=== PATIENT | female | born 1970 | race Caucasian/White ===

== ENCOUNTER 2017-05-29 20:36 | Emergency (ER) | payer MEDICARE, MEDICAID ==
[2017-05-29] MEDS ORDERED: NS 0.9% 1000 ML* 1,000 ML IV ONE ×2 (22:31→23:34)
[2017-05-29] MEDS ORDERED: LORazepam INJ* 2 MG/ML 1 ML VIAL ONE (22:47)
[2017-05-29] MEDS ORDERED: LORazepam INJ* 2 MG/ML 1 ML VIAL IV PUSH ONE (22:47)
[2017-05-29] MEDS ORDERED: levETIRAcetam IV* 1,000 MG in NS 0.9% 100 ML* 100 ML IVPB SCH (23:00)
[2017-05-29 23:16] LABS: Hematocrit 40 % (35-47); Hemoglobin 12.8 g/dl (12.0-16.0); Mean Corpuscular HGB Conc 32 g/dl (31-36); Mean Corpuscular Hemoglobin 27 pg (27-31); Mean Corpuscular Volume 82 fL (80-97); Mean Platelet Volume 9 um3 (7.4-10.4); Red Blood Count 4.83 10^6/ul (4.0-5.4); Red Cell Distribution Width 16 % (10.5-15); White Blood Count 16.2 10^3/ul (3.5-10.8)
[2017-05-29 23:31] LABS: Albumin 3.8 g/dL (3.2-5.2); BUN/Creatinine Ratio 30.2 (8-20); Calcium 9.1 mg/dL (8.6-10.3); EGFR African American 71.2 (>60); EGFR Non-African American 55.3 (>60); Globulin 3.2 g/dL (2-4); Magnesium 2.3 mg/dL (1.9-2.7); Potassium 3.8 mmol/L (3.5-5.0); Total Bilirubin 0.2 mg/dL (0.2-1.0)
[2017-05-29] MEDS ORDERED: Albuterol/Ipratropium NEB.SOL* Albuterol 2.5 MG/Ipratropium 0.5 MG 3 ML INH ONE (23:46)
[2017-05-30 01:50] LABS: Urine Bacteria 1+ (Absent); Urine Bilirubin Negative (Negative); Urine Glucose Negative (Negative); Urine Nitrite Positive (Negative)
[2017-05-30] MEDS ORDERED: Levofloxacin 500 MG IVPREMIX(* 500 MG/100 ML BAG IVPB ONE (02:06)
--- NOTE | 2017-05-30 06:44 | ED ---
Bhavik Manzanares Thomas, scribed for Trini Robbins MD on 05/29/17 at 2345 . Neurological HPI - HPI Summary HPI Summary: The pt is a 46 y/o F presenting to the ED per rug shampooer c/o seizure at 19:30 today. The seizure lasted 6 minutes. The patient was shaking her tongue and she had change of color in her skin. The patient had a seizure in the waiting room and one in the room in the ED. At baseline, she does not walk or talk. She does eat. She does have a history of seizures with her last seizure in 1982. - History of Current Complaint Chief Complaint: EDSeizure Stated Complaint: SEIZURE Time Seen by Provider: 05/29/17 22:34 Hx Obtained From: Family/Rib Chopper Hx From Patient Unobtainable Due To: Other - mental status Onset/Duration: Started hours ago, Still Present Onset Severity: Moderate Current Severity: Moderate Neurological Deficit Location: Facial, RUE, LUE Pain Intensity: 0 Pain Scale Used: 0-10 Numeric Number of Episodes: 3 Syncope Context: Witnessed Frequency: Episodes x___ - 3 Aggravating: Nothing Alleviating: Other - Spontaneous - Allergy/Home Medications Allergies/Adverse Reactions: Allergies Allergy/AdvReac Type Severity Reaction Status Date / Time Adhesive Tape Allergy Rash Verified 05/29/17 20:57 Bee Pollen Allergy Rash Verified 05/29/17 20:57 PMH/Surg Hx/FS Hx/Imm Hx Previously Healthy: No Endocrine/Hematology History: Reports: Hx Thyroid Disease - hypothyroidism, Hx Anemia GI History: Reports: Hx Gastroesophageal Reflux Disease Musculoskeletal History: Reports: Hx Osteoporosis, Other Musculoskeletal History - hip dysplasia Neurological History: Reports: Hx Seizures, 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, Cerebral Palsy (Athetoid type) Psychiatric History: Reports: Other Psychiatric Issues/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 - Surgical History Surgery Procedure, Year, and Place: Left hip adductor surgery, Ocasio brent placement Infectious Disease History: No Infectious Disease History: Denies: Traveled Outside the [place] in Last 30 Days - Family History Known Family History: Negative: Respiratory Disease - Social History Lives: Senior Care Alcohol Use: None Substance Use Type: Reports: None Review of Systems Positive: Other - Shaking tongue Neurological: Other - Seizure All Other Systems Reviewed And Are Negative: Yes Physical Exam - Summary Physical Exam Summary: VITAL SIGNS: Reviewed. GENERAL: Patient is a well-developed and nourished female who is lying comfortable in the stretcher. Patient is not in any acute respiratory distress. She has profound mental retardation. During the examination, she began to have jerking and movement of her upper extremities and face. HEAD AND FACE: No signs of trauma. No ecchymosis, hematomas or skull depressions. No sinus tenderness. EYES: PERRLA, EOMI x 2, No injected conjunctiva, no nystagmus. EARS: Hearing grossly intact. Ear canals and tympanic membranes are within normal limits. MOUTH: Oropharynx within normal limits. NECK: Supple, trachea is midline, no adenopathy, no JVD, no carotid bruit, no c- spine tenderness, neck with full ROM. CHEST: Symmetric, no tenderness at palpation LUNGS: Clear to auscultation bilaterally. No wheezing or crackles. CVS: Regular rate and rhythm, S1 and S2 present, no murmurs or gallops appreciated. ABDOMEN: Soft, non-tender. Distended. No rebound no guarding, and no masses palpated. Bowel sounds are normal. EXTREMITIES: Her lower extremities are very atrophied. NEURO: She has profound mental retardation. During the examination, she began to have jerking and movement of her upper extremities and face. SKIN: Dry and warm Triage Information Reviewed: Yes Vital Signs On Initial Exam: Initial Vitals Temp Pulse Resp BP Pulse Ox 98.9 F 120 16 112/66 97 05/29/17 20:45 05/29/17 20:45 05/29/17 20:45 05/29/17 20:45 05/29/17 20:45 Vital Signs Reviewed: Yes Diagnostics - Vital Signs Vital Signs Temp Pulse Resp BP Pulse Ox 05/29/17 22:56 20 05/29/17 22:15 98.0 F 108 16 113/78 92 05/29/17 20:45 98.9 F 120 16 112/66 97 - Laboratory Lab Results: Lab Results 05/29/17 Range/Units 22:55 WBC 16.2 H (3.5-10.8) 10^3/ul RBC 4.83 (4.0-5.4) 10^6/ul Hgb 12.8 (12.0-16.0) g/dl Hct 40 (35-47) % MCV 82 (80-97) fL MCH 27 (27-31) pg MCHC 32 (31-36) g/dl RDW 16 H (10.5-15) % Plt Count 293 (150-450) 10^3/ul MPV 9 (7.4-10.4) um3 Neut % (Auto) 82.6 (38-83) % Lymph % (Auto) 10.7 L (25-47) % [place] % (Auto) 6.1 (1-9) % Eos % (Auto) 0.3 (0-6) % Baso % (Auto) 0.3 (0-2) % Absolute Neuts (auto) 13.4 H (1.5-7.7) 10^3/ul Absolute Lymphs (auto) 1.7 (1.0-4.8) 10^3/ul Absolute Monos (auto) 1.0 H (0-0.8) 10^3/ul Absolute Eos (auto) 0.1 (0-0.6) 10^3/ul Absolute Basos (auto) 0 (0-0.2) 10^3/ul Absolute Nucleated RBC 0.01 10^3/ul Nucleated RBC % 0 Result Diagrams: 05/29/17 22:55 05/29/17 22:55 Lab Statement: Any lab studies that have been ordered have been reviewed, and results considered in the medical decision making process. - Radiology CXR Xray Interpretation: No Acute Changes - No acute process, pending official report. Radiology Interpretation Completed By: ED Physician - CT CT Head CT Interpretation: No Acute Changes - 1. 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 These findings appear developmental/congenital. 2. No definitive evidence of acute intracranical hemorrhage, intracranial mass effect, or depressed calvarial fracture is appreciated. Pending official report. Dr. Robbins reviewed this report. CT Interpretation Completed By: ED Physician - EKG 00:32 Cardiac Rate: Tachycardia EKG Rhythm: Sinus Tachycardia - 104 BPM EKG Interpretation: Nml axis. Nml intervals. No ischemic changes. Course/Dx - Course Assessment/Plan: The patient will be discharged home. She has been instructed to follow up with her neurologist as soon as possible and her primary care physician in three days. I prescribed her Keppra. - Diagnoses Provider Diagnoses: Seizure disorder Discharge - Discharge Plan Condition: Stable Disposition: HOME Prescriptions: Levetiracetam [Keppra 500] 500 mg PO BID #60 tab Levetiracetam [Keppra 500] 500 mg PO BID #2 tab Levetiracetam [Keppra 500] 500 mg PO BID #2 tab Levetiracetam [Keppra 500] 500 mg PO BID #60 tab Patient Education Materials: Recurrent Seizures in Adults (ED) Referrals: Elli Gomez NP [Primary Care Provider] - 3 Days Additional Instructions: Follow up with your neurologist as soon as possible. Follow up with your primary care physician in 3-5 days. Take Keppra as prescribed. Return to the emergency department if any new or worsening symptoms occur. The documentation as recorded by the Bhavik dixon Thomas accurately reflects the service I personally performed and the decisions made by Rosendo mathews Abdul, MD.
[2017-05-30] MEDS ORDERED: levETIRAcetam TAB* 500 MG ONE ×2 (06:58→06:59)
[2017-05-30] MEDS ORDERED: levETIRAcetam TAB* 500 MG PO ONE (07:02)
[2017-05-30 07:11] VITALS: BP 96/68
--- NOTE | 2017-05-30 08:34 | RAD ---
Indication: Seizure. Comparison: No relevant prior exams available on the [facility] PACS for comparison. Technique: Noncontrast CT vertex of skull through foramen magnum. 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 Suggestion of decreased gyration at the frontal lobes. Negative for ventriculomegaly. Negative for sulcal effacement. Patent basal cisterns. Negative for holland matter white matter obscuration, intra or extra-axial hemorrhage, or mass effect. Mild symmetric prominence of the frontal subarachnoid spaces. Unremarkable orbital contents. No calvarial or skull base fracture or focal lesion evident. Asymmetric calvarium with flattening along the RIGHT parieto-occipital aspect. Negative for scalp hematoma. IMPRESSION: 1. No acute intracranial abnormality. 2. Agenesis of the corpus callosum. Suggestion of decreased gyration at the frontal lobes.
[2017-05-30] MEDS ORDERED: levETIRAcetam TAB* 500 MG PO SCH (09:00)
--- NOTE | 2017-05-30 09:09 | RAD ---
Indication: Seizure. Profound MR. Cerebral palsy. Comparison: February 04, 2013 Technique: Upright AP 2238 hours Report: Suboptimal inspiration with mild elevation of the RIGHT hemidiaphragm. Associated crowding of the pulmonary markings and mild subsegmental atelectasis at the mid to lower RIGHT lung zone. Grossly clear pleural spaces. Negative for pneumothorax. The heart, pulmonary vasculature, and mediastinal contours are unremarkable. Spinal fixation rods. No fracture visualized. IMPRESSION: Subsegmental atelectasis. No compelling evidence for aspiration pneumonia or other acute intrathoracic process.
== END 2017-05-30 07:11 | disposition home or self-care (01) ==
LOC: ED 20:36
DX: R56.9 Unspecified convulsions (principal)
CPT/HCPCS: 36415; 70450; 71010; 80053; 81003; 81015; 82550; 83605; 83735; 85025; 85610; 85730; 87077; 87086; 87186; 93005; 94640; 96361; 96374; 99284; A9270-GY; J1956; J2060

== ENCOUNTER 2017-06-02 09:08 | Observation (INO) | payer MEDICARE, MEDICAID ==
[2017-06-02] MEDS ORDERED: NS 0.9% 1000 ML* 2,000 ML IV ONE (09:39)
[2017-06-02] MEDS ORDERED: cefTRIAXone(*) 1 GM in NS 0.9% 50 ML* 50 ML IVPB ONE (09:42)
[2017-06-02] MEDS ORDERED: cefTRIAXone(*) 1 GM ADVAN/BAG ONE (10:06)
[2017-06-02 10:20] LABS: Hematocrit 42 % (35-47); Hemoglobin 13.6 g/dl (12.0-16.0); Mean Corpuscular HGB Conc 32 g/dl (31-36); Mean Corpuscular Hemoglobin 26 pg (27-31); Mean Corpuscular Volume 82 fL (80-97); Mean Platelet Volume 9 um3 (7.4-10.4); Red Blood Count 5.15 10^6/ul (4.0-5.4); Red Cell Distribution Width 16 % (10.5-15); White Blood Count 10.1 10^3/ul (3.5-10.8)
[2017-06-02 10:28] LABS: Urine Bacteria 1+ (Absent); Urine Bilirubin Negative (Negative); Urine Glucose Negative (Negative); Urine Nitrite Negative (Negative)
--- NOTE | 2017-06-02 10:31 | RAD ---
Indication: Confusion, altered mental status. Single frontal view of the chest performed at 1007 hours was reviewed. Comparison is made with previous exam dated May 29, 2017. No mediastinal shift is noted. Heart is of normal size and configuration. Lung zendejas appear clear. IMPRESSION: NO ACTIVE CARDIOPULMONARY DISEASE IS NOTED.
[2017-06-02 10:35] LABS: ALT 22 U/L (7-52); AST 19 U/L (13-39); Albumin 3.7 g/dL (3.2-5.2); Alkaline Phosphatase 95 U/L (34-104); Ammonia 43 mol/L (16-53); Anion Gap 5 mmol/L (2-11); BUN/Creatinine Ratio 21.7 (8-20); Blood Urea Nitrogen 20 mg/dL (6-24); CO2 Carbon Dioxide 31 mmol/L (22-32); Calcium 9.9 mg/dL (8.6-10.3); Chloride 106 mmol/L (101-111); Creatine Kinase 102 U/L (10-223); EGFR African American 83.8 (>60); EGFR Non-African American 65.2 (>60); Globulin 3.4 g/dL (2-4); Glucose 96 mg/dL (70-100); Lipase 53 U/L (11.0-82.0); Magnesium 2.1 mg/dL (1.9-2.7); Potassium 4.2 mmol/L (3.5-5.0); Sodium 142 mmol/L (133-145); Total Protein 7.1 g/dL (6.4-8.9)
[2017-06-02 10:37] LABS: Troponin I 0.01 ng/mL (<0.04)
[2017-06-02 10:40] LABS: B Type Natriuretic Peptide 52 pg/mL
[2017-06-02 10:41] LABS: Acetaminophen < 15 mcg/mL; Alcohol < 10 mg/dL (<10); Salicylate < 2.50 mg/dL (<30)
--- NOTE | 2017-06-02 10:46 | RAD ---
INDICATION: Altered mental status in 46-year-old mentally handicapped patient. COMPARISON: CT brain May 29, 2017 TECHNIQUE: Noncontrast axial source images were acquired from the skull base to the vertex. Images were repeated due to motion artifact but there is significant motion. FINDINGS: This is a nondiagnostic examination due to motion artifact. The scan will have to be repeated if clinically necessary. IMPRESSION: Nondiagnostic examination.
[2017-06-02 10:56] LABS: TSH (Thyroid Stimulating Horm) 6.64 mcIU/mL (0.34-5.60)
--- NOTE | 2017-06-02 12:47 | ED ---
Progress - Progress Note Progress Note: Pt's urine cx reveals >100,000 e. coli. She was seen and dx'd w/ seizure. Keppra rx'd - no anbx per chart. Spoke w/ pt's father (listed as person to notify as primary number leads to automated message w/o option to leave message) . Father, Karlos, reports pt is in ED today and no anbx was sent to pharmacy on 03/2017. Pt is currently being seen by Dr. Rodas who has reviewed these results and administered ceftriaxone to the pt. She is being admitted to hospital service. Course/Dx - Diagnoses Provider Diagnoses: UTI (urinary tract infection)
--- NOTE | 2017-06-02 13:07 | ED ---
Ely Manzanares Edward, scribed for Joseph Rodas MD on 06/02/17 at 0931 . Altered Mental Status - HPI Summary HPI Summary: 46 y/o female BIBA c/o AMS for the past several days. Pt was seen in the ED several days ago s/p seizure, dx UTI but the pt has not started her abx. Today the pt was not responsive. Denies fever. Pt has had difficulty eating and taking medications. Pt usually uses a wheelchair to get around. LEVEL 5 CAVEAT DUE TO AMS - History Of Current Complaint Chief Complaint: EDAltMentalStatus Stated Complaint: AMS Hx Obtained From: Family/Battery Repairer Timing: Constant Character: Responsiveness - Unresponsiveness Aggravating Factor(s): Nothing Alleviating Factor(s): Nothing - Allergies/Home Medications Allergies/Adverse Reactions: Allergies Allergy/AdvReac Type Severity Reaction Status Date / Time Adhesive Tape Allergy Rash Verified 06/02/17 09:24 Bee Pollen Allergy Rash Verified 06/02/17 09:24 Home Medications: Home Medications Acetaminophen SUPP* [Tylenol Supp*] 650 mg MT Q6H PRN 06/02/17 [History Confirmed 06/02/17] Acetaminophen TAB* [Tylenol TAB*] 650 mg PO Q4H PRN 06/02/17 [History Confirmed 06/02/17] Alum & Mag Hydrox-Simethicone [Antacid M 200-200-20 mg/5Ml] 30 ml PO Q4H PRN [History Confirmed 06/02/17] Bacitracin OINTMENT* 1 applic TOPICAL TID PRN 06/02/17 [History Confirmed ] Calcium Citrate-Vitamin D [Calcium Citrate + D3 Max 315-250 mg-Unit] 2 tab PO BID 06/02/17 [History Confirmed 06/02/17] Cetirizine* [ZyrTEC 10 MG TAB*] 10 mg PO DAILY 06/02/17 [History Confirmed 06/02] Chlorhexidine MOUTHWASH 0.12%* [Peridex Mouth Wash 0.12%*] 5 ml SWISH SPIT BID 06/02/17 [History Confirmed 06/02/17] Cholecalciferol TAB* [Vitamin D TAB*] 800 unit PO DAILY 06/02/17 [History Confirmed 06/02/17] Diazepam TAB(*) [Valium TAB(*)] 10 mg PO ONCE PRN 06/02/17 [History Confirmed ] Glycerin ADULT SUPP* 1 supp MT .[id number] PRN 06/02/17 [History Confirmed 06/02] GuaiFENesin DM sugar free* [Robitussin DM sugar free*] 5 ml PO TID PRN 06/02/17 [History Confirmed 06/02/17] Lactase Enzyme (NF) [Lactase Enzyme] 3,000 unit PO QID 06/02/17 [History Confirmed 06/02/17] Levothyroxine TAB* [Synthroid TAB*] 150 mcg PO DAILY 06/02/17 [History Confirmed 06/02/17] Nystatin CREAM* [Nystatin Cream*] 1 applic TOPICAL BID PRN 06/02/17 [History Confirmed 06/02/17] Omeprazole CAP* [Prilosec CAP* 20 MG] 20 mg PO DAILY 06/02/17 [History Confirmed 06/02/17] Polyethylene Glycol 3350* [Miralax*] 17 gm PO BID 06/02/17 [History Confirmed ] Pseudoephedrine TAB* [Sudafed TAB*] 30 mg PO BID PRN 06/02/17 [History Confirmed 06/02/17] Saline NASAL SPRAY 0.65%* [Sodium Chloride 0.65% Nasal [place]*] 1 spray BOTH NARES Q4H PRN 06/02/17 [History Confirmed 06/02/17] Simethicone TAB* [Mylicon TAB*] 160 mg PO ACHS PRN MDD 8 tabs 06/02/17 [History Confirmed 06/02/17] Sodium Phosphate ADULT ENEMA* [Fleet Enema*] 1 enema MT .[id number] PRN [History Confirmed 06/02/17] Triazolam TAB* [Halcion TAB*] 0.25 mg PO ONCE 06/02/17 [History Confirmed ] Zinc Oxide 16% PASTE* [Gabe's Butt paste] 1 applic TOPICAL TID PRN [History Confirmed 06/02/17] diPHENhydraMINE PO* [Benadryl PO 25 MG TAB*] 25 mg PO Q6H PRN 06/02/17 [History Confirmed 06/02/17] PMH/Surg Hx/FS Hx/Imm Hx Previously Healthy: No Endocrine/Hematology History: Reports: Hx Thyroid Disease - hypothyroidism, Hx Anemia GI History: Reports: Hx Gastroesophageal Reflux Disease Musculoskeletal History: Reports: Hx Osteoporosis, Other Musculoskeletal History - hip dysplasia Neurological History: Reports: Hx Seizures, 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, Cerebral Palsy (Athetoid type) Psychiatric History: Reports: Other Psychiatric Issues/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 - Surgical History Surgery Procedure, Year, and Place: Left hip adductor surgery, Ocasio brent placement Infectious Disease History: No Infectious Disease History: Denies: Traveled Outside the [place] in Last 30 Days - Family History Known Family History: Negative: Respiratory Disease - Social History Alcohol Use: None Substance Use Type: Reports: None Smoking Status (MU): Never Smoked Tobacco Review of Systems - ROS Summary Review of Systems Summary: LEVEL 5 CAVEAT DUE TO AMS Neurological: Other - AMS All Other Systems Reviewed And Are Negative: No Physical Exam - Summary Physical Exam Summary: LEVEL 5 CAVEAT DUE TO AMS Triage Information Reviewed: Yes Vital Signs On Initial Exam: Initial Vitals Temp Pulse Resp BP Pulse Ox 98.4 F 101 18 104/69 96 06/02/17 09:18 06/02/17 09:18 06/02/17 09:18 06/02/17 09:18 06/02/17 09:18 Vital Signs Reviewed: Yes Appearance: Positive: Well-Appearing, No Pain Distress Skin: Positive: Warm, Skin Color Reflects Adequate Perfusion, Dry Head/Face: Positive: Normal Head/Face Inspection Eyes: Positive: EOMI, JEANNA ENT: Positive: Normal ENT inspection Dental: Positive: Other - Oral mucosa dry Neck: Positive: Supple, Nontender Respiratory/Lung Sounds: Positive: Clear to Auscultation, Breath Sounds Present Cardiovascular: Positive: Tachycardia Abdomen Description: Positive: Nontender, Soft Bowel Sounds: Positive: Present Musculoskeletal: Positive: Normal, Strength/ROM Intact Neurological: Positive: Sensory/Motor Intact, Alert, Oriented to Person Place, Time, Other - Arouses to voice. Moving all extremities. Psychiatric: Positive: Affect/Mood Appropriate - [place] Coma Scale Best Eye Response: 3 - To Speech Best Motor Response: 5 - Purposeful Movement Best Verbal Response: 1 - None - Pt baseline is nonverbal Coma Scale Total: 10 Diagnostics - Vital Signs Vital Signs Temp Pulse Resp BP Pulse Ox 06/02/17 09:24 97 94 06/02/17 09:18 98.4 F 101 18 104/69 96 - Laboratory Lab Results: Lab Results 06/02/17 06/02/17 06/02/17 Range/Units 10:00 10:00 10:00 WBC 10.1 (3.5-10.8) 10^3/ul RBC 5.15 (4.0-5.4) 10^6/ul Hgb 13.6 (12.0-16.0) g/dl Hct 42 (35-47) % MCV 82 (80-97) fL MCH 26 L (27-31) pg MCHC 32 (31-36) g/dl RDW 16 H (10.5-15) % Plt Count 288 (150-450) 10^3/ul MPV 9 (7.4-10.4) um3 Neut % (Auto) 57.4 (38-83) % Lymph % (Auto) 30.0 (25-47) % [place] % (Auto) 9.2 H (1-9) % Eos % (Auto) 3.0 (0-6) % Baso % (Auto) 0.4 (0-2) % Absolute Neuts (auto) 5.8 (1.5-7.7) 10^3/ul Absolute Lymphs (auto) 3.0 (1.0-4.8) 10^3/ul Absolute Monos (auto) 0.9 H (0-0.8) 10^3/ul Absolute Eos (auto) 0.3 (0-0.6) 10^3/ul Absolute Basos (auto) 0 (0-0.2) 10^3/ul Absolute Nucleated RBC 0 10^3/ul Nucleated RBC % 0 INR (Anticoag Therapy) (0.77-1.02) APTT (26.0-36.3) seconds Sodium 142 (133-145) mmol/L Potassium 4.2 (3.5-5.0) mmol/L Chloride 106 (101-111) mmol/L Carbon Dioxide 31 (22-32) mmol/L Anion Gap 5 (2-11) mmol/L BUN 20 (6-24) mg/dL Creatinine 0.92 (0.51-0.95) mg/dL Est GFR ( Amer) 83.8 (>60) Est GFR (Non-Af Amer) 65.2 (>60) BUN/Creatinine Ratio 21.7 H (8-20) Glucose 96 (70-100) mg/dL Lactic Acid (0.5-2.0) mmol/L Calcium 9.9 (8.6-10.3) mg/dL Magnesium 2.1 (1.9-2.7) mg/dL Total Bilirubin 0.30 (0.2-1.0) mg/dL AST 19 (13-39) U/L ALT 22 (7-52) U/L Alkaline Phosphatase 95 (34-104) U/L Ammonia 43 (16-53) mol/L Total Creatine Kinase 102 (10-223) U/L CK-MB (CK-2) 1.5 (0.6-6.3) ng/mL Troponin I 0.01 (<0.04) ng/mL C-Reactive Protein 3.90 (< 5.00) mg/L B-Natriuretic Peptide 52 ( - 100) pg/mL Total Protein 7.1 (6.4-8.9) g/dL Albumin 3.7 (3.2-5.2) g/dL Globulin 3.4 (2-4) g/dL Albumin/Globulin Ratio 1.1 (1-3) Lipase 53 (11.0-82.0) U/L TSH 6.64 H (0.34-5.60) mcIU/mL Urine Color Urine Appearance Urine pH (5-9) Ur Specific [place] (1.010-1.030) Urine Protein (Negative) Urine Ketones (Negative) Urine Blood (Negative) Urine Nitrate (Negative) Urine Bilirubin (Negative) Urine Urobilinogen (Negative) Ur Leukocyte Esterase (Negative) Urine WBC (Auto) (Absent) Urine RBC (Auto) (Absent) Urine Bacteria (Absent) Urine Glucose (Negative) Salicylates < 2.50 (<30) mg/dL Acetaminophen < 15 mcg/mL Serum Alcohol < 10 (<10) mg/dL 06/02/17 06/02/17 06/02/17 Range/Units 10:00 10:00 10:00 WBC (3.5-10.8) 10^3/ul RBC (4.0-5.4) 10^6/ul Hgb (12.0-16.0) g/dl Hct (35-47) % MCV (80-97) fL MCH (27-31) pg MCHC (31-36) g/dl RDW (10.5-15) % Plt Count (150-450) 10^3/ul MPV (7.4-10.4) um3 Neut % (Auto) (38-83) % Lymph % (Auto) (25-47) % [place] % (Auto) (1-9) % Eos % (Auto) (0-6) % Baso % (Auto) (0-2) % Absolute Neuts (auto) (1.5-7.7) 10^3/ul Absolute Lymphs (auto) (1.0-4.8) 10^3/ul Absolute Monos (auto) (0-0.8) 10^3/ul Absolute Eos (auto) (0-0.6) 10^3/ul Absolute Basos (auto) (0-0.2) 10^3/ul Absolute Nucleated RBC 10^3/ul Nucleated RBC % INR (Anticoag Therapy) 0.98 (0.77-1.02) APTT 31.7 (26.0-36.3) seconds Sodium (133-145) mmol/L Potassium (3.5-5.0) mmol/L Chloride (101-111) mmol/L Carbon Dioxide (22-32) mmol/L Anion Gap (2-11) mmol/L BUN (6-24) mg/dL Creatinine (0.51-0.95) mg/dL Est GFR ( Amer) (>60) Est GFR (Non-Af Amer) (>60) BUN/Creatinine Ratio (8-20) Glucose (70-100) mg/dL Lactic Acid 1.4 (0.5-2.0) mmol/L Calcium (8.6-10.3) mg/dL Magnesium (1.9-2.7) mg/dL Total Bilirubin (0.2-1.0) mg/dL AST (13-39) U/L ALT (7-52) U/L Alkaline Phosphatase (34-104) U/L Ammonia (16-53) mol/L Total Creatine Kinase (10-223) U/L CK-MB (CK-2) (0.6-6.3) ng/mL Troponin I (<0.04) ng/mL C-Reactive Protein (< 5.00) mg/L B-Natriuretic Peptide ( - 100) pg/mL Total Protein (6.4-8.9) g/dL Albumin (3.2-5.2) g/dL Globulin (2-4) g/dL Albumin/Globulin Ratio (1-3) Lipase (11.0-82.0) U/L TSH (0.34-5.60) mcIU/mL Urine Color Yellow Urine Appearance Cloudy Urine pH 7.0 (5-9) Ur Specific [place] 1.013 (1.010-1.030) Urine Protein Negative (Negative) Urine Ketones Negative (Negative) Urine Blood 2+ H (Negative) Urine Nitrate Negative (Negative) Urine Bilirubin Negative (Negative) Urine Urobilinogen Negative (Negative) Ur Leukocyte Esterase 3+ H (Negative) Urine WBC (Auto) 3+(>20/hpf) H (Absent) Urine RBC (Auto) 3+(>10/hpf) H (Absent) Urine Bacteria 1+ H (Absent) Urine Glucose Negative (Negative) Salicylates (<30) mg/dL Acetaminophen mcg/mL Serum Alcohol (<10) mg/dL Result Diagrams: 06/02/17 10:00 06/02/17 10:00 Lab Statement: Any lab studies that have been ordered have been reviewed, and results considered in the medical decision making process. - Radiology CXR Xray Interpretation: No Acute Changes - NO ACTIVE CARDIOPULMONARY DISEASE IS NOTED. Radiology Interpretation Completed By: Radiologist - ED PHYSICIAN REVIEWS AND AGREES - CT BRAIN CT CT Interpretation: No Acute Changes - Nondiagnostic examination. CT Interpretation Completed By: Radiologist - ED PHYSICIAN REVIEWS AND AGREES - EKG 1 EKG Interpretation: 10:08 - SR @ [address] No ectopy. Re-Evaluation - Re-Evaluation 1 Re-Evaluation Time: 11:30 Change: Improved - Slightly more alert Comment: Reassess pt, discuss test results Altered Mental Statu Course/Dx - Course Course Of Treatment: ADMIT HOSPITALIST. CRITICAL CARE TIME LESS THAN 30 MINUTES - Diagnoses Discharge Diagnoses: UTI (urinary tract infection), Altered mental state, Seizure - Provider Notifications Discussed Care Of Patient With: Clifford Moore Time Discussed With Above Provider: 11:50 Instructed by Provider To: Admit As Inpatient Discharge - Discharge Plan Condition: Stable Disposition: ADMITTED TO [facility] Referrals: Elli Gomez, [place] ATTENDANT [Primary Care Provider] - The documentation as recorded by the Ely dixon Edward accurately reflects the service I personally performed and the decisions made by me, Joseph Rodas MD.
[2017-06-02] MEDS ORDERED: diPHENhydraMINE PO* 25 MG PO PRN (13:35)
[2017-06-02] MEDS ORDERED: Al Hydrox/Mg Hydrox/Simet LIQ* 30 ML UDC PO PRN (13:35)
[2017-06-02] MEDS ORDERED: Saline NASAL SPRAY 0.65%* BTL BOTH NARES PRN (13:35)
[2017-06-02] MEDS ORDERED: Acetaminophen TAB* 325 MG PO PRN (13:35)
[2017-06-02] MEDS ORDERED: Diazepam TAB(*) 5 MG PO PRN (13:35)
--- NOTE | 2017-06-02 13:48 | ADMNOTE ---
Subjective Date of Service: 06/02/17 Interval History: ADMISSION HISTORY AND PHYSICAL EXAM: Allergies Allergy/AdvReac Type Severity Reaction Status Date / Time Adhesive Tape Allergy Rash Verified 06/02/17 09:24 Bee Pollen Allergy Rash Verified 06/02/17 09:24 Current Medications Home Medications Medication Instructions Recorded Confirmed Type Acetaminophen SUPP* [Tylenol Supp*] 650 mg ME Q6H PRN 06/02/17 06/02/17 History Acetaminophen TAB* [Tylenol TAB*] 650 mg PO Q4H PRN 06/02/17 06/02/17 History Alum & Mag Hydrox-Simethicone 30 ml PO Q4H PRN 06/02/17 06/02/17 History [Antacid M 200-200-20 mg/5Ml] Bacitracin OINTMENT* 1 applic TOPICAL TID PRN 06/02/17 06/02/17 History Calcium Citrate-Vitamin D [Calcium 2 tab PO BID 06/02/17 06/02/17 History Citrate + D3 Max 315-250 mg-Unit] Cetirizine* [ZyrTEC 10 MG TAB*] 10 mg PO DAILY 06/02/17 06/02/17 History Chlorhexidine MOUTHWASH 0.12%* 5 ml SWISH SPIT BID 06/02/17 06/02/17 History [Peridex Mouth Wash 0.12%*] Cholecalciferol TAB* [Vitamin D 800 unit PO DAILY 06/02/17 06/02/17 History TAB*] Diazepam TAB(*) [Valium TAB(*)] 10 mg PO ONCE PRN 06/02/17 06/02/17 History Glycerin ADULT SUPP* 1 supp ME .[id number] PRN 06/02/17 06/02/17 History GuaiFENesin DM sugar free* 5 ml PO TID PRN 06/02/17 06/02/17 History [Robitussin DM sugar free*] Lactase Enzyme (NF) [Lactase 3,000 unit PO QID 06/02/17 06/02/17 History Enzyme] Levothyroxine TAB* [Synthroid TAB*] 150 mcg PO DAILY 06/02/17 06/02/17 History Nystatin CREAM* [Nystatin Cream*] 1 applic TOPICAL BID PRN 06/02/17 06/02/17 History Omeprazole CAP* [Prilosec CAP* 20 20 mg PO DAILY 06/02/17 06/02/17 History MG] Polyethylene Glycol 3350* 17 gm PO BID 06/02/17 06/02/17 History [Miralax*] Pseudoephedrine TAB* [Sudafed TAB*] 30 mg PO BID PRN 06/02/17 06/02/17 History Saline NASAL SPRAY 0.65%* [Sodium 1 spray BOTH NARES Q4H PRN 06/02/17 06/02/17 History Chloride 0.65% Nasal [place]*] Simethicone TAB* [Mylicon TAB*] 160 mg PO ACHS PRN MDD 8 tabs 06/02/17 06/02/17 History Sodium Phosphate ADULT ENEMA* 1 enema ME .[id number] PRN 06/02/17 06/02/17 History [Fleet Enema*] Triazolam TAB* [Halcion TAB*] 0.25 mg PO ONCE 06/02/17 06/02/17 History Zinc Oxide 16% PASTE* 1 applic TOPICAL TID PRN 06/02/17 06/02/17 History [Gabe's Butt paste] diPHENhydraMINE PO* [Benadryl PO 25 mg PO Q6H PRN 06/02/17 06/02/17 History 25 MG TAB*] HPI: The patient was seen in the ED 05/29/17 for a seizure and started on levetiracetam 500 mg bid. She took it through last night. This AM she was not acting her usual self, kept her eyes closed and refused food or medications. She is non-verbal. Family History: Findings - unknown. Social History: Findings - Resident of [facility]. No alcohol or tobacco use. SDM is her mother. Past Medical History: Findings - Seizure also in 1982. Occ UTI's. Review of Systems - Review of Systems General Comments: Pt non-verbal. Two aides present and gave ROS as best they knew. Constitutional Symptoms: Negative: Weight Gain, Weight Loss, Weakness, Fatigue, Fever, Night Sweats, Unexplained Falls, Other Dermatology: Positive: Normal HEENT: Positive: Normal Eyes: Positive: Normal Thyroid: Positive: Primary Hypothyroidism Pulmonary: Positive: Normal Cardiology: Positive: Normal Gastroenterology: Positive: Normal Genital - Urinary: Positive: Normal Musculoskeletal: Negative: Joint Pain, Joint Stiffness, Arthritis, Osteoporosis, Low Back Pain , Sciatica, Joint Deformities, Kyphoscoliosis, Other Endocrinology: Positive: Thyroid Problems Hematologic/Lymphatic: Negative: Anemia, Easy Brusing, Hx Leukemia, Hx Lymphoma, Use of Anticoagulant, Use of Antiplatelet Drugs, Other Neurology: Positive: Hx of Seizures, Other - MR Psychiatry: Positive: Normal Allergic/Immunologic: Positive: Hx Seasonal Objective Active Medications: Acetaminophen (Tylenol Tab*) 650 mg PO Q4H PRN PRN Reason: FEVER/PAIN Al Hydrox/Mg Hydrox/Simethicone (Maalox Plus*) 30 ml PO Q4H PRN PRN Reason: INDIGESTION Cefuroxime Axetil () 500 mg PO BID GRETA Chlorhexidine Gluconate (Peridex Mouth Wash 0.12%*) 5 ml SWISH SPIT BID GRETA Cholecalciferol (Vitamin D Tab*) 800 unit PO DAILY GRETA Diazepam (Valium Tab(*)) 10 mg PO ONCE PRN PRN Reason: PER PROTOCOL Diphenhydramine HCl (Benadryl Po*) 25 mg PO Q6H PRN PRN Reason: ITCHING Levetiracetam (Keppra Tab*) 250 mg PO BID GRETA Levothyroxine Sodium (Synthroid Tab*) 150 mcg PO DAILY GRETA Omeprazole (Prilosec Cap*) 20 mg PO DAILY GRETA Polyethylene Glycol/Electrolytes (Miralax*) 17 gm PO BID GRETA Sodium Chloride (Sodium Chloride 0.65% Nasal [place]*) 1 spray BOTH NARES Q4H PRN PRN Reason: CONGESTION Vital Signs - 8 hr 06/02/17 06/02/17 06/02/17 12:04 12:30 13:00 Pulse Rate 114 99 105 Respiratory Rate Blood Pressure 138/92 145/124 (mmHg) O2 Sat by Pulse 97 95 94 Oximetry 06/02/17 13:01 Pulse Rate 106 Respiratory 18 Rate Blood Pressure 138/92 (mmHg) O2 Sat by Pulse 95 Oximetry Oxygen Devices in Use Now: None Appearance: Alert, supine on ED stretcher. Eyes open, frequent mouth and tongue movements. Looks comfortable. Eyes: No Scleral Icterus Neck: NL Appearance and Movements; NL JVP, No Thyroid Enlargement, Masses Respiratory: Symmetrical Chest Expansion and Respiratory Effort, Clear to Auscultation, Clear to Percussion Cardiovascular: NL Sounds; No Murmurs; No JVD, RRR, No Edema, - Abdominal: NL Sounds; No Tenderness; No Distention, No Hepatosplenomegaly, - Extremities: No Edema, No Clubbing, Cyanosis, - Skin: No Rash or Ulcers, No Nodules or Sclerosis, - Neurological: NL Sensation, - - Eyes open, frequent mouth and tongue movements. No signs of verbal comprehension. No tremor. Result Diagrams: 06/02/17 10:00 06/02/17 10:00 Additional Lab and Data: Lab Results 06/02/17 06/02/17 06/02/17 Range/Units 10:00 10:00 10:00 WBC 10.1 (3.5-10.8) 10^3/ul RBC 5.15 (4.0-5.4) 10^6/ul Hgb 13.6 (12.0-16.0) g/dl Hct 42 (35-47) % MCV 82 (80-97) fL MCH 26 L (27-31) pg MCHC 32 (31-36) g/dl RDW 16 H (10.5-15) % Plt Count 288 (150-450) 10^3/ul MPV 9 (7.4-10.4) um3 Neut % (Auto) 57.4 (38-83) % Lymph % (Auto) 30.0 (25-47) % Republic % (Auto) 9.2 H (1-9) % Eos % (Auto) 3.0 (0-6) % Baso % (Auto) 0.4 (0-2) % Absolute Neuts (auto) 5.8 (1.5-7.7) 10^3/ul Absolute Lymphs (auto) 3.0 (1.0-4.8) 10^3/ul Absolute Monos (auto) 0.9 H (0-0.8) 10^3/ul Absolute Eos (auto) 0.3 (0-0.6) 10^3/ul Absolute Basos (auto) 0 (0-0.2) 10^3/ul Absolute Nucleated RBC 0 10^3/ul Nucleated RBC % 0 INR (Anticoag Therapy) (0.77-1.02) APTT (26.0-36.3) seconds Sodium 142 (133-145) mmol/L Potassium 4.2 (3.5-5.0) mmol/L Chloride 106 (101-111) mmol/L Carbon Dioxide 31 (22-32) mmol/L Anion Gap 5 (2-11) mmol/L BUN 20 (6-24) mg/dL Creatinine 0.92 (0.51-0.95) mg/dL Est GFR ( Amer) 83.8 (>60) Est GFR (Non-Af Amer) 65.2 (>60) BUN/Creatinine Ratio 21.7 H (8-20) Glucose 96 (70-100) mg/dL Lactic Acid (0.5-2.0) mmol/L Calcium 9.9 (8.6-10.3) mg/dL Magnesium 2.1 (1.9-2.7) mg/dL Total Bilirubin 0.30 (0.2-1.0) mg/dL AST 19 (13-39) U/L ALT 22 (7-52) U/L Alkaline Phosphatase 95 (34-104) U/L Ammonia 43 (16-53) mol/L Total Creatine Kinase 102 (10-223) U/L CK-MB (CK-2) 1.5 (0.6-6.3) ng/mL Troponin I 0.01 (<0.04) ng/mL C-Reactive Protein 3.90 (< 5.00) mg/L B-Natriuretic Peptide 52 ( - 100) pg/mL Total Protein 7.1 (6.4-8.9) g/dL Albumin 3.7 (3.2-5.2) g/dL Globulin 3.4 (2-4) g/dL Albumin/Globulin Ratio 1.1 (1-3) Lipase 53 (11.0-82.0) U/L TSH 6.64 H (0.34-5.60) mcIU/mL Urine Color Urine Appearance Urine pH (5-9) Ur Specific [place] (1.010-1.030) Urine Protein (Negative) Urine Ketones (Negative) Urine Blood (Negative) Urine Nitrate (Negative) Urine Bilirubin (Negative) Urine Urobilinogen (Negative) Ur Leukocyte Esterase (Negative) Urine WBC (Auto) (Absent) Urine RBC (Auto) (Absent) Urine Bacteria (Absent) Urine Glucose (Negative) Salicylates < 2.50 (<30) mg/dL Acetaminophen < 15 mcg/mL Serum Alcohol < 10 (<10) mg/dL 06/02/17 06/02/17 06/02/17 Range/Units 10:00 10:00 10:00 WBC (3.5-10.8) 10^3/ul RBC (4.0-5.4) 10^6/ul Hgb (12.0-16.0) g/dl Hct (35-47) % MCV (80-97) fL MCH (27-31) pg MCHC (31-36) g/dl RDW (10.5-15) % Plt Count (150-450) 10^3/ul MPV (7.4-10.4) um3 Neut % (Auto) (38-83) % Lymph % (Auto) (25-47) % Republic % (Auto) (1-9) % Eos % (Auto) (0-6) % Baso % (Auto) (0-2) % Absolute Neuts (auto) (1.5-7.7) 10^3/ul Absolute Lymphs (auto) (1.0-4.8) 10^3/ul Absolute Monos (auto) (0-0.8) 10^3/ul Absolute Eos (auto) (0-0.6) 10^3/ul Absolute Basos (auto) (0-0.2) 10^3/ul Absolute Nucleated RBC 10^3/ul Nucleated RBC % INR (Anticoag Therapy) 0.98 (0.77-1.02) APTT 31.7 (26.0-36.3) seconds Sodium (133-145) mmol/L Potassium (3.5-5.0) mmol/L Chloride (101-111) mmol/L Carbon Dioxide (22-32) mmol/L Anion Gap (2-11) mmol/L BUN (6-24) mg/dL Creatinine (0.51-0.95) mg/dL Est GFR ( Amer) (>60) Est GFR (Non-Af Amer) (>60) BUN/Creatinine Ratio (8-20) Glucose (70-100) mg/dL Lactic Acid 1.4 (0.5-2.0) mmol/L Calcium (8.6-10.3) mg/dL Magnesium (1.9-2.7) mg/dL Total Bilirubin (0.2-1.0) mg/dL AST (13-39) U/L ALT (7-52) U/L Alkaline Phosphatase (34-104) U/L Ammonia (16-53) mol/L Total Creatine Kinase (10-223) U/L CK-MB (CK-2) (0.6-6.3) ng/mL Troponin I (<0.04) ng/mL C-Reactive Protein (< 5.00) mg/L B-Natriuretic Peptide ( - 100) pg/mL Total Protein (6.4-8.9) g/dL Albumin (3.2-5.2) g/dL Globulin (2-4) g/dL Albumin/Globulin Ratio (1-3) Lipase (11.0-82.0) U/L TSH (0.34-5.60) mcIU/mL Urine Color Yellow Urine Appearance Cloudy Urine pH 7.0 (5-9) Ur Specific [place] 1.013 (1.010-1.030) Urine Protein Negative (Negative) Urine Ketones Negative (Negative) Urine Blood 2+ H (Negative) Urine Nitrate Negative (Negative) Urine Bilirubin Negative (Negative) Urine Urobilinogen Negative (Negative) Ur Leukocyte Esterase 3+ H (Negative) Urine WBC (Auto) 3+(>20/hpf) H (Absent) Urine RBC (Auto) 3+(>10/hpf) H (Absent) Urine Bacteria 1+ H (Absent) Urine Glucose Negative (Negative) Salicylates (<30) mg/dL Acetaminophen mcg/mL Serum Alcohol (<10) mg/dL Microbiology and Other Data: Microbiology 06/02/17 12:10 Nasal Screen MRSA (PCR)([facility]) - Final Nasal Mrsa Negative Assess/Plan/Problems-Billing Assessment: - Patient Problems (1) Altered mental state Current Visit: Yes Status: Acute Code(s): R41.82 - ALTERED MENTAL STATUS, UNSPECIFIED SNOMED Code(s): 251133593 Comment: Two aides say she is now at her baseline. ? due to UTI and/or drug effect. Both possible causes to be addressed. (2) Seizure Current Visit: Yes Status: Acute Code(s): R56.9 - UNSPECIFIED CONVULSIONS SNOMED Code(s): 22189313 Comment: Reduce levetiracetam to 250 mg bid. (3) UTI (urinary tract infection) Current Visit: Yes Status: Acute Comment: She received 1 dose ceftri 1 gm in ED, start cefuroxime 500 mg bid AM 12. (4) Mental retardation Current Visit: Yes Status: Acute Code(s): F79 - UNSPECIFIED INTELLECTUAL DISABILITIES SNOMED Code(s): 81652172 Comment: Profound.
[2017-06-02] MEDS ORDERED: levETIRAcetam TAB* 500 MG PO SCH (14:00)
[2017-06-02] MEDS ORDERED: Levothyroxine INJ* 100 MCG/5 ML VIAL IV ONE (15:00)
[2017-06-02] MEDS ORDERED: Levothyroxine TAB* 150 MCG TAB PO SCH (15:00)
[2017-06-02] MEDS: Omeprazole CAP* 20 MG PO SCH (15:30)
[2017-06-02] MEDS: D5W 1/2 NS KCl 20 Meq 1000 ML* 1,000 ML IV SCH (19:29)
[2017-06-02] MEDS ORDERED: levETIRAcetam 500 MG IVPREMIX* 500 MG/100 ML BAG IV SCH (21:00)
[2017-06-02] MEDS: Chlorhexidine MOUTHWASH 0.12%* 15 ML UDC SWISH SPIT SCH (21:20)
[2017-06-02] MEDS: Polyethylene Glycol 3350* 17 GM PACKET PO SCH ×2 (21:21→23:16)
[2017-06-03] MEDS ORDERED: Levothyroxine INJ* 100 MCG/5 ML VIAL IV SCH (06:00)
[2017-06-03] MEDS ORDERED: cefTRIAXone(*) 1 GM in D5W 50 ML BAG* 50 ML IVPB SCH (09:00)
[2017-06-03] MEDS ORDERED: Cholecalciferol TAB* 400 UNIT PO SCH (09:00)
[2017-06-03] MEDS ORDERED: ceFUROXime TAB(*) 250 MG PO SCH (09:00)
[2017-06-03] MEDS: D5W 1/2 NS KCl 20 Meq 1000 ML* 1,000 ML IV SCH (09:40)
[2017-06-03] MEDS: Omeprazole CAP* 20 MG PO SCH (09:43)
[2017-06-03] MEDS: Chlorhexidine MOUTHWASH 0.12%* 15 ML UDC SWISH SPIT SCH (09:43)
[2017-06-03] MEDS: Polyethylene Glycol 3350* 17 GM PACKET PO SCH (09:44)
--- NOTE | 2017-06-03 10:30 | EEG ---
ELECTROENCEPHALOGRAPHY: DATE OF STUDY: 06/02/17 LOCATION: The patient is in the ER at the time of the recording. ORDERING PHYSICIAN: Dr. Moore. HISTORY: This is a 46-year-old woman who comes in from the [facility] with altered mental status. She reportedly had a seizure on Wednesday and has been lethargic and unresponsive since the seizure which occurred on 05/30/17. She has not had a seizure in about 30 years. EEG is requested to evaluate for epileptiform abnormalities. MEDICATIONS: Unknown. DESCRIPTION OF PROCEDURE: At the beginning of the recording, the background lacked the organization expected of the typical waking and sleep backgrounds. There were no evident anterior to posterior voltage nor frequency gradients and no clear posterior dominant rhythm. There was an evident interhemispheric asymmetry, which persisted throughout the study. Over the left, hemisphere, activity was low voltage and relatively indistinct. In contrast, the right hemisphere contained a greater degree of moderate voltage slowing, which was in the range of 2 to 6 Hz. As the recording progressed and the patient relaxed, intermittently over the left hemisphere, there was some evidence anterior to posterior voltage and frequency gradients which emerged. There was a slow posterior rhythm observed of approximately 5 Hz. During this time, there was a greater degree of slowing present over the right hemisphere, which was particularly evident in the right temporal region, where prominent delta range frequencies were noted. There were no epileptiform discharges noted. IMPRESSION: This is an abnormal waking and drowsy EEG. There is an interhemispheric asymmetry with a relatively indistinct background activity over the left hemisphere while the right hemisphere is characterized by a greater degree of slowing. There is generally a lack of the typical expected organization, but intermittently over the left hemisphere, there is a posterior rhythm of approximately 5 Hz which emerges. These findings are suggestive of a moderate, nonspecific, diffuse encephalopathy, which affects the right hemisphere and in particular the right temporal regions to a greater degree. There are no epileptiform abnormalities noted within this study. [id number]/[facility] #: [id number] [facility]AMPUSMigel
[2017-06-03 13:23] VITALS: BP 151/89
--- NOTE | 2017-06-03 23:10 | DS ---
CC: Elli Gomez NP * DISCHARGE SUMMARY: DATE OF ADMISSION: DATE OF DISCHARGE: 06/03/17 HOSPITAL COURSE: This 46-year-old woman presented for altered mental status. She had been seen in the emergency room, I believe, 05/29/17, after having a seizure with a history of last seizure being 1982. She was started on levetiracetam 500 mg b.i.d. A urine culture was sent, the report came back 04/06, it was positive for E. coli; however, due to some error it was not followed up and she was not treated for this. The E. coli was sensitive to ceftriaxone. The patient was treated here with intravenous fluids, ceftriaxone. I was concerned that possibly the levetiracetam had made her more altered as a side effect. The dose was currently halved to 500 mg once a day intravenously. It will be 250 mg b.i.d. as an outpatient. She will take 3 more days of cefuroxime 500 mg b.i.d. in liquid form. The levetiracetam was also ordered in liquid form. DISCHARGE DIAGNOSES: 1. Altered mental status, resolved. 2. History of seizures. 3. Urinary tract infection. 4. Profound mental retardation. DISCHARGE MEDICATIONS: 1. Levetiracetam liquid 250 mg b.i.d. 2. Cefuroxime suspension 500 mg b.i.d. for 3 days. 3. Zinc oxide 16% topical t.i.d. p.r.n. 4. Glycerin adult suppository rectally every 3 days p.r.n. 5. Sodium phosphate enema every 4 days p.r.n. 6. Nystatin cream b.i.d. p.r.n. 7. Diazepam 10 mg p.o. p.r.n. 8. Bacitracin ointment t.i.d. p.r.n. 9. Diphenhydramine 25 mg every 6 hours p.r.n. 10. Guaifenesin DM sugar free 5 mL t.i.d. p.r.n. 11. Antacid M 200-200-20, 30 mL every 4 hours p.r.n. 12. Simethicone 160 mg a.c. and h.s. p.r.n. 13. Pseudoephedrine 30 mg b.i.d. p.r.n. 14. Triazolam 0.25 mg daily. 15. Acetaminophen suppository 650 mg every 6 hours p.r.n. 16. Saline nasal spray 1 spray both nares every 4 hours p.r.n. 17. Omeprazole 20 mg daily. 18. Acetaminophen 650 mg every 4 hours p.r.n. 19. Lactase 3000 units four times a day. 20. Calcium with vitamin D 2 tabs b.i.d. 21. Chlorhexidine mouthwash 5 mL swish and spit b.i.d. 22. Polyethylene glycol 17 g b.i.d. 23. Cholecalciferol 800 units daily. 24. Levothyroxine 150 mcg daily. 25. Cetirizine 10 mg daily. [id number]/[facility] #: [id number] MTDD
== END 2017-06-03 14:40 | disposition home or self-care (01) ==
LOC: ED 09:08 → MEDTELE 12:01
PROVIDERS: ADMIT Internal Medicine; ATTEND Internal Medicine
DX: R41.82 Altered mental status, unspecified (principal); Z86.69 Personal history of other diseases of the nervous system and sense organs; N39.0 Urinary tract infection, site not specified; G93.40 Encephalopathy, unspecified; F73 Profound intellectual disabilities; Z79.899 Other long term (current) drug therapy; E03.9 Hypothyroidism, unspecified; D64.9 Anemia, unspecified; K21.9 Gastro-esophageal reflux disease without esophagitis; R56.9 Unspecified convulsions
CPT/HCPCS: 36415; 70450; 71010; 80053; 80177; 80320; 80329; 81003; 81015; 82140; 82550; 82553; 83605; 83690; 83735; 83880; 84443; 84484; 85025; 85610; 85730; 86140; 87040; 87077; 87086; 87186; 87641; 93005; 95819; 96374; 96375; 99284; A9270-GY; G0378; G0480; G8996-GN-CL; G8997-GN-CL; G8998-GN-CL; J0696

== ENCOUNTER 2018-08-24 22:12 | Emergency (ER) | payer MEDICARE, MEDICAID ==
[2018-08-24] MEDS ORDERED: Acetaminophen SUPP* 650 MG SUPP PR ONE (23:07)
[2018-08-24] MEDS ORDERED: NS 0.9% 1000 ML** 2,000 ML IV ONE (23:07)
[2018-08-24] MEDS ORDERED: Piperacillin/Tazobac ADVAN(*) 3.375 GM in NS 0.9% 100 ML* 100 ML IVPB ONE (23:12)
--- NOTE | 2018-08-24 23:14 | ED ---
GI/ HPI - HPI Summary HPI Summary: This patient is a 47 year old F brought in by ambulance to [facility] accompanied by her friend with a chief complaint of abdominal pain distension since this evening. Symptoms aggravated by nothing. Symptoms alleviated by nothing. Per patients home nurse, the patient has been lethargic and developed a fever since this morning. She was swabbed for the flu at her [place] [facility] [place] and her nurse reports that it was negative. The patients friend denies that the patient has had any emesis. Per the patients nurse, her last bowel movement was at 00:00 last night. Patient has hx of lactose intolerane and cerebral palsy. The patient resides at a [place] facility and is nonverbal and unable to ambulate at her usual baseline. - History of Current Complaint Chief Complaint: EDGeneral Time Seen by Provider: 08/24/18 22:32 Stated Complaint: ABD PROBLEMS PER EMS Hx Obtained From: Family/Oral And Maxillofacial Pathologist Onset/Duration: Started Hours Ago, Atraumatic, Still Present Timing: Constant Severity: Mild Current Severity: None Pain Intensity: 0 Location of Pain: Diffuse Associated Signs and Symptoms: Positive: Fever, Abdominal Pain, Other: - abd distension, lethargy. Negative: Vomiting Aggravating Factor(s): Nothing Alleviating Factor(s): Nothing - Additional Pertinent History Primary Care Physician: [id number] - Allergy/Home Medications Allergies/Adverse Reactions: Allergies Allergy/AdvReac Type Severity Reaction Status Date / Time Adhesive Tape Allergy Rash Verified 06/02/17 09:24 MS Bee Pollen [Bee Pollen] Allergy Rash Verified 06/02/17 09:24 PMH/Surg Hx/FS Hx/Imm Hx Endocrine/Hematology History: Reports: Hx Thyroid Disease, Hx Anemia GI History: Reports: Hx Gastroesophageal Reflux Disease Musculoskeletal History: Reports: Other Musculoskeletal History - hip dysplasia Denies: Hx Arthritis, Hx Osteoporosis Sensory History: Denies: Hx Contacts or Glasses, Hx Hearing Aid Opthamlomology History: Denies: Hx Contacts or Glasses Neurological History: Reports: Hx Seizures, 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, Cerebral Palsy (Athetoid type) Psychiatric History: Reports: Other Psychiatric Issues/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 - Surgical History Surgery Procedure, Year, and Place: Left hip adductor surgery, Ocasio brent placement Infectious Disease History: Unable to Obtain/Confirm Infectious Disease History: Denies: Traveled Outside the [place] in Last 30 Days - Family History Known Family History: Negative: Respiratory Disease - Social History Lives: [facility] Alcohol Use: None Substance Use Type: Reports: None Smoking Status (MU): Never Smoked Tobacco Review of Systems Positive: Fever, Other - lethargy Negative: Epistaxis Negative: Cough Positive: Abdominal Pain, Other - abd distension. Negative: Vomiting Negative: Rash All Other Systems Reviewed And Are Negative: Yes Physical Exam - Summary Physical Exam Summary: VITAL SIGNS: Reviewed. GENERAL: Patient is a FEMALE who is lying comfortable in the stretcher. Weight is small for her age. Patient is not in any acute respiratory distress. HEAD AND FACE: No signs of trauma. No ecchymosis, hematomas or skull depressions. No sinus tenderness. EYES: PERRLA, EOMI x 2, No injected conjunctiva, no nystagmus. EARS: Hearing grossly intact. Ear canals and tympanic membranes are within normal limits. MOUTH: Oropharynx within normal limits. NECK: Supple, trachea is midline, no adenopathy, no JVD, no carotid bruit, no c- spine tenderness, neck with full ROM. CHEST: Symmetric, no tenderness at palpation LUNGS: Clear to auscultation bilaterally. No wheezing or crackles. CVS: Regular rhythm, Tachycardia, S1 and S2 present, no murmurs or gallops appreciated. ABDOMEN: Soft, non-tender. No signs of distention. No rebound no guarding, and no masses palpated. Bowel sounds are hypoactive. EXTREMITIES: FROM in all major joints, no edema, no cyanosis or clubbing. NEURO: Alert and oriented x 3. No acute neurological deficits. Patient is nonverbal. SKIN: Dry and warm Triage Information Reviewed: Yes Vital Signs On Initial Exam: Initial Vitals Temp Pulse Resp BP Pulse Ox 99.2 F 128 18 103/71 96 08/24/18 22:16 08/24/18 22:16 08/24/18 22:16 08/24/18 22:16 08/24/18 22:16 Vital Signs Reviewed: Yes Diagnostics - Vital Signs Vital Signs Temp Pulse Resp BP Pulse Ox 08/24/18 22:27 118 103/71 74 08/24/18 22:25 139 94 08/24/18 22:16 99.2 F 128 18 103/71 96 - Laboratory Result Diagrams: 08/24/18 23:47 08/24/18 23:47 Lab Statement: Any lab studies that have been ordered have been reviewed, and results considered in the medical decision making process. - Radiology CXR Radiology Interpretation Completed By: ED Physician - Dr. Robbins, pending official report Summary of Radiographic Findings: Impression: no acute process - CT CT Abd/Pelvis CT Interpretation Completed By: Radiologist Summary of CT Findings: IMPRESSION: 1. Large bilateral renal stones. Moderate left hydronephrosis with a 16 x 12 mm. stone appearing lodged in the UPJ. No distal ureteral stone. There are moderate. infiltrative changes in the left perirenal fat and secondary infection is not. excluded. 2. Large amount of stool throughout the colon and rectum without small bowel. obstruction. 3. Possible wall thickening of the lower rectum and lower pelvic structures. with some soft tissue fullness seen at the perineum. This may be inflammation. or congestion. Difficult to exclude mass here currently. This may simply be. summation of normal structures and/or some degree of prolapse. 4. Limited retroperitoneal lymphadenopathy on the left possibly reactive but. nonspecific. 5. Tiny stones or debris layer dependently in the urinary bladder. 6. No other acute disease seen. Dr. Robbins has reviewed this report. GIGU Course/Dx - Course Course Of Treatment: This patient is a 47 year old F with hx lactose intolerance and cerebral palsy brought in by ambulance to [facility] with a chief complaint of abdominal pain distension since this evening. Per patients home nurse, the patient has been lethargic and developed a fever since this morning. The patient resides at a [place] and is nonverbal and unable to ambulate at her usual baseline. Bloodwork and UA obtained. CT Abd/Pelvis reveals, per radiologist, 1. Large bilateral renal stones. Moderate left hydronephrosis with a 16 x 12 mm stone appearing lodged in the UPJ. No distal ureteral stone. There are moderate infiltrative changes in the left perirenal fat and secondary infection is not excluded. 2. Large amount of stool throughout the colon and rectum without small bowel obstruction. 3. Possible wall thickening of the lower rectum and lower pelvic structures with some soft tissue fullness seen at the perineum. This may be inflammation or congestion. Difficult to exclude mass here currently. This may simply be summation of normal structures and/or some degree of prolapse. 4. Limited retroperitoneal lymphadenopathy on the left possibly reactive but nonspecific. 5. Tiny stones or debris layer dependently in the urinary bladder. 6. No other acute disease seen. ED physician has reviewed this radiology report. CXR reveals, per ED physician, no acute process. Bloodwork and UA obtained. In the ED course the patient was given IV fluids, Contrast, Tylenol, Vancomycin, and Zosyn. At 01:57, immediately after receiving the CT Abd/Pelvis report, discussed patient care with Dr. Grover, urologist, and he agreed to look at the CT Abd/Pelvis and he would call back. Discussed care with Dr. Grover again at 02:17 and he said the stone is too big and a nephrostomy tube needs to be placed, which we do not have at [facility]. Discussed patient care at 02:[address] Calzada, ED physician at [facility], and he agreed to make some phone calls and see where the patient can go. Discussed patient care at 03:[address] Ruiz, ICU physician at [facility], who accepted the patient to [facility] pending bed availability. At 03:20, the Transfer center called and said [facility] would not have a bed for at least 2 hours. Discussed patient care with Dr. Grover at 03:29 and he recommended admission through [facility]. Discussed patient care at 03:[address] Crews, ED physician at [facility], who accepted the patient to the [facility] ED. 120 minutes of critical care time. Dx left pyelonephritis, left ureteral stone, and urosepsis. Patient will be transferred via ALS transport to the [facility] ED. The patient is agreeable with this plan. - Diagnoses Provider Diagnoses: Pyelonephritis, Ureteral stone - Physician Notifications Discussed Care Of Patient With: Bear Grover Time Discussed With Above Provider: 01:57 Instructed by Provider To: Other - Discussed patient care with Dr. Grover, urologist, immediately after receiving CT results at 01:57. Dr. Grover agreed to review the CT. Discussed care with Dr. Grover again at 02:17 and he said the stone is too big and a nephrostomy tube needs to be placed, which we do not have at [facility]. Discussed patient care at 02:[address] Calzada, ED physician at [facility], and he agreed to make some phone calls and see where the patient can go. Discussed patient care at 03:[address] Ruiz, ICU physician at [facility], who accepted the patient to [facility] ICU pending bed availability. At 03:20, the Transfer center called and said [facility] would not have a bed for at least 2 hours. Discussed patient care with Dr. Grover at 03:29 and he recommended admission through [facility]. Discussed patient care at 03:[address] Crews, ED physician at [facility], who accepted the patient to the [facility] ED. - Critical Care Time Critical Care Time: 75-104 min - 120 min Discharge - Sign-Out/Discharge Documenting (check all that apply): Patient Departure - transfer to [facility] ED Patient Received Moderate/Deep Sedation with Procedure: No - Discharge Plan Condition: Stable Disposition: TRANS HIGHER LVL OF CARE FAC Referrals: Elli Gomez, CONFIDENTIAL INVESTIGATOR [Primary Care Provider] - - Billing Disposition and Condition Condition: STABLE Disposition: Trans Higher Lvl of Care Fac - Attestation Statements Document Initiated by Pascualibe: Yes Documenting Scribe: Marie Mathews Provider For Whom Pascualibe is Documenting (Include Credential): Trini Robbins MD Scribe Attestation: Marie Manzanares scribed for Trini Robbins MD on 08/25/18 at 0408. Scribe Documentation Reviewed: Yes Provider Attestation: The documentation as recorded by the Marie dixon accurately reflects the service I personally performed and the decisions made by Rhoda mathews MD Status of Scribe Document: Viewed
[2018-08-24 23:57] LABS: Hematocrit 38 % (35-47); Hemoglobin 12.1 g/dl (12.0-16.0); Mean Corpuscular HGB Conc 32 g/dl (31-36); Mean Corpuscular Hemoglobin 25 pg (27-31); Mean Corpuscular Volume 78 fL (80-97); Mean Platelet Volume 8.4 fL (7.4-10.4); Platelet Count 327 10^3/ul (150-450); Red Blood Count 4.86 10^6/ul (4.00-5.40); Red Cell Distribution Width 18 % (10.5-15); White Blood Count 21.1 10^3/ul (3.5-10.8)
[2018-08-25 00:07] LABS: Urine Appearance Cloudy; Urine Bacteria 2+ (Absent); Urine Bilirubin Negative (Negative); Urine Blood 3+ (Negative); Urine Color Amber; Urine Glucose Negative (Negative); Urine Ketones Trace (Negative); Urine Nitrite Negative (Negative); Urine Protein 2+(100 mg/dL) (Negative); Urine Red Blood Cell 3+(>10/hpf) (Absent); Urine Specific Gravity 1.025 (1.010-1.030); Urine Squamous Epithelial Cell Present (Absent); Urine Transitional Epithelial Present (Absent); Urine Urobilinogen Negative (Negative); Urine White Blood Cell 3+(>20/hpf) (Absent)
[2018-08-25 00:15] LABS: Albumin 3.6 g/dL (3.2-5.2); Albumin/Globulin Ratio 1.1 (1-3); BUN/Creatinine Ratio 19.7 (8-20); C Reactive Protein 216.13 mg/L (<8.01); Calcium 9.4 mg/dL (8.6-10.3); EGFR African American 56.7 (>60); EGFR Non-African American 46.8 (>60); Globulin 3.4 g/dL (2-4); Potassium 3.8 mmol/L (3.5-5.0); Total Bilirubin 0.4 mg/dL (0.2-1.0)
[2018-08-25] MEDS ORDERED: Iodixanol* (CONTRAST) 320 MG/ML 100 ML SDV IV ONE (00:20)
[2018-08-25 00:30] LABS: Activated Partial Thrombo Time 31.7 seconds (26.0-36.3); INR 1.2 (0.77-1.02)
[2018-08-25 00:46] LABS: ABS Basophils 0.1 10^3/ul (0-0.2); ABS Eosinophils 0 10^3/ul (0-0.6); ABS Lymphocytes 1.2 10^3/ul (1.0-4.8); ABS Monocytes 1.8 10^3/ul (0-0.8); ABS Nucleated RBC 0 10^3/ul; Eosinophil % 0 %; Lymphocyte % 5.8 %; Nucleated Red Blood Cells % 0
[2018-08-25] MEDS ORDERED: Vancomycin(*) 1,000 MG in NS 0.9% 250 ML* 250 ML IVPB ONE (01:54)
[2018-08-25] MEDS ORDERED: NS 0.9% 1000 ML** 1,000 ML IV ONE (02:04)
[2018-08-25] MEDS ORDERED: NS 0.9% 1000 ML** 1,000 ML IV SCH (03:15)
[2018-08-25] MEDS ORDERED: Ketorolac INJ* 30 MG/ML 1 ML VIAL ONE (04:43)
[2018-08-25] MEDS ORDERED: Ketorolac INJ* 30 MG/ML 1 ML VIAL IV PUSH ONE (04:54)
--- NOTE | 2018-08-25 05:28 | ED ---
Progress - Progress Note Progress Note: Patient became hypotensive so a central line was placed. CXR was ordered to confirm central line placement. CXR Interpreted by ED physician (Dr. Robbins) pending official report. Impression: triple lumen catheter in place, no pneumothorax, tip in the right atrium. Course/Dx - Course Course Of Treatment: [facility] ambulance came to milk pickup driver the patient to transfer to [place] but patient became hypotensive. A right internal jugular central line was placed. CXR, per ED physician, reveals triple lumen catheter in place, no pneumothorax, and tip in the right atrium. When the ambulance was called back to milk pickup driver the patient, the transfer center said it is too late in the shift for [facility] to transport the patient before the shift ends. Per the transfer center, the earliest the next [facility] shift can arrive at [facility] is 07:40 and the earliest a [facility] could arrive is 08:00. The transfer center was called to see if the weather allows for the patient to be flown out to [place] but all companies are currently unable to fly. Patient will be transferred via [facility] transport to the [place] ED following EMS shift change. The patient is agreeable with this plan. - Diagnoses Provider Diagnoses: Pyelonephritis, Ureteral stone - Provider Notifications Time Discussed With Above Provider: 01:57 Instructed by Provider To: Other - Discussed patient care with Dr. Grover, urologist, immediately after receiving CT results at 01:57. Dr. Grover agreed to review the CT. Discussed care with Dr. Grover again at 02:17 and he said the stone is too big and a nephrostomy tube needs to be placed, which we do not have at [facility]. Discussed patient care at 02:[address] Calzada, ED physician at [facility], and he agreed to make some phone calls and see where the patient can go. Discussed patient care at 03:[address] Ruiz, ICU physician at [facility], who accepted the patient to [facility] ICU pending bed availability. At 03:20, the Transfer center called and said [facility] would not have a bed for at least 2 hours. Discussed patient care with Dr. Grover at 03:29 and he recommended admission through [facility]. Discussed patient care at 03:[address] Crews, ED physician at [facility], who accepted the patient to the [facility] ED. - Critical Care Time Critical Care Time: 75-104 min - 120 min Discharge - Sign-Out/Discharge Documenting (check all that apply): Patient Departure - transfer to [facility] - Discharge Plan Condition: Stable Disposition: TRANS HIGHER LVL OF CARE FAC Referrals: Elli Gomez, TOP LIFT COMPRESSOR [Primary Care Provider] - - Attestation Statements Document Initiated by Scribe: Yes Documenting Scribe: Marie Mathews Provider For Whom Scribe is Documenting (Include Credential): Trini Robbins MD Scribe Attestation: Marie Manzanares, scribed for Trini Robbins MD on 08/25/18 at 0557. Status of Scribe Document: Ready Procedures - Central Line Right Jugular Central Line Lumen: triple Central Line Procedure: betadine prep, sterile drapes applied, sterile dressing applied Central Line Position: internal jugular (R) Anesthesia: local - lidocaine Complications: none Central Line Post Position: sutured
[2018-08-25] MEDS: Norepinephrine 16MCG/ML IVPRE* 4,000 MCG/250 ML BAG IV SCH ×5 (05:51→07:50)
--- NOTE | 2018-08-25 07:52 | ED ---
Progress - Progress Note Progress Note: Pt is a 47 y/o F signed out from Dr. Robbins on 08/25/18 at 0700 pending transfer to [facility] for nephrostomy tube placement and further evaluation and treatment of sepsis in the setting of large renal calculus and hydronephrosis, above the scope of care for [facility], per Dr. Grover, urology. Other facilities were contacted, see notes, but were unable to place nephrostomy tubes. Pt was hypotensive at approx 5am today, and central line was placed by Dr. Robbins, and Levophed drip initiated. Vital signs upon entering room are 108bpm, 101/74 BP on Levophed 7.5mcgs/min, and her O2 sat is 92%. She had her fist unclenched and when she unclenched it her O2 sats went up to 99%. She is accompanied by a staff member, Marilee, who notes pt had a smile this morning. The pt is from the [facility], [facility], MR. [id number]: Pt's father Tristen Cesar called at [phone] and notified that pt was transferred to [facility] for nephrostomy tube placement, sepsis. Understands. He will contact [facility]. Re-Evaluation - Re-Evaluation 1st eval Re-Evaluation Time: 07:17 Change: Unchanged Comment: Vital signs on entering room are 108bpm, 101/74 BP, and her O2 sat is 92%. She had her fist unclenched and when she unclenched it her O2 sats went up to 99%. Second Eval Re-Evaluation Time: 07:45 Change: Unchanged Comment: EMS is here to transfer the patient to [facility]. She is on levophed 5mcg/min and BP is stable in 100-110 systolic. Before leaving the facility levophed decreased to 2.5mcg/min with BP's remaining 100-110 systolic. Course/Dx - Course Course Of Treatment: The pt is a signout from Dr. Robbins 0700, 08/25/18, pending transfer to [facility]. She is a resident of [facility], and she is accompanied by a staff member, Marilee. Vital signs on entering room are 108bpm , 101/74 BP on Levophed drip, and her O2 sat is 92%. As of 744, the pt is being transferred to [facility] via EMS and is on Levophed drip 5mcg/min with BP' s 100-110 systolic, which was decreased to 2.5mcgs/min without decrease in BP. Pt is stable for transport. Pt is on her 4th liter of IV fluids, has a patterson in place with some urine output, is responsive, smiles. - Diagnoses Provider Diagnoses: Pyelonephritis, Ureteral stone, Mental retardation, Sepsis, Hypotension - Provider Notifications Reason For Transfer: Specialty or service not available at [facility]. - Critical Care Time Critical Care Time: 75-104 min - 120 min Discharge - Sign-Out/Discharge Documenting (check all that apply): Patient Departure, Receiving Sign-Out Receiving patient FROM: Trini Robbins - 08/25/18, 07 - Discharge Plan Condition: Stable Disposition: TRANS HIGHER LVL OF CARE FAC Referrals: Elli Gomez, CLOUD SOLUTIONS ARCHITECT [Primary Care Provider] - - Billing Disposition and Condition Condition: STABLE Disposition: Trans Higher Lvl of Care Fac - Attestation Statements Document Initiated by Scribe: Yes Documenting Scribe: Antonella Brothers Provider For Whom Tommie is Documenting (Include Credential): Dr. Renata Velasquez MD. Scribe Attestation: Antonella Manzanares scribed for Dr. Renata Velasquez MD. on 08/26/18 at 0020. Scribe Documentation Reviewed: Yes Provider Attestation: The documentation as recorded by the Antonella dixon accurately reflects the service I personally performed and the decisions made by , Dr. Renata Velasquez MD. Status of Scribe Document: Viewed
[2018-08-25 08:07] VITALS: BP 113/82
--- NOTE | 2018-08-25 16:03 | PN ---
Progress Note - Progress Note Date of Service: 08/24/18 Note: Reading of poss PNA called in to me This was not on original document/note or read This information was faxed to Sarthak monson by Trevor elizabeth
--- NOTE | 2018-08-26 02:12 | PN ---
Progress Note - Progress Note Date of Service: 08/26/18 Note: lab called at 2:11 with positive blood culture results for gram neg bacilli. results faxed to iona by
== END 2018-08-25 08:00 | disposition short-term general hospital (02) ==
LOC: ED 22:12
DX: N12 Tubulo-interstitial nephritis, not specified as acute or chronic (principal); N20.1 Calculus of ureter; F78 Other intellectual disabilities; A41.9 Sepsis, unspecified organism; I95.9 Hypotension, unspecified; Z43.6 Encounter for attention to other artificial openings of urinary tract; R50.9 Fever, unspecified; K21.9 Gastro-esophageal reflux disease without esophagitis
CPT/HCPCS: 36415; 36569; 71045; 74177; 80053; 81003; 81015; 83605; 84484; 85025; 85610; 85730; 86140; 87040; 87076; 87086; 87185; 87205; 96361; 96365; 96375; 99285; A9270-GY; J1885; J2543; J3370; Q9967

== ENCOUNTER 2018-10-06 08:55 | Emergency (ER) | payer MEDICARE, MEDICAID ==
--- OUTSIDE RECORDS SUMMARY | 2018-10-06 09:13 | XMS REPORT | Continuity of Care Document ---
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 Active Onset: 12/09/2010 Congenital quadriplegia Oumou Gama M.D. Active Onset: 08/26/2015 Cerebral palsy ALISHA Real Active Family History Description No Information Available Social History Type Date Description Comments Sex Unknown Lives With Lives at adult residential home, requires total care. Diet Diet pureed foods with honey thick liquids ETOH Use Denies alcohol use Tobacco Use Start: Unknown Patient has never smoked Recreational Drug Use Denies Drug Use Allergies, Adverse Reactions, Alerts Date Description Reaction Status Severity Comments 09/21/2007 Adhesives Active 04/16/2014 Bee Sting Active Medications Medication Date Status Form Strength Qnty SIG Indications Ordering Provider Peg 3350 09/05 Active Powder 1020u Take 1 Shawnti R. nits Capful Storm, (17G) By REDRYING MACHINE OPERATOR-C Mouth 2 Times A Day Mix With 8Oz Of Fluid 17GM=20cc (Constipat ion) Ibuprofen 08/24 Active Tablets 600mg 30tab 1 tab by Abel s mouth Nicho, three MD times a day as needed for fevers Levothyroxine 07/05 Active Tablets 150mcg 30tab Take One Rey Sodium s Tablet By Fabiana, Mouth M.D. Every Day (Hypothyro idism) Chlorhexidine 06/15 Active Solution 0.12% 473un Rinse Oumou Gluconate its W/5cc By P. Ble, Mouth 2 M.D. Times A Day After Brushing (Am & Evening ) Antibacter ial May Use Toothette (Prophy) Calcium Cit+D 04/12 Active 60uni Take One Oumou 315/250 ts Tablet By P. Blegen, Mouth 2 M.D. Times A Day (May Crush) For ( Osteopenia ) Wheelchair 02/25 Active physical Shawnti R. assessment Storm, and REDRYING MACHINE OPERATOR-C management clinic to be assessed for a new wheel chair Discontinue 12/28 Active risk of Shawnti R. Routine Pallet Repairer /2018 routine Storm, Exams shredded filler machine wrapper layer exams REDRYING MACHINE OPERATOR-C for this patient is greater than benefit of performing shredded filler machine wrapper layer exams Proctozone-HC 08/05 Active Cream 2.5% 30uni apply to Shawnti R. ts hemorrhoid Storm, s 4 times REDRYING MACHINE OPERATOR-C daily as needed Swim Order 07/15 Active order to Shawnti R. swim with brianna Gomez/ REDRYING MACHINE OPERATOR-C ddso as per ipop at various locations with floation device and 1 on 1 supervisio cheyenne Matos 06/24 Active Solution 100mg/ml 2.5 GK=475 Oumou /2017 MG PO bid P. Blegen, For M.D. Seizures Wheelchair 06/10 Active Repair Abel Repair tilt laurence Torre MD pads for footbox, tongue clamps for back of wc, and required labor Cefpodoxime 06/01 Active Tablets 100mg 14tab 1 by mouth Oumou Proxetil s twice a P. Blegen, day x 7 M.D. days for uti Fluconazole 05/27 Active Tablets 150mg 2tabs 1 tablet B37.3 by mouth Nel, now, may HYDRAULIC DREDGE OPERATOR repeat in 1 week if needed Transderm-Scop 05/27 Active Patches 72HR 1mg/3Days 12uni Apply One Shawnti R. (1.5 MG) ts Patch Jason, Behind The REDRYING MACHINE OPERATOR-C Ear, Change Every 72 Hours Zyrtec Allergy 01/14 Active Tablets 10mg 90tab 1 by mouth Shawnti R. /2016 s daily for Storm, allergies. REDRYING MACHINE OPERATOR-C ...replace s claritin Nystatin 07/20 Active Cream [id number] 15uni Apply To B37.3 Shawnti R. t/GM ts Labia 2 Storm, Times A REDRYING MACHINE OPERATOR-C Day Then as Needed (Redness) Tylenol 07/19 Active 480un Take 20 ML Shawnti R. 160MG/5ML its (cc) By Storm, Mouth REDRYING MACHINE OPERATOR-C Every 4 Hours as Needed For Fever >101 Or Pain (1 Bottle For Program) Tylenol 325MG 07/19 Active 180un Take 2 Shawnti R. its Tablets By Storm, Mouth 4 REDRYING MACHINE OPERATOR-C Times Daily as Needed Pain/Fever (40 Cells Day Program) May Crush And Give In Applesauce Miralax 07/04 Active Powder 527GM 1054u Take 1 Shawnti R. nits Capful Storm, (17G) By REDRYING MACHINE OPERATOR-C Mouth 2 Times A Day Mix With 8Oz Of Fluid 17GM=20cc Constipati on Halcion 04/16 Active Tablets 0.25mg 4tabs 1 by mouth Shawnti R. 30 minutes Jason, prior to REDRYING MACHINE OPERATOR-C dental visit Simply Thick 01/31 Active 180un Use as Shawnti R. Food Thickener its Directed Jason, For REDRYING MACHINE OPERATOR-C Appropriat e Consistenc y Peridex 0.12% 11/03 Active 473un Rinse Oumou Oral Rinse its W/5cc By PBabita Ble, Mouth 2 M.D. Times A Day After Brushing (Am & Evening ) Antibacter ial May Use Toothette (Prophy) Maalox Regular 05/26 Active Suspension 200-200-2 355ml 30ml po Q4 Shawnti R. 0mg/5ML hr prn Storm, stomach REDRYING MACHINE OPERATOR-C upset Gas-X 80MG CHW 05/26 Active 180un Chew 2 Shawnti R. 36 its Tablets Storm, Before REDRYING MACHINE OPERATOR-C Meals With Gas Producing Foods Or For Suspectedg as Overnight MDD=8 Depo-Provera 05/25 Active Suspension 150mg/ml 1unit Inject Shawnti R. s Intramuscu Storm, larly REDRYING MACHINE OPERATOR-C Every 3 Months (Hormone Therapy) Vitamin D3 05/11 Active Tablets 400Unit 60tab Take 2 s Tablets By Messi Gama, Mouth M.D. Every Day as Directed (October Crush) For Osteoporos is Discontinue 04/07 Active Shawnti R. Storm, Audiology Exams REDRYING MACHINE OPERATOR-C Thick-It 02/17 Active Powder 284un use in Corine its liquids as Aaron, needed REDRYING MACHINE OPERATOR-C Hydrocortisone 02/14 Active Cream 1% 20gm apply to 691.8 Shawnti R. the left Storm, ear tid as REDRYING MACHINE OPERATOR-C needed for rash/itcin g Tussin DM 01/16 Active Syrup 100-10mg/ 8oz 1 tsp po 466.0 Shawnti R. 5ML tid prn Storm, cough REDRYING MACHINE OPERATOR-C Lactase Enzyme 10/03 Active Tablets 3000Unit 120ta Crush One bs Tablet Jett. Blegen, Take By M.D. Mouth Four Times A Day (Lactose) (20 Cells Day Card) Glycerin 09/12 Active Suppository 2.1gm 50uni Insert 1 (Adult) ts Into P. Blegen, Rectum M.D. Every 3 Days (6PM) as Needed If No Bowel Movement Simplythick 08/22 Active Gel 180un use as Shawnti R. its directed Storm, for REDRYING MACHINE OPERATOR-C correct consistenc y Omeprazole 02/[address] 20mg 30cap Take One R11.10 s Capsule By Messi Gama, Mouth M.D. Every Day, Ok To Open Capsules & Sprinkle On Applesauce Or Similar DO Not Crush Or Chew (GERD) Triazolam 11/21 Active Tablets 0.25mg 2tabs one by Elli Pop /2007 mouth 1 Storm, hour prior REDRYING MACHINE OPERATOR-C to dental appointmen t/ procedure Depends 10/23 Active 2Box depends 691.0 Elli Pop /2007 brand Jason, small REDRYING MACHINE OPERATOR-C brief, change several times daily when soiled Valium 10/21 Active Tablets 5mg 12tab 2 by mouth Elli Pop /2006 s as needed Storm, 1 hour REDRYING MACHINE OPERATOR-C before procedures as directed Lac-Dose Da 02/24 Active 100un 1 cap Corine /2004 its prior to johnathan Kimbrough M.D. products tid prn Ipratropium 11/18 Hx Solution 0.03% 30uni 3 sprays Corine ts into mouth Aaron, - three REDRYING MACHINE OPERATOR-C 01/14 times daily with meals. Wheelchair Eval 09/07 Hx Right and Elli Pop And Repair left aJson, - castjames REDRYING MACHINE OPERATOR-C 05/06 Le Release Right & Left Wheel Locks Collar Clamp For Head Rest 16" Tires With Wheel Chair 08/04 Hx Elli R. /2016, - REDRYING MACHINE OPERATOR-C 05/06 Fluconazole 07/20 Hx Tablets 150mg 2tabs 1 tablet B37.3 by mouth Aaron, - now, october REDRYING MACHINE OPERATOR-C 05/06 repeat in 1 week if needed Wheelchair Tray 08/25 Hx discontinu G80.9 Elli Pop /2015 e full Storm, - time use, REDRYING MACHINE OPERATOR-C 05/06 use at staff discretion Soft/Padded 08/25 Hx use to G80.9 Elli Pop Butterfly Strap /2015 keep Storm, - suly REDRYING MACHINE OPERATOR-C 05/06 from falling out of her chair Wheelchair 06/18 Hx Rudywnti RBabita Repair Storm, - REDRYING MACHINE OPERATOR-C 05/06 Claritin 06/18 Hx Tablets 10mg 30tab 1 by mouth Elli Pop /2014 s every day Storm, - REDRYING MACHINE OPERATOR-C 01/14 Synthroid 06/17 Hx Tablets 150mcg 30tab Take One s Tablet By Fabiana, - Mouth M.D. 07/05 Every (Hypothyro idism) Order Changes 05/09 Hx 1. d/c Shawnti R. /2014 nectar Jason, - thick REDRYING MACHINE OPERATOR-C 05/06 fluids 2. All fluids should be made to honey thick consistenc y Order Change 05/09 Hx 3. D/c Shawnti R. order to Jason, - only have REDRYING MACHINE OPERATOR-C 05/06 lactaid or soy milk 4. receive a lactaid pill 4x/day for possible lactose intoleranc e Permethrin 04/26 Hx Cream 5% 1unit apply to Abel s affected [place], - area once MD 05/06 for scabies Levothyroxine 04/25 Hx Tablets 137mcg 1tabs discontinu Shawnti R. Sodium e Jsaon, - levothyrox REDRYING MACHINE OPERATOR-C 05/05 ine 137mcg Levothyroxine 04/22 Hx Tablets 150mcg 90tab take one Shawnti R. Sodium s tablet by Jason, - mouth REDRYING MACHINE OPERATOR-C 06/17 every for thyroid replacemen t Synthroid 03/15 Hx Tablets 137mcg 90tab 1 by mouth Shawnti R. /2014 s daily for Jason, - hypothyroi REDRYING MACHINE OPERATOR-C 04/22 Synthroid 01/28 Hx 30uni Take One Shawnti R. 125mcg /2014 ts Tablet By Jason, (0.125MG) - Mouth REDRYING MACHINE OPERATOR-C 03/15 Every (Hypothyro idism) Miralax 12/13 Hx Packet 3350NF QS 1 packet Shawnti R. by mouth Jason, - twice REDRYING MACHINE OPERATOR-C 07/04 daily, with 8 ounces of fluid Wheel Chair 08/23 Hx clamp/sock Shawnti R. Parts et for Jason, Repairs - headrest REDRYING MACHINE OPERATOR-C 05/06, labor to install on [employer] 3g Tilt in Space Wheelchair .Dx 343.9, 343.2 Acetaminophen 08/15 Hx Tablets 325mg 60tab 2 by mouth Shawnti R. /2014 s four times Storm, - daily if REDRYING MACHINE OPERATOR-C 08/15 needed for pain or fever, may crush and give in applesauce Acetaminophen 08/15 Hx Suppository 650mg 60uni 1 per wnti R. ts rectum Jason, - q6hr as REDRYING MACHINE OPERATOR-C 05/06 needed pain or fever if not taking oral medication s Wheelchair 08/13 Hx make Shawnti R. Repair needed Jason, - repairs to REDRYING MACHINE OPERATOR-C 08/14 wheelchair Q-Pap 07/02 Hx Liquid 160mg/5ML 480un Take 20 ML wnti R. its (cc) By Jason, - Mouth REDRYING MACHINE OPERATOR-C 05/06 Every Hours as Needed For Fever >101 Or Pain Synthroid 05/24 Hx Tablets 125mcg 30tab take one Shawnti R. s tablet by Jason, - mouth REDRYING MACHINE OPERATOR-C 01/28 every (hypothyro idism) Fleet Enema 05/20 Hx Enema 7-19 133un Insert 1 Oumou 8ML its Into P. Blegen, - Rectum M.D. 05/06 Every Days as Needed For Constipati on If No Bowel Movement See 04/18 Hx 650mg 24uni insert 1 wnti R. Acetaminophen ts into [facility], - rectum REDRYING MACHINE OPERATOR-C 05/06 every hours as needed for pain Saline Mist 03/20 Hx Solution 0.65% 45uni use to J06.9 Shawnti R. [place] ts irrigate Jason, - nostrils REDRYING MACHINE OPERATOR-C 05/06 as needed for nasal mucus Benadryl 25MG 03/08 Hx 25uni Take One Oumou Cap 48Ea ts Capsule By P. Ble, - Mouth M.D. 05/06 Every Hours as Needed For Itching/Sw elling From Insect Bite Sudogest 03/08 Hx Tablets 30mg 30tab Take One Shawnti R. s Tablet By Jason, - Mouth 2 REDRYING MACHINE OPERATOR-C 05/06 Times Day as Needed Nasal Congestion Polymyxin B 02/28 Hx Solution 51567-8.1 10ml 1gtt in Corine Sulfate/ Unit/ML-% left eye Aaron, oprim Sulfate - every 4 REDRYING MACHINE OPERATOR-C while awake no more than 6 doses/day Miralax 02/15 Hx Powder 527GM 527un 17GM By Elli R. its Mouth , - Every Day REDRYING MACHINE OPERATOR-C 12/13 In 8 Ounces Of Water (Constipat ion) Desitin 10/23 Hx Ointment QS use as Gavii R. directed Jason, - for rash REDRYING MACHINE OPERATOR-C 05/06 Calcitrate 08/28 Hx Tablets 315-250mg 60tab Take one -Unit s Tablets By Messi Gama, - Mouth 2 M.D. 04/12 Times Day (October Crush) For Osteopenia (Pack Singles) Thick It 06/19 Hx 284Gram 284un Use as its Directed Aaron, - For Proper REDRYING MACHINE OPERATOR-C 10/04 Consistenc y Claritin 10MG 05/22 Hx 30uni take one Elli R. Tab ts tablet by Jason, - mouth REDRYING MACHINE OPERATOR-C 06/18 every for allergies Fluconazole 02/14 Hx Tablets 200mg 2tabs 1 po now, 616.10 Rudywnti R. /2012 repeat in [facility], - one week REDRYING MACHINE OPERATOR-C 02/28 Permethrin 01/04 Hx Cream 5% 60gm apply to 133.0 skin from Aaron, - neck to REDRYING MACHINE OPERATOR-C 03/29 soles of feet, wash after 8-14 hours, may repeat in 14 days Saline Mist 12/15 Hx Solution 0.65% 1bott use to 465.9 Rudywebonyi R. le irrigate , - nostrils REDRYING MACHINE OPERATOR-C 03/20 as needed for nasal mucus Vitamin D-3 11/07 Hx Tablets 400Unit 60tab 2 po qd as Rudywnti R. s directed Jason, - for REDRYING MACHINE OPERATOR-C 05/11 osteoporos is- October Crush Transderm-Scop 10/19 Hx Patches 72HR 1mg/3Days discontinu Shawnti R. (1.5 MG) /2012 e , - REDRYING MACHINE OPERATOR-C 05/06 Enema 03/19 Hx Enema 7-19GM/11 1Mont Enema Oumou Zojmk-Xz-Qfx 8ML h Disposable P. Blegen, - 19G-7G/118 M.D. 05/20 Enema Insert 1 Rectally Q 4 Days prn Constipati on. Calcium 08/24 Hx Tablets 630mg Oumou Citrate+D P. Blegen, - M.D. 08/24 Calcium 08/24 Hx Tablets 315-250mg 120ta 2 po bid Oumou Citrate+D -Unit bs P. Blegen, - M.D. 08/28 Claritin 08/23 Hx Tablets 10mg 30tab 1 po qd Oumou s P. Blegen, - M.D. 05/22 Calcium 08/23 Hx Tablets 250-200mg 60tab 1 po bid Oumou Citrate+ D -Unit s P. Blegen, - M.D. 08/24 Levsin 08/16 Hx Tablets 0.125mg 60tab 0.125 mg Shawnti R. s po bid for Storm, - salivation REDRYING MACHINE OPERATOR-C 10/19 Physical 05/17 Hx To be Oumou Assessment And /2011 assessed Messi Gama, Management - for a new M.D. Clinic 07/19 wheelchair Physical 05/17 Hx dx- Oumou Therapy cerebral PBabita Gama, Evaluation - palsy, M.D. 07/19 spasticity Wheelchair 04/05 Hx need to Oumou Repair /2011 reposition Messi Gama, - foot rests M.D. 07/19 dx- cerebral palsy, spasticity Lactase Enzyme 03/02 Hx Tablets 3000Unit 90tab crush one Oumou Chew Tabs /2011 s tab and PBabita Blegen, - take po M.D. 10/03 before dairy/ milk products up to tid prn Wheelchair 12/14 Hx Broken Vanesa Repair /2011 Suzy Lomas, - Chair M.D. 07/19 Won't Tilt Bath Sling For 12/10 Hx 1unit Use as Vanesa Emely Lift /2011 s directed Vargas Lomas, - Dx: Severe M.D. 05/06 mental retardatio n, 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 Wheelchair 12/01 Hx Misc for broken 343.9 Oumou Messi khalil, - chair will M.D. 12/14 recline. 343.2 Simply Thick 10/25/2011 - Hx 3Bottles use as Shawnti R. 08/22/2012 directed for Storm, appropriate REDRYING MACHINE OPERATOR-C thickness of liquids Swallow 08/19/2011 - Hx evaluate 5 Oumou Evaluation- 09/11/2011 dysphagia/ 3 Messi Gama, Video/ Table Side swallow 0 M.D. function and . appropriate 1 food/ liquid 1 consistency Fluconazole 06/25/2011 - Hx Tablets 150mg 2tabs one tablet po 6 Vanesa 02/14/2013 times one. 1 Vargas Lomas, may repeat 6 M.D. times one in . 5 days if 1 symptoms are 0 not gone Clotrimazole 05/11/2011 - Hx Cream 1% 30gm use bid to Shawnti R. 05/06/2017 right ear Storm, rash x 2-4 REDRYING MACHINE OPERATOR-C weeks Triamcinolone 04/23/2011 - Hx Cream 0.1% 80gms Apply to 6 Vanesa Acetonide 05/11/2011 affected area 9 Vargas Lomas, bid 1 M.D. . 8 Levothyroxine 04/17/2011 - Hx Tablets 125mcg 30tabs Take One Shawnti R. Sodium 05/24/2014 Tablet By Jason, Mouth Every REDRYING MACHINE OPERATOR-C Day (Hypothyroidi sm) Synthroid 04/14/2011 - Hx Tablets 25mcg 90tabs 1 po qd- do Shawnti R. 04/17/2011 not take with Storm, vitamins REDRYING MACHINE OPERATOR-C Benadryl 04/14/2011 - Hx Capsules 25mg 25caps 1 po Q6hr prn Oumou 03/08/2014 itching/swell Messi Gama, ing from M.D. insect bite Nystatin/Triamcin 03/20/2011 - Hx Ointment [id number] 1tube apply to 3 Corine ellison 05/11/2011 0.1Unit right ear bid 8 Aaron, /GM-% 0 REDRYING MACHINE OPERATOR-C . 4 Resume Previous 11/27/2010 - Hx may resume Oumou Medications 01/26/2011 previous P. Blegen, medications, M.D. including prn meds Diflucan 11/22/2010 - Hx Tablets 150mg 1tabs 1 tablet once Ioana 01/26/2011 prn Singh Byrne M.D. Ciprofloxacin HCL 11/18/2010 - Hx Tablets 500mg 10tabs 1 bid x 5 5 11/28/2010 days 9 Fabiana 9 M.D. . 0 Wheelchair 11/10/2010 - Hx Misc repair/ Oumou Repairs 09/11/2011 replace foot P. Blegen, rests on M.D. wheelchair, current foot rests are broken Acetaminophen 11/10/2010 - Hx Suppository 650mg 0units Insert 1 Into Oumou 07/02/2014 Rectum Every P. Blegen, 4 Hours as M.D. Needed For Pain Metronidazole 09/24/2010 - Hx Tablets 500mg 14tabs one po bid x Oumou 05/06/2017 7 days- do P. Blegen, not drink M.D. alcohol while on this medication Upper Extremity 09/11/2010 - Hx needs Oumou Positioning 01/16/2011 replacement P. Blegen, Device device. dx- M.D. cerebral palsy Levothyroxine 06/22/2010 - Hx Tablets 100mcg 90tabs one po qd on Oumou Sodium 04/17/2011 empty stomach P. Blegen, M.D. May Return To 05/28/2010 - Hx 1 Cara Work And Normal 07/14/2010 3 [place], Activities 3 HYDRAULIC DREDGE OPERATOR . 0 Permethrin 05/13/2010 - Hx Lotion 1% 1bottle apply to all 1 Cara 05/20/2010 ears of the 3 [place] Leon, body from the 3 HYDRAULIC DREDGE OPERATOR neck down, . was off 0 thoroughly after 8 hours Ciprofloxacin HCL 05/13/2010 - Hx Tablets 250mg 14tabs one tab bid 5 11/18/2010 for 7days 9 Fabiana 9 M.D. . 0 Please Dispense 2 05/13/2010 - Hx 5 Cara 16French Wolf 11/28/2010 9 Moises Catheter Kits 9 HYDRAULIC DREDGE OPERATOR . 0 Permethrin Cream 05/13/2010 - Hx 5% 1units Apply to Cara Rinse 05/06/2017 body, leave Moises on 8 hours HYDRAULIC DREDGE OPERATOR then may rinse Metrogel-Vaginal 04/01/2010 - Hx Gel 0.75% 1week insert one 6 Shawnti R. 04/11/2010 applicator 1 Storm, full into 6 REDRYING MACHINE OPERATOR-C vagina before . bed for one 1 week. 0 Levothyroxine 04/01/2010 - Hx Tablets 112mcg 30tabs 1 po qd Shawnti R. Sodium 06/22/2010 Storm, REDRYING MACHINE OPERATOR-C Wheelchair,Repair 03/11/2010 - Hx wheelchair Oumou 07/14/2010 assessment PBabita Gama, and repair M.D. including labor, bilateral breaks, right front fork, and chest harness [employer] 03/05/2010 - Hx 1Month qid as Oumou Ibrahim Protein 05/06/2017 directed Messi Gama, Supplement instead of M.D. Ensure Wheelchair 09/11/2009 - Hx Tilt cables r Oumou Hardware Needed 07/14/2010 and l, r and Messi Gama, For [employer] david schneider M.D. Solara housing, screwhex slot washer, screwhex slot, seat belt, replace arm pads, labor Amoxicillin 07/02/2009 - Hx Tablets 500mg 14tabs one tablet 4 Ioana 07/09/2009 two times a 6 K.W. day for 7 6 Chavez, adams . MBabitaD. 0 Desitin Creamy 02/22/2009 - Hx Ointment 10% 1Month apply Shawnti R. 10/23/2013 liberally to Storm, diaper area REDRYING MACHINE OPERATOR-C as needed for diaper rash Zithromax 02/15/2009 - Hx Suspension 200mg/5 38ml 12.5ml(500mg) 4 Shawnti R. 02/25/2009 Rec ML po today then 6 Storm, 6.25ml(250mg) 5 REDRYING MACHINE OPERATOR-C po daily for . 4 days 9 Saline Nasal 02/15/2009 - Hx 1bottle use to 4 Shawnti R. [place] 12/15/2012 irrigate 6 Storm, nostrils as 5 REDRYING MACHINE OPERATOR-C needed for . nasal mucus 9 Pseudoephedrine 02/15/2009 - Hx Tablets 60mg 24tabs 1 po q6hr prn 4 Shawnti R. HCL 02/25/2009 congestion, 6 Storm, runny nose, 5 REDRYING MACHINE OPERATOR-C sinus and ear . pressure 9 Enema Disposable 02/15/2009 - Hx Enema 1Month Enema Oumou 09/06/2012 Disposable Messi Gama 19G-7G/118 M.DBabita Enema Insert 1 Rectally Q 4 Days prn Constipation. Wheelchair Repair 01/22/2009 - Hx QS l & r front Oumou 11/04/2009 rigging Messi Gama, support tubes M.DBabita and l & r sector block with hardware Ensure With Fiber 12/10/2008 - Hx Oumou 03/05/2010 Messi Gama M.D. Levothyroxine 10/06/2008 - Hx Tablets 100mcg 30tabs 1 po qd Oumou Sodium 04/01/2010 Messi Gama M.D. Levothyroxine 08/15/2008 - Hx Tablets 88mcg 30tabs 1 po qd- DO Oumou Sodium 10/06/2008 Not Messi Gama, Administer AT M.D. Same Time as Vitamins Levothyroxine 07/03/2008 - Hx Tablets 75mcg 30tabs 1 po qd Oumou Sodium 08/15/2008 Messi Gama M.D. Levothyroxine 03/07/2008 - Hx Tablets 50mcg 30tabs 1 PO qd- DO Oumou Sodium 07/03/2008 Not Take With Messi Gama Vitamins Or Josie Supplements Car Style 02/22/2008 - Hx use as Oumou Wheelchair 11/04/2009 Zahira Miranda M.D./C Prilosec 02/15/2008 - Hx change to Oumou 11/04/2009 omeprazole Messi Gama M.D. D/C Propantheline 02/15/2008 - Hx Try Levsin Oumou (Pro-Banthine) 11/04/2009 (Hyoscyamine) Messi Gama, Instead as Josie Directed Levsin 02/15/2008 - Hx Solution 0.125mg 60cc one ml=0.125 Shawnti Kiesha 08/16/2012 /ml mg po bid for Storm, salivation REDRYING MACHINE OPERATOR-C Calcium Citrate 11/23/2007 - Hx Tablets 60tabs one po bid Oumou 630 MG + D 08/24/2012 Messi Gama M.D. Lotrisone 10/24/2007 - Hx Cream Cream 1Tube apply to 6 Shawnti R. 05/06/2017 affected area 9 Storm, bid until 1 REDRYING MACHINE OPERATOR-C resolved . 0 Levaquin 09/21/2007 - Hx Tablets 500mg 10tabs One qd X 10 Rey 12/20/2007 Days Josie Jung Zithromax 08/26/2007 - Hx Suspension 200mg/5 QS 2.5 tsp on 4 Monique A. 09/30/2007 Rec ML day one and 6 Blas, 1.25 tsp on 6 [facility] day 2-5 . 0 Robitussin DM 08/26/2007 - Hx Syrup 8Oz 1 tsp po tid 4 wnti R. 01/16/2013 prn cough 6 Storm, 6 REDRYING MACHINE OPERATOR-C . 0 Tylenol Childrens 08/26/2007 - Hx Suspension 160mg/5 1Bottle 4 tsp [facility]2017 ML hours prn Storm, fever REDRYING MACHINE OPERATOR-C Wheelchair 08/16/2007 - Hx Oumou Assessment And 11/04/2009 Narda Ya M.D. Audiology 07/20/2007 - Hx as needed Oumou Evaluation 11/04/2009 Messi Gama M.D. Evaluate 11/11/2006 - Hx assess and Oumou Wheelchair Brakes 12/30/2006 repair brakes Messi Gama, if needed MBabitaDBabita Thickened 11/11/2006 - Hx as directed Oumou Arias- [place] 11/04/2009 Dipak Ya M.D. Claritin OTC 11/11/2006 - Hx Tablets 10mg 30tabs 1 po qd Oumou 08/23/2012 Messi Gama M.D. Vitamin D 10/21/2006 - Hx Capsules 400Iu 60caps 2 po qd as Rudywcaleb RBabita 11/07/2012 directed for Storm, osteoporosis- REDRYING MACHINE OPERATOR-C May Crush Swallowing 10/21/2006 - Hx evaluate Oumou Evaluation 12/30/2006 swallowing- Messi Gama, coughing/ M.D. increased secretions after swallowing Thickened 10/21/2006 - Hx as directed Oumou Liquids- Honey 11/11/2006 Dipak Ya M.D. Sudafed 10/21/2006 - Hx Tablets 30mg 30tabs 1 PO bid prn Elli Pop 05/06/2017 Nasal Storm, Congestion REDRYING MACHINE OPERATOR-C Ativan 10/21/2006 - Hx Tablets 0.5mg D/c ativan Oumou 04/19/2014 Messi Gama M.D. Attends 09/18/2006 - Hx Large 192units wear every Oumou 05/06/2017 day for Messi Gama urinary Josie incontinence Hydra Aid(May Use 07/07/2006 - Hx Pack(S) 3Months use as Shawnti R. Thick If This 10/25/2011 directed for Storm, Unavail) nectar REDRYING MACHINE OPERATOR-C consistency Nizoral Cream 03/26/2006 - Hx Cream 2% 30gm apply to Rey 06/24/2006 affected area Jungal M.D. Wheelchair 12/02/2005 - Hx 1units assess and Tristen Sanches Assessment 12/30/2006 repair Josie Dennison headset. Ativan 10/16/2005 - Hx Tablets 0.5mg 10tabs two tabs po 1 Oumou 07/14/2010 hr before norma Ya M.D. procedure, may repeat x 1 tab after 45 min Calcium Citrate 08/24/2005 - Hx 600mg 60units 1 po bid Oumou With Vitamin D 11/23/2007 Messi Gama M.D. Simethicone 06/03/2005 - Hx 80mg 180units two tabs Shawnti R. Chewtabs 06/01/2013 before meals Storm, with REDRYING MACHINE OPERATOR-C gas-producing foods or or suspected gas overnight Cerumenex 06/03/2005 - Hx Solution 10% 60cc fill ear Tristen Sanches 05/06/2017 canals prn Josie Dennison cerumen impaction and flush Prilosec OTC 05/28/2005 - Hx Capsules 20mg 30caps 1 po qday 5 Tristen Sanches 02/15/2008 3 Josie Dennison 6 . 2 Hospital Bed 05/28/2005 - Hx to replace 3 Tristen Sanches 12/30/2006 existing bed. 4 Josie Dennison with bedrails 3 and . adjustable 2 head elevation. Ensure With Fiber 04/21/2005 - Hx One Can 4Cases one can po Oumou 12/10/2008 qid Messi Gama M.D. Amoxil 11/04/2004 - Hx Tablets 875mg 20tabs one po bid 4 Monique A. 05/28/2005 for 10 days 6 Blas, 5 [facility] . 9 Pro-Banthine 04/07/2004 - Hx 15mg 12units use 1 tab 1/2 Corine 04/07/2004 hour prior to Sobty[facility], dental appt. MApolinar Pro-Banthine 04/07/2004 - Hx 15mg 30units use 1 tab at [facility] 02/16/2008 hs Messi Gama M.D. Suction Machine 04/07/2004 - Hx portable Corine 12/30/2006 suction Kaylan, machine Josie use once/night or prn coughing dx-excessive salivation Wheelchair 10/24/2003 - Hx 0units wheelchair Tristen Sanches Assessment 12/30/2006 assessment Josie Dennison and repair Simethecone 09/17/2003 - Hx Injection 8oz use as Corine Liquid 06/03/2005 directed for vivian Kimbrough M.D. Pro-Banthine 08/06/2003 - Hx 15mg 12units use 1 tab 1/2 Oumou 02/16/2008 hour prior to norma Ya appt- MApolinar uses 1 tab by mouth at bedtime. Attends 01/22/2003 - Hx Medium 192units wear at ALL [facility] 09/18/2006 times- large Messi Gama M.D. Triazolam 07/04/2002 - Hx .25mg 4units use 2 tabs 1 Corine 10/16/2005 hr prior to appt. Josie Kimbrough Ensure 04/14/2002 - Hx 5Cases one can qid Corine 12/30/2006 Josie Kimbrough Hyoscyamine SL 04/06/2002 - Hx O.375 60units 1 po hs Corine 05/28/2005 Josie Kimbrough Thick It 03/21/2002 - Hx Can 850gm use as Corine 07/07/2006 directed prn Josie Kimbrough Underpads [id number] 03/10/2002 - Hx 150units use as Corine 05/06/2017 directed Josie Kimbrough Gloves,Disp. 03/03/2002 - Hx 1Box Medium Use as Corine Non-Powder 05/06/2017 Directed Josie Kimbrough Chlorhexidine 02/12/2002 - Hx 473units rinse teeth Oumou Kincaid Mouth Wash 05/06/2017 w/5cc after P. 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 Keppra - Hx Tablets 500mg Twice a day Unknown 06/24/2017 Immunizations CPT Code Status Date Vaccine Lot # [id number] Given 03/23/2018 Influenza Virus Vaccine, Quadrivalent, 3 Yr > Quad, Preserv Free 60558 Given 05/06/2017 Tdap (Adacel) [id number] 48513 Given 03/24/2017 Influenza Virus Vaccine, Quadrivalent, 3 Yr > Quad, Preserv Free 71940 Given 04/26/2015 Influenza Virus Vaccine, Quadrivalent, 3 Yr > Quad, Preserv Free 71376 Given 03/12/2014 Influenza Virus Vaccine, Quadrivalent, 3 Yr > Quad, Preserv Free 13446 Given 04/05/2013 Influenza Vaccine-Preservative Free 3 Yrs And Above 08111 Given 05/02/2012 Influenza Vaccine-Preservative Free 3 Yrs And Above 46805 Given 04/07/2011 Influenza Vaccine-Preservative Free 3 Yrs And Above 24697 Given 04/01/2010 Influenza Vaccine-Preservative Free 3 Yrs And [id number] Above 59504 Given 10/21/2006 Tdap (Adacel) [id number] 97957 Given 04/28/2006 Influenza Virus Vaccine, 3 Yrs And Above 64686 Given 05/28/2005 Pneumovax 23 (PPSV23) 65+ years or high risk 2 to [id number] 64 year old 74535 Given Unknown Influenza Virus Vaccine, Quadrivalent, 3 Yr > Quad, Preserv Free Vital Signs Date Vital Result Comment 09/08/2018 4:24pm BP Systolic 100 mmHg BP Diastolic 60 mmHg Heart Rate 84 /min Body Temperature 98.1 F Respiratory Rate 16 /min 08/24/2018 12:32pm BP Systolic 100 mmHg BP Diastolic 60 mmHg Heart Rate 130 /min Body Temperature 99.9 F Respiratory Rate 24 /min O2 % BldC Oximetry 96 % 05/03/2018 1:37pm Weight 112.00 lb Weight 50.803 kg Heart Rate 74 /min Body Temperature 97.8 F Respiratory Rate 17 /min O2 % BldC Oximetry 97 % 06/07/2017 11:04am BP Systolic 100 mmHg BP Diastolic 68 mmHg Heart Rate 60 /min Body Temperature 97.2 F Respiratory Rate 14 /min 05/31/2017 11:31am Weight 110.25 lb Weight 50.009 kg BP Systolic 100 mmHg BP Diastolic 80 mmHg Heart Rate 80 /min Body Temperature 98.6 F O2 % BldC Oximetry 90 % 05/27/2017 10:41am Weight 110.00 lb last wt 110lb Weight 49.896 kg BP Systolic 120 mmHg BP Diastolic 70 mmHg Heart Rate 88 /min Body Temperature 97.2 F Respiratory Rate 22 /min O2 % BldC Oximetry 97 % 05/06/2017 1:32pm Weight 113.00 lb Weight 51.257 kg BP Systolic 100 mmHg BP Diastolic 82 mmHg Heart Rate 72 /min Body Temperature 95.9 F Respiratory Rate 18 /min 01/14/2017 4:06pm BP Systolic 100 mmHg BP Diastolic 60 mmHg Heart Rate 88 /min Body Temperature 98.2 F Respiratory Rate 24 /min 12/10/2016 2:41pm BP Systolic 94 mmHg BP Diastolic 62 mmHg Heart Rate 60 /min Body Temperature 97.9 F Respiratory Rate 20 /min O2 % BldC Oximetry 96 % 07/20/2016 3:18pm BP Systolic 90 mmHg BP Diastolic 50 mmHg Heart Rate 80 /min Body Temperature 97.7 F 05/05/2016 2:09pm Body Temperature 98.8 F Respiratory Rate 16 /min 03/24/2016 4:12pm BP Systolic 98 mmHg BP Diastolic 62 mmHg Heart Rate 143 /min Body Temperature 97.9 F Respiratory Rate 24 /min O2 % BldC Oximetry 96 % 08/26/2015 10:17am Heart Rate 68 /min Body Temperature 99.2 F O2 % BldC Oximetry 87 % 04/15/2015 1:48pm Weight 88.00 lb Weight 39.917 kg Body Temperature 98.7 F 03/08/2015 4:31pm BP Systolic 90 mmHg BP Diastolic 60 mmHg Heart Rate 84 /min 05/10/2014 10:56am BP Systolic 100 mmHg BP Diastolic 70 mmHg Heart Rate 79 /min 04/16/2014 1:42pm Heart Rate 98 /min Last Menstrual Period [id number] 04/07/2013 1:37pm Weight 92.00 lb per care provider Weight 41.731 kg BP Systolic 92 mmHg BP Diastolic 62 mmHg Heart Rate 68 /min Height 63 inches 5'3" per care provider BMI (Body Mass Index) 16.3 kg/m2 03/15/2013 10:53am Heart Rate 84 /min Body Temperature 97.8 F 02/14/2013 3:31pm BP Systolic 118 mmHg BP Diastolic 70 mmHg Heart Rate 100 /min Body Temperature 97.9 F 01/04/2013 12:12pm BP Systolic 100 mmHg BP Diastolic 60 mmHg Heart Rate 76 /min Body Temperature 97.2 F 10/19/2012 2:10pm BP Systolic 110 mmHg BP Diastolic 80 mmHg Heart Rate 108 /min Body Temperature 97.8 F 04/08/2012 1:50pm BP Systolic 100 mmHg BP Diastolic 62 mmHg Heart Rate 66 /min 06/25/2011 3:52pm BP Systolic 100 mmHg BP Diastolic 80 mmHg Heart Rate 100 /min Body Temperature 96.5 F 05/11/2011 11:47am Weight 52.618 kg BP Systolic 116 mmHg BP Diastolic 60 mmHg Heart Rate 64 /min Body Temperature 98.2 F 04/23/2011 11:10am BP Systolic 118 mmHg BP Diastolic 60 mmHg Heart Rate 66 /min Body Temperature 97.5 F 04/14/2011 4:13pm BP Systolic 116 mmHg BP Diastolic 64 mmHg Heart Rate 64 /min Body Temperature 97.7 F 04/07/2011 1:44pm BP Systolic 118 mmHg BP Diastolic 68 mmHg Heart Rate 68 /min Body Temperature 98.1 F 03/20/2011 10:38am BP Systolic 120 mmHg BP Diastolic 70 mmHg Heart Rate 65 /min Body Temperature 97.7 F 12/26/2010 5:00pm BP Systolic 100 mmHg BP Diastolic 70 mmHg Heart Rate 112 /min Body Temperature 97.4 F 11/10/2010 1:42pm BP Systolic 78 mmHg BP Diastolic 60 mmHg Heart Rate 60 /min Body Temperature 97.9 F 11/08/2010 10:55am BP Systolic 70 mmHg BP Diastolic 60 mmHg Heart Rate 60 /min Body Temperature 100.2 F 09/24/2010 10:19am Heart Rate 88 /min Body Temperature 97.0 F 05/28/2010 11:35am BP Systolic 104 mmHg BP Diastolic 68 mmHg Heart Rate 78 /min 05/20/2010 11:41am BP Systolic 80 mmHg BP Diastolic 60 mmHg Heart Rate 76 /min Body Temperature 97.0 F 05/13/2010 10:42am Heart Rate 76 /min Body Temperature 98.6 F 04/01/2010 11:23am Heart Rate 100 /min 10/16/2009 4:51pm Heart Rate 80 /min 07/02/2009 11:38am BP Systolic 98 mmHg BP Diastolic 52 mmHg Body Temperature 98.1 F 02/15/2009 1:41pm BP Systolic 118 mmHg BP Diastolic 70 mmHg Heart Rate 76 /min Body Temperature 96.2 F 01/24/2009 10:57am Weight 54.432 kg BP Systolic 120 mmHg BP Diastolic 72 mmHg Heart Rate 70 /min Body Temperature 97.9 F O2 % BldC Oximetry 95 % 96% 02/15/2008 9:44am BP Systolic 100 mmHg BP Diastolic 70 mmHg Heart Rate 90 /min Height 64 inches 5'4" 10/24/2007 4:13pm BP Systolic 100 mmHg BP Diastolic 80 mmHg Heart Rate 90 /min Height 64 inches 5'4" 09/21/2007 11:42am BP Systolic 102 mmHg BP Diastolic 58 mmHg Heart Rate 68 /min Body Temperature 98.0 F Axillary Height 64 inches 5'4" 08/26/2007 3:58pm BP Systolic 100 mmHg BP Diastolic 60 mmHg Heart Rate 76 /min Body Temperature 98.2 F Height 64 inches 5'4" 03/10/2007 11:33am Weight 103.75 lb Weight 47.061 kg Height 64 inches 5'4" BMI (Body Mass Index) 17.8 kg/m2 10/21/2006 10:06am BP Systolic 118 mmHg BP Diastolic 70 mmHg Heart Rate 72 /min Height 64 inches 5'4" 10/16/2005 1:26pm Weight 106.00 lb Weight 48.082 kg BP Systolic 100 mmHg BP Diastolic 60 mmHg Heart Rate 80 /min Respiratory Rate 18 /min Height 64 inches 5'4" BMI (Body Mass Index) 18.2 kg/m2 05/28/2005 3:01pm BP Systolic 98 mmHg BP Diastolic 62 mmHg Body Temperature 98.0 F 01/28/2005 1:22pm Heart Rate 84 /min Body Temperature 97.6 F Respiratory Rate 20 /min 11/04/2004 11:45am BP Systolic 100 mmHg BP Diastolic 60 mmHg Body Temperature 97.1 F Respiratory Rate 22 /min 10/16/2004 8:22am Weight 103.00 lb Weight 46.721 kg BP Systolic 120 mmHg BP Diastolic 60 mmHg Heart Rate 80 /min 04/07/2004 10:26am Weight 105.00 lb Weight 47.628 kg BP Systolic 90 mmHg BP Diastolic 60 mmHg 02/05/2004 4:22pm BP Systolic 126 mmHg BP Diastolic 80 mmHg Heart Rate 98.8 /min 09/17/2003 8:45am Weight 103.00 lb Weight 46.721 kg BP Systolic 100 mmHg BP Diastolic 60 mmHg Heart Rate 80 /min Respiratory Rate 18 /min 09/06/2002 8:15am Weight 104.00 lb Weight 47.174 kg BP Systolic 110 mmHg BP Diastolic 60 mmHg Heart Rate 80 /min Results Test Date Facility Test Result H/L Range Note Laboratory test [facility] Lactic Acid 0.7 mmol/L N 0.5-2.0 1 finding [phone] Laboratory test In House Lab Flu PCR NEG finding 9 [phone] Laboratory test [facility] Pediatric SEE RESULT 2 finding [phone] Blood Culture BELOW Urine Culture And [facility] Urine Culture SEE RESULT 3 Sensitivities [phone] BELOW Laboratory test [facility] Lactic Acid 1.3 mmol/L N 0.5-2.0 4 finding [phone] Comp Metabolic [facility] Sodium 141 mmol/ L N 135-145 Panel [phone] Potassium 3.8 mmol/L N 3.5-5.0 Chloride 107 mmol/L N 101-111 Co2 Carbon Dioxide 27 mmol/L N 22-32 Anion Gap 7 mmol/L N 2-11 Glucose 137 mg/dL High 70-100 Blood Urea Nitrogen 24 mg/dL N 6-24 Creatinine 1.22 mg/dL High 0.51-0.95 BUN/Creatinine Ratio 19.7 N 8-20 Calcium 9.4 mg/dL N 8.6-10.3 Total Protein 7.0 g/dL N 6.4-8.9 Albumin 3.6 g/dL N 3.2-5.2 Globulin 3.4 g/dL N 2-4 Albumin/Globulin Ratio 1.1 N 1-3 Total Bilirubin 0.40 mg/dL N 0.2-1.0 Alkaline Phosphatase 111 U/L High 34-104 Alt 16 U/L N 7-52 Ast 12 U/L Low 13-39 Egfr Non- 46.8 >60 Egfr 56.7 >60 5 Laboratory test 08/24/2018 [facility] C Reactive 216.13 mg/L High <8.01 finding [phone] Protein Troponin-I (TnI) 0.00 ng/mL <0.04 6 Laboratory test 08/24/2018 [facility] Partial 31.7 seconds N 26.0-36.3 finding [phone] Thrombo Time PTT Blood Culture SEE RESULT BELOW 7 Inr/Protime 08/24/2018 [facility] Inr 1.20 High 0.77-1.02 [phone] CBC Auto Diff 08/24/2018 [facility] White Blood 21.1 High 3.5-10.8 [phone] Count 10^3/uL Red Blood Count 4.86 10^6/uL N 4.00-5.40 Hemoglobin 12.1 g/dL N 12.0-16.0 Hematocrit 38 % N 35-47 Mean Corpuscular Volume 78 fL Low 80-97 Mean Corpuscular Hemoglobin 25 pg Low 27-31 Mean Corpuscular HGB Conc 32 g/dL N 31-36 Red Cell Distribution Width 18 % High 10.5-15 Platelet Count 327 10^3/uL N 150-450 Mean Platelet Volume 8.4 fL N 7.4-10.4 Abs Neutrophils 18.0 10^3/uL High 1.5-7.7 Abs Lymphocytes 1.2 10^3/uL N 1.0-4.8 Abs Monocytes 1.8 10^3/uL High 0-0.8 Abs Eosinophils 0 10^3/uL N 0-0.6 Abs Basophils 0.1 10^3/uL N 0-0.2 Abs Nucleated RBC 0 10^3/uL Granulocyte % 85.2 % Lymphocyte % 5.8 % Monocyte % 8.7 % Eosinophil % 0 % Basophil % 0.3 % Nucleated Red Blood Cells % 0 Urinalysis Profile 08/24/2018 [facility] Urine Color Jayla [phone] Urine Appearance Cloudy Urine Specific [place] 1.025 N 1.010-1.030 Urine pH 6.0 N 5-9 Urine Urobilinogen Negative Negative Urine Ketones Trace Abnormal Negative Urine Protein 2+(100 mg/dL) Abnormal Negative Urine Leukocytes 1+ Abnormal Negative Urine Blood 3+ Abnormal Negative Urine Nitrite Negative Negative Urine Bilirubin Negative Negative Urine Glucose Negative Negative Urine White Blood Cell 3+(>20/hpf) Abnormal Absent Urine Red Blood Cell 3+(>10/hpf) Abnormal Absent Urine Bacteria 2+ Abnormal Absent Urine Squamous Epithelial Cell Present Abnormal Absent Urine Transitional Epithelial Present Abnormal Absent Urine Hyaline Casts Present Abnormal Absent Urine Amorphous Crystals Present Abnormal Absent Laboratory test 09/24/2017 [facility] TSH (Thyroid 0.67 N 0.34-5.60 finding [phone] Stimulating mcIU/mL Horm) Magnesium 2.4 mg/dL N 1.9-2.7 Laboratory test 06/07/2017 [facility] TSH (Thyroid 4.02 mcIU/mL N 0.34-5.60 8 finding [phone] Stim Horm) CBC Auto Diff 06/07/2017 [facility] White Blood 7.8 10^3/uL N 3.5-10.8 [phone] Count Red Blood Count 4.73 10^6/uL N 4.0-5.4 Hemoglobin 12.4 g/dL N 12.0-16.0 Hematocrit 39 % N 35-47 Mean Corpuscular Volume 82 fL N 80-97 Mean Corpuscular Hemoglobin 26 pg Low 27-31 Mean Corpuscular HGB Conc 32 g/dL N 31-36 Red Cell Distribution Width 16 % High 10.5-15 Platelet Count 346 10^3/uL N 150-450 Mean Platelet Volume 9 um3 N 7.4-10.4 Abs Neutrophils 4.3 10^3/uL N 1.5-7.7 Abs Lymphocytes 2.3 10^3/uL N 1.0-4.8 Abs Monocytes 0.9 10^3/uL High 0-0.8 Abs Eosinophils 0.2 10^3/uL N 0-0.6 Abs Basophils 0.1 10^3/uL N 0-0.2 Abs Nucleated RBC 0.01 10^3/uL Granulocyte % 54.5 % N 38-83 Lymphocyte % 30.0 % N 25-47 Monocyte % 11.6 % High 1-9 Eosinophil % 3.2 % N 0-6 Basophil % 0.7 % N 0-2 Nucleated Red Blood Cells % 0.1 Comp Metabolic Panel 06/07/2017 [facility] Sodium 141 mmol/L N 133-145 [phone] Potassium 4.5 mmol/L N 3.5-5.0 Chloride 104 mmol/L N 101-111 Co2 Carbon Dioxide 33 mmol/L High 22-32 Anion Gap 4 mmol/L N 2-11 Glucose 95 mg/dL N 70-100 Blood Urea Nitrogen 20 mg/dL N 6-24 Creatinine 0.82 mg/dL N 0.51-0.95 BUN/Creatinine Ratio 24.4 High 8-20 Calcium 9.5 mg/dL N 8.6-10.3 Total Protein 6.5 g/dL N 6.4-8.9 Albumin 3.7 g/dL N 3.2-5.2 Globulin 2.8 g/dL N 2-4 Albumin/Globulin Ratio 1.3 N 1-3 Total Bilirubin 0.20 mg/dL N 0.2-1.0 Alkaline Phosphatase 79 U/L N 34-104 Alt 21 U/L N 7-52 Ast 21 U/L N 13-39 Egfr Non- 74.4 >60 Egfr 95.7 >60 9 Laboratory test 06/02/2017 [facility] Lactic Acid 1.4 mmol/L N 0.5-2.0 10 finding [phone] Ammonia 43 ?mol/L N 16-53 B-Type Natriuretic Peptide BNP 52 pg/mL 11 Urinalysis Profile 06/02/2017 [facility] Urine Color Yellow [phone] Urine Appearance Cloudy Urine Specific [place] 1.013 N 1.010-1.030 Urine pH 7.0 N 5-9 Urine Urobilinogen Negative Negative Urine Ketones Negative Negative Urine Protein Negative Negative Urine Leukocytes 3+ Abnormal Negative Urine Blood 2+ Abnormal Negative Urine Nitrite Negative Negative Urine Bilirubin Negative Negative Urine Glucose Negative Negative Urine White Blood Cell 3+(>20/hpf) Abnormal Absent Urine Red Blood Cell 3+(>10/hpf) Abnormal Absent Urine Bacteria 1+ Abnormal Absent Inr/Protime 06/02/2017 [facility] Inr 0.98 N 0.77- 1.02 12 [phone] Laboratory test 06/02/2017 [facility] Partial 31.7 seconds N 26.0-36.3 finding [phone] Thrombo Time PTT CBC Auto Diff 06/02/2017 [facility] White Blood 10.1 10^3/uL N 3.5-10.8 [phone] Count Red Blood Count 5.15 10^6/uL N 4.0-5.4 Hemoglobin 13.6 g/dL N 12.0-16.0 Hematocrit 42 % N 35-47 Mean Corpuscular Volume 82 fL N 80-97 Mean Corpuscular Hemoglobin 26 pg Low 27-31 Mean Corpuscular HGB Conc 32 g/dL N 31-36 Red Cell Distribution Width 16 % High 10.5-15 Platelet Count 288 10^3/uL N 150-450 Mean Platelet Volume 9 um3 N 7.4-10.4 Abs Neutrophils 5.8 10^3/uL N 1.5-7.7 Abs Lymphocytes 3.0 10^3/uL N 1.0-4.8 Abs Monocytes 0.9 10^3/uL High 0-0.8 Abs Eosinophils 0.3 10^3/uL N 0-0.6 Abs Basophils 0 10^3/uL N 0-0.2 Abs Nucleated RBC 0 10^3/uL Granulocyte % 57.4 % N 38-83 Lymphocyte % 30.0 % N 25-47 Monocyte % 9.2 % High 1-9 Eosinophil % 3.0 % N 0-6 Basophil % 0.4 % N 0-2 Nucleated Red Blood Cells % 0 Comp Metabolic Panel 06/02/2017 [facility] Sodium 142 mmol/L N 133-145 [phone] Potassium 4.2 mmol/L N 3.5-5.0 Chloride 106 mmol/L N 101-111 Co2 Carbon Dioxide 31 mmol/L N 22-32 Anion Gap 5 mmol/L N 2-11 Glucose 96 mg/dL N 70-100 Blood Urea Nitrogen 20 mg/dL N 6-24 Creatinine 0.92 mg/dL N 0.51-0.95 BUN/Creatinine Ratio 21.7 High 8-20 Calcium 9.9 mg/dL N 8.6-10.3 Total Protein 7.1 g/dL N 6.4-8.9 Albumin 3.7 g/dL N 3.2-5.2 Globulin 3.4 g/dL N 2-4 Albumin/Globulin Ratio 1.1 N 1-3 Total Bilirubin 0.30 mg/dL N 0.2-1.0 Alkaline Phosphatase 95 U/L N 34-104 Alt 22 U/L N 7-52 Ast 19 U/L N 13-39 Egfr Non- 65.2 >60 Egfr 83.8 >60 13 Laboratory test 06/02/2017 [facility] Magnesium 2.1 mg/dL N 1.9-2.7 finding [phone] Lipase 53 U/L N 11.0-82.0 Creatine Kinase 102 U/L N 10-223 C Reactive Protein 3.90 mg/L N < 5.00 14 Troponin-I (TnI) 0.01 ng/mL <0.04 CKMB 06/02/2017 [facility] CKMB ng/mL 1.5 ng/mL N 0.6-6.3 [phone] Laboratory test 06/02/2017 [facility] Acetaminophen < 15 g/mL 15 finding [phone] Alcohol < 10 mg/dL N <10 Salicylate < 2.50 mg/dL <30 TSH (Thyroid Stimulating Horm) 6.64 mcIU/mL High 0.34-5.60 Blood Culture SEE RESULT BELOW 16 Levetiracetam (Keppra) 15.6 g/mL 17 Urine Culture SEE RESULT BELOW 18 Laboratory test 05/30/2017 [facility] Lactic Acid 1.4 mmol/L N 0.5-2.0 19 finding [phone] Urinalysis 05/30/2017 [facility] Urine Color Yellow Profile [phone] Urine Appearance Cloudy Urine Specific [place] 1.021 N 1.010-1.030 Urine pH 5.0 N 5-9 Urine Urobilinogen Negative Negative Urine Ketones Negative Negative Urine Protein Negative Negative Urine Leukocytes 3+ Abnormal Negative Urine Blood 3+ Abnormal Negative * * Abnormal Negative 20 Urine Nitrite Positive Abnormal Negative Urine Bilirubin Negative Negative Urine Glucose Negative Negative Urine White Blood Cell 3+(>20/hpf) Abnormal Absent Urine Red Blood Cell 3+(>10/hpf) Abnormal Absent Urine Bacteria 1+ Abnormal Absent Urine Squamous Epithelial Cell Present Abnormal Absent Laboratory test 05/30/2017 [facility] Urine Culture SEE RESULT 21 finding [phone] BELOW Laboratory test 05/29/2017 [facility] Inr 0.93 N 0.77-1 22 finding [phone] Partial Thrombo Time PTT 29.6 seconds N 26.0-36.3 Laboratory test 05/27/2017 [facility] Genital SEE RESULT 23 finding [phone] Culture BELOW CBC Auto Diff 05/06/2017 [facility] White Blood 7.8 10^3/uL N 3.5-10 [phone] Count .8 Red Blood Count 5.09 10^6/uL N 4.0-5.4 Hemoglobin 13.4 g/dL N 12.0-16.0 Hematocrit 42 % N 35-47 Mean Corpuscular Volume 83 fL N 80-97 Mean Corpuscular Hemoglobin 26 pg Low 27-31 Mean Corpuscular HGB Conc 32 g/dL N 31-36 Red Cell Distribution Width 16 % High 10.5-15 Platelet Count 398 10^3/uL N 150-450 Mean Platelet Volume 9 um3 N 7.4-10.4 Abs Neutrophils 4.4 10^3/uL N 1.5-7.7 Abs Lymphocytes 2.3 10^3/uL N 1.0-4.8 Abs Monocytes 0.7 10^3/uL N 0-0.8 Abs Eosinophils 0.2 10^3/uL N 0-0.6 Abs Basophils 0.1 10^3/uL N 0-0.2 Abs Nucleated RBC 0.01 10^3/uL Granulocyte % 57.1 % N 38-83 Lymphocyte % 30.0 % N 25-47 Monocyte % 9.2 % High 1-9 Eosinophil % 2.9 % N 0-6 Basophil % 0.8 % N 0-2 Nucleated Red Blood Cells % 0.1 Comp Metabolic Panel 05/06/2017 [facility] Sodium 142 mmol/L N 133-145 [phone] Potassium 4.8 mmol/L N 3.5-5.0 Chloride 107 mmol/L N 101-111 Co2 Carbon Dioxide 30 mmol/L N 22-32 Anion Gap 5 mmol/L N 2-11 Glucose 89 mg/dL N 70-100 Blood Urea Nitrogen 26 mg/dL High 6-24 Creatinine 0.93 mg/dL N 0.51-0.95 BUN/Creatinine Ratio 28.0 High 8-20 Calcium 9.7 mg/dL N 8.6-10.3 Total Protein 6.9 g/dL N 6.4-8.9 Albumin 3.8 g/dL N 3.2-5.2 Globulin 3.1 g/dL N 2-4 Albumin/Globulin Ratio 1.2 N 1-3 Total Bilirubin 0.30 mg/dL N 0.2-1.0 Alkaline Phosphatase 84 U/L N 34-104 Alt 14 U/L N 7-52 Ast 13 U/L N 13-39 Egfr Non- 64.3 >60 Egfr 82.8 >60 24 Lipid Profile 05/06/2017 [facility] Triglycerides 192 mg/dL 25 (Trig/Chol/HDL) [phone] Cholesterol 160 mg/dL 26 HDL Cholesterol 27.0 mg/dL 27 LDL Cholesterol 95 mg/dL 28 Laboratory test 05/06/2017 [facility] TSH (Thyroid 0.89 mcIU/mL N 0.34-5.60 29 finding [phone] Stim Horm) Vitamin D Total 25(Oh) 50.7 ng/mL High 20-50 30 Laboratory test 07/20/2016 [facility] Culture Genital SEE RESULT 31 finding [phone] & Sensitivity BELOW Laboratory test 05/26/2016 [facility] TSH (Thyroid 2.86 N 0.34- finding [phone] Stimulating mcIU/mL 5.60 Horm) Laboratory test 04/15/2015 [facility] TSH (Thyroid 9.98 ?IU/mL High 0.34- finding [phone] Stim Horm) 5.60 Laboratory test 03/08/2015 [facility] TSH (Thyroid 6.11 ?IU/mL High 0.34- finding [phone] Stim Horm) 5.60 Vitamin B12 1135 pg/mL High 180-914 32 Vitamin D Total 25(Oh) 47.1 ng/mL N 30-50 Comp Metabolic Panel 03/08/2015 [facility] Sodium 140 mmol/L N 133-145 [phone] Potassium 4.2 mmol/L N 3.5-5.0 Chloride 105 mmol/L N 101-111 Co2 Carbon Dioxide 30 mmol/L N 22-32 Anion Gap 5 mmol/L N 2-11 Glucose 101 mg/dL High 70-100 Blood Urea Nitrogen 21 mg/dL N 6-24 Creatinine 0.91 mg/dL N 0.51-0.95 BUN/Creatinine Ratio 23.1 High 8-20 Calcium 9.7 mg/dL N 8.6-10.3 Total Protein 6.5 g/dL N 6.4-8.9 Albumin 3.9 g/dL N 3.2-5.2 Globulin 2.6 g/dL N 2-4 Albumin/Globulin Ratio 1.5 N 1-3 Total Bilirubin 0.30 mg/dL N 0.2-1.0 Alkaline Phosphatase 76 U/L N 34-104 Alt 12 U/L N 7-52 Ast 13 U/L N 13-39 Egfr Non- 66.6 N >60 Egfr 85.6 N >60 33 CBC Auto Diff 03/08/2015 [facility] White Blood 7.5 10^3/uL N 4.8-10.8 [phone] Count Red Blood Count 4.72 10^6/uL N 4.0-5.4 Hemoglobin 14.1 g/dL N 12.0-16.0 Hematocrit 43 % N 35-47 Mean Corpuscular Volume 91 fL N 80-97 Mean Corpuscular Hemoglobin 30 pg N 27-31 Mean Corpuscular HGB Conc 33 g/dL N 31-36 Red Cell Distribution Width 14 % N 10.5-15 Platelet Count 205 10^3/uL N 150-450 Mean Platelet Volume 9 um3 N 7.4-10.4 Abs Neutrophils 4.8 10^3/uL N 1.5-7.7 Abs Lymphocytes 1.8 10^3/uL N 1.0-4.8 Abs Monocytes 0.6 10^3/uL N 0-0.8 Abs Eosinophils 0.2 10^3/uL N 0-0.6 Abs Basophils 0 10^3/uL N 0-0.2 Abs Nucleated RBC 0 10^3/uL N Granulocyte % 63.8 % N 38-83 Lymphocyte % 24.7 % Low 25-47 Monocyte % 8.5 % N 1-9 Eosinophil % 2.6 % N 0-6 Basophil % 0.4 % N 0-2 Nucleated Red Blood Cells % 0 N CBC No Diff 04/16/2014 [facility] White Blood 7.8 10^ 3/uL N 4.8-10.8 [phone] Count Red Blood Count 4.96 10^6/uL N 4.0-5.4 Hemoglobin 13.9 g/dL N 12.0-16.0 Hematocrit 43 % N 35-47 Mean Corpuscular Volume 86 fL N 80-97 Mean Corpuscular Hemoglobin 28 pg N 27-31 Mean Corpuscular HGB Conc 33 g/dL N 31-36 Red Cell Distribution Width 16 % High 10.5-15 Platelet Count 247 10^3/uL N 150-450 Mean Platelet Volume 10 um3 N 7.4-10.4 Comp Metabolic 04/16/2014 [facility] Sodium 146 mmol/ L High 133-145 Panel [phone] Potassium 5.3 mmol/L N 3.7-5.6 Chloride 114 mmol/L High 101-111 Co2 Carbon Dioxide 27 mmol/L N 22-32 Anion Gap 5 mmol/L N 2-11 Glucose 106 mg/dL High 70-100 Blood Urea Nitrogen 27 mg/dL High 6-24 Creatinine 1.06 mg/dL High 0.51-0.95 BUN/Creatinine Ratio 25.5 High 8-20 Calcium 9.8 mg/dL N 8.6-10.3 Total Protein 6.9 g/dL N 6.4-8.9 Albumin 3.9 g/dL N 3.2-5.2 Globulin 3.0 g/dL N 2-4 Albumin/Globulin Ratio 1.3 N 1-3 Total Bilirubin 0.30 mg/dL N 0.2-1.0 Alkaline Phosphatase 84 U/L N 34-104 Alt 13 U/L N 7-52 Ast 13 U/L N 13-39 Egfr Non- 56.1 N >60 Egfr 72.1 N >60 34 Lipid Profile 04/16/2014 [facility] Triglycerides 214 mg/dL N 35 (Trig/Chol/HDL) [phone] Cholesterol 155 mg/dL N 36 HDL Cholesterol 29.3 mg/dL N 37 LDL Cholesterol 83 mg/dL N 38 Laboratory 04/16/2014 [facility] TSH (Thyroid 4.61 IU /mL N 0.34-5.60 test finding [phone] Stimulating Horm) Laboratory 08/10/2013 [facility] TSH (Thyroid 4.11 IU /mL 0.34-5.60 test finding [phone] Stimulating Horm) Human 04/10/2013 [facility] Human See 39 Papilloma [phone] Papillomavirus Comment Source Human Papillomavirus High Risk Negative Negative 40 Laboratory test 04/07/2013 [facility] Cytology RUN DATE: 41 finding [phone] 04/10/ <SEE NOTE> Urinalysis 03/15/2013 [facility] Urine Color Yellow [phone] Urine Appearance Cloudy Urine Specific [place] 1.010 1.010-1.030 Urine Esterase 3+ Abnormal Negative Urine Nitrate Negative Negative Urine Urobilinogen Negative E.U./dL Negative Urine Protein Negative mg/dL Negative Urine pH 8.0 5-9 Urine Blood Trace Abnormal Negative Urine Ketones 1+ mg/dL Abnormal Negative Urine Bilirubin Negative Negative Urine Glucose Negative mg/dL Negative Urine Microscopic 03/15/2013 [facility] Urine WBC 3+ (>30 None Seen [phone] /hpf) Urine RBC None Seen None Seen Urine Epithelial Cells 2+ Squamous /hpf None Seen Bacteria Urine 1+ None Seen Urine Culture And 03/15/2013 [facility] Urine Culture (SEE NOTE) 42 Sensitivities [phone] Stool For Blood 02/09/2013 [facility] Stool Occult ( SEE NOTE) 43 [phone] Blood CBC Auto Diff 02/09/2013 [facility] White Blood 9.1 10^3/uL 4.8-10 [phone] Count .8 Red Blood Count 4.69 10^6/uL 4.0-5.4 Hemoglobin 14.2 g/dL 12.0-16.0 Hematocrit 43 % 35-47 Mean Corpuscular Volume 91 fL 80-97 Mean Corpuscular Hemoglobin 30 pg 27-31 Mean Corpuscular HGB Conc 33 g/dL 31-36 Red Cell Distribution Width 14 % 10.5-15 Platelet Count 255 10^3/uL 150-450 Mean Platelet Volume 10 um3 7.4-10.4 Abs Neutrophils 6.1 10^3/uL 1.5-7.7 Abs Lymphocytes 1.9 10^3/uL 1.0-4.8 Abs Monocytes 0.8 10^3/uL 0-0.8 Abs Eosinophils 0.2 10^3/uL 0-0.6 Abs Basophils 0 10^3/uL 0-0.2 Abs Nucleated RBC 0.01 10^3/uL Granulocyte % 67.5 % 38-83 Lymphocyte % 21.0 % Low 25-47 Monocyte % 9.0 % 1-9 Eosinophil % 2.0 % 0-6 Basophil % 0.5 % 0-2 Nucleated Red Blood Cells % 0.1 Inr/Protime 02/09/2013 [facility] Inr 0.92 0.87- 0.97 [phone] Laboratory test 02/09/2013 [facility] Activated 28.9 22.18-37.18 finding [phone] Partial seconds Thrombo Time Comp Metabolic 02/09/2013 [facility] Sodium 142 mmol/ L 133-145 Panel [phone] Potassium 4.2 mmol/L 3.5-5.0 Chloride 104 mmol/L 101-111 Co2 Carbon Dioxide 32.0 mmol/L 22-32 Anion Gap 6.0 mmol/L 2-11 Glucose 91 mg/dL 70-100 Blood Urea Nitrogen 12 mg/dL 6-24 Creatinine 0.90 mg/dL 0.50-1.40 BUN/Creatinine Ratio 13.3 8-20 Calcium 9.9 mg/dL 8.1-9.9 Total Protein 6.7 g/dL 6.2-8.1 Albumin 3.6 g/dL 3.6-5.4 Globulin 3.1 g/dL 2-4 Albumin/Globulin Ratio 1.2 1-3 Total Bilirubin 0.6 mg/dL 0.4-1.5 Alkaline Phosphatase 69 U/L 30-110 Alt 14 U/L 14-54 Ast 18 U/L 12-42 Egfr Non- 68.0 >60 Egfr 87.5 >60 44 Laboratory test 02/09/2013 [facility] Amylase 78 U/L 20-120 finding [phone] Lipase 45 U/L 22-51 C Reactive Protein < 0.5 mg/dL Less than 0.5 Urinalysis 02/04/2013 [facility] Urine Color Yellow [phone] Urine Appearance Clear Urine Specific [place] 1.009 Low 1.010-1.030 Urine Esterase 3+ Abnormal Negative Urine Nitrate Negative Negative Urine Urobilinogen Negative E.U./dL Negative Urine Protein Negative mg/dL Negative Urine pH 7.5 5-9 Urine Blood 1+ Abnormal Negative Urine Ketones 1+ mg/dL Abnormal Negative Urine Bilirubin Negative Negative Urine Glucose Negative mg/dL Negative Urine Microscopic 02/04/2013 [facility] Urine WBC 3+ (>30 None Seen [phone] /hpf) Urine RBC 1+ (<3 /hpf) None Seen Urine Mucus Present /lpf Absent Bacteria Urine 3+ None Seen CBC Auto Diff 02/04/2013 [facility] White Blood 9.5 10^3/uL 4.8-10.8 [phone] Count Red Blood Count 4.73 10^6/uL 4.0-5.4 Hemoglobin 14.5 g/dL 12.0-16.0 Hematocrit 44 % 35-47 Mean Corpuscular Volume 92 fL 80-97 Mean Corpuscular Hemoglobin 31 pg 27-31 Mean Corpuscular HGB Conc 33 g/dL 31-36 Red Cell Distribution Width 14 % 10.5-15 Platelet Count 252 10^3/uL 150-450 Mean Platelet Volume 9 um3 7.4-10.4 Abs Neutrophils 6.3 10^3/uL 1.5-7.7 Abs Lymphocytes 2.2 10^3/uL 1.0-4.8 Abs Monocytes 0.8 10^3/uL 0-0.8 Abs Eosinophils 0.1 10^3/uL 0-0.6 Abs Basophils 0 10^3/uL 0-0.2 Abs Nucleated RBC 0.01 10^3/uL Granulocyte % 66.8 % 38-83 Lymphocyte % 23.2 % Low 25-47 Monocyte % 8.7 % 1-9 Eosinophil % 1.0 % 0-6 Basophil % 0.3 % 0-2 Nucleated Red Blood Cells % 0.1 Comp Metabolic Panel 02/04/2013 [facility] Sodium 140 mmol/L 133-145 [phone] Potassium 4.2 mmol/L 3.5-5.0 Chloride 104 mmol/L 101-111 Co2 Carbon Dioxide 31.0 mmol/L 22-32 Anion Gap 5.0 mmol/L 2-11 Glucose 93 mg/dL 70-100 Blood Urea Nitrogen 16 mg/dL 6-24 Creatinine 0.90 mg/dL 0.50-1.40 BUN/Creatinine Ratio 17.8 8-20 Calcium 9.9 mg/dL 8.1-9.9 Total Protein 7.5 g/dL 6.2-8.1 Albumin 4.1 g/dL 3.6-5.4 Globulin 3.4 g/dL 2-4 Albumin/Globulin Ratio 1.2 1-3 Total Bilirubin 0.7 mg/dL 0.4-1.5 Alkaline Phosphatase 83 U/L 30-110 Alt 14 U/L 14-54 Ast 16 U/L 12-42 Egfr Non- 68.0 >60 Egfr 87.5 >60 45 Laboratory 02/04/2013 [facility] Troponin I 0.01 ng/ mL 0-0.06 46 test finding [phone] Laboratory 04/08/2012 [facility] TSH (Thyroid 4.11 MIU/ML 0.34-5.60 test finding [phone] Stimulating Horm) Vaginitis Dna 06/25/2011 [facility] Screen NEGATIVE Probe Screen [phone] Trichomonas Vaginalis Dna Screen Gardnerella Vaginalis Dna NEGATIVE Screen Ken[place] Species Dna NEGATIVE Vaginal Culture 06/25/2011 [facility] Vaginal Culture Normal vaginal 47 [phone] <SEE NOTE> .Gram Stain Additional RARE [facility] [place] <SEE NOTE> 48 Thyroid 06/08/2011 [facility] Thyroglobulin AB <20 IU /mL <116 49 Autoantibodies [phone] Screen Thyroperoxidase Antibody 225.8 IU/mL High Less Than 9.0 Laboratory test 06/08/2011 [facility] TSH 1.48 MIU/ ML 0.34-5.60 finding [phone] T3 Total 1.13 NG/ML 0.5-1.7 Thyroxine Free 1.10 ng/dL 0.61-1.24 Comp Metabolic Panel 04/10/2011 [facility] Sodium 142 mmol/L 135-145 [phone] Potassium 4.5 mmol/L 3.5-5.0 Chloride 106 mmol/L 101-111 Co2 (Carbon Dioxide) 31.0 mmol/L 22-32 Anion Gap 5.0 mmol/L 2-11 50 Glucose 96 mg/dL 70-100 BUN 13 mg/dL 6-24 Creatinine 0.6 mg/dL 0.50-1.40 One Over Creatinine 1.66 BUN/Creatinine Ratio 21.7 High 8-20 Calcium 9.6 mg/dL 8.1-9.9 Total Protein 6.8 GM/DL 6.2-8.1 Albumin 3.7 GM/DL 3.6-5.4 Globulin 3.1 GM/DL 2-4 Albumin/Globulin Ratio 1.2 1-3 Bilirubin Total 0.4 mg/dL 0.4-1.5 51 Alkaline Phosphatase 84 U/L 30-110 Alt (SGPT) 22 U/L 14-54 Ast (Sgot) 21 U/L 12-42 eGFR Non- 109.6 > 60 eGFR 141.0 > 60 52 CBC Auto Diff 04/10/2011 [facility] White Blood 7.6 CUMM 4.8-10.8 [phone] Count Red Cell Count 4.45 CUMM 4.2-5.4 Hemoglobin 14.4 g/dL 12.0-16.0 Hematocrit 42 % 35-47 Mean Corpuscular Volume 94 um3 79-97 Mean Corpuscular Hemoglob 32 pg High 27-31 Mean Corpuscular HGB Cone 34 g/dL 32-36 Redcell Distribution WDTH 12 % 10.5-15 Platelet Count 273 CUMM 150-450 Mean Platelet Volume 8.7 um3 7.4-10.4 53 Manual Differential 04/10/2011 [facility] Polysegmented 60 % 38-83 [phone] Neutrophil Lymphocyte 28 % 25-47 Monocyte 8 % 0-13 Basophil 2 % 0-2 Atypical Lymph 2 % 0-6 Absolute Neutrophil Count 4.5 RBC Morphology NORMAL Laboratory test 04/10/2011 [facility] Magnesium 2.4 mg/dL 1.7-2.6 finding [phone] Comp Metabolic 04/07/2011 [facility] Sodium 139 mmol/ L 135-145 Panel [phone] Potassium 4.6 mmol/L 3.5-5.0 Chloride 108 mmol/L 101-111 Co2 (Carbon Dioxide) 24.0 mmol/L 22-32 Anion Gap 7.0 mmol/L 2-11 54 Glucose 92 mg/dL 70-100 BUN 18 mg/dL 6-24 Creatinine 0.6 mg/dL 0.50-1.40 One Over Creatinine 1.66 BUN/Creatinine Ratio 30.0 High 8-20 Calcium 9.2 mg/dL 8.1-9.9 Total Protein 6.5 GM/DL 6.2-8.1 Albumin 3.8 GM/DL 3.6-5.4 Globulin 2.7 GM/DL 2-4 Albumin/Globulin Ratio 1.4 1-3 Bilirubin Total 0.4 mg/dL 0.4-1.5 55 Alkaline Phosphatase 90 U/L 30-110 Alt (SGPT) 19 U/L 14-54 Ast (Sgot) 22 U/L 12-42 eGFR Non- 109.6 > 60 eGFR 141.0 > 60 56 Laboratory 04/07/2011 [facility] TSH 8.70 High 0.34 -5.60 test finding [phone] MIU/ML Urine Culture 11/16/2010 [facility] Urine Culture NG 57, Sensitivi [phone] Sensitivi 58 CBC No Diff 11/16/2010 [facility] White Blood 9.0 CUMM 4.8-10.8 [phone] Count Red Cell Count 4.42 CUMM 4.2-5.4 Hemoglobin 13.9 g/dL 12.0-16.0 Hematocrit 42 % 35-47 Mean Corpuscular Volume 94 um3 79-97 Mean Corpuscular Hemoglob 32 pg High 27-31 Mean Corpuscular HGB Cone 33 g/dL 32-36 Redcell Distribution WDTH 13 % 10.5-15 Platelet Count 429 CUMM 150-450 Mean Platelet Volume 8.5 um3 7.4-10.4 Basic Metabolic 11/16/2010 [facility] Sodium 142 mmol /L 135-145 Panel [phone] Potassium 3.6 mmol/L 3.5-5.0 Chloride 102 mmol/L 101-111 Co2 (Carbon Dioxide) 34.0 mmol/L High 22-32 Anion Gap 6.0 mmol/L 2-11 59 Glucose 95 mg/dL 70-100 BUN 9 mg/dL 6-24 Creatinine 0.60 mg/dL 0.50-1.40 One Over Creatinine 1.60 BUN/Creatinine Ratio 15.0 8-20 Calcium 10.0 mg/dL High 8.1-9.9 eGFR Non- 109.6 > 60 eGFR 141.0 > 60 60 Urinalysis 11/16/2010 [facility] Ua Color YELLOW Yellow W/Microscopic [phone] Appearance-Urine CLEAR Clear Specific [place]-Ur 1.010 1.010-1.030 Esterase-Urine TRACE Abnormal Negative Nitrite NEGATIVE Negative Wkbyhhorkjkw-Kb-HJU NEGATIVE Negative Protein-Urine NEGATIVE Negative PH-Urine 7.0 5-9 Blood-Urine 1+ Abnormal Negative Ketones-Urine NEGATIVE Negative Bilirubin-Ur NEGATIVE Negative Glucose-Urine NEGATIVE Negative WBC-Urine 2-4 0-5 RBC-Urine 3-6 0-2 Epith Cells-Ur FEW None Amorphous Sed-U 2+ None Laboratory test 11/10/2010 In House Lab Strep Screen NEG Neg finding [phone] Laboratory test 11/10/2010 [facility] Throat Culture NF 61 finding [phone] Full Urine Culture & 11/08/2010 [facility] Urine Culture KLEBSIELLA 62 Sensitivi [phone] Sensitivi PNEUM <SEE NOTE> Urinalysis 11/08/2010 [facility] Ua Color JAYLA Yellow W/Microscopic [phone] Appearance-Urine CLOUDY Clear Specific [place]-Ur 1.025 1.010-1.030 Esterase-Urine 2+ Abnormal Negative Nitrite POSITIVE Abnormal Negative Xebzzeuwtnxl-Sl-HTV NEGATIVE Negative Protein-Urine 1+ Abnormal Negative PH-Urine 5.5 5-9 Blood-Urine 3+ Abnormal Negative Ketones-Urine 1+ Abnormal Negative Bilirubin-Ur NEGATIVE Negative Glucose-Urine NEGATIVE Negative WBC-Urine TNTC Abnormal 0-5 RBC-Urine 5-10 Abnormal 0-2 Mucus Urine MODERATE None Epith Cells-Ur RARE None Bacteria-Urine 4+ None Amorphous Sed-U TRACE None Sensitivities For Urine 11/08/2010 [facility] Ampicillin 16 R Culture [phone] Amikacin <=2 S Ciprofloxacin <=0.25 S Ceftriaxone <=1 S Cefazolin <=4 S Nitrofurantoin 128 R Gentamicin <=1 S Imipenem <=1 S Levofloxacin <=0.12 S Trimeth-Sulfa <=20 S Ceftazidime <=1 S Tigecycline 1 S Piperacillin/Tazobactam <=4 S Vaginitis Dna 09/24/2010 [facility] [employer] Screen Trichomonas NEGATIVE Probe Screen [phone] Vaginalis Dna Screen Gardnerella Vaginalis Dna NEGATIVE Screen [place] Species Dna NEGATIVE Laboratory test 07/30/2010 [facility] TSH 2.60 MIU/ ML 0.34-5.60 63 finding [phone] CBC With 05/19/2010 [facility] White Blood 6.8 CUMM 4.8-10.8 Electronic Diff [phone] Count Red Cell Count 4.58 CUMM 4.2-5.4 Hemoglobin 14.6 g/dL 12.0-16.0 Hematocrit 43 % 35-47 Mean Corpuscular Volume 94 um3 79-97 Mean Corpuscular Hemoglob 32 pg High 27-31 Mean Corpuscular HGB Cone 34 g/dL 32-36 Redcell Distribution WDTH 13 % 10.5-15 Platelet Count 262 CUMM 150-450 Mean Platelet Volume 8.6 um3 7.4-10.4 Gran % 55.1 % 38-83 Lymph % 33.6 % 25-47 Mononuclear % 8.3 % 1-9 Eosinophil % 2.6 % 0-6 Basophil % 0.4 % 0-2 Abs Lymphs 2.3 1.0-4.8 Abs Mononuclear 0.6 0-0.8 Absolute Neutrophil Count 3.8 1.5-7.7 Abs Eosinophils 0.2 0-0.6 Abs Basophils 0 0-0.2 Laboratory test 05/19/2010 [facility] TSH 0.23 Low 0.34-5.60 finding [phone] MIU/ML Sensitivities For 05/16/2010 [facility] Ampicillin 8 S Urine Culture [phone] Amikacin <=2 S Ciprofloxacin <=0.25 S Ceftriaxone <=1 S Cefazolin <=4 S Nitrofurantoin <=16 S Gentamicin <=1 S Imipenem <=1 S Levofloxacin <=0.12 S Trimeth-Sulfa <=20 S Ceftazidime <=1 S Tigecycline <=0.5 S Piperacillin/Tazobactam KB 30 S Urinalysis 05/16/2010 [facility] Ua Color YELLOW Yellow W/Microscopic [phone] Appearance-Urine CLEAR Clear Specific [place]-Ur 1.026 1.010-1.030 Esterase-Urine 2+ Abnormal Negative Nitrite POSITIVE Abnormal Negative Ufreairukyah-Hv-XGM NEGATIVE Negative Protein-Urine NEGATIVE Negative PH-Urine 5.5 5-9 Blood-Urine TRACE Abnormal Negative Ketones-Urine NEGATIVE Negative Bilirubin-Ur NEGATIVE Negative Glucose-Urine NEGATIVE Negative WBC-Urine 15-20 Abnormal 0-5 RBC-Urine 0-2 0-2 Epith Cells-Ur MODERATE None Bacteria-Urine 4+ None Urine Culture & 05/16/2010 [facility] Urine Culture ESCHERICHIA COLI 64 Sensitivi [phone] Sensitivi Hemoccult 04/18/2010 In House Lab Stool-Occult neg Neg ([phone] - Blood #1 Stool-Occult Blood #2 neg Neg Stool-Occult Blood #3 only did 2 Neg Laboratory 04/01/2010 [facility] Cytology ----- 65 test finding [phone] <SEE NOTE> Laboratory 03/19/2010 [facility] TSH 4.51 MIU/ML 0.34-5.60 test finding [phone] Laboratory 02/07/2010 [facility] Stool For POSITIVE Abnormal Negative test finding [phone] Blood CBC With 02/07/2010 [facility] White 7.8 CUMM 4.8- 10.8 Electronic [phone] Blood Diff Count Red Cell Count 4.84 CUMM 4.2-5.4 Hemoglobin 15.7 g/dL 12.0-16.0 Hematocrit 46 % 35-47 Mean Corpuscular Volume 94 um3 79-97 Mean Corpuscular Hemoglob 32 pg High 27-31 Mean Corpuscular HGB Cone 35 g/dL 32-36 Redcell Distribution WDTH 13 % 10.5-15 Platelet Count 268 CUMM 150-450 Mean Platelet Volume 8.2 um3 7.4-10.4 Gran % 60.7 % 38-83 Lymph % 29.2 % 25-47 Mononuclear % 8.8 % 1-9 Eosinophil % 1.1 % 0-6 Basophil % 0.2 % 0-2 Abs Lymphs 2.3 1.0-4.8 Abs Mononuclear 0.7 0-0.8 Absolute Neutrophil Count 4.7 1.5-7.7 Abs Eosinophils 0.1 0-0.6 Abs Basophils 0 0-0.2 Comp Metabolic Panel 02/07/2010 [facility] Sodium 144 mmol/L 135-145 [phone] Potassium 4.4 mmol/L 3.5-5.0 Chloride 108 mmol/L 101-111 Co2 (Carbon Dioxide) 30.0 mmol/L 22-32 Anion Gap 6.0 mmol/L 2-11 66 Glucose 97 mg/dL 70-100 67 BUN 16 mg/dL 6-24 Creatinine 0.80 mg/dL 0.50-1.40 One Over Creatinine 1.20 BUN/Creatinine Ratio 20.0 8-20 Calcium 10.0 mg/dL High 8.1-9.9 68 Total Protein 7.0 GM/DL 6.2-8.1 Albumin 3.9 GM/DL 3.6-5.4 Globulin 3.1 GM/DL 2-4 Albumin/Globulin Ratio 1.3 1-3 Bilirubin Total 0.6 mg/dL 0.4-1.5 69 Alkaline Phosphatase 86 U/L 30-110 Alt (SGPT) 18 U/L 14-54 Ast (Sgot) 16 U/L 12-42 eGFR Non- 84.0 > 60 eGFR 101.7 > 60 70 PT W/Inr 02/07/2010 [facility] Inr 1.11 High 0.97- 1.03 71 [phone] Protime 13.1 SEC High 11.5-12.2 72 Laboratory test 02/07/2010 [facility] PTT (Aptt) 32.9 25.15-38.53 73 finding [phone] Lipid Profile 02/07/2010 [facility] Triglyceride 93 mg/dL 40-200 (Trig/Chol/HDL) [phone] Cholesterol 134 mg/dL Less Than 200 74 High Density Lipoprotein 25 mg/dL Low 40-60 75 Cholesterol/HDL Ratio 5.36 AVERAGE High 1-4.44 Low Density Lipoprotein 90 mg/dL Less Than 100 76 Laboratory test 02/07/2010 [facility] TSH 5.81 High 0.34-5.60 finding [phone] MIU/ML Laboratory test 03/01/2009 [facility] TSH 5.33 0.34-5.60 finding [phone] MIU/ML Laboratory test 01/24/2009 In House Lab Oximetry - 85% finding ([phone])- - Single Study CBC With 01/18/2009 [facility] White Blood 9.1 CUMM 4.8-10.8 Electronic Diff [phone] Count Stat Red Cell Count 4.74 CUMM 4.2-5.4 Hemoglobin 15.3 g/dL 12.0-16.0 Hematocrit 45 % 35-47 Mean Corpuscular Volume 94 um3 79-97 Mean Corpuscular Hemoglob 32 pg High 27-31 Mean Corpuscular HGB Cone 35 g/dL 32-36 Redcell Distribution WDTH 12 % 10.5-15 Platelet Count 246 CUMM 150-450 Mean Platelet Volume 9.1 um3 7.4-10.4 Gran % 70.2 % 38-83 Lymph % 19.9 % Low 25-47 Mononuclear % 8.6 % 1-9 Eosinophil % 1.0 % 0-6 Basophil % 0.3 % 0-2 Abs Lymphs 1.8 1.0-4.8 Abs Mononuclear 0.8 0-0.8 Absolute Neutrophil Count 6.4 1.5-7.7 Abs Eosinophils 0.1 0-0.6 Abs Basophils 0 0-0.2 77 CMP Stat 01/18/2009 [facility] Sodium 134 mmol/L Low 135-145 [phone] Potassium 4.3 mmol/L 3.5-5.0 Chloride 99 mmol/L Low 101-111 Co2 (Carbon Dioxide) 30.0 mmol/L 22-32 Anion Gap 5.0 mmol/L 2-11 78 Glucose 102 mg/dL High 70-100 79 BUN 11 mg/dL 6-24 Creatinine 0.70 mg/dL 0.50-1.40 One Over Creatinine 1.40 BUN/Creatinine Ratio 15.7 8-20 Calcium 9.3 mg/dL 8.1-9.9 80 Total Protein 6.9 GM/DL 6.2-8.1 Albumin 3.6 GM/DL 3.6-5.4 Globulin 3.3 GM/DL 2-4 Albumin/Globulin Ratio 1.1 1-3 Bilirubin Total 0.5 mg/dL 0.4-1.5 81 Alkaline Phosphatase 87 U/L 30-110 Alt (SGPT) 18 U/L 14-54 Ast (Sgot) 18 U/L 12-42 eGFR Non- 98.5 > 60 eGFR 119.2 > 60 82 Laboratory test 11/08/2008 [facility] TSH 0.87 MIU/ ML 0.34-5.60 finding [phone] Laboratory test 09/14/2008 [facility] TSH 5.02 MIU/ ML 0.34-5.60 finding [phone] Free T4 NOT DONE BY LAB Laboratory test 08/14/2008 [facility] TSH 6.68 MIU/ ML High 0.34-5.60 finding [phone] Comp Metabolic 07/03/2008 [facility] Sodium 141 mmol/ L 135-145 Panel [phone] Potassium 4.6 mmol/L 3.5-5.0 Chloride 106 mmol/L 101-111 Co2 (Carbon Dioxide) 30.0 mmol/L 22-32 Anion Gap 5.0 mmol/L 2-11 83 Glucose 80 mg/dL 70-100 84 BUN 12 mg/dL 6-24 Creatinine 0.60 mg/dL 0.50-1.40 One Over Creatinine 1.60 BUN/Creatinine Ratio 20.0 8-20 Calcium 9.5 mg/dL 8.1-9.9 85 Total Protein 6.0 GM/DL Low 6.2-8.1 Albumin 3.5 GM/DL Low 3.6-5.4 Globulin 2.5 GM/DL 2-4 Albumin/Globulin Ratio 1.4 1-3 Bilirubin Total 0.5 mg/dL 0.4-1.5 Alkaline Phosphatase 84 U/L 30-110 Alt (SGPT) 18 U/L 14-54 Ast (Sgot) 18 U/L 12-42 Liver Function 07/03/2008 [facility] Bilirubin Direct 0.1 mg/dL 0.1-0.5 Panel [phone] Indirect Bilirubin 0.4 mg/dL 0.1-0.75 Laboratory test 07/03/2008 [facility] TSH 8.19 MIU/ ML High 0.34-5.60 finding [phone] CBC With Manual 07/03/2008 [facility] White 7.3 CUMM 4.8-10.8 Diff [phone] Blood Count Red Cell Count 4.33 CUMM 4.2-5.4 Hemoglobin 13.9 g/dL 12.0-16.0 Hematocrit 40 % 35-47 Mean Corpuscular Volume 92 um3 79-97 Mean Corpuscular Hemoglob 32 pg High 27-31 Mean Corpuscular HGB Cone 35 g/dL 32-36 Redcell Distribution WDTH 12 % 10.5-15 Platelet Count 227 CUMM 150-450 Mean Platelet Volume 9.3 um3 7.4-10.4 Polysegmented Neutrophil 63 % 38-83 Band Neutrophil 1 % 0-8 Lymphocyte 22 % Low 25-47 Monocyte 6 % 0-13 Eosenophil 3 % 0-6 Atypical Lymph 5 % 0-6 Absolute Neutrophil Count 4.6 Anisocytosis SLIGHT Comp Metabolic Panel 02/15/2008 [facility] Sodium 138 mmol/L 135-145 [phone] Potassium 4.6 mmol/L 3.5-5.0 Chloride 106 mmol/L 101-111 Co2 (Carbon Dioxide) 29.0 mmol/L 22-32 Anion Gap 8.0 mmol/L 2-11 86 Glucose 69 mg/dL Low 70-100 87 BUN 15 mg/dL 6-24 Creatinine 0.8 mg/dL 0.5-1.4 One Over Creatinine 1.25 BUN/Creatinine Ratio 18.8 8-20 Calcium 9.3 mg/dL 8.1-9.9 88 Total Protein 6.7 GM/DL 6.2-8.1 Albumin 3.3 GM/DL Low 3.6-5.4 Globulin 3.4 GM/DL 2-4 Albumin/Globulin Ratio 1.0 1-3 Bilirubin Total 0.5 mg/dL 0.4-1.5 Alkaline Phosphatase 95 U/L 30-110 Alt (SGPT) 25 U/L 14-54 Ast (Sgot) 19 U/L 12-42 Laboratory test 02/15/2008 [facility] TSH 10.29 High 0.34-5.60 finding [phone] MIU/ML Vitamin D.25 02/15/2008 [facility] 25-Hydroxy <4.0 ng /mL () Hydroxy [phone] Vitamin D2 25-Hydroxy Vitamin D3 38 ng/mL () 25-Hydroxy Vitamin D Total 38 ng/mL () 89 CBC With Manual 02/15/2008 [facility] White Blood 8.9 CUMM 4.8-10.8 Diff [phone] Count Red Cell Count 4.35 CUMM 4.2-5.4 Hemoglobin 13.9 g/dL 12.0-16.0 Hematocrit 40 % 35-47 Mean Corpuscular Volume 93 um3 79-97 Mean Corpuscular Hemoglob 32 pg High 27-31 Mean Corpuscular HGB Cone 34 g/dL 32-36 Redcell Distribution WDTH 13 % 10.5-15 Platelet Count 333 CUMM 150-450 Mean Platelet Volume 9.0 um3 7.4-10.4 Polysegmented Neutrophil 64 % 38-83 Band Neutrophil 8 % 0-8 Lymphocyte 22 % 5-47 Monocyte 4 % 0-13 Eosenophil 2 % 0-6 Absolute Neutrophil Count 6.4 RBC Morphology NORMAL Laboratory test 02/15/2008 [facility] Thyroglobulin AB <1.8 IU/mL <4.0 90 finding [phone] Screen Thyroperoxidase AB 806.3 IU/mL Abnormal <9.0 91 Laboratory test 03/10/2007 [facility] Cytology ------ 92 finding [phone] <SEE NOTE> Comp Metabolic 10/28/2005 [facility] One Over 1.42 Panel [phone] Creatinine Anion Gap 7.0 mmol/L 2-11 93 Albumin/Globulin Ratio 1.4 1-3 Albumin 3.6 GM/DL 3.6-5.4 Alkaline Phosphatase 78 U/L 30-110 Alt (SGPT) 16 U/L 14-54 Ast (Sgot) 15 U/L 12-42 BUN 13 mg/dL 6-24 Calcium 9.3 mg/dL 8.7-10.2 Chloride 104 mmol/L 101-111 Co2 (Carbon Dioxide) 29.0 mmol/L 22-32 Globulin 2.5 GM/DL 2-4 Glucose 91 mg/dL 70-105 Potassium 4.0 mmol/L 3.5-5.0 Sodium 140 mmol/L 135-145 Bilirubin Total 0.4 mg/dL 0.4-1.5 Total Protein 6.1 GM/DL Low 6.2-8.1 BUN/Creatinine Ratio 18.6 8-20 Creatinine 0.7 mg/dL 0.5-1.4 Laboratory test 10/28/2005 [facility] Hepatitis B NEGATIVE Negative finding [phone] Surface Ag 1 KYS Severe Sepsis and Septic Shock Management Bundle Measure requires all lactic acids initially measuring >2.0 mmol/L be repeated. 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 END OF REPORT DEPARTMENT OF PATHOLOGY, [address] [place] [address] Tyson Hoover M.D. 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 Suggest resubmission. * ML - Main Lab . END OF REPORT DEPARTMENT OF PATHOLOGY, [address] [place] [address] Tyson Hoover M.D. Director [facility] # [id number] [facility] Severe Sepsis and Septic Shock Management Bundle Measure requires all lactic acids initially measuring >2.0 mmol/L be repeated. 5 Because ethnic data is not always readily available, this report includes an eGFR for both -Americans and non- Americans. The National Kidney Disease Education Program (NKDEP) does not endorse the use of the MDRD equation for patients that are not between the ages of 18 and 70, are , have extremes of body size, muscle mass, or nutritional status, or are non- or non-. According to the National Kidney Foundation, irrespective of diagnosis, the stage of the disease is based on the level of kidney function: Stage Description GFR(mL/min/1.73 m(2)) 1 Kidney damage with normal or decreased GFR 90 2 Kidney damage with mild decrease in GFR 60-89 3 Moderate decrease in GFR 30-59 4 Severe decrease in GFR 15-29 5 Kidney failure <15 (or dialysis) 6 Troponin-I testing on Plasma Separator Tubes (PST) has a known false positive rate of 0.20-0.40%. All positive troponins reflex immediate secondary confirmatory testing. 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 Results read back accurately. Verbal ID to CHRISTIE Winkler/[facility] by [id number] at 1011 on 08/27/18. Results read back accurately. Procedure Result Reported Site Aerobic Culture Bottle Final 08/29/18- 0746 ML No Growth Day 5 Anaerobic Culture Bottle Final 08/27/18- 1008 ML Anaerobic Btl Gram Stain Gram Negative Bacilli Organism 1 BACTEROIDES FRAGILIS Beta Lactamase Positive Anaerobic sensitivities are not routinely performed. Positive isolates will be saved for one week. Please call the Microbiology Laboratory if susceptibility testing is needed. * ML - Main Lab . END OF REPORT DEPARTMENT OF PATHOLOGY, [address] [place] [address] Tyson Hoover M.D. Director [facility] # [id number] Because ethnic data is not always readily available, this report includes an eGFR for both -Americans and non- Americans. The National Kidney Disease Education Program (NKDEP) does not endorse the use of the MDRD equation for patients that are not between the ages of 18 and 70, are , have extremes of body size, muscle mass, or nutritional status, or are non- or non-. According to the National Kidney Foundation, irrespective of diagnosis, the stage of the disease is based on the level of kidney function: Stage Description GFR(mL/min/1.73 m(2)) 1 Kidney damage with normal or decreased GFR 90 2 Kidney damage with mild decrease in GFR 60-89 3 Moderate decrease in GFR 30-59 4 Severe decrease in GFR 15-29 5 Kidney failure <15 (or dialysis) 10 [facility] Severe Sepsis and Septic Shock Management Bundle Measure requires all lactic acids initially measuring >2.0 mmol/L be repeated. 11 >100 to <200 pg/mL: likely compensated congestive heart failure (CHF) 200 to 400 pg/mL: likely moderate CHF >400 pg/mL: likely moderate to severe CHF 12 Please note the change in INR reference range effective 17. 13 Because ethnic data is not always readily available, this report includes an eGFR for both -Americans and non- Americans. The National Kidney Disease Education Program (NKDEP) does not endorse the use of the MDRD equation for patients that are not between the ages of 18 and 70, are , have extremes of body size, muscle mass, or nutritional status, or are non- or non-. According to the National Kidney Foundation, irrespective of diagnosis, the stage of the disease is based on the level of kidney function: Stage Description GFR(mL/min/1.73 m(2)) 1 Kidney damage with normal or decreased GFR 90 2 Kidney damage with mild decrease in GFR 60-89 3 Moderate decrease in GFR 30-59 4 Severe decrease in GFR 15-29 5 Kidney failure <15 (or dialysis) 14 Acute inflammation: >10.00 15 Therapeutic concentration: <50 ug/mL Toxic concentration: >120 ug/mL 16 SEE RESULT BELOW Name: SULY CESAR : [address]: Clifford Moore MD Acct: [id number] Unit: [id number] AGE: 46 Location: [place] [address] Re06/02/17 SEX: F Status: ADM Denzel SPEC: [id number] BRAYDEN: 06/02/17-[address]: Joseph Rodas MD REQ: [id number] RECD: 06/02/17-1010 STATUS: RES OTHR 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 NO Procedure Result Reported Site Aerobic Culture Bottle Preliminary 06/03/17- 1014 ML No Growth Day 1 Anaerobic Culture Bottle Preliminary 06/03/17- 1010 ML No Growth Day 1 * ML - MAIN LAB ([facility]) . END OF REPORT * ML=Testing performed at Main Lab DEPARTMENT OF PATHOLOGY, [address] [place] [address] Tyson Hoover M.D. Director [facility] # [id number] REFERENCE VALUE 12.0 - 46.0 ADDITIONAL INFORMATION This test was developed and its performance characteristics determined by [facility] in a manner consistent with CLIA requirements. This test has not been cleared or approved by the U.S. Food and Drug Administration. Test Performed by: [facility] [address] [facility], [place] [address] 18 SEE RESULT BELOW Name: SULY CESAR : [address]: Clifford Moore MD Acct: [id number] Unit: [id number] AGE: 46 Location: [place] [address] Re06/02/17 Dis: 06/03/17 SEX: F Status: DIS Denzel SPEC: [id number] BRAYDEN: 06/02/17-[address] [facility] [address]: Joseph Rodas MD REQ: [id number] RECD: 06/02/17-0 STATUS: JB JOSHI DR: Elli Gomez NP _ SOURCE: URINE SPDESC: ORDERED: Urine Culture Procedure Result Reported Site Urine Culture Final 06/04/17- 0819 ML Organism 1 ESCHERICHIA COLI Taylors Count >100,000 (Many) CFU/ML 1. ESCHERICHIA COLI M.I.C. RX --------- ------ Ampicillin <=2 S Cefazolin <=4 S Cefepime <=1 S Ceftriaxone <=1 S Ciprofloxacin >=4 R Gentamicin >=16 R Levofloxacin >=8 R Meropenem <=0.25 S Nitrofurantoin <=16 S Tetracycline <=1 S Pipercillin/Tazobactam <=4 S Trimethoprim/Sulfamethoxazole >=320 R Amoxicillin/Clavulanic Acid <=2 S Aztreonam <=1 S Contact the Microbiology Department for any additional antibiotic reporting. * ML - MAIN LAB ([facility]) . END OF REPORT * ML=Testing performed at Main Lab DEPARTMENT OF PATHOLOGY, [address] [place] [address] Tyson Hoover M.D. Director [facility] # [id number] 19 [facility] Severe Sepsis and Septic Shock Management Bundle Measure requires all lactic acids initially measuring >2.0 mmol/L be repeated. 20 *Ascorbic acid is present which may interfere with detection of blood. 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 ESCHERICHIA COLI M.I.C. RX --------- ------ Ampicillin <=2 S Cefazolin <=4 S Cefepime <=1 S Ceftriaxone <=1 S Ciprofloxacin >=4 R Gentamicin >=16 R Levofloxacin >=8 R Meropenem <=0.25 S Nitrofurantoin <=16 S Tetracycline <=1 S Pipercillin/Tazobactam <=4 S Trimethoprim/Sulfamethoxazole >=320 R Amoxicillin/Clavulanic Acid <=2 S Aztreonam <=1 S Contact the Microbiology Department for any additional antibiotic reporting. * ML - MAIN LAB ([facility]) . END OF REPORT * ML=Testing performed at Main Lab DEPARTMENT OF PATHOLOGY, [address] [place] [address] Tyson Hoover M.D. Director [facility] # [id number] 22 Please note the change in INR reference range effective 17. 23 SEE RESULT BELOW Name: SULY CESAR : [address]: Traci Neumann NP Acct: [id number] Unit: [id number] AGE: 46 Location: [facility] Re05/27/17 SEX: F Status: REG REF SPEC: [id number] BRAYDEN: 05/27/17-[address]: Traci Neumann NP REQ: [id number] RECD: 05/27/17 STATUS: COMP _ SOURCE: VAGINAL SPDESC: ORDERED: Genital Culture Procedure Result Reported Site Genital Culture Final 05/29/17- 1225 ML Organism 1 NORMAL TY Quantity 3+ Mixed gram negative organisms with normal ty; possible contamination. Routine genital cultures do not include selective agar for Neisseria gonorrhoeae. Molecular testing offers better test sensitivity and therefore is the preferred test methodology for identifying this organism. * ML - MAIN LAB ([facility]) . END OF REPORT * ML=Testing performed at Main Lab DEPARTMENT OF PATHOLOGY, [address] [place] [address] Tyson Hoover M.D. Director [facility] # [id number] 24 Because ethnic data is not always readily available, this report includes an eGFR for both -Americans and non- Americans. The National Kidney Disease Education Program (NKDEP) does not endorse the use of the MDRD equation for patients that are not between the ages of 18 and 70, are , have extremes of body size, muscle mass, or nutritional status, or are non- or non-. According to the National Kidney Foundation, irrespective of diagnosis, the stage of the disease is based on the level of kidney function: Stage Description GFR(mL/min/1.73 m(2)) 1 Kidney damage with normal or decreased GFR 90 2 Kidney damage with mild decrease in GFR 60-89 3 Moderate decrease in GFR 30-59 4 Severe decrease in GFR 15-29 5 Kidney failure <15 (or dialysis) 25 Desirable: <150 Borderline High: 150-199 High: 200-499 Very High: >500 26 Desirable: <200 Borderline High: 200-239 High: >239 27 Low: <40 Desirable: 40-60 High: >60 28 Desirable: <100 Near Optimal: 100-129 Borderline High: 130-159 High: 160-189 Very High: >189 29 [id number] 31 SEE RESULT BELOW Name: SULY CESAR : [address]: Corine Willett NP Acct: [id number] Unit: [id number] AGE: 45 Location: [facility] Re07/20/16 SEX: F Status: REG REF SPEC: [id number] BRAYDEN: 07/20/[address]: Corine Willett NP REQ: [id number] RECD: 07/20/16 STATUS: COMP _ SOURCE: VAGINAL SPDESC: ORDERED: Genital Culture COMMENTS: [id number] Procedure Result Reported Site Genital Culture Final 07/22/16- 1008 ML Organism 1 NORMAL TY Quantity 3+ Routine genital cultures do not include selective agar for Neisseria gonorrhoeae. Molecular testing offers better test sensitivity and therefore is the preferred test methodology for identifying this organism. * ML - MAIN LAB ([facility]) . END OF REPORT * ML=Testing performed at Main Lab DEPARTMENT OF PATHOLOGY, [address] [place] [address] Tyson Hoover M.D. Director [facility] # [id number] 32 Normal Range 180 to 914 Indeterminate Range 145 to 180 Deficient Range <145 33 Because ethnic data is not always readily available, this report includes an eGFR for both -Americans and non- Americans. The National Kidney Disease Education Program (NKDEP) does not endorse the use of the MDRD equation for patients that are not between the ages of 18 and 70, are , have extremes of body size, muscle mass, or nutritional status, or are non- or non-. According to the National Kidney Foundation, irrespective of diagnosis, the stage of the disease is based on the level of kidney function: Stage Description GFR(mL/min/1.73 m(2)) 1 Kidney damage with normal or decreased GFR 90 2 Kidney damage with mild decrease in GFR 60-89 3 Moderate decrease in GFR 30-59 4 Severe decrease in GFR 15-29 5 Kidney failure <15 (or dialysis) 34 Because ethnic data is not always readily available, this report includes an eGFR for both -Americans and non- Americans. The National Kidney Disease Education Program (NKDEP) does not endorse the use of the MDRD equation for patients that are not between the ages of 18 and 70, are , have extremes of body size, muscle mass, or nutritional status, or are non- or non-. According to the National Kidney Foundation, irrespective of diagnosis, the stage of the disease is based on the level of kidney function: Stage Description GFR(mL/min/1.73 m(2)) 1 Kidney damage with normal or decreased GFR 90 2 Kidney damage with mild decrease in GFR 60-89 3 Moderate decrease in GFR 30-59 4 Severe decrease in GFR 15-29 5 Kidney failure <15 (or dialysis) 35 Desirable <150 Borderline high 150-199 High 200-499 Very High >500 36 Desirable <200 Borderline high 200-239 High >239 37 Low <40 Desirable: 40-60 High: >60 38 Desirable <100 Near Optimal 100-129 Borderline high 130-159 High 160-189 Very High >189 39 RESULT: Ectocervical/Endocervical 40 For types 16, 18, 31, 33, 35, 39, 45, 51, 52, 56, 58, 59 and 68. Test Performed by: [facility] - [address] [address] Graffiti Cleaner: Amrit Eng III, M.D. 41 RUN DATE: 04/10/13 [facility] LAB LIVE PAGE 1 RUN TIME: [address] [place] [address] Specimen Inquiry Name: SULY CESAR : [address]: Elli Gomez NP Acct: [id number] Unit: [id number] AGE: 42 Location: [facility] Re04/07/13 SEX: F Status: REG REF SPEC: [id number] BRAYDEN: 04/07/138689 [facility] DR: Elli Gomez NP REQ: [id number] RECD: 04/07/132083 STATUS: SOUT _ ORDERED: IMAGE ANALYSIS, HPV/Thin Prep FINAL DIAGNOSIS Negative for Intraepithelial lesion or Malignancy COMMENTS: Specimen sent to [facility] in [place], [place] on 04/10/13 by TEDDY at 1231. Results will be reported separately. A. Ectocervical/Endocervical Specimen Adequacy: Satisfactory of evaluation Transformation zone component identified Patient Information: HPV: High risk HPV DNA testing regardless of pap results. Actual Specimen Date: 04/07/13 Other Pertinent History: No History Given Signed (signature on file) Philipp DARVIN Simms (ASCP) 04/10 1242 This Pap test was evaluated with the assistance of the [employer] Imaging System. Due to cytologic findings at the expressive art therapist microscope, comprehensive manual rescreening by a Recycle Driver may be required. The Pap Smear is a screening test designed to aid in the detection of premalignant and malignant conditions of the uterine cervix. It is not a diagnostic procedure and should not be used as the sole means of detecting cervical cancer. Both false- positive and false- negative reports do occur. Depending on your risk status, a Pap smear shoudl be obtained and evaluated every 1-3 years. END OF REPORT * ML=Testing performed at Main Lab DEPARTMENT OF PATHOLOGY, [facility] [place], [place] [address] Tyson Hoover M.D. Director [facility] Permit #[id number] RUN DATE: 03/20/13 [facility] LAB LIVE PAGE 1 RUN TIME: 0842 [facility] [email or web address] [place], [place] [address] Specimen Inquiry Name: SULY CESAR : [address]: Selvin Cunningham DO Acct: [id number] Unit: [id number] AGE: 42 Location: ED Re03/15/13 SEX: F Status: DEP ER SPEC: [id number] BRAYDEN: 03/15/13-[address]: Alex Lam MD REQ: [id number] RECD: 03/15/13-160 STATUS: JB JOSHI DR: [facility] Oumou Gama MD _ SOURCE: URINE SPDESC: ORDERED: Urine Culture Procedure Result Verified Site Urine Culture Final 03/20/13- 0842 ML Organism 1 ESCHERICHIA COLI Taylors Count >100,000 (Many) CFU/ML 1. ESCHERICHIA COLI M.I.C. RX --------- ------ Ampicillin <=2 S Cefazolin <=4 S Cefepime <=1 S Ceftriaxone <=1 S Ciprofloxacin >=4 R Gentamicin >=16 R Imipenem <=0.25 S Levofloxacin >=8 R Meropenem <=0.25 S Nitrofurantoin <=16 S Tetracycline <=1 S Pipercillin/Tazobactam <=4 S Trimethoprim/Sulfamethoxazole >=320 R Amoxicillin/Clavulanic Acid <=2 S Aztreonam <=1 S Contact the Microbiology Department for any additional antibiotic reporting. END OF REPORT * ML=Testing performed at Main Lab DEPARTMENT OF PATHOLOGY, [facility] [address] [place], [place] [address] Tyson Hoover M.D. Director [facility] Permit #[id number] 43 RUN DATE: 02/09/13 [facility] LAB LIVE PAGE 1 RUN TIME: 1611 [facility] [email or web address] [place], [place] [address] Specimen Inquiry Name: CESARSULY : [address]: Joseph Rodas MD Acct: [id number] Unit: [id number] AGE: 42 Location: ED Re02/09/13 SEX: F Status: REG ER SPEC: [id number] BRAYDEN: 02/09/[address] [facility] [address]: Joseph Rodas MD REQ: [id number] RECD: 02/09/13 STATUS: JB JOSHI DR: Oumou Gama MD _ SOURCE: STOOL SPDESC: ORDERED: Hemoccult Procedure Result Verified Site Stool Specimen Description Final 02/09/13- 1610 ML Test not performed Stool Occult Blood Final 02/09/13- 1610 ML Stool Occult Blood Negative END OF REPORT * ML=Testing performed at Main Lab DEPARTMENT OF PATHOLOGY, [address] [place] [address] Tyson Hoover M.D. Director [facility] Permit #[id number] 44 Because ethnic data is not always readily available, this report includes an eGFR for both -Americans and non- Americans. The National Kidney Disease Education Program (NKDEP) does not endorse the use of the MDRD equation for patients that are not between the ages of 18 and 70, are , have extremes of body size, muscle mass, or nutritional status, or are non- or non-. According to the National Kidney Foundation, irrespective of diagnosis, the stage of the disease is based on the level of kidney function: Stage Description GFR(mL/min/1.73 m(2)) 1 Kidney damage with normal or decreased GFR 90 2 Kidney damage with mild decrease in GFR 60-89 3 Moderate decrease in GFR 30-59 4 Severe decrease in GFR 15-29 5 Kidney failure <15 (or dialysis) 45 Because ethnic data is not always readily available, this report includes an eGFR for both -Americans and non- Americans. The National Kidney Disease Education Program (NKDEP) does not endorse the use of the MDRD equation for patients that are not between the ages of 18 and 70, are , have extremes of body size, muscle mass, or nutritional status, or are non- or non-. According to the National Kidney Foundation, irrespective of diagnosis, the stage of the disease is based on the level of kidney function: Stage Description GFR(mL/min/1.73 m(2)) 1 Kidney damage with normal or decreased GFR 90 2 Kidney damage with mild decrease in GFR 60-89 3 Moderate decrease in GFR 30-59 4 Severe decrease in GFR 15-29 5 Kidney failure <15 (or dialysis) 46 Reference Range and Interpretation: TnI (ng/mL) Interpretation Less Than 0.06 ng/mL Not supportive of diagnosis of [place] 0.06 - 0.50 ng/mL Indeterminate: suggest serial studies if clinically indicated. Greater than 0.5 ng/mL Consistent with diagnosis of IN 47 Normal vaginal ty. 48 RARE FUNGAL ELEMENTS MANY WBC, FEW 49 If thyroglobulin antibody measurement is performed to assess the reliability of the thyroglobulin assay for thyroid cancer patient follow-up, a thyroglobulin antibody result=/>22 IU/mL may result in falsely decreased thyroglobulin values. The thyroglobulin antibody testing method is an electrochemiluminescence assay manufactured by [employer] and performed on the Modular or Urvashi system. Values obtained from different assay methods or kits may be different and cannot be used interchangeably. Test Performed by: [facility] Med and Pathology [address] [place] [address] Graffiti Cleaner: Amrit Eng III, M.D. 50 Anion gap measurement may be of limited value in the presence of any alkalosis, especially in a combined acid base disorder. . 51 A metabolite of Naproxen, O-desmethylnaproxen, has been shown to interfere with the [place] method for measuring total bilirubin. Samples from patients who have taken Naproxen have shown spurious elevation in total bilirubin levels. 52 Because ethnic data is not always readily available, this report includes an eGFR for both -Americans and non- Americans. The National Kidney Disease Education Program (NKDEP) does not endorse the use of the MDRD equation for patients that are not between the ages of 18 and 70, are , have extremes of body size, muscle mass, or nutritional status, or are non- or non-. According to the National Kidney Foundation, irrespective of diagnosis, the stage of the disease is based on the level of kidney function: Stage Description GFR(mL/min/1.73 m(2)) 1 Kidney damage with normal or decreased GFR 90 2 Kidney damage with mild decrease in GFR 60-89 3 Moderate decrease in GFR 30-59 4 Severe decrease in GFR 15-29 5 Kidney failure <15 (or dialysis) 53 Imm. NE 1 54 Anion gap measurement may be of limited value in the presence of any alkalosis, especially in a combined acid base disorder. . 55 A metabolite of Naproxen, O-desmethylnaproxen, has been shown to interfere with the [place] method for measuring total bilirubin. Samples from patients who have taken Naproxen have shown spurious elevation in total bilirubin levels. 56 Because ethnic data is not always readily available, this report includes an eGFR for both -Americans and non- Americans. The National Kidney Disease Education Program (NKDEP) does not endorse the use of the MDRD equation for patients that are not between the ages of 18 and 70, are , have extremes of body size, muscle mass, or nutritional status, or are non- or non-. According to the National Kidney Foundation, irrespective of diagnosis, the stage of the disease is based on the level of kidney function: Stage Description GFR(mL/min/1.73 m(2)) 1 Kidney damage with normal or decreased GFR 90 2 Kidney damage with mild decrease in GFR 60-89 3 Moderate decrease in GFR 30-59 4 Severe decrease in GFR 15-29 5 Kidney failure <15 (or dialysis) 57 SPECIMEN DESCRIPTION: URINE, CLEAN CATCH 58 FINAL: NO GROWTH DAY 2 (<1,000 CFU/mL) 59 Anion gap measurement may be of limited value in the presence of any alkalosis, especially in a combined acid base disorder. . 60 Because ethnic data is not always readily available, this report includes an eGFR for both -Americans and non- Americans. The National Kidney Disease Education Program (NKDEP) does not endorse the use of the MDRD equation for patients that are not between the ages of 18 and 70, are , have extremes of body size, muscle mass, or nutritional status, or are non- or non-. According to the National Kidney Foundation, irrespective of diagnosis, the stage of the disease is based on the level of kidney function: Stage Description GFR(mL/min/1.73 m(2)) 1 Kidney damage with normal or decreased GFR 90 2 Kidney damage with mild decrease in GFR 60-89 3 Moderate decrease in GFR 30-59 4 Severe decrease in GFR 15-29 5 Kidney failure <15 (or dialysis) 61 NORMAL THROAT TY 62 KLEBSIELLA PNEUMONIAE >100^>100,000 ORGANISMS/ML (MANY)^CCU [address] [place] [address] 64 100^75-100,000 ORGANISMS/ML (MANY)^CCU 65 ---- RUN DATE: 04/02/10 [facility] NMI LIVE PAGE 1 RUN TIME: 1503 Specimen Inquiry RUN USER: INTERFACE -- Name: SULY CESAR Status: REG REF Re04/01/10 Age/Sex: 39/F Unit#: [id number] Location: [facility]. : [birth year] -- Specimen: [id number] SOUT Spec Date: 04/01/[address]: Elli castro NP Spec Type: CYTOLOGY Received: 04/02/10-0842 Copies to: SOURCE ECTOCERVICAL/ENDOCERVICAL Thin Prep with Reflex HPV Test PATIENT INFORMATION ACTUAL COLLECTION DATE: 04/01/10 PATIENT HISTORY: No history given. ADEQUACY OF SPECIMEN Satisfactory for evaluation * Transformation zone component identified * Predominance of red blood cells * See note. DIAGNOSIS NEGATIVE FOR INTRAEPITHELIAL LESION OR MALIGNANCY * NOTE Vial reprocessed due to excess blood and scant cellularity on first slide. Reprocessing successful. This Pap test was evaluated with the assistance of the ThinPrep Pap Test Imaging System. The Pap Smear is a screening test designed to aid in the detection of premalign ant and malignant conditions of the uterine cervix. It is not a diagnostic procedure a nd should not be used as the sole means of detecting cervical cancer. Both false- positiv e and false-negative reports do occur. Depending on your risk status, a Pap smear holli uld be obtained and evaluated every one to three years. Final Interpretation electronically signed by: Migel DURANT(ASC) 04/02/10 150 2 -- DEPARTMENT OF PATHOLOGY, [address] [place] [address] [facility] Permit #[id number] Tyson Hoover M.D. Director Nancy Cruz M.D. Duct Cleaner Dir keyon -- 66 Anion gap measurement may be of limited value in the presence of any alkalosis, especially in a combined acid base disorder. . 67 Note change in reference range as of 02/09/08. The change was based on recommendations from the [place] [employer]. 68 Please note change in reference range effective 07 . 69 A metabolite of Naproxen, O-desmethylnaproxen, has been shown to interfere with the [place] method for measuring total bilirubin. Samples from patients who have taken Naproxen have shown spurious elevation in total bilirubin levels. 70 Because ethnic data is not always readily available, this report includes an eGFR for both -Americans and non- Americans. The National Kidney Disease Education Program (NKDEP) does not endorse the use of the MDRD equation for patients that are not between the ages of 18 and 70, are , have extremes of body size, muscle mass, or nutritional status, or are non- or non-. According to the National Kidney Foundation, irrespective of diagnosis, the stage of the disease is based on the level of kidney function: Stage Description GFR(mL/min/1.73 m(2)) 1 Kidney damage with normal or decreased GFR 90 2 Kidney damage with mild decrease in GFR 60-89 3 Moderate decrease in GFR 30-59 4 Severe decrease in GFR 15-29 5 Kidney failure <15 (or dialysis) 71 Recommended INR for Patients on Oral Anticoagulants Prophylaxis 2.0 - 3.0 Treatment of thrombosis 2.0 - 3.0 Prevention of embolism 2.0 - 3.0 Prevention of embolism from prosthetic heart valves 2.5 - 3.5 72 DIAGNOSIS,TREATMENT,AND THERAPY MUST BE BASED ON THE INR VALUE ALONE. 73 PLEASE NOTE NEW REFERENCE RANGE EFFECTIVE 09. 74 CHOLESTEROL INTERPRETATION: Desirable: Less than 200 MG/DL Borderline-High Risk: 200-239 MG/DL High-Risk: 240 MG/DL and over 75 HDL INTERPRETATION: Undesirable: High Risk: Less than 40 MG/DL Desirable: Low Risk: Greater than 60 MG/DL 76 LDL INTERPRETATION: Low Risk Optimal Level: LDL Less than 100 MG/DL Near or Above Optimal: LDL 100-129 MG/DL Borderline High Risk: LDL 130-159 MG/DL High Risk: LDL 160-189 MG/DL Very High Risk: LDL Greater than 189 MG/DL 77 Lymphopenia % 78 Anion gap measurement may be of limited value in the presence of any alkalosis, especially in a combined acid base disorder. . 79 Note change in reference range as of 02/09/08. The change was based on recommendations from the [place] [employer]. 80 Please note change in reference range effective 07 . 81 A metabolite of Naproxen, O-desmethylnaproxen, has been shown to interfere with the [place] method for measuring total bilirubin. Samples from patients who have taken Naproxen have shown spurious elevation in total bilirubin levels. 82 Because ethnic data is not always readily available, this report includes an eGFR for both -Americans and non- Americans. The National Kidney Disease Education Program (NKDEP) does not endorse the use of the MDRD equation for patients that are not between the ages of 18 and 70, are , have extremes of body size, muscle mass, or nutritional status, or are non- or non-. According to the National Kidney Foundation, irrespective of diagnosis, the stage of the disease is based on the level of kidney function: Stage Description GFR(mL/min/1.73 m(2)) 1 Kidney damage with normal or decreased GFR 90 2 Kidney damage with mild decrease in GFR 60-89 3 Moderate decrease in GFR 30-59 4 Severe decrease in GFR 15-29 5 Kidney failure <15 (or dialysis) 83 Anion gap measurement may be of limited value in the presence of any alkalosis, especially in a combined acid base disorder. . 84 Note change in reference range as of 02/09/08. The change was based on recommendations from the [place] [employer]. 85 Please note change in reference range effective 07 . 86 Anion gap measurement may be of limited value in the presence of any alkalosis, especially in a combined acid base disorder. . 87 Note change in reference range as of 02/09/08. The change was based on recommendations from the [place] [employer]. 88 Please note change in reference range effective 07 . 89 -- REFERENCE VALUE -- 25-HYDROXY D TOTAL (D2+D3) Optimum levels in the normal population are 25-80 Test Performed by: [facility] Pathology [address] [place] [address] Graffiti Cleaner: Amrit Eng III, M.D. 90 Test Performed by: [facility] [address] [place] [address] Graffiti Cleaner: Amrit Eng III, M.D. 91 Test Performed by: [facility] Path[facility] [address] [place] [address] Graffiti Cleaner: Amrit Egn III, M.D. 92 ---- RUN DATE: 03/15/07 [facility] NMI LIVE PAGE 1 RUN TIME: 827 Specimen Inquiry RUN USER: INTERFACE [id number] SULY CESAR 36/F <REG REF 03/10> ([id number]) Oumou Patricio MD -- Specimen: [id number] SOUT Spec Date: 03/10/[address]: Oumou shin MD Spec Type: CYTOLOGY Received: 03/11/07-0845 Copies to: SOURCE ECTOCERVICAL/ENDOCERVICAL Thin Prep with Reflex HPV Test PATIENT INFORMATION ACTUAL COLLECTION DATE: 03/10/07 LAST MENSTRUAL PERIOD: 02/21/07 ADEQUACY OF SPECIMEN Satisfactory for evaluation * Transformation zone component identified * DIAGNOSIS NEGATIVE FOR INTRAEPITHELIAL LESION OR MALIGNANCY * This Pap test was evaluated with the assistance of the ThinPrep Pap Test Imaging System. The Pap Smear is a screening test designed to aid in the detection of premalign ant and malignant conditions of the uterine cervix. It is not a diagnostic procedure a nd should not be used as the sole means of detecting cervical cancer. Both false- positive and false-negative reports do occur. Depending on your risk status, a Pap smear holli uld be obtained and evaluated every one to three years. Initial evaluation performed by Jarod SIMMS(ASCP) 03/14/07 Final Interpretation electronically signed by: Jarod SIMMS(ASCP) 03/15/07 0828 -- -- DEPARTMENT OF PATHOLOGY, [address] [place] [address] [facility] Permit #[id number] Tyson Hoover M.D. Director of Laboratories Joseph Shrestha II, M.D . Pathologist -- 93 Anion gap measurement may be of limited value in the presence of any alkalosis, especially in a combined acid base disorder. . Procedures Date Code Description Status 03/20/2011 63221 Removal-Impacted Cerumen Completed 01/24/2009 46643 Oximetry - Single Study Completed Encounters Type Date Location Provider Dx Diagnosis Office Visit 05/03/2018 Main Office Elli Gomez, Z00.00 Encntr for general 1:30p REDRYING MACHINE OPERATOR-C adult medical exam w/o abnormal findings Office Visit 06/07/2017 Main Office Traci Neumann, N39.0 Urinary tract 11:00a HYDRAULIC DREDGE OPERATOR infection, site not specified E03.9 Hypothyroidism, unspecified G40.89 Other seizures Office Visit 05/31/2017 11:15a Main Office Elli Pop G40.89 Other seizures Storm, REDRYING MACHINE OPERATOR-C Office Visit 05/27/2017 10:30a Main Office Traci B37.3 Candidiasis of [place], HYDRAULIC DREDGE OPERATOR vulva and vagina Office Visit 05/06/2017 1:30p Main Office Shawnti R. Z00.00 Encntr for general Storm, REDRYING MACHINE OPERATOR-C adult medical exam w/o abnormal findings N64.59 Other signs and symptoms in breast E03.9 Hypothyroidism, unspecified Z23 Encounter for immunization Office Visit 01/14/2017 4:00p Main Office Rudywcaleb Pop G80.9 Cerebral palsy , Storm, REDRYING MACHINE OPERATOR-C unspecified J30.9 Allergic rhinitis, unspecified Office Visit 12/10/2016 2:30p Main Office Abel Torre, N92.6 Irregular MD menstruation, unspecified Office Visit 07/20/2016 2:45p Main Office Corine Willett B37.3 Candidiasis of REDRYING MACHINE OPERATOR-C vulva and vagina Office Visit 05/05/2016 2:15p Main Office Elli Gomez, Z00.00 Encntr for general REDRYING MACHINE OPERATOR-C adult medical exam w/o abnormal findings Z12.31 Encntr screen mammogram for malignant neoplasm of breast Office Visit 03/24/2016 4:00p Main Office Logan Block H10.9 Unspecified III, REDRYING MACHINE OPERATOR-C conjunctivitis Office Visit 12/19/2015 11:30a Main Office Abel H61.21 Impacted Nicho lee MD right ear Office Visit 08/26/2015 10:15a Main Office Rudywntjuan luis Pop G80.9 Cerebral palsy , Storm, REDRYING MACHINE OPERATOR-C unspecified Office Visit 04/15/2015 1:30p Main Office Shawnti R. Z00.00 Encntr for general Storm, REDRYING MACHINE OPERATOR-C adult medical exam w/o abnormal findings N64.59 Other signs and symptoms in breast E03.9 Hypothyroidism, unspecified Office Visit 03/08/2015 4:45p Main Office Rudywcaleb Gomez, R53.83 Other fatigue REDRYING MACHINE OPERATOR-C E03.9 Hypothyroidism, unspecified Office Visit 12/13/2014 11:15a Main Office Elli Gomez, 789.09 Pain Abdominal REDRYING MACHINE OPERATOR-C Other Spec Site Office Visit 05/10/2014 10:45a Main Office Elli Gomez, 705.1 Prickly Heat REDRYING MACHINE OPERATOR-C 244.9 Hypothyroidism Other Unspec Office Visit 04/16/2014 1:30p Main Office Elli Pop V70.0 Examination General Storm, REDRYING MACHINE OPERATOR-C Medical Routine AT Health Care Facility V72.62 Laboratory Exam Ordered as Part Of Routine General Med Exam 244.9 Hypothyroidism Other Unspec Office Visit 04/07/2013 1:30p Main Office Elli Pop V70.0 Examination General Storm, REDRYING MACHINE OPERATOR-C Medical Routine AT Health Care Facility V76.2 Screening Malignant Neoplasm Cervix Office Visit 03/15/2013 10:30a Main Office Maria Elena Avalos, 789.9 Abdomen & Pelvis M.D., R.D. Symptoms Other Office Visit 02/14/2013 3:30p Main Office Elli Pop 616.10 Vaginitis & Storm, REDRYING MACHINE OPERATOR-C Vulvovaginitis Unspec 691.8 Dermatitis Atopic & Related Conditions Other Office Visit 01/04/2013 11:30a Main Office Corine Willett, 133.0 Scabies REDRYING MACHINE OPERATOR-C Office Visit 10/19/2012 2:15p Main Office Oumou Swenson 792.4 Saliva Ilana Gama M.D. Office Visit 04/08/2012 1:30p Main Office Elli Gomez, V70.0 Examination General REDRYING MACHINE OPERATOR-C Medical Routine AT Health Care Facility 244.9 Hypothyroidism Other Unspec Office Visit 03/19/2012 9:30a Main Office Vanesa Oden1.0 Diaper Or Napkin Rash Josie Lomas Office Visit 06/25/2011 3:30p Main Office Vanesa Dickinson6.10 Vaginitis & Josie Lomas Vulvovaginitis Unspec Office Visit 05/11/2011 11:30a Main Office Oumou Swenson 110.5 Dermatophytosis Body Josie Gama Office Visit 04/23/2011 10:30a Main Office Vanesa Kaye 691.8 Dermatitis Atopic & Josie Lomas Related Conditions Other Office Visit 04/14/2011 4:15p Main Office Elli Ppo 728.85 Spasm Muscle Storm, REDRYING MACHINE OPERATOR-C Office Visit 04/07/2011 1:30p Main Office Elli Pop V70.0 Examination General Storm, REDRYING MACHINE OPERATOR-C Medical Routine AT Health Care Facility 244.8 Hypothyroidism Other Spec Office Visit 12/26/2010 4:45p Main Office Elli Gomez, 611.9 Breast Disorders REDRYING MACHINE OPERATOR-C Unspec Office Visit 11/10/2010 1:30p Main Office Oumou Swenson 599.0 UTI Urinary Tract Blegen, M.D. Infection Site Not Spec 462 Pharyngitis Acute Office Visit 11/08/2010 10:45a Main Office Rey Jung, 599.0 UTI Urinary Tract M.D. Infection Site Not Spec Office Visit 09/24/2010 10:15a Main Office Oumou Swenson 616.10 Vaginitis & Blegen MBabitaD. Vulvovaginitis Unspec Office Visit 05/28/2010 11:30a Main Office Cara De Leon, 133.0 Scabies HYDRAULIC DREDGE OPERATOR Office Visit 05/20/2010 11:30a Main Office Cara De Leon 133.0 Scabies HYDRAULIC DREDGE OPERATOR Office Visit 05/13/2010 10:30a Main Office Cara De Leon, 133.0 Scabies HYDRAULIC DREDGE OPERATOR 599.0 UTI Urinary Tract Infection Site Not Spec Office Visit 04/01/2010 11:00a Main Office Elli Pop V70.0 Examination General Storm, REDRYING MACHINE OPERATOR-C Medical Routine AT Health Care Facility 244.8 Hypothyroidism Other Spec V04.81 Need For Prophylactic Vaccination & Inoculation/Influenza 616.10 Vaginitis & Vulvovaginitis Unspec Office Visit 10/16/2009 4:30p Main Office Jory Pulido, 380.4 Impacted Cerumen PA-C Office Visit 07/02/2009 11:30a Main Office Ioana Winters 465.9 URI Saima Byrne M.D. Respiratory Infections Acute Unspec Sites 466.0 Bronchitis Acute Office Visit 02/15/2009 1:30p Main Office Elli Pop 465.9 URI Upper Storm, REDRYING MACHINE OPERATOR-C Respiratory Infections Acute Unspec Sites V70.0 Examination General Medical Routine AT Health Care Facility Office Visit 01/24/2009 10:45a Main Office Oumou Gama, 486 Pneumonia Organism M.D. Unspec 787.20 Dysphagia, Unspecified Office Visit 02/15/2008 9:45a Main Office Oumou Swenson V70.0 Examination General Josie Gama Medical Routine AT [facility] Care Facility 530.11 Esophagitis Reflux 343.9 Infantile Cerebral Palsy Unspec 343.2 Quadriplegic Office Visit 10/24/2007 2:45p Main Office Elli Pop 691.0 Diaper Or Napkin Storm, REDRYING MACHINE OPERATOR-C Rash Office Visit 09/21/2007 11:45a Main Office Rey Jung M.D. 466.0 Bronchitis Acute Office Visit 08/26/2007 3:45p Main Office Monique Jha 465.9 URI Upper Blas, Respiratory [facility] Infections Acute Unspec Sites 466.0 Bronchitis Acute 780.6 Fever Office Visit 03/10/2007 11:00a Main Office Oumou Swenson V72.31 Routine Pallet Repairer Josie Gama Examination Office Visit 10/21/2006 9:45a Main Office Oumou Swenson V70.0 Examination General Josie Gama Medical Routine AT [facility] Care Facility 530.11 Esophagitis Reflux 343.9 Infantile Cerebral Palsy Unspec 343.2 Quadriplegic V06.8 Combination Diseases Other Vaccination & Inoculation Office Visit 10/16/2005 1:15p Main Office Tristen Dennison V70.0 Examination General Cathi.DBabita Medical Routine AT [facility] Care Facility 530.11 Esophagitis Reflux 343.9 Infantile Cerebral Palsy Unspec Office Visit 05/28/2005 2:45p Main Office Tristen Dennison 465.9 URI Upper M.DBabita Respiratory Infections Acute Unspec Sites 536.2 Vomiting Persistent 343.2 Quadriplegic V03.82 Streptococcus Pneumoniae Vaccination Spec Other Office Visit 01/28/2005 1:15p Main Office Oumou Swenson 729.5 Pain In Limb Josie Gama Office Visit 11/04/2004 11:30a Main Office Monique Jha 465.9 URI Upper Blas, F[facility]P.C[facility] Respiratory Infections Acute Unspec Sites Office Visit 10/15/2004 8:00a Main Office Corine Kimbrough, 343.9 Infantile Cerebral M.D. Palsy Unspec 343.2 Quadriplegic 536.2 Vomiting Persistent Office Visit 04/07/2004 10:15a Main Office Corine Soboroff, 527.7 Salivary Gland M.D. Secretion Disturbance Office Visit 02/05/2004 4:15p Main Office Corine Kimbrough, 611.71 Mastodynia M.D. Office Visit 09/17/2003 8:45a Main Office Corine Kimbrough, 343.9 Infantile Cerebral M.D. Palsy Unspec V72.3 Examination Gynecological 527.7 Salivary Gland Secretion Disturbance Office Visit 09/06/2002 8:00a Main Office Corine Kimbrough, 343.9 Infantile Cerebral M.D. Palsy Unspec 781.0 Abnormal Involuntary Movements Plan of Treatment Future Appointment(s):11/01/2018 2:15 pm - ALISHA Real at Main Office
--- NOTE | 2018-10-06 09:15 | ED ---
Altered Mental Status - HPI Summary HPI Summary: A 47 y/o female brought in by [facility] ambulance presents to [facility] with a chief complaint of not acting like herself last night. Per household chores, the patient was staring off and acting similarly to when she had a left nephrostomy placed in August 2018. The patient has been smiling and passing gas this morning. The patient is nonverbal but is reportedly now acting more like herself. She has a Hx of kidney stones. - History Of Current Complaint Chief Complaint: EDAltMentalStatus Stated Complaint: GENERAL ILLNESS PER EMS Time Seen by Provider: 10/06/18 09:00 Hx Obtained From: Family/Gasateria Attendant, EMS Onset/Duration: Resolved, Gradually Timing: Intermittent, Lasting Hours - last night Severity Initially: Mild Severity Currently: None Character: Responsiveness - "not acting like herself" Aggravating Factor(s): Nothing Alleviating Factor(s): Nothing Associated Signs And Symptoms: Negative: Fever Related History: Other: - acting similarly to when she had left nephrostomy placed - Allergies/Home Medications Allergies/Adverse Reactions: Allergies Allergy/AdvReac Type Severity Reaction Status Date / Time Adhesive Tape Allergy Rash Verified 06/02/17 09:24 bee pollen Allergy Rash Verified 08/25/18 05:34 Home Medications: Home Medications Ibuprofen TAB* [Motrin TAB* 600 MG] 600 mg PO Q8H PRN 10/06/18 [History Confirmed 10/06/18] PMH/Surg Hx/FS Hx/Imm Hx Endocrine/Hematology History: Reports: Hx Thyroid Disease, Hx Anemia Denies: Hx Diabetes Cardiovascular History: Denies: Hx Hypertension GI History: Reports: Hx Gastroesophageal Reflux Disease History: Denies: Hx Renal Disease Musculoskeletal History: Reports: Other Musculoskeletal History - hip dysplasia Denies: Hx Arthritis, Hx Osteoporosis Sensory History: Denies: Hx Contacts or Glasses, Hx Hearing Aid Opthamlomology History: Denies: Hx Contacts or Glasses Neurological History: Reports: Hx Seizures, 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, Cerebral Palsy (Athetoid type) Psychiatric History: Reports: Other Psychiatric Issues/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 - Surgical History Surgery Procedure, Year, and Place: Left hip adductor surgery, Ocasio brent placement Infectious Disease History: No Infectious Disease History: Denies: Traveled Outside the [place] in Last 30 Days - Family History Known Family History: Negative: Respiratory Disease - Social History Alcohol Use: None Substance Use Type: Reports: None Smoking Status (MU): Never Smoked Tobacco Review of Systems Negative: Fever Positive: Other - positive: able to pass gas. Neurological: Other - positive: patient "not acting like herself" All Other Systems Reviewed And Are Negative: Yes Physical Exam - Summary Physical Exam Summary: Appearance: The patient is well-nourished in no acute distress and in no acute pain. Skin: The skin is warm and dry and skin color reflects adequate perfusion. HEENT: The head is normocephalic and atraumatic. The pupils are equal and reactive. The conjunctivae are clear and without drainage. Nares are patent and without drainage. Mouth reveals moist mucous membranes and the throat is without erythema and exudate. The external ears are intact. The ear canals are patent and without drainage. The tympanic membranes are intact. Neck: The neck is supple with full range of motion and non-tender. There are no carotid bruits. There is no neck vein distension. Respiratory: Chest is non-tender. Lungs are clear to auscultation and breath sounds are symmetrical and equal. Cardiovascular: Heart is regular rate and rhythm. There is no murmur or rub auscultated. There is no peripheral edema and pulses are symmetrical and equal. Abdomen: The abdomen is soft and non-tender. There are normal bowel sounds heard in all four quadrants and there is no organomegaly palpated. Musculoskeletal: There is no back tenderness noted. Extremities are non-tender with full range of motion. There is good capillary refill. There is no peripheral edema or calf tenderness elicited. Neurological: Patient is alert and oriented to person, place and time. The patient has symmetrical motor strength in all four extremities. Cranial nerves are grossly intact. Deep tendon reflexes are symmetrical and equal in all four extremities. Psychiatric: The patient has an appropriate affect and does not exhibit any anxiety or depression. Triage Information Reviewed: Yes Vital Signs On Initial Exam: Initial Vitals Temp Pulse Resp BP Pulse Ox 98.0 F 120 18 147/112 95 10/06/18 08:57 10/06/18 08:57 10/06/18 08:57 10/06/18 08:57 10/06/18 08:57 Vital Signs Reviewed: Yes Diagnostics - Vital Signs Vital Signs Temp Pulse Resp BP Pulse Ox 10/06/18 09:03 124 18 96 10/06/18 09:02 127 19 147/112 95 10/06/18 08:57 98.0 F 120 18 147/112 95 - Laboratory Result Diagrams: 10/06/18 11:48 10/06/18 11:48 Lab Statement: Any lab studies that have been ordered have been reviewed, and results considered in the medical decision making process. - Ultrasound No standard instances Ultrasound Interpretation Completed By: Radiologist Summary of Ultrasound Findings: Renal ultrasound impression: LEFT NEPHROLITHIASIS WITH MILD HYDRONEPHROSIS. ED physician has reviewed this imaging report. Re-Evaluation - Re-Evaluation First Eval Re-Evaluation Time: 12:14 Change: Improved Comment: Discussed results and plan for DC. Altered Mental Statu Course/Dx - Course Course Of Treatment: Ms. Cesar was noted to be "not acting quite right" last night by the staff. She was acting in the same manner a few weeks ago and ended up getting a left nephrostomy tube. She seems to be acting fine to staff this morning but she was sent over with a concern that her nephrostomy tube is obstructed. She was nontoxic in appearance with stable vitals. Her nephrostomy tube bag did have urine in it and that tube appeared to be functioning. A UA showed signs of infection. An ultrasound of her left kidney showed the nephrostomy tube in place and very very slight hydronephrosis according to my conversation with Dr. Rhodes. I spoke with Dr. Melton who felt that she could be treated for pyelonephritis as the nephrostomy tube seems to be working. - Diagnoses Provider Diagnoses: Pyelonephritis - Provider Notifications Discussed Care Of Patient With: Ricardo Melton Time Discussed With Above Provider: 11:32 Instructed by Provider To: Other - recommended speaking with Dr. Rhodes. Discharge - Sign-Out/Discharge Documenting (check all that apply): Patient Departure - DC Patient Received Moderate/Deep Sedation with Procedure: No - Discharge Plan Condition: Stable Disposition: HOME Prescriptions: Ciprofloxacin TAB* [Cipro Tab*] 500 mg PO BID #20 tab Referrals: Igor Harrington [Primary Care Provider] - (2-3 days) Additional Instructions: Return to the ED if you experience any new or worsening symptoms. - Billing Disposition and Condition Condition: STABLE Disposition: Home - Attestation Statements Document Initiated by Scribe: Yes Documenting Scribe: Praneeth Smallwood Provider For Whom Scribe is Documenting (Include Credential): Wagner Clement MD Scribe Attestation: I, Praneeth Smallwood, scribed for Wagner Clement MD on 10/06/18 at 1556. Scribe Documentation Reviewed: Yes Provider Attestation: The documentation as recorded by the Praneeth dixon accurately reflects the service I personally performed and the decisions made by me, Wagner Clement MD Status of Scribe Document: Viewed
[2018-10-06 10:28] LABS: Urine Appearance Turbid; Urine Bacteria Absent (Absent); Urine Bilirubin Negative (Negative); Urine Blood 2+ (Negative); Urine Color Yellow; Urine Glucose Negative (Negative); Urine Ketones Negative (Negative); Urine Nitrite Negative (Negative); Urine Protein 2+(100 mg/dL) (Negative); Urine Red Blood Cell 3+(>10/hpf) (Absent); Urine Specific Gravity 1.011 (1.010-1.030); Urine Urobilinogen Negative (Negative); Urine White Blood Cell 3+(>20/hpf) (Absent)
[2018-10-06 12:09] LABS: ABS Basophils 0.1 10^3/ul (0-0.2); ABS Eosinophils 0.2 10^3/ul (0-0.6); ABS Lymphocytes 2.1 10^3/ul (1.0-4.8); ABS Neutrophils 7.3 10^3/ul (1.5-7.7); ABS Nucleated RBC 0 10^3/ul; Eosinophil % 2.3 %; Hematocrit 36 % (33-41); Hemoglobin 11.5 g/dL (12.0-16.0); Lymphocyte % 19.4 %; Mean Corpuscular HGB Conc 32 g/dL (31-36); Mean Corpuscular Hemoglobin 26 pg (27-31); Mean Corpuscular Volume 80 fL (80-97); Mean Platelet Volume 8.8 fL (7.4-10.4); Nucleated Red Blood Cells % 0; Platelet Count 349 10^3/uL (150-450); Red Blood Count 4.42 10^6 /uL (3.70-4.87); Red Cell Distribution Width 19 % (10.5-15); White Blood Count 10.8 10^3/uL (3.5-10.8)
[2018-10-06 12:26] LABS: Albumin 3.6 g/dL (3.2-5.2); Albumin/Globulin Ratio 1.1 (1-3); BUN/Creatinine Ratio 25.3 (8-20); C Reactive Protein 11.22 mg/L (<8.01); Calcium 9.3 mg/dL (8.6-10.3); EGFR African American 75.7 (>60); EGFR Non-African American 62.5 (>60); Globulin 3.4 g/dL (2-4); Potassium 4.2 mmol/L (3.5-5.0); Total Bilirubin 0.2 mg/dL (0.2-1.0)
[2018-10-06 12:53] VITALS: BP 127/95
--- NOTE | 2018-10-08 06:46 | PN ---
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
--- NOTE | 2018-10-09 06:28 | PN ---
Progress Note - Progress Note Date of Service: 10/06/18 Note: Urine culture final grew stenotrophomas maltophilia Patient was placed on ciprofloxacin prior to discharge While sensitivity was not performed, levofloxacin is sensitive to organism This likely will cover Nothing further is required at this time
== END 2018-10-06 12:53 | disposition home or self-care (01) ==
LOC: ED 08:55
DX: N12 Tubulo-interstitial nephritis, not specified as acute or chronic (principal); E07.9 Disorder of thyroid, unspecified; D64.9 Anemia, unspecified; K21.9 Gastro-esophageal reflux disease without esophagitis; M81.0 Age-related osteoporosis without current pathological fracture; N13.30 Unspecified hydronephrosis; N20.0 Calculus of kidney
CPT/HCPCS: 36415; 76775; 80053; 81003; 81015; 85025; 86140; 87040; 87077; 87086; 87186; 99283

== ENCOUNTER 2018-12-31 06:33 | Inpatient (IN) | payer MEDICARE, MEDICAID ==
--- OUTSIDE RECORDS SUMMARY | 2018-12-31 07:15 | XMS REPORT | Continuity of Care Document ---
:1970 External Reference #:[id number] Author Name ALISHA Real Address [address] [place] [address] Care Team Providers Name Role Phone ALISHA Real Care Team Information Senior Court Office Assistant Unavailable Payers Date Identification Numbers Payment Provider Subscriber Policy Number: [id number] [facility] PayID: [id number] [address] [place] [address] Policy Number: [id number] Medicaid/Computer Science Suly Cesar Group Name: 2 1 [address] PayID: [id number] [place] [address] Problems Active Problems Provider Date Hypothyroidism ALISHA Real Onset: 12/09/2010 Infantile cerebral palsy Oumou Gama M.D. Onset: 12/09/2010 Congenital quadriplegia Oumou Gama M.D. Onset: 12/09/2010 Cerebral palsy ALISHA Real Onset: 08/26/2015 Social History Type Date Description Comments Sex Unknown Lives With Lives at adult residential home, requires total care. Diet Diet pureed foods with honey thick liquids ETOH Use Denies alcohol use Tobacco Use Start: Unknown Patient has never smoked Recreational Drug Use Denies Drug Use Allergies, Adverse Reactions, Alerts Active Allergies Reaction Severity Comments Date Adhesives 09/21/2007 Bee Sting 04/16/2014 Medications Active Medications SIG Qnty Indications Ordering Date Provider Nystatin apply to groin 60gm B37.3 Elli Pop 11/11/2018 three times daily Storm, [employer]C 165712Huzt/GM Powder until resolved, replaces ketoconazole [employer] Food Use as Directed For 165un Elli R. 11/01/2018 Thickener Appropriate GONZALEZ GomezP-C Consistency Cetirizine HCL Take 1 Tablet By 30tabs Elli RBabita 09/27/2018 10mg Mouth Every Day Storm [employer] Tablets -Replaces Claritin (Allergies) Diazepam Take 2 Tablet By 12tabs Elli R. 09/26/2018 5mg Tablets Mouth as Needed 1 GONZALEZ GomezP-C Hour Prior To Medical Procedures as Directed MDD 2 Ibuprofen 1 tab by mouth 30tabs Abel 08/24/2018 600mg three times a day MD Nicho Tablets as needed for fevers Levothyroxine Sodium Take One Tablet By 30tabs Rey Jung, 07/05/2018 Mouth Every Day M.D. 150mcg Tablets (Hypothyroidism) Chlorhexidine Rinse W/5cc By 473units Oumou Swenson 06/15/2018 Gluconate Mouth 2 Times A Day Vargas GamaD. 0.12% After Brushing (Am Solution & Evening ) Antibacterial May Use Toothette (Prophy) Calcium Cit+D Take One Tablet By 60units Oumou Swenson 04/12/2018 315/250 Mouth 2 Times A Day Josie Gama (May Crush) For ( Osteopenia) Wheelchair physical assessment Rudycaleb R. 02/25/2018 and management Jason [employer] clinic to be assessed for a new wheel chair Discontinue Routine risk of routine circulation librarian Rudycaleb R. 12/28/2017 Seismic Prospecting Supervisor Exams exams for this Storm, [employer] patient is greater than benefit of performing circulation librarian exams Proctozone-HC apply to 30units Elli R. 08/05/2017 2.5% hemorrhoids 4 times GONZALEZ GomezP-C Cream daily as needed Swim Order order to swim with Elli R. 07/15/2017 brianna/ ddso as per Jason [employer] ipop at various locations with floation device and 1 on 1 supervision Keppra 2.5 XW=934 MG PO Oumou Swenson 06/24/2017 100mg/ml bid For Seizures Josie Gama Solution Wheelchair Repair Repair tilt cablesAbel 06/10/2017 pads for footbox, MD Nicho tongue clamps for back of wc, and required labor Tylenol 325MG Tab Take 2 Tablets By 180units Elli R. 07/19/2015 Mouth 4 Times Daily TYSON Gomez-C as Needed Pain/Fever (40 Cells Day Program) May Crush And Give In Applesauce Miralax Take 1 Capful (17G) 1054units Elli R. 07/04/2015 Powder 527GM By Mouth 2 Times A GONZALEZ GomezP-C Day Mix With 8Oz Of Fluid 17GM=20cc Constipation Simply Thick Food Use as Directed For 180units Elli R. 01/31/2014 Thickener Appropriate TYSON Gomez-Callie Consistency Maalox Regular 30ml po Q4 hr prn 355ml Elli R. 05/26/2013 Strength stomach upset TYSON Gomez-C [phone]/5ML Suspension Gas-X 80MG CHW 36Ea Chew 2 Tablets 180units Elli R. 05/26/2013 Before Meals With TYSON Gomez-Callie Gas Producing Foods Or For Suspectedgas Overnight MDD=8 Vitamin D3 Take 2 Tablets By 60tabs Oumou PBabita 05/11/2013 400Unit Mouth Every Day as Josie Gama Tablets Directed (October Crush) For Osteoporosis Discontinue Routine Elli R. 04/07/2013 Audiology Exams TYSON Gomez-Callie Tussin DM 1 tsp po tid prn 8oz 466.0 Elli R. 01/16/2013 cough TYSON Gomez-C 100-10mg/5ML Syrup Lactase Enzyme Crush One Tablet 120tabs Oumou P. 10/03/2012 Take By Mouth Four Blegen M.D. 3000Unit Tablets Times A Day (Lactose Intolerance)(20 Cells Day Card) Glycerin (Adult) Insert 1 Into 50units Oumou PBabita 09/12/2012 Rectum Every 3 Days Shmuel Gama. 2.1gm Suppository (6PM) as Needed If No Bowel Movement Omeprazole Take One Capsule By 30caps R11.10 Oumou P. 02/15/2008 20mg Mouth Every Day, Ok Vargas GamaD. Capsules DR To Open Capsules & Sprinkle On Applesauce Or Similar DO Not Crush Or Chew (GERD) Triazolam one by mouth 1 hour 2tabs Elli Pop 11/22/2007 0.25mg prior to dental Jason [employer] Tablets appointment/ procedure Depends depends brand small 2Box 691.0 Elli Pop 10/24/2007 brief, change Jason [employer] several times daily when soiled Bacitracin Zinc Apply to small Unknown cuts, wounds as 500Unit/GM Ointment needed (antibacterial) Benadryl Allergy Take one capsule by Unknown 25mg mouth every 6 hours Capsules as needed for itching/swelling from insect bite Saline Nasal Trona Use to irrigate Unknown nostrils as needed 0.65% Solution for nasal mucus Acetaminophen 650MG Insert 1 Unknown Supp suppository rectally every 6 hours as needed for pain/fever, if not taking orally Sudogest Take one tablet by Unknown 30mg Tablets mouth 2 times a day as needed for nasal congestion Desitin Zinc Oxide Apply liberally to Unknown Paste diaper areas as needed for rash Fleet Enema Insert 1 into Unknown rectum every 4 days 7-19GM/118ML Enema as needed for constipation if no bowel movement--may use house stock Ciprofloxacin HCL Wagner Clement L. 500mg Tablets Nutritional Shake Unknown High Protein Liquid History Medications Discontinue B37.2 Elli Pop 11/11/2018 - Ketoconazole ALISHA Gomez 11/12/2018 Sulfamethoxazole/Tri 1 by mouth twice a 20tabs L66.2 Elli RBabita 2018 - methoprim DS day for infection ALISHA Gomez 12/11/2018 800-160mg Tablets Ketoconazole B37.2 Elli RBabita 11/01/2018 - TYSON Gomez-C 11/11/2018 Ciprofloxacin HCL 1 tab by mouth twice 4tabs Abel 10/10/2018 - a day at the end of MD Nicho 12/15/2018 500mg Tablets current script, to make 12 days total of treatment. Peg 3350 Take 1 Capful (17G) 1020unit Elli RBabita 09/05/2018 - Powder By Mouth 2 Times A s ALISHA Gomez 09/19/2018 Day Mix With 8Oz Of Fluid 17GM=20cc (Constipation) Cefpodoxime Proxetil 1 by mouth twice a 14tabs Oumou Swenson 06/01/2017 - day x 7 days for uti Josie Gama 09/19/2018 100mg Tablets Fluconazole 1 tablet by mouth 2tabs B37.3 Traci 05/27/2017 - 150mg now, may repeat in 1 CHANDLER Neumann 09/19/2018 Tablets week if needed Transderm-Scop (1.5 Apply One Patch 12units Elli RBabita 05/27/2017 - MG) Behind The Ear, ALISHA Gomez 09/19/2018 1mg/3Days Patches Change Every 72 Hours 72HR Zyrtec Allergy 1 by mouth daily for 90tabs Elli Pop 01/14/2017 - 10mg allergies....replaces ALISHA Gomez 09/27/2018 Tablets claritin Ipratropium [place] 3 sprays into mouth 30units Corine 11/18/2016 - three times daily Aaron 01/14/2017 0.03% Solution with meals. TYSON-Callie Wheelchair Eval And Right and left Elli RBabita 09/07/2016 - Repair casters, Le Release ALISHA Gomez 05/06/2017 Right & Left Wheel Locks Collar Clamp For Head Rest 16" Tires With Wheel Chair Elli Pop 08/04/2016 - ALISHA Gomez 05/06/2017 Nystatin apply to labia 2 15units B37.3 Elli RBabita 07/20/2016 - times a day then as ALISHA Gomez 11/11/2018 [id number]/GM Cream needed (redness) Fluconazole 1 tablet by mouth 2tabs B37.3 Corine 07/20/2016 - 150mg now, may repeat in 1 Aaron 05/06/2017 Tablets week if needed TYSON-Callie Wheelchair Tray discontinue flight crew time clerk G80.9 Elli Pop 08/26/2015 - use, may use at staff Jason [facility] 05/06/2017 discretion Soft/Padded use to keep suly G80.9 Elli Pop 08/26/2015 - Butterfly Strap from falling out of [facility] 05/06/2017 her chair Tylenol 160MG/5ML Take 20 ML (cc) By 480units Elli Pop 07/19/2015 - Susp Mouth Every 4 Hours [facility] 12/15/2018 as Needed For Fever >101 Or Pain (1 Bottle For Program) Wheelchair Repair Elli Pop 06/18/2015 - [facility] 05/06/2017 Claritin 1 by mouth every day 30tabs Elli Pop 06/18/2015 - 10mg Tablets [facility] 01/14/2017 Synthroid Take One Tablet By 30tabs Rey Jung 06/17/2015 - 150mcg Mouth Every Day M.D. 07/05/2018 Tablets (Hypothyroidism) Order Changes 1. d/c nectar thick Elli Pop 05/09/2015 - fluids 2. All fluids [facility] 05/06/2017 should be made to honey thick consistency Order Change 3. D/c order to only Elli Pop 05/09/2015 - have lactaid or soy [facility] 05/06/2017 milk 4. receive a lactaid pill 4x/day for possible lactose intolerance Perm[facility] Abel 04/26/2015 - 5% Cream area once for scabies MD Nicho 05/06/2017 Levothyroxine Sodium discontinue 1tabs Elli Pop 04/25/2015 - levothyroxine 137mcg [facility] 05/05/2015 137mcg Tablets Levothyroxine Sodium take one tablet by 90tabs Elli Pop 04/22/2015 - mouth every day for [facility] 06/17/2015 150mcg Tablets thyroid replacement Halcion 1 by mouth 30 minutes 4tabs Elli Pop 04/16/2015 - 0.25mg prior to dental visit [facility] 09/19/2018 Tablets Synthroid 1 by mouth daily for 90tabs Elli Pop 03/15/2015 - 137mcg [facility] 04[facility] Tablets Synthroid 125mcg Take One Tablet By 30units Elli R. 01/28/2015 - (0.125MG) Mouth Every Day [facility] 03/15/2015 (Hypothyroidism) Miralax 1 packet by mouth QS [facility]. 12/13/2014 - 3350NF Packet twice daily, mix with [facility] 07/04/2015 8 ounces of fluid Wheel Chair Parts clamp/socket [facility] R. 08/23/2014 - And Repairs headrest mount, labor [facility] 05/06/2017 to install on [employer] 3g Tilt in Space Wheelchair.Dx 343.9, 343.2 Acetaminophen 2 by mouth four times 60tabs Gavi R. 08/15/2014 - 325mg daily if needed for [facility] 08/15/2014 Tablets pain or fever, may crush and give in applesauce Acetaminophen 1 per rectum q6hr as 60units Gavi R. 08/15/2014 - 650mg needed pain or fever [facility] 05/06/2017 Suppository if not taking oral medications Wheelchair Repair make needed [facility] 08/13/2014 - to wheelchair [facility] 08/14/2014 Q-Pap Take 20 ML (cc) By 480units Elli R. 07/02/2014 - 160mg/5ML Mouth Every 4 Hours [facility] 05/06/2017 Liquid as Needed For Fever >101 Or Pain Synthroid take one tablet by 30tabs Rudyjerrijuan luis R. 05/24/2014 - 125mcg mouth every day [facility] 01/28/2015 Tablets (hypothyroidism) Fleet Enema Insert 1 Into Rectum 133units Oumou Swenson 05/20/2014 - Every 4 Days as Josie Gama 05/06/2017 7-19GM/118ML Enema Needed For Constipation If No Bowel Movement See Acetaminophen insert 1 into rectum 24units Elli R. 04/18/2014 - every 4 hours as [facility] 05/06/2017 650mg needed for pain Saline Mist Trona use to irrigate 45units J06.9 Elli Pop 03/20/2014 - nostrils as needed ALISHA Gomez 05/06/2017 0.65% Solution for nasal mucus Benadryl 25MG Cap Take One Capsule By 25units Oumou Swenson 03/08/2014 - 48Ea Mouth Every 6 Hours Blegen, M.D. 05/06/2017 as Needed For Itching/Swelling From Insect Bite Sudogest Take One Tablet By 30tabs Elli Pop 03/08/2014 - 30mg Tablets Mouth 2 Times A Day ALISHA Gomez 05/06/2017 as Needed Nasal Congestion Polymyxin B 1gtt in left eye 10ml Corine 02/28/2014 - Sulfate/Trimethoprim every 4 hours while Aaron 05/06/2017 Sulfate awake no more than 6 [employer] doses/day 07215-7.1Unit/ML-% Solution Miralax 17GM By Mouth Every 527units Elli Pop 02/15/2014 - Powder 527GM Day Dissolve In 8 [facility] [employer] 12/13/2014 Ounces Of Water (Constipation) Peridex 0.12% Oral Rinse W/5cc By Mouth 473units Oumou Swenson 11/03/2013 - Rinse So 2 Times A Day After Blegen, M.D. 09/19/2018 Brushing (Am & Evening ) Antibacterial May Use Toothette (Prophy) Desitin use as directed for QS Elli Ppo 10/23/2013 - Ointment rash ALISHA Gomez 05/06/2017 Calcitrate Take one Tablets By 60tabs Oumou Swenson 08/28/2013 - Mouth 2 Times A Day Blegen, M.D. 04/12/2018 [id number] (May Crush) For Tablets Osteopenia (Pack Singles) Thick It Use as Directed For 284units Corine 06/19/2013 - 284Gram Proper Consistency Aaron 10/04/2013 [facility]- Depo-Provera Inject 1units Elli Pop 05/25/2013 - 150mg/ml Intramuscularly Every [facility] 09/19/2018 Suspension 3 Months (Hormone Therapy) Claritin 10MG Tab take one tablet by 30units Elli Pop 05/22/2013 - mouth every day for Jason [employer] 06/18/2015 allergies Thick-It Original use in liquids as 284units Corine 02/17/2013 - needed Aaron, 12/15/2018 Powder [employer] Hydrocortisone apply to the left ear 20gm 691.8 Elli Pop 02/14/2013 - 1% tid as needed for Jason [employer] 09/19/2018 Cream rash/itcing Fluconazole 1 po now, repeat in 2tabs 616.10 Elli Pop 02/14/2013 - 200mg one week GONZALEZ GomezP-C 02/28/2013 Tablets Permethrin apply to skin from 60gm 133.0 Corine 01/04/2013 - 5% Cream neck to soles of Aaron, 03/29/2013 feet, wash after 8-14 [employer] hours, may repeat in 14 days Saline Mist use to irrigate 1bottle 465.9 Elli Pop 12/15/2012 - 0.65% nostrils as needed GONZALEZ GomezP-C 03/20/2014 Solution for nasal mucus Vitamin D-3 2 po qd as directed 60tabs Elli Pop 11/07/2012 - 400Unit for osteoporosis- October Jason [employer] 05/11/2013 Tablets Crush Transderm-Scop (1.5 discontinue Elli Pop 10/19/2012 - MG) Jason [employer] 05/06/2016 1mg/3Days Patches 72HR Enema Lwtbj-Wu-Yka Enema Disposable 1Month Oumou Swenson 09/06/2012 - 19G-7G/118 Enema Josie Gama 05/20/2014 7-19GM/118ML Enema Insert 1 Rectally Q 4 Days prn Constipation. Calcium Citrate+D Oumou Swenson 08/24/2012 - Josie Gama 08/24/2012 630mg Tablets Calcium Citrate+D 2 po bid 120tabs Oumou Swenson 08/24/2012 - Josie Gama 08/28/2013 [id number] Tablets Claritin 1 po qd 30tabs Oumou Swenson 08/23/2012 - 10mg Tablets Josie Gama 05/22/2013 Calcium Citrate+ D 1 po bid 60tabs Oumou Swenson 08/23/2012 - Josie Gama 08/24/2012 [id number] Tablets Simplythick use as directed for 180unshimon Elli Pop 08/22/2012 - Gel correct consistency Jason [facility] 09/19/2018 Levsin 0.125 mg po bid for 60tabs Elli Pop 08/16/2012 - 0.125mg salivation Jason [facility] 10/19/2012 Tablets Physical Assessment To be assessed for a Oumou Swenson 05/17/2012 - And Management new wheelchair Josie Gama 07/19/2012 Clinic Physical Therapy dx- cerebral palsy, Oumou Swenson 05/17/2012 - Evaluation spasticity Josie Gama 07/19/2012 Wheelchair Repair need to reposition Oumou Swenson 04/05/2012 - foot rests dx- Josie Gama 07/19/2012 cerebral palsy, spasticity Lactase Enzyme Chew crush one tab and 90tabs Oumou Swenson 03/02/2012 - Tabs take po before dairy/ Josie Gama 10/03/2012 3000Unit Tablets milk products up to tid prn Wheelchair Repair Broken Cable Chair Vanesa Kaye 12/15/2011 - Won't Tilt Josie Lomas 07/19/2012 Bath Sling For Emely Use as directed Dx: 1unshimon Kaye 12/11/2011 - Lift 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 Wheelchair Repair for broken cable, 343.9 Oumou Swenson 12/02/2011 - chair will not Josie Gama 12/15/2011 [facility] recline. 343.2 Simply Thick use as directed 3Bottles Elli Pop 10/25/2011 - [facility] thickness of liquids Swallow Evaluation- evaluate 530.11 Oumou Swenson 08/19/2011 - Video/ Table Side dysphagia/ swallow Josie Gama 09/11/2011 function and appropriate food/ liquid consistency Fluconazole one tablet po 2tabs 616.10 Vanesa Kaye 06/25/2011 - 150mg times one. october Josie Lomas 02/14/2013 Tablets repeat times one in 5 days if symptoms are not gone Clotrimazole use bid to right 30gm Elli Pop 05/11/2011 - 1% Cream ear rash x 2-4 Jason [facility] 05/06/2017 weeks Triamcinolone Apply to affected 80gms 691.8 Vanesa Kaye 04/23/2011 - Acetonide area bid Josie Lomas 05/11/2011 0.1% Cream Levothyroxine Sodium Take One Tablet By 30tabs Elli Pop 04/17/2011 - Mouth Every Day Jason [facility] 05/24/2014 125mcg Tablets (Hypothyroidism) Synthroid 1 po qd- do not 90tabs Elli Pop 04/14/2011 - 25mcg Tablets take with vitamins Jason [facility] 04/17/2011 Benadryl 1 po Q6hr prn 25caps Oumou Swenson 04/14/2011 - 25mg Capsules itching/swelling Josie Gama 03/08/2014 from insect bite Nystatin/Triamcinolon apply to right ear 1tube 380.4 Corine Willett, 03/20 - e bid [facility] 05/11/2011 090538-1.1Unit/GM-% Ointment Resume Previous october resume Oumou Swenson 11/27/2010 - Medications previous Josie Gama 01/26/2011 medications, including prn meds Diflucan 1 tablet once prn 1tabs Ioana Winters 11/22/2010 - 150mg Tablets Josie Byrne 01/26/2011 Ciprofloxacin HCL 1 bid x 5 days 10tabs 599.0 Rey Jung 11/18/2010 - 500mg Josie 11/28/2010 Tablets Wheelchair Repairs repair/ replace Oumou Swenson 11/10/2010 - foot rests on Josie Gama 09/11/2011 [facility] wheelchair, current foot rests are broken Acetaminophen Insert 1 Into 0units Oumou Swenson 11/10/2010 - 650mg Rectum Every 4 BlegenJosie 07/02/2014 Suppository Hours as Needed For Pain Metronidazole one po bid x 7 14tabs Omuou Swenson 09/24/2010 - 500mg days- do not drink Josie Gama 05/06/2017 Tablets alcohol while on this medication Upper Extremity needs replacement Oumou Swenson 09/11/2010 - Positioning Device device. dx- Josie Gama 01/16/2011 cerebral palsy Levothyroxine Sodium one po qd on empty 90tabs Oumou Swenson 06/22/2010 - stomach Josie Gama 04/17/2011 100mcg Tablets May Return To Work 133.0 Cara De Leon, 05/28/2010 - And Normal Activities ACID TREATER 07/14/2010 Permethrin apply to all ears 1bottle 133.0 Cara De Leon, 05/13/2010 - 1% Lotion of the body from ACID TREATER 05/20/2010 the neck down, was off thoroughly after 8 hours Ciprofloxacin HCL one tab bid for 14tabs 599.0 Rey Jung 05/13/2010 - 250mg 7days M.DBabita 11/18/2010 Tablets Please Dispense 2 599.0 Cara De Leon 05/13/2010 - 16French Wolf ACID TREATER 11/28/2010 Catheter Kits Permethrin Cream Apply to body, 1units Cara De Leon 05/13/2010 - Rinse leave on 8 hours ACID TREATER 05/06/2017 5% then may rinse Metrogel-Vaginal insert one 1week 616.10 Elli Pop 04/01/2010 - 0.75% applicator full ALISHA Gomez 04/11/2010 Gel into vagina before bed for one week. Levothyroxine Sodium 1 po qd 30tabs Elli Pop 04/01/2010 - ALISHA Gomez 06/22/2010 112mcg Tablets Wheelchair,Repair wheelchair Oumou Swenson 03/11/2010 - assessment and Josie Gama 07/14/2010 repair including labor, bilateral breaks, right front fork, and chest harness [employer] qid as directed 1Month Oumou Swenson 03/05/2010 - Breeze Protein instead of Ensure Josie Gama 05/06/2017 Supplement Wheelchair Hardware Tilt cables r and Oumou Swenson 09/11/2009 - Needed For [employer] l, r and l annch Josie Gama 07/14/2010 Solara housing, screwhex slot washer, screwhex slot, seat belt, replace arm pads, labor Amoxicillin one tablet two 14tabs 466.0 Ioana Winters 07/02/2009 - 500mg times a day for 7 Josie Byrne 07/09/2009 Tablets days Desitin Creamy apply liberally to 1Month Elli Pop 02/22/2009 - 10% diaper area as ALISHA Gomez 10/23/2013 Ointment needed for diaper rash Zithromax 12.5ml(500mg) po 38ml 465.9 Elli Pop 02/15/2009 - 200mg/5ML today then ALISHA Gomez 02/25/2009 Suspension Rec 6.25ml(250mg) po daily for 4 days Saline Nasal Trona use to irrigate 1bottle 465.9 Elli Pop 02/15/2009 - nostrils as needed ALISHA Gomez 12/15/2012 for nasal mucus Pseudoephedrine HCL 1 po q6hr prn 24tabs 465.9 Elli Ppo 02/15/2009 - congestion, runny ALISHA Gomez 02/25/2009 60mg Tablets nose, sinus and ear pressure Enema Disposable Enema Disposable 1Month Oumou Swenson 02/15/2009 - Enema 19G-7G/118 Enema Josie Gama 09/06/2012 Insert 1 Rectally Q 4 Days prn Constipation. Wheelchair Repair l & r front QS Oumou Swenson 01/22/2009 - rigging support Josie Gama 11/04/2009 tubes and l & r sector block with hardware Ensure With Fiber Oumou Swenson 12/10/2008 - Josie Gama 03/05/2010 Levothyroxine Sodium 1 po qd 30tabs Oumou Swenson 10/06/2008 - Josie Gama 04/01/2010 100mcg Tablets Levothyroxine Sodium 1 po qd- DO Not 30tabs Oumou Swenson 08/15/2008 - Administer AT Same Josie Gama 10/06/2008 88mcg Tablets Time as Vitamins Levothyroxine Sodium 1 po qd 30tabs Oumou Swenson 07/03/2008 - Josie Gama 08/15/2008 75mcg Tablets Levothyroxine Sodium 1 PO qd- DO Not 30tabs Oumou Swenson 03/07/2008 - Take With Vitamins Josie Gama 07/03/2008 50mcg Tablets Or Supplements Car Style Wheelchair use as directed Oumou Swenson 02/22/2008 - Seatbelt Josie Gama 11/04/2009 Levsin one ml=0.125 mg po 60cc Elli Pop 02/15/2008 - 0.125mg/ml bid for salivation Jason, [facility] 08/16/2012 Solution D/C Propantheline Try Levsin Oumou Swenson 02/15/2008 - (Pro-Banthine) (Hyoscyamine) Josie Gama 11/04/2009 Instead as Directed D/C Prilosec change to Oumou Swenson 02/15/2008 - omeprazole Josie Gama 11/04/2009 Calcium Citrate 630 one po bid 60tabs Oumou Swenson 11/23/2007 - MG + D Josie Gama 08/24/2012 Tablets Lotrisone apply to affected 1Tube 691.0 Elli Pop 10/24/2007 - Cream Cream area bid until [facility], [facility] 05/06/2017 resolved Levaquin One qd X 10 Days 10tabs Rey Jung, 09/21/2007 - 500mg Tablets Josie 12/20/2007 Zithromax 2.5 tsp on day one QS 466.0 Monique A. 08/26/2007 - 200mg/5ML and 1.25 tsp on Blas, 09/30/2007 Suspension Rec day 2-5 [facility] Robitussin DM 1 tsp po tid prn 8Oz 466.0 Elli RBabita 08/26/2007 - Syrup cough [facility], [facility] 01/16/2013 Tylenol Childrens 4 tsp every 6 1Bottle Elli RBabita 08/26/2007 - hours prn fever Storm, [facility] 05/06/2017 160mg/5ML Suspension Wheelchair Assessment Oumou Swenson 08/16/2007 - And Repair Josie Gama 11/04/2009 Audiology Evaluation as needed Oumou Swenson 07/20/2007 - Josie Gama 11/04/2009 Claritin OTC 1 po qd 30tabs Oumou Swenson 11/11/2006 - 10mg Josie Gama 08/23/2012 Tablets Thickened Liquids- as directed Oumou Swenson 11/11/2006 - [place] Thick Josie Gama 11/04/2009 Evaluate Wheelchair assess and repair Oumou Swenson 11/11/2006 - Brakes brakes if needed Josie Gama 12/30/2006 Valium 2 by mouth as 12tabs Elli Pop 10/21/2006 - 5mg Tablets needed 1 hour TYSON Gomez-C 09/26/2018 before procedures as directed Vitamin D 2 po qd as 60caps Elli Pop 10/21/2006 - 400Iu directed for ALISHA Gomez 11/07/2012 Capsules osteoporosis- May Crush Swallowing Evaluation evaluate Oumou Swesnon 10/21/2006 - swallowing- Josie Gama 12/30/2006 coughing/ increased secretions after swallowing Thickened Liquids- as directed Oumou Swenson 10/21/2006 - Honey Thick Josie Gama 11/11/2006 Sudafed 1 PO bid prn Nasal 30tabs Elli Pop 10/21/2006 - 30mg Tablets Congestion ALISHA Gomez 05/06/2017 Ativan D/c atchar Swenson 10/21/2006 - 0.5mg Tablets Josie Gama 04/19/2014 Attends wear every day 192units Oumou Swenson 09/18/2006 - Large for urinary Josie Gama 05/06/2017 incontinence Hydra Aid(May Use use as directed 3Months Elli Pop 07/07/2006 - Thick If This for nectar TYSON Gomez-C 10/25/2011 Unavail) consistency Pack(S) Nizoral Cream apply to affected 30gm Rey Jung 03/26/2006 - 2% Cream area bid Josie 06/24/2006 Wheelchair Assessment assess and repair 1units Tristen Dennison, 2005 - headset. Josie 12/30/2006 Ativan two tabs po 1 hr 10tabs Oumou Swenson 10/16/2005 - 0.5mg Tablets before dental Josie Gama 07/14/2010 procedure, may repeat x 1 tab after 45 min Calcium Citrate With 1 po bid 60units Oumou Swenson 08/24/2005 - Vitamin D Josie Gama 11/23/2007 600mg Simethicone Chewtabs two tabs before 180units Elli Pop 06/03/2005 - meals with Storm, P[employer]LL[employer] M[employer] FILLER-C 06/01/2013 80mg gas-producing foods or or suspected gas overnight Cerumenex fill ear canals 60cc Tristen Dennison, 06/03/2005 - 10% Solution prn cerumen Josie 05/06/2017 impaction and flush Prilosec OTC 1 po qday 30caps 536.2 Tristen Dennison, 05/28/2005 - 20mg Josie 02/15/2008 Capsules Hospital Bed to replace 343.2 Tristen Dennison, 05/28/2005 - existing bed. with Josie 12/30/2006 bedrails and adjustable head elevation. Ensure With Fiber one can po qid 4Cases Oumou Swenson 04/21/2005 - One Josie Gama 12/10/2008 Can Lac-Dose Da 1 cap prior to 100units Corine Kimbrough, 02/24/2005 - milk products tid M.DBabita 09/19/2018 prn Amoxil one po bid for 10 20tabs 465.9 Monique A. 11/04/2004 - 875mg Tablets days Blas, 05/28/2005 [facility] Pro-Banthine use 1 tab 1/2 hour 12units Corine Kimbrough, 04/07/2004 - 15mg prior to dental M.DBabita 04/07/2004 appt. Pro-Banthine use 1 tab at hs 30units Oumou Swenson 04/07/2004 - 15mg Josie Gama 02/16/2008 Suction Machine portable suction Corine Kimbrough, 04/07/2004 - machine M.D. 12/30/2006 use once/night or prn coughing dx-excessive salivation Wheelchair Assessment wheelchair 0units Tristen Dennison, 10/24/2003 - assessment and M.DBabita 12/30/2006 repair Simethecone Liquid use as directed 8oz Corine Kimbrough, 09/17/2003 - for gas M.DBabita 06/03/2005 Injection Pro-Banthine use 1 tab 1/2 hour 12units Oumou Swenson 08/06/2003 - 15mg prior to dental BleVargas shinDBabita 02/16/2008 appt- uses 1 tab by mouth at bedtime. Attends wear at ALL times- 192units Oumou Swenson 01/22/2003 - Medium large Josie Gama 09/18/2006 Triazolam use 2 tabs 1 hr 4units Corine Kimbrough, 07/04/2002 - .25mg prior to appt. M.D. 10/16/2005 Ensure one can qid 5Cases Corine Kimbrough, 04/14/2002 - M.D. 12/30/2006 Hyoscyamine SL 1 po hs 60units Corine Kimbrough, 04/06/2002 - O.375 M.D. 05/28/2005 Thick It use as directed 850gm Corine Kimbrough, 03/21/2002 - Can prn M.DBabita 07/07/2006 Underpads [id number] use as directed 150units Corine Kimbrough, 03/10/2002 - M.D. 05/06/2017 Gloves,Disp. Medium Use as 1Box Corine Kimbrough, 03/03/2002 - Non-Powder Directed M.D. 05/06/2017 Chlorhexidine Gluc. rinse teeth w/5cc 473units Oumou Swenson 02/12/2002 - Mouth Wash after brushing bid Josie Gama 05/06/2017 Miralax 15 cc by mouth qd- 527Grams Elli Pop 02/08/2002 - [id number] Powder dissolve in 8 oz Storm, [employer] FILLER-C 02/15/2014 water Keppra Twice a day Unknown - 500mg Tablets 06/24/2017 Immunizations CPT Code Status Date Vaccine Lot # 23038 Given 03/23/2018 Influenza Virus Vaccine, Quadrivalent, 3 Yr > Quad, Preserv Free 61311 Given 05/06/2017 Tdap (Adacel) [id number] 92052 Given 03/24/2017 Influenza Virus Vaccine, Quadrivalent, 3 Yr > Quad, Preserv Free 71077 Given 04/26/2015 Influenza Virus Vaccine, Quadrivalent, 3 Yr > Quad, Preserv Free 91755 Given 03/12/2014 Influenza Virus Vaccine, Quadrivalent, 3 Yr > Quad, Preserv Free 98057 Given 04/05/2013 Influenza Vaccine-Preservative Free 3 Yrs And Above 04801 Given 05/02/2012 Influenza Vaccine-Preservative Free 3 Yrs And Above 39986 Given 04/07/2011 Influenza Vaccine-Preservative Free 3 Yrs And Above 94891 Given 04/01/2010 Influenza Vaccine-Preservative Free 3 Yrs And [id number] Above 96991 Given 10/21/2006 Tdap (Adacel) [id number] 32905 Given 04/28/2006 Influenza Virus Vaccine, 3 Yrs And Above 68254 Given 05/28/2005 Pneumovax 23 (PPSV23) 65+ years or high risk 2 to [id number] 64 year old 33487 Given Unknown Influenza Virus Vaccine, Quadrivalent, 3 Yr > Quad, Preserv Free Vital Signs Date Vital Result Comment 12/20/2018 11:08am BP Systolic 130 mmHg BP Diastolic 80 mmHg Body Temperature 97.6 F Respiratory Rate 16 /min 11/11/2018 1:46pm BP Systolic 110 mmHg BP Diastolic 66 mmHg Body Temperature 98.6 F Respiratory Rate 20 /min 11/01/2018 2:25pm Body Temperature 97.3 F Respiratory Rate 20 /min 10/10/2018 10:41am BP Systolic 100 mmHg BP Diastolic 62 mmHg Heart Rate 82 /min Body Temperature 97.4 F Respiratory Rate 16 /min O2 % BldC Oximetry 98 % 09/08/2018 4:24pm BP Systolic 100 mmHg BP [...] Heart Rate 98 /min Last Menstrual Period [id number] 04/07/2013 1:37pm Weight 92.00 lb per care [...] Test Result H/L Range Note Laboratory test [facility] Partial 37.5 seconds N 26.0-38.0 finding [phone] Thrombo Time PTT Platelet Count [facility] Platelet 495 10^3 /uL High 150-450 9 [phone] Count Mean Platelet Volume 8.0 fL N 7.4-10.4 Inr/Protime 11/21/2018 [facility] Inr 1.07 N 0.82- 1.09 3 [phone] Wound 11/11/2018 [facility] Wound/Misc SEE RESULT 2 Culture/Sensi [phone] Culture-Gram BELOW Stain Laboratory test 08/25/2018 [facility] Lactic Acid 0.7 mmol/L N 0.5-2.0 3 finding [phone] Laboratory test 08/24/2018 [facility] Lactic Acid 1.3 mmol/L N 0.5-2.0 4 finding [phone] Comp Metabolic 08/24/2018 [facility] Sodium 141 mmol/ L N 135-145 Panel [phone] Potassium 3.8 mmol/L N 3.5-5.0 Chloride 107 [...] Egfr 56.7 >60 5 Laboratory test 08/24/2018 [facility] C Reactive 216.13 mg/L High <8.01 finding [phone] Protein Troponin-I (TnI) 0.00 ng/mL <0.04 6 Urinalysis Profile 08/24/2018 [facility] Urine Color Jayla [phone] Urine Appearance Cloudy Urine Specific Ono 1.025 N 1.010-1.030 Urine pH 6.0 N [...] Absent Urine Amorphous Crystals Present Abnormal Absent CBC Auto 08/24/2018 [facility] White Blood 21.1 10^3/ uL High 3.5-10.8 Diff [phone] Count Red Blood Count 4.86 10^6/uL N 4.00-5.40 [...] % Nucleated Red Blood Cells % 0 Inr/Protime 08/24/2018 [facility] Inr 1.20 High 0.77-1.02 [phone] Laboratory test 08/24/2018 [facility] Partial 31.7 N 26.0-36.3 finding [phone] Thrombo seconds Time PTT Blood Culture SEE RESULT BELOW 7 Urine Culture And 08/24/2018 [facility] Urine Culture SEE RESULT 8 Sensitivities [phone] BELOW Laboratory test 08/24/2018 [facility] Pediatric Blood SEE RESULT 9 finding [phone] Culture BELOW Laboratory test 08/24/2018 In House Lab Flu PCR NEG finding [phone] Laboratory test 09/24/2017 [facility] TSH (Thyroid 0.67 N 0.34- finding [phone] Stimulating mcIU/mL 5.60 Horm) Magnesium 2.4 mg/dL N 1.9-2.7 Laboratory test 06/07/2017 [facility] TSH (Thyroid 4.02 mcIU/mL N 0.34-5.60 10 finding [phone] Stim Horm) CBC Auto Diff 06/07/2017 [facility] White Blood 7.8 10^3/uL N 3.5-10.8 [phone] Count Red Blood Count 4.73 10^6/uL N [...] Cells % 0.1 Comp Metabolic Panel 06/07/2017 [facility] Sodium 141 mmol/L N 133-145 [phone] Potassium 4.5 mmol/L N 3.5-5.0 Chloride 104 [...] Egfr Non- 74.4 >60 Egfr 95.7 >60 11 Laboratory test 06/02/2017 [facility] Lactic Acid 1.4 mmol/L N 0.5-2.0 12 finding [phone] Ammonia 43 ?mol/L N 16-53 B-Type Natriuretic Peptide BNP 52 pg/mL 13 Urinalysis Profile 06/02/2017 [facility] Urine Color Yellow [phone] Urine Appearance Cloudy Urine Specific Ono 1.013 N 1.010-1.030 Urine pH 7.0 N 5-9 Urine Urobilinogen Negative Negative Urine Ketones Negative Negative Urine Protein Negative Negative Urine Leukocytes 3+ Abnormal Negative Urine Blood 2+ Abnormal Negative Urine Nitrite Negative Negative Urine Bilirubin Negative Negative Urine Glucose Negative Negative Urine White Blood Cell 3+(>20/hpf) Abnormal Absent Urine Red Blood Cell 3+(>10/hpf) Abnormal Absent Urine Bacteria 1+ Abnormal Absent Inr/Protime 06/02/2017 [facility] Inr 0.98 N 0.77- 1.02 14 [phone] Laboratory test 06/02/2017 [facility] Partial 31.7 seconds N 26.0-36.3 finding [phone] Thrombo Time PTT CBC Auto Diff 06/02/2017 [facility] White Blood 10.1 10^3/uL N 3.5-10.8 [phone] Count Red Blood Count 5.15 10^6/uL N [...] Cells % 0 Comp Metabolic Panel 06/02/2017 [facility] Sodium 142 mmol/L N 133-145 [phone] Potassium 4.2 mmol/L N 3.5-5.0 Chloride 106 [...] Egfr Non- 65.2 >60 Egfr 83.8 >60 15 Laboratory test 06/02/2017 [facility] Magnesium 2.1 mg/dL N 1.9-2.7 finding [phone] Lipase 53 U/L N 11.0-82.0 Creatine Kinase 102 U/L N 10-223 C Reactive Protein 3.90 mg/L N < 5.00 16 Troponin-I (TnI) 0.01 ng/mL <0.04 CKMB 06/02/2017 [facility] CKMB ng/mL 1.5 ng/mL N 0.6-6.3 [phone] Laboratory test 06/02/2017 [facility] Acetaminophen < 15 g/mL 17 finding [phone] Alcohol < 10 mg/dL N <10 Salicylate < 2.50 mg/dL <30 TSH (Thyroid Stimulating Horm) 6.64 mcIU/mL High 0.34-5.60 Blood Culture SEE RESULT BELOW 18 Levetiracetam (Keppra) 15.6 g/mL 19 Urine Culture SEE RESULT BELOW 20 Laboratory test 05/30/2017 [facility] Lactic Acid 1.4 mmol/L N 0.5-2.0 21 finding [phone] Urinalysis 05/30/2017 [facility] Urine Color Yellow Profile [phone] Urine Appearance Cloudy Urine Specific Ono 1.021 N 1.010-1.030 Urine pH 5.0 N 5-9 Urine Urobilinogen Negative Negative Urine Ketones Negative Negative Urine Protein Negative Negative Urine Leukocytes 3+ Abnormal Negative Urine Blood 3+ Abnormal Negative * * Abnormal Negative 22 Urine Nitrite Positive Abnormal Negative Urine Bilirubin Negative Negative Urine Glucose Negative Negative Urine White Blood Cell 3+(>20/hpf) Abnormal Absent Urine Red Blood Cell 3+(>10/hpf) Abnormal Absent Urine Bacteria 1+ Abnormal Absent Urine Squamous Epithelial Cell Present Abnormal Absent Laboratory test 05/30/2017 [facility] Urine Culture SEE RESULT 23 finding [phone] BELOW Laboratory test 05/29/2017 [facility] Inr 0.93 N 0.77-1 24 finding [phone] Partial Thrombo Time PTT 29.6 seconds N 26.0-36.3 Laboratory test 05/27/2017 [facility] Genital SEE RESULT 25 finding [phone] Culture BELOW CBC Auto Diff 05/06/2017 [facility] White Blood 7.8 10^3/uL N 3.5-10 [phone] Count .8 Red Blood Count 5.09 10^6/uL [...] Cells % 0.1 Comp Metabolic Panel 05/06/2017 [facility] Sodium 142 mmol/L N 133-145 [phone] Potassium 4.8 mmol/L N 3.5-5.0 Chloride 107 [...] Egfr Non- 64.3 >60 Egfr 82.8 >60 26 Lipid Profile 05/06/2017 [facility] Triglycerides 192 mg/dL 27 (Trig/Chol/HDL) [phone] Cholesterol 160 mg/dL 28 HDL Cholesterol 27.0 mg/dL 29 LDL Cholesterol 95 mg/dL 30 Laboratory test 05/06/2017 [facility] TSH (Thyroid 0.89 mcIU/mL N 0.34-5.60 31 finding [phone] Stim Horm) Vitamin D Total 25(Oh) 50.7 ng/mL High 20-50 32 Laboratory test 07/20/2016 [facility] Culture Genital SEE RESULT 33 finding [phone] & Sensitivity BELOW Laboratory test 05/26/2016 [facility] TSH (Thyroid 2.86 N 0.34- finding [phone] Stimulating mcIU/mL 5.60 Horm) Laboratory test 04/15/2015 [facility] TSH (Thyroid 9.98 ?IU/mL High 0.34- finding [phone] Stim Horm) 5.60 CBC Auto Diff 03/08/2015 [facility] White Blood 7.5 10^3/uL N 4.8-8 [phone] Count 0.8 Red Blood Count 4.72 10^6/uL N 4.0-5.4 [...] Nucleated Red Blood Cells % 0 N Comp Metabolic Panel 03/08/2015 [facility] Sodium 140 mmol/L N 133-145 [phone] Potassium 4.2 mmol/L N 3.5-5.0 Chloride 105 [...] 66.6 N >60 Egfr 85.6 N >60 34 Laboratory test 03/08/2015 [facility] TSH (Thyroid 6.11 High 0.34-5.60 finding [phone] Stim Horm) ?IU/mL Vitamin B12 1135 pg/mL High [phone] 35 Vitamin D Total 25(Oh) 47.1 ng/mL N 30-50 CBC No Diff 04/16/2014 [facility] White Blood 7.8 10^ 3/uL N 4.8-10.8 [phone] Count Red Blood Count 4.96 10^6/uL N [...] 10 um3 N 7.4-10.4 Comp Metabolic 04/16/2014 [facility] Sodium 146 mmol/ L High 133-145 Panel [phone] Potassium 5.3 mmol/L N 3.7-5.6 Chloride 114 [...] 56.1 N >60 Egfr 72.1 N >60 36 Lipid Profile 04/16/2014 [facility] Triglycerides 214 mg/dL N 37 (Trig/Chol/HDL) [phone] Cholesterol 155 mg/dL N 38 HDL Cholesterol 29.3 mg/dL N 39 LDL Cholesterol 83 mg/dL N 40 Laboratory 04/16/2014 [facility] TSH (Thyroid 4.61 IU /mL N 0.34-5.60 test finding [phone] Stimulating Horm) Laboratory 08/10/2013 [facility] TSH (Thyroid 4.11 IU /mL 0.34-5.60 test finding [phone] Stimulating Horm) Human 04/10/2013 [facility] Human See 41 Papilloma [phone] Papillomavirus Comment Source Human Papillomavirus High Risk Negative Negative 42 Laboratory test 04/07/2013 [facility] Cytology RUN DATE: 43 finding [phone] 04/10/ <SEE NOTE> Urine Culture And 03/15/2013 [facility] Urine Culture (SEE NOTE) 44 Sensitivities [phone] Urine Microscopic 03/15/2013 [facility] Urine WBC 3+ (>30 None [phone] /hpf) Seen Urine RBC None Seen None Seen Urine Epithelial Cells 2+ Squamous /hpf None Seen Bacteria Urine 1+ None Seen Urinalysis 03/15/2013 [facility] Urine Color Yellow [phone] Urine Appearance Cloudy Urine Specific Ono 1.010 1.010-1.030 Urine Esterase 3+ Abnormal Negative Urine Nitrate Negative Negative Urine Urobilinogen Negative E.U./dL Negative Urine Protein Negative mg/dL Negative Urine pH 8.0 5-9 Urine Blood Trace Abnormal Negative Urine Ketones 1+ mg/dL Abnormal Negative Urine Bilirubin Negative Negative Urine Glucose Negative mg/dL Negative Stool For 02/09/2013 [facility] Stool Occult (SEE NOTE) 45 Blood [phone] Blood CBC Auto Diff 02/09/2013 [facility] White Blood 9.1 10^3/uL 4.8-10.8 [phone] Count Red Blood Count 4.69 10^6/uL 4.0-5.4 Hemoglobin [...] Red Blood Cells % 0.1 Inr/Protime 02/09/2013 [facility] Inr 0.92 0.87- 0.97 [phone] Laboratory test 02/09/2013 [facility] Activated 28.9 22.18-37.18 finding [phone] Partial seconds Thrombo Time Comp Metabolic 02/09/2013 [facility] Sodium 142 mmol/ L 133-145 Panel [phone] Potassium 4.2 mmol/L 3.5-5.0 Chloride 104 mmol/L [...] Egfr Non- 68.0 >60 Egfr 87.5 >60 46 Laboratory test 02/09/2013 [facility] Amylase 78 U/L 20-120 finding [phone] Lipase 45 U/L 22-51 C Reactive Protein < 0.5 mg/dL Less than 0.5 Urinalysis 02/04/2013 [facility] Urine Color Yellow [phone] Urine Appearance Clear Urine Specific Ono 1.009 Low 1.010-1.030 Urine Esterase 3+ Abnormal Negative Urine Nitrate Negative Negative Urine Urobilinogen Negative E.U./dL Negative Urine Protein Negative mg/dL Negative Urine pH 7.5 5-9 Urine Blood 1+ Abnormal Negative Urine Ketones 1+ mg/dL Abnormal Negative Urine Bilirubin Negative Negative Urine Glucose Negative mg/dL Negative Urine Microscopic 02/04/2013 [facility] Urine WBC 3+ (>30 None Seen [phone] /hpf) Urine RBC 1+ (<3 /hpf) None Seen Urine Mucus Present /lpf Absent Bacteria Urine 3+ None Seen CBC Auto Diff 02/04/2013 [facility] White Blood 9.5 10^3/uL 4.8-10.8 [phone] Count Red Blood Count 4.73 10^6/uL 4.0-5.4 [...] Cells % 0.1 Comp Metabolic Panel 02/04/2013 [facility] Sodium 140 mmol/L 133-145 [phone] Potassium 4.2 mmol/L 3.5-5.0 Chloride 104 mmol/L [...] Egfr Non- 68.0 >60 Egfr 87.5 >60 47 Laboratory 02/04/2013 [facility] Troponin I 0.01 ng/ mL 0-0.06 48 test finding [phone] Laboratory 04/08/2012 [facility] TSH (Thyroid 4.11 MIU/ML 0.34-5.60 test finding [phone] Stimulating Horm) Vaginitis Dna 06/25/2011 [facility] Screen NEGATIVE Probe Screen [phone] Trichomonas Vaginalis Dna Screen Gardnerella Vaginalis Dna NEGATIVE Screen Kenia Species Dna NEGATIVE Vaginal Culture 06/25/2011 [facility] Vaginal Culture Normal vaginal 49 [phone] f <SEE NOTE> .Gram Stain Additional RARE FUNGAL [place]TH[place]AY <SEE NOTE> 50 Laboratory test 06/08/2011 [facility] TSH 1.48 MIU/ ML 0.34-5.60 finding [phone] T3 Total 1.13 NG/ML 0.5-1.7 Thyroxine Free 1.10 ng/dL 0.61-1.24 Thyroid 06/08/2011 [facility] Thyroglobulin AB <20 IU /mL <116 51 Autoantibodies [phone] Screen Thyroperoxidase Antibody 225.8 IU/mL High Less Than 9.0 Comp Metabolic Panel 04/10/2011 [facility] Sodium 142 mmol/L 135-145 [phone] Potassium 4.5 mmol/L 3.5-5.0 Chloride 106 mmol/L 101-111 Co2 (Carbon Dioxide) 31.0 mmol/L 22-32 Anion Gap 5.0 mmol/L 2-11 52 Glucose 96 mg/dL 70-100 BUN 13 mg/dL 6-24 Creatinine 0.6 mg/dL 0.50-1.40 One Over Creatinine 1.66 BUN/Creatinine Ratio 21.7 High 8-20 Calcium 9.6 mg/dL 8.1-9.9 Total Protein 6.8 GM/DL 6.2-8.1 Albumin 3.7 GM/DL 3.6-5.4 Globulin 3.1 GM/DL 2-4 Albumin/Globulin Ratio 1.2 1-3 Bilirubin Total 0.4 mg/dL 0.4-1.5 53 Alkaline Phosphatase 84 U/L 30-110 Alt (SGPT) 22 U/L 14-54 Ast (Sgot) 21 U/L 12-42 eGFR Non- 109.6 > 60 eGFR 141.0 > 60 54 CBC Auto Diff 04/10/2011 [facility] White Blood 7.6 CUMM 4.8-10.8 [phone] Count Red Cell Count 4.45 CUMM 4.2-5.4 Hemoglobin 14.4 g/dL 12.0-16.0 Hematocrit 42 % 35-47 Mean Corpuscular Volume 94 um3 79-97 Mean Corpuscular Hemoglob 32 pg High 27-31 Mean Corpuscular HGB Cone 34 g/dL 32-36 Redcell Distribution WDTH 12 % 10.5-15 Platelet Count 273 CUMM 150-450 Mean Platelet Volume 8.7 um3 7.4-10.4 55 Manual Differential 04/10/2011 [facility] Polysegmented 60 % 38-83 [phone] Neutrophil Lymphocyte 28 % 25-47 Monocyte 8 % 0-13 Basophil 2 % 0-2 Atypical Lymph 2 % 0-6 Absolute Neutrophil Count 4.5 RBC Morphology NORMAL Laboratory test 04/10/2011 [facility] Magnesium 2.4 mg/dL 1.7-2.6 finding [phone] Laboratory test 04/07/2011 [facility] TSH 8.70 MIU/ ML High 0.34-5.60 finding [phone] Comp Metabolic 04/07/2011 [facility] Sodium 139 mmol/ L 135-145 Panel [phone] Potassium 4.6 mmol/L 3.5-5.0 Chloride 108 mmol/L 101-111 Co2 (Carbon Dioxide) 24.0 mmol/L 22-32 Anion Gap 7.0 mmol/L 2-11 56 Glucose 92 mg/dL 70-100 BUN 18 mg/dL 6-24 Creatinine 0.6 mg/dL 0.50-1.40 One Over Creatinine 1.66 BUN/Creatinine Ratio 30.0 High 8-20 Calcium 9.2 mg/dL 8.1-9.9 Total Protein 6.5 GM/DL 6.2-8.1 Albumin 3.8 GM/DL 3.6-5.4 Globulin 2.7 GM/DL 2-4 Albumin/Globulin Ratio 1.4 1-3 Bilirubin Total 0.4 mg/dL 0.4-1.5 57 Alkaline Phosphatase 90 U/L 30-110 Alt (SGPT) 19 U/L 14-54 Ast (Sgot) 22 U/L 12-42 eGFR Non- 109.6 > 60 eGFR 141.0 > 60 58 Urine Culture 11/16/2010 [facility] Urine Culture NG 59, 60 Sensitivi [phone] Sensitivi CBC No Diff 11/16/2010 [facility] White Blood 9.0 CUMM 4.8-10 [phone] Count .8 Red Cell Count 4.42 CUMM 4.2-5.4 Hemoglobin 13.9 g/dL 12.0-16.0 Hematocrit 42 % 35-47 Mean Corpuscular Volume 94 um3 79-97 Mean Corpuscular Hemoglob 32 pg High 27-31 Mean Corpuscular HGB Cone 33 g/dL 32-36 Redcell Distribution WDTH 13 % 10.5-15 Platelet Count 429 CUMM 150-450 Mean Platelet Volume 8.5 um3 7.4-10.4 Basic Metabolic 11/16/2010 [facility] Sodium 142 mmol /L 135-145 Panel [phone] Potassium 3.6 mmol/L 3.5-5.0 Chloride 102 mmol/L 101-111 Co2 (Carbon Dioxide) 34.0 mmol/L High 22-32 Anion Gap 6.0 mmol/L 2-11 61 Glucose 95 mg/dL 70-100 BUN 9 mg/dL 6-24 Creatinine 0.60 mg/dL 0.50-1.40 One Over Creatinine 1.60 BUN/Creatinine Ratio 15.0 8-20 Calcium 10.0 mg/dL High 8.1-9.9 eGFR Non- 109.6 > 60 eGFR 141.0 > 60 62 Urinalysis 11/16/2010 [facility] Ua Color YELLOW Yellow W/Microscopic [phone] Appearance-Urine CLEAR Clear Specific Ono-Ur 1.010 1.010-1.030 Esterase-Urine TRACE Abnormal Negative Nitrite NEGATIVE Negative [id number] NEGATIVE Negative Protein-Urine NEGATIVE Negative PH-Urine 7.0 5-9 Blood-Urine 1+ Abnormal Negative Ketones-Urine NEGATIVE Negative Bilirubin-Ur NEGATIVE Negative Glucose-Urine NEGATIVE Negative WBC-Urine 2-4 0-5 RBC-Urine 3-6 0-2 Epith Cells-Ur FEW None Amorphous Sed-U 2+ None Laboratory test 11/10/2010 In House Lab Strep Screen NEG Neg finding [phone] Laboratory test 11/10/2010 [facility] Throat Culture NF 63 finding [phone] Full Urine Culture & 11/08/2010 [facility] Urine Culture KLEBSIELLA 64 Sensitivi [phone] Sensitivi PNEUM <SEE NOTE> Urinalysis 11/08/2010 [facility] Ua Color JAYLA Yellow W/Microscopic [phone] Appearance-Urine CLOUDY Clear Specific Ono-Ur 1.025 1.010-1.030 Esterase-Urine 2+ Abnormal Negative Nitrite POSITIVE Abnormal Negative [id number] NEGATIVE Negative Protein-Urine 1+ Abnormal Negative PH-Urine 5.5 5-9 Blood-Urine 3+ Abnormal Negative Ketones-Urine 1+ Abnormal Negative Bilirubin-Ur NEGATIVE Negative Glucose-Urine NEGATIVE Negative WBC-Urine TNTC Abnormal 0-5 RBC-Urine 5-10 Abnormal 0-2 Mucus Urine MODERATE None Epith Cells-Ur RARE None Bacteria-Urine 4+ None Amorphous Sed-U TRACE None Sensitivities For Urine 11/08/2010 [facility] Ampicillin 16 R Culture [phone] Amikacin <=2 S Ciprofloxacin <=0.25 S Ceftriaxone <=1 S Cefazolin <=4 S Nitrofurantoin 128 R Gentamicin <=1 S Imipenem <=1 S Levofloxacin <=0.12 S Trimeth-Sulfa <=20 S Ceftazidime <=1 S Tigecycline 1 S Piperacillin/Tazobactam <=4 S Vaginitis Dna 09/24/2010 [facility] Screen Trichomonas NEGATIVE Probe Screen [phone] Vaginalis Dna Screen Gardnerella Vaginalis Dna NEGATIVE Screen Kenia Species Dna NEGATIVE Laboratory test 07/30/2010 [facility] TSH 2.60 MIU/ ML 0.34-5.60 65 finding [phone] CBC With 05/19/2010 [facility] White Blood 6.8 CUMM 4.8-10.8 Electronic Diff [phone] Count Red Cell Count 4.58 CUMM 4.2-5.4 [...] 0.2 0-0.6 Abs Basophils 0 0-0.2 Laboratory 05/19/2010 [facility] TSH 0.23 MIU/ML Low 0.34-5.60 test finding [phone] Urine Culture 05/16/2010 [facility] Urine ESCHERICHIA 66 & Sensitivi [phone] Culture COLI Sensitivi Urinalysis 05/16/2010 [facility] Ua Color YELLOW Yellow W/Microscopic [phone] Appearance-Urine CLEAR Clear Specific Ono-Ur 1.026 1.010-1.030 Esterase-Urine 2+ Abnormal Negative Nitrite POSITIVE Abnormal Negative Fznfhdxowhjp-[id number] NEGATIVE Negative Protein-Urine NEGATIVE Negative PH-Urine 5.5 5-9 Blood-Urine TRACE Abnormal Negative Ketones-Urine NEGATIVE Negative Bilirubin-Ur NEGATIVE Negative Glucose-Urine NEGATIVE Negative WBC-Urine 15-20 Abnormal 0-5 RBC-Urine 0-2 0-2 Epith Cells-Ur MODERATE None Bacteria-Urine 4+ None Sensitivities For Urine 05/16/2010 [facility] Laboratory Ampicillin 8 S Culture [phone] Amikacin <=2 S Ciprofloxacin <=0.25 S Ceftriaxone <=1 S Cefazolin <=4 S Nitrofurantoin <=16 S Gentamicin <=1 S Imipenem <=1 S Levofloxacin <=0.12 S Trimeth-Sulfa <=20 S Ceftazidime <=1 S Tigecycline <=0.5 S Piperacillin/Tazobactam KB 30 S Hemoccult 04/18/2010 In House Lab Stool-Occult Blood #1 neg Neg ([phone] - Stool-Occult Blood #2 neg Neg Stool-Occult Blood #3 only did 2 Neg Laboratory 04/01/2010 [facility] Cytology ----- 67 test finding [phone] <SEE NOTE> Laboratory 03/19/2010 [facility] TSH 4.51 MIU/ML 0.34-5.60 test finding [phone] Laboratory 02/07/2010 [facility] Stool For POSITIVE Abnormal Negative test finding [phone] Blood CBC With 02/07/2010 [facility] White 7.8 CUMM 4.8- 10.8 Electronic [phone] Blood Diff Count Red Cell Count 4.84 [...] Basophils 0 0-0.2 Comp Metabolic Panel 02/07/2010 [facility] Sodium 144 mmol/L 135-145 [phone] Potassium 4.4 mmol/L 3.5-5.0 Chloride 108 mmol/L 101-111 Co2 (Carbon Dioxide) 30.0 mmol/L 22-32 Anion Gap 6.0 mmol/L 2-11 68 Glucose 97 mg/dL 70-100 69 BUN 16 mg/dL 6-24 Creatinine 0.80 mg/dL 0.50-1.40 One Over Creatinine 1.20 BUN/Creatinine Ratio 20.0 8-20 Calcium 10.0 mg/dL High 8.1-9.9 70 Total Protein 7.0 GM/DL 6.2-8.1 Albumin 3.9 GM/DL 3.6-5.4 Globulin 3.1 GM/DL 2-4 Albumin/Globulin Ratio 1.3 1-3 Bilirubin Total 0.6 mg/dL 0.4-1.5 71 Alkaline Phosphatase 86 U/L 30-110 Alt (SGPT) 18 U/L 14-54 Ast (Sgot) 16 U/L 12-42 eGFR Non- 84.0 > 60 eGFR 101.7 > 60 72 PT W/Inr 02/07/2010 [facility] Inr 1.11 High 0.97- 1.03 73 [phone] Protime 13.1 SEC High 11.5-12.2 74 Laboratory test 02/07/2010 [facility] PTT (Aptt) 32.9 25.15-38.53 75 finding [phone] Lipid Profile 02/07/2010 [facility] Triglyceride 93 mg/dL 40-200 (Trig/Chol/HDL) [phone] Cholesterol 134 mg/dL Less Than 200 76 High Density Lipoprotein 25 mg/dL Low 40-60 77 Cholesterol/HDL Ratio 5.36 AVERAGE High 1-4.44 Low Density Lipoprotein 90 mg/dL Less Than 100 78 Laboratory test 02/07/2010 [facility] TSH 5.81 High 0.34-5.60 finding [phone] MIU/ML Laboratory test 03/01/2009 [facility] TSH 5.33 0.34-5.60 finding [phone] MIU/ML Laboratory test 01/24/2009 In House Lab Oximetry - 85% finding [phone] - Single Study CBC With 01/18/2009 [facility] White Blood 9.1 CUMM 4.8-10.8 Electronic Diff [phone] Count Stat Red Cell Count 4.74 CUMM [...] Eosinophils 0.1 0-0.6 Abs Basophils 0 0-0.2 79 CMP Stat 01/18/2009 [facility] Sodium 134 mmol/L Low 135-145 [phone] Potassium 4.3 mmol/L 3.5-5.0 Chloride 99 mmol/L Low 101-111 Co2 (Carbon Dioxide) 30.0 mmol/L 22-32 Anion Gap 5.0 mmol/L 2-11 80 Glucose 102 mg/dL High 70-100 81 BUN 11 mg/dL 6-24 Creatinine 0.70 mg/dL 0.50-1.40 One Over Creatinine 1.40 BUN/Creatinine Ratio 15.7 8-20 Calcium 9.3 mg/dL 8.1-9.9 82 Total Protein 6.9 GM/DL 6.2-8.1 Albumin 3.6 GM/DL 3.6-5.4 Globulin 3.3 GM/DL 2-4 Albumin/Globulin Ratio 1.1 1-3 Bilirubin Total 0.5 mg/dL 0.4-1.5 83 Alkaline Phosphatase 87 U/L 30-110 Alt (SGPT) 18 U/L 14-54 Ast (Sgot) 18 U/L 12-42 eGFR Non- 98.5 > 60 eGFR 119.2 > 60 84 Laboratory test 11/08/2008 [facility] TSH 0.87 MIU/ ML 0.34-5.60 finding [phone] Laboratory test 09/14/2008 [facility] TSH 5.02 MIU/ ML 0.34-5.60 finding [phone] Free T4 NOT DONE BY LAB Laboratory test 08/14/2008 [facility] TSH 6.68 MIU/ ML High 0.34-5.60 finding [phone] Comp Metabolic 07/03/2008 [facility] Sodium 141 mmol/ L 135-145 Panel [phone] Potassium 4.6 mmol/L 3.5-5.0 Chloride 106 mmol/L 101-111 Co2 (Carbon Dioxide) 30.0 mmol/L 22-32 Anion Gap 5.0 mmol/L 2-11 85 Glucose 80 mg/dL 70-100 86 BUN 12 mg/dL 6-24 Creatinine 0.60 mg/dL 0.50-1.40 One Over Creatinine 1.60 BUN/Creatinine Ratio 20.0 8-20 Calcium 9.5 mg/dL 8.1-9.9 87 Total Protein 6.0 GM/DL Low 6.2-8.1 Albumin 3.5 GM/DL Low 3.6-5.4 Globulin 2.5 GM/DL 2-4 Albumin/Globulin Ratio 1.4 1-3 Bilirubin Total 0.5 mg/dL 0.4-1.5 Alkaline Phosphatase 84 U/L 30-110 Alt (SGPT) 18 U/L 14-54 Ast (Sgot) 18 U/L 12-42 Liver Function 07/03/2008 [facility] Bilirubin Direct 0.1 mg/dL 0.1-0.5 Panel [phone] Indirect Bilirubin 0.4 mg/dL 0.1-0.75 Laboratory test 07/03/2008 [facility] TSH 8.19 MIU/ ML High 0.34-5.60 finding [phone] CBC With Manual 07/03/2008 [facility] White 7.3 CUMM 4.8-10.8 Diff [phone] Blood Count Red Cell Count 4.33 CUMM [...] 4.6 Anisocytosis SLIGHT Comp Metabolic Panel 02/15/2008 [facility] Sodium 138 mmol/L 135-145 [phone] Potassium 4.6 mmol/L 3.5-5.0 Chloride 106 mmol/L 101-111 Co2 (Carbon Dioxide) 29.0 mmol/L 22-32 Anion Gap 8.0 mmol/L 2-11 88 Glucose 69 mg/dL Low 70-100 89 BUN 15 mg/dL 6-24 Creatinine 0.8 mg/dL 0.5-1.4 One Over Creatinine 1.25 BUN/Creatinine Ratio 18.8 8-20 Calcium 9.3 mg/dL 8.1-9.9 90 Total Protein 6.7 GM/DL 6.2-8.1 Albumin 3.3 GM/DL Low 3.6-5.4 Globulin 3.4 GM/DL 2-4 Albumin/Globulin Ratio 1.0 1-3 Bilirubin Total 0.5 mg/dL 0.4-1.5 Alkaline Phosphatase 95 U/L 30-110 Alt (SGPT) 25 U/L 14-54 Ast (Sgot) 19 U/L 12-42 Laboratory test 02/15/2008 [facility] TSH 10.29 High 0.34-5.60 finding [phone] MIU/ML Vitamin D.25 02/15/2008 [facility] 25-Hydroxy <4.0 ng /mL () Hydroxy [phone] Vitamin D2 25-Hydroxy Vitamin D3 38 ng/mL () 25-Hydroxy Vitamin D Total 38 ng/mL () 91 CBC With Manual 02/15/2008 [facility] White Blood 8.9 CUMM 4.8-10.8 Diff [phone] Count Red Cell Count 4.35 CUMM 4.2-5.4 [...] 6.4 RBC Morphology NORMAL Laboratory test 02/15/2008 [facility] Thyroglobulin AB <1.8 IU/mL <4.0 92 finding [phone] Screen Thyroperoxidase AB 806.3 IU/mL Abnormal <9.0 93 Laboratory 03/10/2007 [facility] Cytology ----- 94 test finding [phone] <SEE NOTE> Laboratory 10/28/2005 [facility] Hepatitis B NEGATIVE Negative test finding [phone] Surface Ag Comp 10/28/2005 [facility] One Over 1.42 Metabolic [phone] Creatinine Panel Anion Gap 7.0 mmol/L 2-11 95 Albumin/Globulin Ratio 1.4 1-3 Albumin 3.6 GM/DL [...] Ratio 18.6 8-20 Creatinine 0.7 mg/dL 0.5-1.4 1 Standard intensity warfarin therapeutic range: 2.0-3.0 High intensity warfarin therapeutic range: 2.5-3.5 2 SEE RESULT BELOW Name: SULY CESAR : [address]: Elli Gomez NP Acct: [id number] Unit: [id number] AGE: 47 Location: [facility] Re11/11/18 SEX: F Status: REG REF SPEC: [id number] BRAY[place]: 11/11/18-142 [facility] DR: Elli Gomez NP REQ: [id number] RECD: 11/11/18 STATUS: COMP _ SOURCE: MISC SOUR SPDESC: ORDERED: Culture Stain COMMENTS: [id number] Specimen Description Nephrostomy Tube Procedure Result Reported Site Wound/Misc Gram Stain Final 11/12/18- 0724 ML 3+ Epithelial Cells 1+ Neutrophils 4+ Gram Positive Bacilli 3+ Gram Negative Bacilli 2+ Gram Positive Cocci Wound/Misc Culture Final 11/13/18- 1019 ML Organism 1 STAPHYLOCOCCUS AUREUS Quantity 3+ Organism 2 PSEUDOMONAS AERUGINOSA Quantity 2+ Organism 3 NORMAL TY Quantity 3+ 1. STAPHYLOCOCCUS AUREUS M.I.C. RX --------- ------ Penicillin >=0.5 R Clindamycin <=0.25 S Erythromycin 0.5 S Gentamicin <=0.5 S Linezolid 2 S Oxacillin 0.5 S * Quinupristin/Dalfopristin <=0.25 S Rifampin <=0.5 S Tetracycline <=1 S CONTINUED ON NEXT PAGE DEPARTMENT OF PATHOLOGY, [address] [place] [address] Tyson Hoover M.D. Director [facility] # [id number] Patient: SULY CESAR [id number] (Continued) Specimen: [id number] Collected: 11/11/18 Received: 11/11/18-183 (Continued) Procedure Result Reported Site Wound/Misc Culture Final (continued) 11/13/18- 1018 1. STAPHYLOCOCCUS AUREUS (continued) M.I.C. RX --------- ------ Doxycycline - Deduced S * Minocycline - Deduced S Trimethoprim/Sulfamethoxazole <=10 S Vancomycin 1 S Imipenem-Deduced S * Ampicillin/Sulbactam-Deduced S Cefazolin-Deduced S 2. PSEUDOMONAS AERUGINOSA M.I.C. RX --------- ------ Cefazolin >=64 R Cefepime <=1 S Ciprofloxacin <=0.25 S Gentamicin <=1 S Levofloxacin 0.5 S Meropenem <=0.25 S Pipercillin/Tazobactam <=4 S * These antibiotics are not available in the [facility] Formulary Contact the Microbiology Department for any additional antibiotic reporting. Contact the Microbiology Department for any additional antibiotic reporting. * ML - Main Lab . END OF REPORT DEPARTMENT OF PATHOLOGY, [address] [place] [address] Tyson Hoover M.D. Director [facility] # [id number] 3 [facility] Severe Sepsis and Septic Shock Management Bundle Measure requires all lactic acids initially measuring >2.0 mmol/L be repeated. 4 [facility] Severe Sepsis and Septic Shock Management Bundle [...] [address]: Renata Velasquez MD Acct: [id number] Unit: [id number] AGE: 47 Location: ED Re08/24/18 SEX: F Status: DEP ER SPEC: [id number] BRAYDEN: 08/24/189912 [address] DR: Trini Robbins MD REQ: [id number] RECD: 08/24/185591 STATUS: COMP [facility] DR: Elli Gomez ACID TREATER _ SOURCE: BLOOD,VENO SPDESC: ORDERED: Blood Cult COMMENTS: Verbal to [id number] by [id number] at 0208 on 08/26/18. Results read back accurately. Verbal ID to CHRISTIE Winkler/[facility] by [id number] at 1011 on 08/27/18. Results read back [...] . END OF REPORT DEPARTMENT OF PATHOLOGY, [address] [place] [address] Tyson Hoover M.D. Director [facility] # [id number] 8 SEE RESULT BELOW Name: SULY CESAR : [address]: Renata Velasquez MD Acct: [id number] Unit: [id number] AGE: 47 Location: ED Re08/24/18 SEX: F Status: DEP ER SPEC: [id number] [place]RAY[place]: 08/24/18 [facility] DR: Trini Robbins MD REQ: [id number] RECD: 08/24/18 STATUS: JB JOSHI DR: Elli Gomez NP _ SOURCE: URINE SPDESC: ORDERED: Urine Culture Procedure Result Reported Site Urine Culture Final 08/27/18- 1013 ML Mixed ty; possible contamination. Suggest resubmission. * ML - Main Lab . END OF REPORT DEPARTMENT OF PATHOLOGY, [address] [place] [address] Tyson Hoover M.D. Director [facility] # [id number] 9 SEE RESULT BELOW Name: SUYL CESAR : [address]: Renata Velasquez MD Acct: [id number] Unit: [id number] AGE: 47 Location: ED Re08/24/18 SEX: F Status: DEP ER SPEC: [id number] BRAYDEN: 08/25/[address]: Triin Robbins MD REQ: [id number] RECD: 08/25/18 STATUS: JB JOSHI DR: Elli Gomez ACID TREATER _ SOURCE: BLOOD,VENO SPDESC: ORDERED: Blood Cult, Pediatric Bottl COMMENTS: one pediatric bottle only Procedure Result Reported Site Pediatric Blood Culture Final 08/30/18- 0327 ML No Growth Day 5 * ML - [facility] Lab . END OF REPORT DEPARTMENT OF PATHOLOGY, [address] [place] [address] Tyson Hoover M.D. Director [facility] # [id number] 11 Because ethnic data is not always readily [...] 15-29 5 Kidney failure <15 (or dialysis) 12 [facility] Severe Sepsis and Septic Shock Management Bundle Measure requires all lactic acids initially measuring >2.0 mmol/L be repeated. 13 >100 to <200 pg/mL: likely compensated congestive heart failure (CHF) 200 to 400 pg/mL: likely moderate CHF >400 pg/mL: likely moderate to severe CHF 14 Please note the change in INR reference range effective 17. 15 Because ethnic data is not always readily [...] 15-29 5 Kidney failure <15 (or dialysis) 16 Acute inflammation: >10.00 17 Therapeutic concentration: <50 ug/mL Toxic concentration: >120 ug/mL 18 SEE RESULT BELOW Name: SULY CESAR : [address]: Clifford Moore MD Acct: [id number] Unit: [id number] AGE: 46 Location: [place] [address] Re06/02/17 SEX: F Status: ADM Denzel SPEC: [id number] BRAY[place]: 06/02/17-999 [facility] DR: Joseph Rodas MD REQ: [id number] RECD: 06/02/17 STATUS: RES OTHR DR: Elli Gomez ACID TREATER _ SOURCE: BLOOD,VENO SPDESC: ORDERED: Blood Cult COMMENTS: Patient is On Antibiotics? NO Procedure Result Reported Site Aerobic Culture Bottle Preliminary 06/03/17- 1014 ML No Growth Day 1 Anaerobic Culture Bottle Preliminary 06/03/17- 1010 ML No Growth Day 1 * ML - MAIN LAB ([facility]) . END OF REPORT * ML=Testing performed at Main Lab DEPARTMENT OF PATHOLOGY, [address] [place] [address] Tyson Hoover M.D. Director [facility] # [id number] 19 REFERENCE VALUE 12.0 - 46.0 ADDITIONAL INFORMATION This test was developed and its performance characteristics determined by [facility] in a manner consistent with CLIA requirements. This test has not been cleared or approved by the U.S. Food and Drug Administration. Test Performed by: [facility] - [address] [address] 20 SEE RESULT BELOW Name: SULY CESAR : [address]: Clifford Moore MD Acct: [id number] Unit: [id number] AGE: 46 Location: [place] [address] Re06/02/17 Dis: 06/03/17 SEX: F Status: DIS Denzel SPEC: [id number] BRAY[place]: 06/02/17-[address]: Joseph Rodas MD REQ: [id number] RECD: 06/02/17 STATUS: JB JOSHI DR: Elli Gomez ACID TREATER _ SOURCE: URINE [facility]: ORDERED: Urine Culture Procedure Result Reported Site Urine Culture Final 06/04/17- 0819 ML Organism 1 ESCHERICHIA COLI D Hanis Count >100,000 (Many) CFU/ML 1. ESCHERICHIA COLI [...] antibiotic reporting. * ML - MAIN LAB ([facility]) . END OF REPORT * ML=Testing performed at Main Lab DEPARTMENT OF PATHOLOGY, [address] [place] [address] Tyson Hoover M.D. Director [facility] # [id number] 21 [facility] Severe Sepsis and Septic Shock Management Bundle Measure requires all lactic acids initially measuring >2.0 mmol/L be repeated. 22 *Ascorbic acid is present which may interfere with detection of blood. 23 SEE RESULT BELOW Name: SULY CESAR : [address]: Trini Robbins MD Acct: [id number] Unit: [id number] AGE: 46 Location: ED Re05/29/17 SEX: F Status: DEP ER SPEC: [id number] [place]: 05/30/17 [facility] DR: Trini Robbins MD REQ: [id number] RECD: 05/30/17 STATUS: JB JOSHI DR: Elli Gomez ACID TREATER _ SOURCE: URINE SPDESC: ORDERED: Urine Culture Procedure Result Reported Site Urine Culture Final 06/01/17- 1026 ML Organism 1 ESCHERICHIA COLI D Hanis Count >100,000 (Many) CFU/ML 1. ESCHERICHIA COLI [...] antibiotic reporting. * ML - MAIN LAB ([facility]) . END OF REPORT * ML=Testing performed at Main Lab DEPARTMENT OF PATHOLOGY, [address] [place] [address] Tyson Hoover M.D. Director [facility] # [id number] 24 Please note the change in INR reference range effective 17. 25 SEE RESULT BELOW Name: SULY CESAR : [address]: Traci Neumann NP Acct: [id number] Unit: [id number] AGE: 46 Location: [facility] Re05/27/17 SEX: F Status: REG REF SPEC: [id number] BRAY[place]: 05/27/17-[address]: Traci Neumann NP REQ: [id number] RECD: 05/27/17 STATUS: COMP _ SOURCE: VAGINAL [...] this organism. * ML - MAIN LAB ([facility]) . END OF REPORT * ML=Testing performed at Main Lab DEPARTMENT OF PATHOLOGY, [address] [place] [address] Tyson Hoover M.D. Director [facility] # [id number] 26 Because ethnic data is not always readily [...] 15-29 5 Kidney failure <15 (or dialysis) 27 Desirable: <150 Borderline High: 150-199 High: 200-499 Very High: >500 28 Desirable: <200 Borderline High: 200-239 High: >239 29 Low: <40 Desirable: 40-60 High: >60 30 Desirable: <100 Near Optimal: 100-129 Borderline High: 130-159 High: 160-189 Very High: >189 31 [id number] 33 SEE RESULT BELOW Name: SULY CESAR : [address]: Corine Willett NP Acct: [id number] Unit: [id number] AGE: 45 Location: [facility] Re07/20/16 SEX: F Status: REG REF SPEC: [id number] BRAY[place]: 07/20/16-[address]: Corine Willett NP REQ: [id number] RECD: 07/20/16 STATUS: COMP _ SOURCE: VAGINAL SPDESC: ORDERED: Genital Culture COMMENTS: [id number] Procedure Result Reported Site Genital Culture Final 07/22/16- 1008 ML Organism 1 NORMAL TY Quantity 3+ Routine genital cultures do not include selective agar for Neisseria gonorrhoeae. Molecular testing offers better test sensitivity and therefore is the preferred test methodology for identifying this organism. * ML - MAIN LAB ([facility]) . END OF REPORT * ML=Testing performed at Main Lab DEPARTMENT OF PATHOLOGY, [address] [place] [address] Tyson Hoover M.D. Director [facility] # [id number] 34 Because ethnic data is not always [...] 5 Kidney failure <15 (or dialysis) 35 Normal Range 180 to 914 Indeterminate Range 145 to 180 Deficient Range <145 36 Because ethnic data is not always readily [...] 15-29 5 Kidney failure <15 (or dialysis) 37 Desirable <150 Borderline high 150-199 High 200-499 Very High >500 38 Desirable <200 Borderline high 200-239 High >239 39 Low <40 Desirable: 40-60 High: >60 40 Desirable <100 Near Optimal 100-129 Borderline high 130-159 High 160-189 Very High >189 41 RESULT: Ectocervical/Endocervical 42 For types 16, 18, 31, 33, 35, 39, 45, 51, 52, 56, 58, 59 and 68. Test Performed by: [place] [address] Childcare Director: Armit Eng III, M.D. 43 RUN DATE: 04/10/13 [facility] LAB LIVE PAGE 1 RUN TIME: [address] [place] [address] Specimen Inquiry Name: SULY CESAR : [address]: Elli Gomez NP Acct: [id number] Unit: [id number] AGE: 42 Location: [facility] Re04/07/13 SEX: F Status: REG REF SPEC: [id number] BRAY[place]: 04/07/13-1419 [facility] DR: Elli Gomez NP REQ: [id number] RECD: 04/07/13 STATUS: SOUT _ ORDERED: IMAGE ANALYSIS, HPV/Thin Prep FINAL DIAGNOSIS Negative for Intraepithelial lesion or Malignancy COMMENTS: Specimen sent to [facility] in [place], [place] on 04/10/13 by [id number] at 1231. Results will be reported separately. A. Ectocervical/Endocervical Specimen Adequacy: Satisfactory of evaluation Transformation zone component identified Patient Information: HPV: High risk HPV DNA testing regardless of pap results. Actual Specimen Date: 04/07/13 Other Pertinent History: No History Given Signed (signature on file) DARVIN Pollock (ASCP) 04/10 1242 This Pap test was evaluated with the assistance of the Marqui Test Imaging System. Due to cytologic findings at the attending ambulatory care microscope, comprehensive manual rescreening by a Aerologist may be required. The Pap Smear is [...] performed at Main Lab DEPARTMENT OF PATHOLOGY, [address] [place] [address] Tyson Hoover M.D. Director [facility] Permit #[id number] 44 RUN DATE: 03/20/13 [facility] LAB LIVE PAGE 1 RUN TIME: [address] [place] [address] Specimen Inquiry Name: SULY CESAR : [address]: Selvin Cunningham DO Acct: [id number] Unit: [id number] AGE: 42 Location: ED Re03/15/13 SEX: F Status: DEP ER SPEC: [id number] BRAY[place]: 03/15/13-155 [facility] DR: Alex Lam MD REQ: [id number] RECD: 03/15/13160 STATUS: JB JOSHI DR: [facility] Oumou Gama MD _ SOURCE: URINE SPDESC: ORDERED: Urine Culture Procedure Result Verified Site Urine Culture Final 03/20/13- 0842 ML Organism 1 ESCHERICHIA COLI D Hanis Count >100,000 (Many) CFU/ML 1. ESCHERICHIA COLI [...] performed at Main Lab DEPARTMENT OF PATHOLOGY, [facility] [employer] [place], [place] [address] Tyson Hoover M.D. Director [facility] Permit #[id number] 45 RUN DATE: 02/09/13 [facility] LAB LIVE PAGE 1 RUN TIME: [address] [place] [address] Specimen Inquiry Name: SULY CESAR : [address]: Joseph Rodas MD Acct: [id number] Unit: [id number] AGE: 42 Location: ED Re02/09/13 SEX: F Status: REG ER SPEC: [id number] BRAYDEN: 02/09/[address]: Joseph Rodas MD REQ: [id number] RECD: 02/09/13 STATUS: COMP ADI DR: Oumou Gama MD _ SOURCE: STOOL SPDESC: ORDERED: Hemoccult Procedure Result Verified Site Stool Specimen Description Final 02/09/13- 1611 ML Test not performed Stool Occult Blood Final 02/09/13- 1611 ML Stool Occult Blood Negative END OF REPORT * ML=Testing performed at Main Lab DEPARTMENT OF PATHOLOGY, [address] [place] [address] Tyson Hoover M.D. Director [facility] Permit #[id number] 46 Because ethnic data is not always readily [...] 15-29 5 Kidney failure <15 (or dialysis) 47 Because ethnic data is not always readily [...] 15-29 5 Kidney failure <15 (or dialysis) 48 Reference Range and Interpretation: TnI (ng/mL) Interpretation Less Than 0.06 ng/mL Not supportive of diagnosis of MS 0.06 - 0.50 ng/mL Indeterminate: suggest serial studies if clinically indicated. Greater than 0.5 ng/mL Consistent with diagnosis of MS 49 Normal vaginal ty. 50 RARE FUNGAL ELEMENTS MANY WBC, FEW 51 If thyroglobulin antibody measurement is performed to [...] cannot be used interchangeably. Test Performed by: [facility] Dpt of Lab Med and Pathology [address] [place] [address] Childcare Director: Amrit Eng III, M.D. 52 Anion gap measurement may be of limited value in the presence of any alkalosis, especially in a combined acid base disorder. . 53 A metabolite of Naproxen, O-desmethylnaproxen, has been shown to interfere with the Jendrassik-[place] method for measuring total bilirubin. Samples from patients who have taken Naproxen have shown spurious elevation in total bilirubin levels. 54 Because ethnic data is not always readily [...] 15-29 5 Kidney failure <15 (or dialysis) 55 Imm. NE 1 56 Anion gap measurement may be of limited value in the presence of any alkalosis, especially in a combined acid base disorder. . 57 A metabolite of Naproxen, O-desmethylnaproxen, has been shown to interfere with the Jendrassik-Suraj method for measuring total bilirubin. Samples from patients who have taken Naproxen have shown spurious elevation in total bilirubin levels. 58 Because ethnic data is not always readily [...] 15-29 5 Kidney failure <15 (or dialysis) 59 SPECIMEN DESCRIPTION: URINE, CLEAN CATCH 60 FINAL: NO GROWTH DAY 2 (<1,000 CFU/mL) 61 Anion gap measurement may be of limited value in the presence of any alkalosis, especially in a combined acid base disorder. . 62 Because ethnic data is not always readily [...] 15-29 5 Kidney failure <15 (or dialysis) 63 NORMAL THROAT TY 64 KLEBSIELLA PNEUMONIAE >100^>100,000 ORGANISMS/ML (MANY)^CCU [address] [address] 66 100^75-100,000 ORGANISMS/ML (MANY)^CCU 67 ---- RUN DATE: 04/02/10 [facility] NMI LIVE PAGE 1 RUN TIME: 1503 Specimen Inquiry RUN USER: INTERFACE -- Name: SULY CESAR Accamarjit#: [id number] Status: REG REF Re04/01/10 Age/Sex: 39/F Unit#: [id number] [facility] [birth year] -- Specimen: [id number] Spec Date: 04/01/[address]: Elli [...] was evaluated with the assistance of the Viridity SoftwarePrep Pap Test Imaging System. The Pap Smear [...] years. Final Interpretation electronically signed by: Migel DURANT(ASCP) 04/02/10 150 2 -- DEPARTMENT OF PATHOLOGY, [address] [place] [address] [facility] Permit #[id number] Tyson Hoover M.D. Director Nancy Cruz M.D. Project Manager/Team Coach Dir ta -- 68 Anion gap measurement may be of limited value in the presence of any alkalosis, especially in a combined acid base disorder. . 69 Note change in reference range as of 02/09/08. The change was based on recommendations from the [place] [employer]. 70 Please note change in reference range effective 07 . 71 A metabolite of Naproxen, O-desmethylnaproxen, has been shown to interfere with the Jendrassik-[place] method for measuring total bilirubin. Samples from patients who have taken Naproxen have shown spurious elevation in total bilirubin levels. 72 Because ethnic data is not always readily [...] 15-29 5 Kidney failure <15 (or dialysis) 73 Recommended INR for Patients on Oral Anticoagulants Prophylaxis 2.0 - 3.0 Treatment of thrombosis 2.0 - 3.0 Prevention of embolism 2.0 - 3.0 Prevention of embolism from prosthetic heart valves 2.5 - 3.5 74 DIAGNOSIS,TREATMENT,AND THERAPY MUST BE BASED ON THE INR VALUE ALONE. 75 PLEASE NOTE NEW REFERENCE RANGE EFFECTIVE 09. 76 CHOLESTEROL INTERPRETATION: Desirable: Less than 200 MG/DL Borderline-High Risk: 200-239 MG/DL High-Risk: 240 MG/DL and over 77 HDL INTERPRETATION: Undesirable: High Risk: Less than 40 MG/DL Desirable: Low Risk: Greater than 60 MG/DL 78 LDL INTERPRETATION: Low Risk Optimal Level: LDL Less than 100 MG/DL Near or Above Optimal: LDL 100-129 MG/DL Borderline High Risk: LDL 130-159 MG/DL High Risk: LDL 160-189 MG/DL Very High Risk: LDL Greater than 189 MG/DL 79 Lymphopenia % 80 Anion gap measurement may be of limited value in the presence of any alkalosis, especially in a combined acid base disorder. . 81 Note change in reference range as of 02/09/08. The change was based on recommendations from the [employer] [place] [employer]. 82 Please note change in reference range effective 07 . 83 A metabolite of Naproxen, O-desmethylnaproxen, has been shown to interfere with the [place] method for measuring total bilirubin. Samples from patients who have taken Naproxen have shown spurious elevation in total bilirubin levels. 84 Because ethnic data is not always readily [...] 15-29 5 Kidney failure <15 (or dialysis) 85 Anion gap measurement may be of limited value in the presence of any alkalosis, especially in a combined acid base disorder. . 86 Note change in reference range as of 02/09/08. The change was based on recommendations from the [employer] [place] [employer]. 87 Please note change in reference range effective 07 . 88 Anion gap measurement may be of limited value in the presence of any alkalosis, especially in a combined acid base disorder. . 89 Note change in reference range as of 02/09/08. The change was based on recommendations from the [employer] [place] [employer]. 90 Please note change in reference range effective 07 . 91 -- REFERENCE VALUE -- 25-HYDROXY D TOTAL (D2+D3) Optimum levels in the normal population are 25-80 Test Performed by: [facility] Dpt of Lab Med and Pathology [address] [place] [id number] Childcare Director: Amrit Eng III, M.D. 92 Test Performed by: [facility] Dpt of Lab Med and Pathology [address] [place], [place] [id number] Childcare Director: Amrit Eng III, M.D. 93 Test Performed by: [facility] Dpt of Lab Med and Pathology [address] [place] [address] Childcare Director: Amrit Eng III, M.D. 94 ---- RUN DATE: 03/15/07 [facility] NMI LIVE PAGE 1 RUN TIME: 827 Specimen Inquiry RUN USER: INTERFACE [id number] SULY CESAR 36/F <REG REF 03/10> ([id number]) Oumou Patricio MD -- Specimen: [id number] SOUT Spec Date: 03/10/[address]: Oumou shin MD Spec Type: CYTOLOGY [...] 03/15/07 0828 -- -- DEPARTMENT OF PATHOLOGY, [address] [place] [address] [facility] Permit #[id number] Tyson Hoover M.D. Director of Laboratories Joseph Shrestha II, M.D . Pathologist -- 95 Anion gap measurement may be of limited value in the presence of any alkalosis, especially in a combined acid base disorder. . 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 L24.89 Irritant contact dermatitis due to other agents Office Visit 11/01/2018 2:15p Main Office Elli Pop N13.2 Hydronephrosis with Storm, [employer] renal and ureteral calculous obstruction B37.2 Candidiasis of skin and nail Office Visit 10/10/2018 10:30a Main Office Abel Torre, N10 Acute pyelonephritis Office Visit 09/08/2018 4:15p Main Office Elli Gomez, N10 Acute pyelonephritis [employer] N13.2 Hydronephrosis with renal and ureteral calculous obstruction Office Visit 08/24/2018 4:30p Main Office Abel Torre, R50.9 Fever, unspecified MD Office Visit 05/03/2018 1:30p Main Office Elli Gomez, Z00.00 Encntr for general [employer] adult medical exam w/o abnormal findings Office Visit 06/07/2017 11:00a Main Office Traci Neumann, N39.0 Urinary tract ACID TREATER infection, site not specified E03.9 Hypothyroidism, unspecified G40.89 Other seizures Office Visit 05/31/2017 11:15a Main Office Elli Pop G40.89 Other seizures Storm, [employer] Office Visit 05/27/2017 10:30a Main Office Traci B37.3 Candidiasis of [place]le, ACID TREATER vulva and vagina Office Visit 05/06/2017 1:30p Main Office Elli Pop Z00.00 Encntr for general Storm, [employer] adult medical exam w/o abnormal findings N64.59 Other signs and symptoms in breast E03.9 Hypothyroidism, unspecified Z23 Encounter for immunization Office Visit 01/14/2017 4:00p Main Office Elli Pop G80.9 Cerebral palsy , Storm, [employer] unspecified J30.9 Allergic rhinitis, unspecified Office Visit 12/10/2016 2:30p Main Office Abel Torre, N92.6 Irregular MD menstruation, unspecified Office Visit 07/20/2016 2:45p Main Office Corine Willett, B37.3 Candidiasis of [employer] vulva and vagina Office Visit 05/05/2016 2:15p Main Office Elli Gomez, Z00.00 Encntr for general [employer] adult medical exam w/o abnormal findings Z12.31 Encntr screen mammogram for malignant neoplasm of breast Office Visit 03/24/2016 4:00p Main Office Logan Block H10.9 Unspecified III, [employer] conjunctivitis Office Visit 12/19/2015 11:30a Main Office Abel H61.21 Impacted Nicho lee MD right ear Office Visit 08/26/2015 10:15a Main Office Elli Pop G80.9 Cerebral palsy , Storm, [employer] unspecified Office Visit 04/15/2015 1:30p Main Office Elli Pop Z00.00 Encntr for general Storm, [employer] adult medical exam w/o abnormal findings N64.59 Other signs and symptoms in breast E03.9 Hypothyroidism, unspecified Office Visit 03/08/2015 4:45p Main Office Elli Gomez, R53.83 Other fatigue [employer] E03.9 Hypothyroidism, unspecified Office Visit 12/13/2014 11:15a Main Office Elli Gomez, 789.09 Pain Abdominal [employer] Other Spec Site Office Visit 05/10/2014 10:45a Main Office Elli Gomez, 705.1 Prickly Heat [employer] 244.9 Hypothyroidism Other Unspec Office Visit 04/16/2014 1:30p Main Office Rudywntjuan luis RBabita V70.0 Examination General Storm, [employer] Medical Routine AT Health Care Facility V72.62 Laboratory Exam Ordered as Part Of Routine General Med Exam 244.9 Hypothyroidism Other Unspec Office Visit 04/07/2013 1:30p Main Office Rudywcaleb RBabita V70.0 Examination General Storm, [employer] Medical Routine AT Health Care Facility V76.2 Screening Malignant Neoplasm Cervix Office Visit 03/15/2013 10:30a Main Office Maria Elena Avalos, 789.9 Abdomen & Pelvis M.Karine, R.D. Symptoms Other Office Visit 02/14/2013 3:30p Main Office Elli Pop 616.10 Vaginitis & Storm, [employer] Vulvovaginitis Unspec 691.8 Dermatitis Atopic & Related Conditions Other Office Visit 01/04/2013 11:30a Main Office Corine Willett, 133.0 Scabies [employer] Office Visit 10/19/2012 2:15p Main Office Oumou Swenson 792.4 Saliva Abnormal Natan MBabitaD. Office Visit 04/08/2012 1:30p Main Office Elli Gomez V70.0 Examination General [employer] Medical Routine AT Health Care Facility 244.9 Hypothyroidism Other Unspec Office Visit 03/19/2012 9:30a Main Office Vanesa Kaye 691.0 Diaper Or Napkin Rash Josie Lomas Office Visit 06/25/2011 3:30p Main Office Vanesa Dickinson6.10 Vaginitis & Josie Lomas Vulvovaginitis Unspec Office Visit 05/11/2011 11:30a Main Office Oumou Swenson 110.5 Dermatophytosis Body BleShmuel shin. Office Visit 04/23/2011 10:30a Main Office Vanesa Kaye 691.8 Dermatitis Atopic & Josie Lomas Related Conditions Other Office Visit 04/14/2011 4:15p Main Office Elli Pop 728.85 Spasm Muscle Storm, [employer] Office Visit 04/07/2011 1:30p Main Office Elli Pop V70.0 Examination General Storm, [employer] Medical Routine AT Health Care Facility 244.8 Hypothyroidism Other Spec Office Visit 12/26/2010 4:45p Main Office Elli Gomez 611.9 Breast Disorders [employer] Unspec Office Visit 11/10/2010 1:30p Main Office Oumou Swenson 599.0 UTI Urinary Tract Mosesgen M.D. Infection Site Not Spec 462 Pharyngitis Acute Office Visit 11/08/2010 10:45a Main Office Rey Jung, 599.0 UTI Urinary Tract M.D. Infection Site Not Spec Office Visit 09/24/2010 10:15a Main Office Oumou Swenson 616.10 Vaginitis & Josie Gama Vulvovaginitis Unspec Office Visit 05/28/2010 11:30a Main Office Cara De Leon, 133.0 Scabies ACID TREATER Office Visit 05/20/2010 11:30a Main Office Cara De Leon, 133.0 Scabies ACID TREATER Office Visit 05/13/2010 10:30a Main Office Cara De Leon, 133.0 Scabies ACID TREATER 599.0 UTI Urinary Tract Infection Site Not Spec Office Visit 04/01/2010 11:00a Main Office Elli Pop V70.0 Examination General Storm, [employer] Medical Routine AT Health Care Facility 244.8 Hypothyroidism Other Spec V04.81 Need For Prophylactic Vaccination & Inoculation/Influenza 616.10 Vaginitis & Vulvovaginitis Unspec Office Visit 10/16/2009 4:30p Main Office Jory Pulido, 380.4 Impacted Bobbi PA-C Office Visit 07/02/2009 11:30a Main Office Ioana Winters 465.9 URI Saima Byrne M.D. Respiratory Infections Acute Unspec Sites 466.0 Bronchitis Acute Office Visit 02/15/2009 1:30p Main Office Elli Pop 465.9 URI Upper Storm, [employer] Respiratory Infections Acute Unspec Sites V70.0 Examination [...] Elli Pop 691.0 Diaper Or Napkin Storm, [employer] Rash Office Visit 09/21/2007 11:45a Main Office Rey Jung M.D. 466.0 Bronchitis Acute Office Visit 08/26/2007 3:45p Main Office Monique Jha 465.9 URI Upper Blas, Respiratory F.N.P.C. 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 Medical Routine AT Health Care Facility 530.11 Esophagitis Reflux 343.9 Infantile Cerebral Palsy Unspec Office Visit 05/28/2005 2:45p Main Office Tristen Dennison, 465.9 URI Upper M.D. Respiratory Infections Acute Unspec Sites 536.2 Vomiting Persistent 343.2 Quadriplegic V03.82 Streptococcus Pneumoniae Vaccination Spec Other Office Visit 01/28/2005 1:15p Main Office Oumou Swenson 729.5 Pain In Limb Natan M.D. Office Visit 11/04/2004 11:30a Main Office Monique Jha 465.9 URI Upper Blas, F.N.P.C. Respiratory Infections Acute Unspec Sites Office Visit 10/15/2004 8:00a Main Office Corine Kimbrough, 343.9 Infantile Cerebral M.D. Palsy Unspec 343.2 Quadriplegic 536.2 Vomiting Persistent Office Visit 04/07/2004 10:15a Main Office Corine Kimbrough, 527.7 Salivary Gland M.D. Secretion Disturbance Office Visit 02/05/2004 4:15p Main Office Corine Kimbrough, 611.71 Mastodynia M.D. Office Visit 09/17/2003 8:45a Main Office Corine Kimbrough 343.9 Infantile Cerebral M.D. Palsy Unspec V72.3 Examination Gynecological 527.7 Salivary Gland Secretion Disturbance Office Visit 09/06/2002 8:00a Main Office Corine Kimbrough, 343.9 Infantile Cerebral M.D. Palsy Unspec 781.0 Abnormal Involuntary Movements Plan of Treatment Future Appointment(s):05/04/2019 1:30 pm - ALISHA Real at [facility]/20/2018 - Elli Gomez, TYSON-CN20.0 Calculus of kidneyComments: medically stable for nephrostomy tube [id number] Other artificial openings of urinary tract status
[2018-12-31] MEDS ORDERED: NS 0.9% 1000 ML** 1,000 ML IV ONE ×4 (07:17→17:34)
--- NOTE | 2018-12-31 07:17 | ED ---
HPI Febrile Illness - HPI Summary HPI Summary: Pt is a 48 y/o F presenting to the ED with a chief complaint of a febrile illness. The pts caregiver states that she had her kidney tube changed a couple of days ago, and has since spiked a fever. Highest recorded temp is 102.2 F outside of the ED. The pts caregiver denies the pt having any cough, as well as any other sx. - History of Current Complaint Chief Complaint: EDFever Time Seen by Provider: 12/31/18 07:03 Hx Obtained From: Family/Medicaid Eligibility Specialist Hx From Patient Unobtainable Due To: Other - pt is nonverbal Onset/Duration: Started Days Ago, Still Present Timing: Constant, Lasting Days Initial Severity: Mild Current Severity: None Pain Intensity: 0 Pain Scale Used: 0-10 Numeric Aggravating Factors: Nothing Alleviating Factors: Nothing Associated Signs and Symptoms: Negative - Additional Pertinent History Primary Care Physician: JOB - Allergy/Home Medications Allergies/Adverse Reactions: Allergies Allergy/AdvReac Type Severity Reaction Status Date / Time Adhesive Tape Allergy Rash Verified 12/28/18 12:47 bee pollen Allergy Rash Verified 12/28/18 12:47 PMH/Surg Hx/FS Hx/Imm Hx Previously Healthy: Yes Endocrine/Hematology History: Reports: Hx Thyroid Disease, Hx Anemia Denies: Hx Diabetes Cardiovascular History: Denies: Hx Hypertension GI History: Reports: Hx Gastroesophageal Reflux Disease History: Reports: Hx Renal Disease - LEFT NEPH TUBE Musculoskeletal History: Reports: Other Musculoskeletal History - hip dysplasia Denies: Hx Arthritis, Hx Osteoporosis Sensory History: Denies: Hx Contacts or Glasses, Hx Hearing Aid Opthamlomology History: Denies: Hx Contacts or Glasses Neurological History: Reports: Hx Seizures, 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, Cerebral Palsy (Athetoid type) Psychiatric History: Reports: Other Psychiatric Issues/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 - Surgical History Surgery Procedure, Year, and Place: Left hip adductor surgery, Ocasio brent placement Infectious Disease History: Unable to Obtain/Confirm Infectious Disease History: Denies: Traveled Outside the [place] in Last 30 Days - Family History Known Family History: Negative: Respiratory Disease - Social History Alcohol Use: None Hx Substance Use: No Substance Use Type: Reports: None Hx Tobacco Use: No Smoking Status (MU): Never Smoked Tobacco Review of Systems Positive: Fever Negative: Cough All Other Systems Reviewed And Are Negative: Yes Physical Exam - Summary Physical Exam Summary: Appearance: The patient is well-nourished in no acute distress and in no acute pain. Skin: The skin is warm and dry and skin color reflects adequate perfusion. HEENT: The head is normocephalic and atraumatic. The pupils are equal and reactive. The conjunctivae are clear and without drainage. Nares are patent and without drainage. Mouth reveals moist mucous membranes and the throat is without erythema and exudate. The external ears are intact. The ear canals are patent and without drainage. The tympanic membranes are intact. Neck: The neck is supple with full range of motion and non-tender. There are no carotid bruits. There is no neck vein distension. Respiratory: Chest is non-tender. Lungs are clear to auscultation and breath sounds are symmetrical and equal. Cardiovascular: Heart is tachycardic. There is no murmur or rub auscultated. There is no peripheral edema and pulses are symmetrical and equal. Abdomen: The abdomen is soft and non-tender. There are normal bowel sounds heard in all four quadrants and there is no organomegaly palpated. Musculoskeletal: There is no back tenderness noted. Extremities are non-tender with full range of motion. There is good capillary refill. There is no peripheral edema or calf tenderness elicited. Neurological: Patient is alert and oriented to person, place and time. The patient has symmetrical motor strength in all four extremities. Cranial nerves are grossly intact. Deep tendon reflexes are symmetrical and equal in all four extremities. Psychiatric: The patient has an appropriate affect and does not exhibit any anxiety or depression. Triage Information Reviewed: Yes Vital Signs On Initial Exam: Initial Vitals Temp Pulse Resp BP Pulse Ox 99.2 F 120 22 110/40 99 12/31/18 06:34 12/31/18 06:34 12/31/18 06:34 12/31/18 06:34 12/31/18 06:34 Vital Signs Reviewed: Yes Diagnostics - Vital Signs Vital Signs Temp Pulse Resp BP Pulse Ox 12/31/18 06:34 99.2 F 120 22 110/40 99 - Laboratory Result Diagrams: 12/31/18 07:31 12/31/18 07:31 Lab Statement: Any lab studies that have been ordered have been reviewed, and results considered in the medical decision making process. - Radiology CXR Radiology Interpretation Completed By: Radiologist Summary of Radiographic Findings: Consider alveolar consolidation/pneumonia at the RIGHT lung. ED physician has reviewed this report. - CT CT a/p CT Interpretation Completed By: Radiologist Summary of CT Findings: 1. Large volume of retained stool at the colon with severe rectal distention with stool with the rectum measuring up to 11.5 cm AP by 9.6 cm transverse. Negative for sigmoid volvulus. 2. 2.0 cm stone at the RIGHT renal pelvis. Mild RIGHT hydronephrosis. 3. Significantly atrophic LEFT kidney with staghorn calculus and percutaneous nephrostomy tube. Moderate LEFT caliectasis decreased compared to the prior exam before placement of the ureteral stent. ED physician has reviewed this report. Course/Dx - Course Course Of Treatment: Ms. Cesar was brought into the emergency department because she developed a fever. She was seen 3 days ago for a nephrostomy tube change. On arrival she was noted to be tachycardic and febrile. Labs were obtained and an IV was established. IV fluids were ordered for her as well as Levaquin as her urine was equivocal and her chest x-ray also was equivocal for acute infection. I asked the hospitalist to evaluate her for sepsis and they requested a CT scan for nephrostomy tube placement. - Diagnoses Provider Diagnoses: Sepsis - Critical Care Time Critical Care Time: 30-74 min Discharge - Sign-Out/Discharge Documenting (check all that apply): Patient Departure - Discharge Plan Condition: Stable Disposition: ADMITTED TO [facility] - Billing Disposition and Condition Condition: STABLE Disposition: Admitted to [facility] - Attestation Statements Document Initiated by Tommie: Yes Documenting Scribe: Antonella Brothers Provider For Whom Tommie is Documenting (Include Credential): Wagner Clement MD. Scribe Attestation: Antonella Manzanares, scribed for Wagner Clement MD. on 12/31/18 at 1516. Scribe Documentation Reviewed: Yes Provider Attestation: The documentation as recorded by the Antonella dixon accurately reflects the service I personally performed and the decisions made by me, Wagner Clement MD. Status of Scribe Document: Viewed Consult Consult: 1713 - I spoke with Dr. Gonzalez about the pt.
[2018-12-31 07:47] LABS: Hematocrit 36 % (35-47); Hemoglobin 11.6 g/dL (12.0-16.0); Mean Corpuscular HGB Conc 33 g/dL (31-36); Mean Corpuscular Hemoglobin 26 pg (27-31); Mean Corpuscular Volume 80 fL (80-97); Platelet Count 259 10^3/uL (150-450); Red Blood Count 4.49 10^6 /uL (3.70-4.87); Red Cell Distribution Width 15 % (10-15); White Blood Count 9.8 10^3/uL (3.5-10.8)
[2018-12-31 07:52] LABS: Urine Appearance Turbid; Urine Bacteria Absent (Absent); Urine Bilirubin Negative (Negative); Urine Blood 3+ (Negative); Urine Color Yellow; Urine Glucose Negative (Negative); Urine Ketones Negative (Negative); Urine Nitrite Negative (Negative); Urine Protein 2+(100 mg/dL) (Negative); Urine Red Blood Cell 3+(>10/hpf) (Absent); Urine Specific Gravity 1.011 (1.010-1.030); Urine Urobilinogen Negative (Negative); Urine White Blood Cell 3+(>20/hpf) (Absent)
[2018-12-31 08:06] LABS: Albumin 3.5 g/dL (3.2-5.2); Albumin/Globulin Ratio 0.9 (1-3); BUN/Creatinine Ratio 25.6 (8-20); C Reactive Protein 158.46 mg/L (<8.01); Calcium 9.4 mg/dL (8.6-10.3); EGFR African American 84.5 (>60); EGFR Non-African American 69.8 (>60); Globulin 3.8 g/dL (2-4); Total Bilirubin 0.3 mg/dL (0.2-1.0); Total Protein 7.3 g/dL (6.4-8.9)
[2018-12-31 08:25] LABS: ABS Basophils 0.1 10^3/ul (0-0.2); ABS Eosinophils 0.1 10^3/ul (0-0.6); ABS Lymphocytes 1.6 10^3/ul (1.0-4.8); ABS Monocytes 1.6 10^3/ul (0-0.8); ABS Neutrophils 6.4 10^3/ul (1.5-7.7); Eosinophil % 1.5 %; Lymphocyte % 16.6 %; Nucleated Red Blood Cells % 0.1
[2018-12-31] MEDS ORDERED: Levofloxacin 750 MG IVPREMIX(* 750 MG/150 ML BAG IVPB ONE (09:12)
[2018-12-31] MEDS ORDERED: Acetaminophen TAB* 325 MG PO PRN (11:52)
[2018-12-31] MEDS ORDERED: Bacitracin OINTMENT* 0.5% 0.5 oz TUBE TOPICAL PRN (11:52)
[2018-12-31] MEDS ORDERED: Acetaminophen SUPP* 650 MG SUPP PR PRN (11:52)
[2018-12-31] MEDS ORDERED: Glycerin ADULT SUPP PR ONE (11:53)
[2018-12-31] MEDS ORDERED: Sodium Phosphate ADULT ENEMA* 118 ml bottle PR ONE (11:56)
[2018-12-31] MEDS ORDERED: Lactated Ringers 1000 ML Bag* 1,000 ML IV SCH (12:00)
[2018-12-31] MEDS ORDERED: Zosyn per Pharmacy* NOTE FOLLOW UP SCH (12:00)
[2018-12-31] MEDS ORDERED: Piperacillin/Tazobac ADVAN(*) 3.375 GM in NS 0.9% 100 ML* 100 ML IVPB ONE (12:00)
[2018-12-31] MEDS: Heparin VIAL(*) 5000 UNITS/ML VIAL (FIVE THOUSAND) SUBCUT SCH ×2 (14:25→21:43)
[2018-12-31] MEDS: NS 0.9% 1000 ML** 1,000 ML IV SCH (14:25)
--- NOTE | 2018-12-31 16:52 | HP ---
CC: Elli Gomez NP * [facility] MEDICINE HISTORY AND PHYSICAL: DATE OF ADMISSION: 12/31/18 PRIMARY CARE PROVIDER: Elli Gomez NP ATTENDING PHYSICIAN: Divine Gonzalez MD * (dictation provided by Usha Silva NP ). CHIEF COMPLAINT: Altered mental status. HISTORY OF PRESENT ILLNESS: Ms. Cesar is a 48-year-old female with a past medical history of mental retardation, who presents to the hospital today with concern for altered mental status from [facility]. Ms. Cesar is nonverbal at baseline and therefore is not able to provide any information, but per the report, she had fever last night. The staff member who is with her at bedside reports that it was "high." The patient was given ibuprofen and the fever came down appropriately. However, she had a second fever again today and therefore, she was brought to the hospital for evaluation. They also note that she is less responsive than usual. She is described at baseline to be alert and laughing frequently, though nonverbal. Staff is at the bedside today and unaware of any other concerns regarding the patient. In the emergency room, Ms. Cesar was found to be afebrile. However, she is tachycardic with a heart rate running in the one-teens to 120s. Her blood pressure is stable greater than 110 throughout. She is slightly tachypneic with a respiratory rate 22 to 28. She had labs, which showed no leukocytosis, but her CRP is elevated at 158.46. She is hypernatremic with sodium of 146, but her BUN and creatinine are normal. She had imaging including a chest x-ray , which showed possible alveolar consolidation versus pneumonia at the right lung base and abdomen/pelvis CT was checked because she has a history of chronic indwelling urostomy to verify that the tube was placed correctly. The CT showed large volume retained stool at the colon with severe rectal destination with stool at the rectum measuring up to 11.5 cm x 9.6 cm, negative for sigmoid volvulus. Percutaneous nephrostomy tube is in place. PAST MEDICAL HISTORY: 1. Mental retardation. 2. Hypothyroidism. 3. Fevers. MEDICATIONS: Today are: 1. Keppra 250 mg p.o. b.i.d. 2. Benadryl 25 mg p.o. q.6 hours p.r.n. 3. Zinc oxide paste bottom p.r.n. 4. Triazolam 0.25 mg as needed for medical procedures. 5. Sodium phosphate enemas q.4 days p.r.n. constipation. 6. Simethicone 160 mg p.o. a.c. h.s. p.r.n. 7. Saline nasal spray 0.65% one spray both nares q.4 hours p.r.n. 8. Pseudoephedrine 30 mg p.o. b.i.d. p.r.n. 9. Proctozone 1 application topical q.i.d. p.r.n. 10. Polyethylene glycol 17 g p.o. b.i.d. 11. Omeprazole 20 mg p.o. daily. 12. Nystatin cream topically t.i.d. p.r.n. 13. Maalox Plus 30 mL p.o. q.4 hours p.r.n. 14. Levothyroxine 150 mcg p.o. daily. 15. Lactase enzyme 3000 units p.o. 4 times a day. 16. Ibuprofen 600 mg p.o. q.8 hours p.r.n. 17. Guaifenesin 5 mL p.o. t.i.d. p.r.n. 18. Glycerin adult suppository 1 suppository q.3 days p.r.n. 19. Diazepam 10 mg p.o. as needed for medical procedures. 20. Chlorhexidine mouthwash swish and spit b.i.d. 21. Calcium citrate with vitamin D3 two tabs p.o. b.i.d. 22. Bacitracin ointment 1 application topically t.i.d. p.r.n. 23. Tylenol p.r.n. ALLERGIES: ADHESIVE TAPE and bee pollen. FAMILY HISTORY: Unknown. SOCIAL HISTORY: The patient lives at the [facility]. Her surrogate decision maker is Cat Fam Wolf as per her last updated information, her phone #. REVIEW OF SYSTEMS: Not obtainable given the patient's nonverbal status. PHYSICAL EXAMINATION GENERAL: Ms. Cesar is lying in bed. She is in no acute distress. VITAL SIGNS: Temperature 98.7, pulse rate 119, respiratory rate 22, O2 saturation 100% on room air, blood pressure 124/61. LUNGS: Clear to auscultation bilaterally. No accessory muscle use. Good aeration. HEART: Heart S1, S2. No murmur, rub, or gallop, and regular. ABDOMEN: Soft. Does not appear to cause any discomfort to palpate the abdomen. Bowel sounds are positive. EXTREMITIES: No cyanosis or edema. Skin is intact. NEUROLOGIC: She is alert. She is sticking her tongue and laughing at times. She is not appeared to be in any distress. She is noted to move her left arm, but both arms are contracted and hands are contracted. DIAGNOSTIC STUDIES/LAB DATA: Sodium 146, potassium 4.0, chloride 110, serum carbon dioxide 32, BUN 22, creatinine 0.86, glucose 113, troponin 0.00, lactic acid 0.5, CRP 158.46. WBC 9.8, hemoglobin 11.6, hematocrit 36, platelet count 259. Urine shows 3+ leukocyte esterase, but no bacteria. Imaging shows chest x-ray with a possible right lower lobe alveolar consolidation versus pneumonia and the abdomen and pelvis CT results are follows : Large volume of retained stool throughout colon with severe rectal distension with stool with the rectum measuring up to 11.5 cm AP x 9.6 cm transverse, negative for sigmoid volvulus, 2.0 cm stone at the right renal pelvis, mild right hydronephrosis, significantly atrophic left kidney with staghorn calculus and percutaneous nephrostomy tube, moderate left caliectasis, decreased compared with prior exam before placement of the ureteral stent. ASSESSMENT: Ms. Cesar is a 48-year-old female who presents to the hospital today with altered mental status in the setting of severe mental retardation. The patient is noted have suspicion for sepsis with 2 possible sources being the urine or possibly pneumonia. Our plans are for inpatient status as I expect her stay will be greater than 2 days for the following. 1. Sepsis: Again, her chest x-ray shows possibility for pneumonia, although her lung exam is clear. She could also have urinary tract infection with chronic indwelling nephrostomy tube. Plan to treat with Zosyn for now, awaiting culture results and further clinical course. Her lactic acid is normal. We continue with IV fluid as she remains tachycardic. Her blood pressure is stable. 2. Hypenatremia: I suspect this reflects dehydration. Patient has had two liters of IV fluid in the ED, plan for a third liter now. 3. Seizures. Plan to continue Keppra. 4. Constipation. The patient will be given a Fleet enema now and will continue with more aggressive bowel regimen until she is able to pass stool. 5. DVT prophylaxis. Heparin subcutaneous. 6. Code status. Full code. TIME SPENT: Approximately 60 minutes was spent on the admission of this patient , more than half the time spent with the patient at the bedside reviewing the events leading up to this hospitalization, performing the physical examination, and reviewing the plan of care. USHA SILVA NP [id number]/CPS #: [id number] EMELI
[2018-12-31] MEDS: Mineral Oil ENEMA* 1 BOTTLE PR ONE ×2 (18:18→18:56)
[2018-12-31 18:32] LABS: BUN/Creatinine Ratio 16.5 (8-20); Calcium 7.5 mg/dL (8.6-10.3); EGFR African American 93.2 (>60)
[2018-12-31] MEDS: ZOSYN 3.375 GM Q8H per EXTENDED INFUSION IVPB SCH ×2 (19:36)
[2018-12-31] MEDS: levETIRAcetam LIQ* 500 MG/5 ML UDC PO SCH (20:30)
[2018-12-31] MEDS: Polyethylene Glycol 3350* 17 GM PACKET PO SCH (20:30)
[2018-12-31] MEDS: Chlorhexidine MOUTHWASH 0.12%* 15 ML UDC SWISH SPIT SCH (20:31)
[2019-01-01] MEDS: ZOSYN 3.375 GM Q8H per EXTENDED INFUSION IVPB SCH ×6 (02:06→17:32)
[2019-01-01] MEDS: NS 0.9% 1000 ML** 1,000 ML IV SCH ×2 (02:10→17:32)
[2019-01-01] MEDS: Heparin VIAL(*) 5000 UNITS/ML VIAL (FIVE THOUSAND) SUBCUT SCH ×3 (05:37→20:58)
[2019-01-01] MEDS: Levothyroxine TAB* 150 MCG TAB PO SCH (05:37)
[2019-01-01 06:21] LABS: ABS Eosinophils 0.1 10^3/ul (0-0.6); ABS Lymphocytes 1.5 10^3/ul (1.0-4.8); ABS Monocytes 1.4 10^3/ul (0-0.8); ABS Neutrophils 5.2 10^3/ul (1.5-7.7); Eosinophil % 0.8 %; Hematocrit 30 % (35-47); Hemoglobin 9.7 g/dL (12.0-16.0); Lymphocyte % 17.8 %; Mean Corpuscular HGB Conc 32 g/dL (31-36); Mean Corpuscular Hemoglobin 25 pg (27-31); Mean Corpuscular Volume 80 fL (80-97); Mean Platelet Volume 8.6 fL (7.4-10.4); Platelet Count 218 10^3/uL (150-450); Red Blood Count 3.81 10^6 /uL (3.70-4.87); Red Cell Distribution Width 16 % (10-15); White Blood Count 8.1 10^3/uL (3.5-10.8)
[2019-01-01 06:41] LABS: BUN/Creatinine Ratio 10.6 (8-20); Calcium 7.7 mg/dL (8.6-10.3); EGFR African American 85.7 (>60); EGFR Non-African American 70.8 (>60); Potassium 3.7 mmol/L (3.5-5.0)
[2019-01-01] MEDS: Pantoprazole TAB * 40 MG TAB PO SCH (09:21)
[2019-01-01] MEDS: Chlorhexidine MOUTHWASH 0.12%* 15 ML UDC SWISH SPIT SCH ×2 (09:21→20:58)
[2019-01-01] MEDS: Polyethylene Glycol 3350* 17 GM PACKET PO SCH ×2 (09:21→20:58)
[2019-01-01] MEDS: levETIRAcetam LIQ* 500 MG/5 ML UDC PO SCH ×2 (09:21→20:58)
[2019-01-01] MEDS ORDERED: Levofloxacin 750 MG IVPREMIX(* 750 MG/150 ML BAG IVPB SCH (12:00)
--- NOTE | 2019-01-01 12:53 | PN ---
Subjective Date of Service: 01/01/19 Interval History: Tmax 100.6 at 11pm, no acute events Mentation is improved closer to her baseline(nonverbal, does not follow commands but she is laughing again) no coughing. UCx pending. Kristi her long time aide of 14 years at bedside. / BCx with Staph that is not Staph Aureus Likes music and [employer]. Objective Active Medications: Acetaminophen (Tylenol Supp*) 650 mg CA Q6H PRN PRN Reason: FEVER/PAIN Acetaminophen (Tylenol Tab*) 650 mg PO Q4H PRN PRN Reason: FEVER/PAIN Bacitracin (Bacitracin Ointment*) 1 applic TOPICAL TID PRN PRN Reason: WOUND CARE Last Admin: 12/31/18 14:24 Dose: 1 admin Chlorhexidine Gluconate (Peridex Mouth Wash 0.12%*) 5 ml SWISH SPIT BID [facility] Last Admin: 01/01/19 09:21 Dose: 5 ml Heparin Sodium (Porcine) (Heparin Vial(*)) 5,000 units SUBCUT Q8HR [facility] Last Admin: 01/01/19 05:37 Dose: 5,000 units Piperacillin Sod/Tazobactam (Sod 3.375 gm/ Sodium Chloride) 100 mls @ 25 mls/ hr IVPB Q8H [facility] Last Admin: 01/01/19 09:37 Dose: 25 mls/hr Sodium Chloride (Ns 0.9% 1000 Ml) 1,000 mls @ 75 mls/hr IV PER RATE [facility] Last Admin: 01/01/19 02:10 Dose: 75 mls/hr Levetiracetam (Keppra Liq*) 250 mg PO BID [facility] Last Admin: 01/01/19 09:21 Dose: 250 mg Levothyroxine Sodium (Synthroid Tab*) 150 mcg PO 0600 [facility] Last Admin: 01/01/19 05:37 Dose: 150 mcg Pantoprazole Sodium (Protonix Tab*) 40 mg PO DAILY [facility] Last Admin: 01/01/19 09:21 Dose: 40 mg Pharmacy Consult (Zosyn Per Pharmacy*) 1 note FOLLOW UP .ZOSYN PER PHARMACY [facility] Polyethylene Glycol/Electrolytes (Miralax*) 17 gm PO BID [facility] Last Admin: 01/01/19 09:21 Dose: 17 gm Vital Signs - 8 hr 01/01/19 01/01/19 07:15 08:00 Temperature 98.3 F Pulse Rate 105 Respiratory 20 18 Rate Blood Pressure 143/69 (mmHg) O2 Sat by Pulse 97 Oximetry Oxygen Devices in Use Now: None Appearance: NAD, occasional laughing. Ears/Nose/Mouth/Throat: NL Teeth, Lips, Gums Neck: NL Appearance and Movements; NL JVP Respiratory: Symmetrical Chest Expansion and Respiratory Effort, Clear to Auscultation Cardiovascular: NL Sounds; No Murmurs; No JVD, RRR Abdominal: NL Sounds; No Tenderness; No Distention, No Hepatosplenomegaly Extremities: No Edema Skin: No Rash or Ulcers Neurological: - - nonverbal, opens eye, does not follow commands, moving UE b/l Lines/Tubes/Other Access: Clean, Dry and Intact Other Access - left percutaneous nephrostomy tube Nutrition: Taking PO's Result Diagrams: 01/01/19 05:55 01/01/19 05:55 Additional Lab and Data: Laboratory Results - last 24 hr 12/31/18 01/01/19 01/01/19 18:07 05:55 05:55 WBC 8.1 RBC 3.81 Hgb 9.7 L Hct 30 L MCV 80 MCH 25 L MCHC 32 RDW 16 H Plt Count 218 MPV 8.6 Neut % (Auto) 63.9 Lymph % (Auto) 17.8 [place] % (Auto) 17.0 Eos % (Auto) 0.8 Baso % (Auto) 0.5 Absolute Neuts (auto) 5.2 Absolute Lymphs (auto) 1.5 Absolute Monos (auto) 1.4 H Absolute Eos (auto) 0.1 Absolute Basos (auto) 0.0 Absolute Nucleated RBC 0.0 Nucleated RBC % 0.0 Sodium 146 H 146 H Potassium 4.0 3.7 Chloride 118 H 116 H Carbon Dioxide 25 24 Anion Gap 3 6 BUN 13 9 Creatinine 0.79 0.85 Est GFR ( Amer) 93.2 85.7 Est GFR (Non-Af Amer) 77.0 70.8 BUN/Creatinine Ratio 16.5 10.6 Glucose 168 H 108 H Calcium 7.5 L 7.7 L Microbiology and Other Data: Microbiology 12/31/18 07:31 Blood Venous Aerobic Blood Culture - Preliminary No Growth Day 1 12/31/18 07:31 Blood Venous Anaerobic Blood Culture - Preliminary 12/31/18 07:31 Blood Venous Blood MRSA/MSSA (PCR) - Final Mrsa Negative S.aureus Negative 12/31/18 07:38 Blood Venous Aerobic Blood Culture - Preliminary No Growth Day 1 12/31/18 07:38 Blood Venous Anaerobic Blood Culture - Preliminary No Growth Day 1 12/31/18 11:55 Nasal Nasal Screen MRSA (PCR) - Final Mrsa Not Detected Assess/Plan/Problems-Billing Assessment: 48 yo female PMH mental retardation (nonverbal, does not follow commands) coming from [facility], recent left percutaneous nephrostomy tube exchange - two days prior to admission for fevers and decreased responsiveness. CXR could not rule out right basilar consolidation but highest suspicion for UTI ( positive UA). Improved on zosyn. Hx of stenotrophomonas and Ecoli Uti. Hypernatremic 146. - Patient Problems (1) Sepsis Current Visit: Yes Status: Acute Comment: Febrile(improving), Tachycardic, source positive UA with recent percutaneous nephrostomy tube exchange. Possible right basilar infiltrate (and potentially an aspiration risk) but favor Urinary source. no lactic acidosis CRP 158 (2) UTI (urinary tract infection) Current Visit: No Status: Acute Comment: UA 3+ LE, 3+ WBC, 3+ RBC f/u Ucx Hx of stenotrophomonas maltophilia which would require bactrim vs levaquin but also last Ecoli Utis were resistant to both bactrim and levaquin has staghorn calculus in left. CT abd with 2.0mm stone in right pelvis with mild hydro. if confirmed woud be complicated UTI with sepsis/pyelo, will need 14 days abx (3) Hypernatremia Current Visit: Yes Status: Acute Code(s): E87.0 - HYPEROSMOLALITY AND HYPERNATREMIA SNOMED Code(s): 286188473 Comment: mild 146 change NS to D51/2NS at 75 cc/hr for next 16 hours, rechecking AM BMP. In setting of infection causing decreased po intake could be contributor to AMS (4) DVT prophylaxis Current Visit: Yes Status: Acute Code(s): Z29.9 - ENCOUNTER FOR PROPHYLACTIC MEASURES, UNSPECIFIED SNOMED Code(s): 415798833 Comment: heparing 5000 TID (5) Altered mental state Current Visit: No Status: Acute Code(s): R41.82 - ALTERED MENTAL STATUS, UNSPECIFIED SNOMED Code(s): 677745802 Comment: Two aides say she is now at her baseline. ? due to UTI and/or drug effect. Both possible causes to be addressed. (6) Mental retardation Current Visit: No Status: Acute Code(s): F79 - UNSPECIFIED INTELLECTUAL DISABILITIES SNOMED Code(s): 405543805 Comment: Profound. (7) Full code status Current Visit: Yes Status: Acute Code(s): Z78.9 - OTHER SPECIFIED HEALTH STATUS SNOMED Code(s): 474315561 (8) Seizure disorder Current Visit: Yes Status: Acute Code(s): G40.909 - EPILEPSY, UNSP, NOT INTRACTABLE, WITHOUT STATUS EPILEPTICUS SNOMED Code(s): 651439266 Comment: continue keppra 250mg po BID. Status and Disposition: medicine inpatient, needing UCx sensitivities. Plan back to [facility] upon discharge.
[2019-01-01] MEDS ORDERED: D5W 1/2 NS 1000 ML BAG* 1,000 ML IV SCH (18:00)
[2019-01-02] MEDS: ZOSYN 3.375 GM Q8H per EXTENDED INFUSION IVPB SCH ×4 (02:30→11:06)
[2019-01-02] MEDS: Levothyroxine TAB* 150 MCG TAB PO SCH (05:08)
[2019-01-02] MEDS: Heparin VIAL(*) 5000 UNITS/ML VIAL (FIVE THOUSAND) SUBCUT SCH ×3 (05:08→20:08)
[2019-01-02 06:00] LABS: ABS Eosinophils 0.3 10^3/ul (0-0.6); ABS Lymphocytes 1.5 10^3/ul (1.0-4.8); ABS Monocytes 0.7 10^3/ul (0-0.8); Eosinophil % 4.1 %; Hematocrit 31 % (35-47); Hemoglobin 10.1 g/dL (12.0-16.0); Lymphocyte % 23.2 %; Mean Corpuscular HGB Conc 33 g/dL (31-36); Mean Corpuscular Hemoglobin 26 pg (27-31); Mean Corpuscular Volume 78 fL (80-97); Mean Platelet Volume 8.6 fL (7.4-10.4); Nucleated Red Blood Cells % 0.1; Platelet Count 251 10^3/uL (150-450); Red Blood Count 3.97 10^6 /uL (3.70-4.87); Red Cell Distribution Width 16 % (10-15); White Blood Count 6.5 10^3/uL (3.5-10.8)
[2019-01-02 06:19] LABS: BUN/Creatinine Ratio 9.1 (8-20); C Reactive Protein 82.14 mg/L (<8.01); Calcium 8.5 mg/dL (8.6-10.3); EGFR Non-African American 79.3 (>60); Potassium 3.3 mmol/L (3.5-5.0)
[2019-01-02] MEDS: Chlorhexidine MOUTHWASH 0.12%* 15 ML UDC SWISH SPIT SCH ×2 (11:06→20:45)
[2019-01-02] MEDS: levETIRAcetam LIQ* 500 MG/5 ML UDC PO SCH ×2 (11:07→20:42)
[2019-01-02] MEDS: Pantoprazole TAB * 40 MG TAB PO SCH (11:08)
[2019-01-02] MEDS: Polyethylene Glycol 3350* 17 GM PACKET PO SCH ×3 (11:10→20:57)
[2019-01-02] MEDS ORDERED: Potassium Chlor TAB* 20 MEQ TAB.ER PO ONE (17:30)
--- NOTE | 2019-01-02 18:22 | PN ---
<Nima Iraheta - Last Filed: 01/02/19 20:07> Subjective Date of Service: 01/02/19 Interval History: No any acute events. Urine culture came positive for S.aureus methicillin sensitive. Changed to Cephalexin 500 mg BID orally. Piperacillin stopped. Potassium was 3.3 so potassium chloride 40 mEq gvien orally. Objective Active Medications: Acetaminophen (Tylenol Supp*) 650 mg AK Q6H PRN PRN Reason: FEVER/PAIN Acetaminophen (Tylenol Tab*) 650 mg PO Q4H PRN PRN Reason: FEVER/PAIN Bacitracin (Bacitracin Ointment*) 1 applic TOPICAL TID PRN PRN Reason: WOUND CARE Last Admin: 12/31/18 14:24 Dose: 1 admin Cephalexin HCl (Keflex Cap*) 500 mg PO BID [facility] Chlorhexidine Gluconate (Peridex Mouth Wash 0.12%*) 5 ml SWISH SPIT BID [facility] Last Admin: 01/02/19 11:06 Dose: 5 ml Heparin Sodium (Porcine) (Heparin Vial(*)) 5,000 units SUBCUT Q8HR [facility] Last Admin: 01/02/19 15:25 Dose: 5,000 units Levetiracetam (Keppra Liq*) 250 mg PO BID [facility] Last Admin: 01/02/19 11:07 Dose: 250 mg Levothyroxine Sodium (Synthroid Tab*) 150 mcg PO 0600 [facility] Last Admin: 01/02/19 05:08 Dose: 150 mcg Pantoprazole Sodium (Protonix Tab*) 40 mg PO DAILY [facility] Last Admin: 01/02/19 11:08 Dose: 40 mg Polyethylene Glycol/Electrolytes (Miralax*) 17 gm PO BID [facility] Last Admin: 01/02/19 11:10 Dose: 17 gm Vital Signs - 8 hr 01/02/19 01/02/19 11:15 15:32 Temperature 97.4 F 97.8 F Pulse Rate 98 106 Respiratory 22 20 Rate Blood Pressure 146/95 131/80 (mmHg) O2 Sat by Pulse 97 97 Oximetry Oxygen Devices in Use Now: None Result Diagrams: 01/02/19 05:29 01/02/19 05:29 Additional Lab and Data: Laboratory Results - last 24 hr 12/31/18 01/01/19 01/01/19 18:07 05:55 05:55 WBC 8.1 RBC 3.81 Hgb 9.7 L Hct 30 L MCV 80 MCH 25 L MCHC 32 RDW 16 H Plt Count 218 MPV 8.6 Neut % (Auto) 63.9 Lymph % (Auto) 17.8 [place] % (Auto) 17.0 Eos % (Auto) 0.8 Baso % (Auto) 0.5 Absolute Neuts (auto) 5.2 Absolute Lymphs (auto) 1.5 Absolute Monos (auto) 1.4 H Absolute Eos (auto) 0.1 Absolute Basos (auto) 0.0 Absolute Nucleated RBC 0.0 Nucleated RBC % 0.0 Sodium 146 H 146 H Potassium 4.0 3.7 Chloride 118 H 116 H Carbon Dioxide 25 24 Anion Gap 3 6 BUN 13 9 Creatinine 0.79 0.85 Est GFR ( Amer) 93.2 85.7 Est GFR (Non-Af Amer) 77.0 70.8 BUN/Creatinine Ratio 16.5 10.6 Glucose 168 H 108 H Calcium 7.5 L 7.7 L Microbiology and Other Data: Microbiology 12/31/18 07:31 Blood Venous Aerobic Blood Culture - Preliminary No Growth Day 1 12/31/18 07:31 Blood Venous Anaerobic Blood Culture - Preliminary 12/31/18 07:31 Blood Venous Blood MRSA/MSSA (PCR) - Final Mrsa Negative S.aureus Negative 12/31/18 07:38 Blood Venous Aerobic Blood Culture - Preliminary No Growth Day 1 12/31/18 07:38 Blood Venous Anaerobic Blood Culture - Preliminary No Growth Day 1 12/31/18 11:55 Nasal Nasal Screen MRSA (PCR) - Final Mrsa Not Detected Assess/Plan/Problems-Billing Assessment: 48 y/o F from [facility] w/o [facility] of mental retardation(nonverbal, doesnot obey command) admitted with diagnosis of Sepsis from UTI. Patient has left nephrostomy tube changed 3 days back. Urine culture came positive for S.aureus methicillin sensitive. Changed to Cephalexin 500 mg BID orally. Piperacillin stopped. Plan: Continue oral antibiotics for 5 more days. They want to remove nephrostomy tube so probably would need a urology consult. If stable then plan to discharge tomorrow. Status and Disposition: medicine inpatient, needing UCx sensitivities. Plan back to [facility] upon discharge. <Rodney Delgado - Last Filed: 01/03/19 16:57> Objective Active Medications: Acetaminophen (Tylenol Supp*) 650 mg AK Q6H PRN PRN Reason: FEVER/PAIN Acetaminophen (Tylenol Tab*) 650 mg PO Q4H PRN PRN Reason: FEVER/PAIN Bacitracin (Bacitracin Ointment*) 1 applic TOPICAL TID PRN PRN Reason: WOUND CARE Last Admin: 12/31/18 14:24 Dose: 1 admin Cephalexin HCl (Keflex Cap*) 500 mg PO BID [facility] Last Admin: 01/03/19 09:08 Dose: 500 mg Chlorhexidine Gluconate (Peridex Mouth Wash 0.12%*) 5 ml SWISH SPIT BID [facility] Last Admin: 01/03/19 09:20 Dose: Not Given Heparin Sodium (Porcine) (Heparin Vial(*)) 5,000 units SUBCUT Q8HR [facility] Last Admin: 01/03/19 13:41 Dose: Not Given Levetiracetam (Keppra Liq*) 250 mg PO BID [facility] Last Admin: 01/03/19 09:08 Dose: 250 mg Levothyroxine Sodium (Synthroid Tab*) 150 mcg PO 0600 [facility] Last Admin: 01/03/19 06:10 Dose: 150 mcg Pantoprazole Sodium (Protonix Tab*) 40 mg PO DAILY [facility] Last Admin: 01/03/19 09:08 Dose: 40 mg Polyethylene Glycol/Electrolytes (Miralax*) 17 gm PO BID [facility] Last Admin: 01/03/19 09:08 Dose: 17 gm Vital Signs - 8 hr 01/03/19 01/03/19 01/03/19 09:00 11:15 15:15 Temperature 98.6 F 97.6 F Pulse Rate 95 108 Respiratory 18 24 20 Rate Blood Pressure 118/84 118/90 (mmHg) O2 Sat by Pulse 97 100 100 Oximetry Result Diagrams: 01/02/19 05:29 01/02/19 05:29 Assess/Plan/Problems-Billing Assessment: NAD, non-verbal Rrr, no mrg CTA b/l No c/c/e in extremities 48 F from [facility] with severe intellectual disability/non-verbal at baseline p/w AMS and fever found with sepsis suspected in setting of UTI Sepsis - improved, suspect in setting of UTI -MSSA in urine, recent perc neph tube manipulation -investigate urology willingness to remove this hospital stay -change IV abx to keflex PO Hypernatremia -stable AMS - in setting of infection/toxic encephalopathy - closer to baseline currently -monitor Attestation Documenting Resident: Esequiel Supervising Physician: Danny Attestation: This service has been performed in part by a resident under the direction of a teaching physician.Danny Manzanares, performed the service, or was physically present during the critical, or martinez portions of the service, furnished by the resident. I participated in the management of the patient.
[2019-01-02] MEDS: Cephalexin CAP* 500 MG PO SCH (20:33)
[2019-01-03] MEDS: Heparin VIAL(*) 5000 UNITS/ML VIAL (FIVE THOUSAND) SUBCUT SCH ×2 (06:10→13:41)
[2019-01-03] MEDS: Levothyroxine TAB* 150 MCG TAB PO SCH (06:10)
[2019-01-03] MEDS: Polyethylene Glycol 3350* 17 GM PACKET PO SCH (09:08)
[2019-01-03] MEDS: levETIRAcetam LIQ* 500 MG/5 ML UDC PO SCH (09:08)
[2019-01-03] MEDS: Cephalexin CAP* 500 MG PO SCH (09:08)
[2019-01-03] MEDS: Pantoprazole TAB * 40 MG TAB PO SCH (09:08)
[2019-01-03] MEDS: Chlorhexidine MOUTHWASH 0.12%* 15 ML UDC SWISH SPIT SCH (09:20)
[2019-01-03 15:43] VITALS: BP 118/90
--- NOTE | 2019-01-03 21:17 | DS ---
CC: Elli Gomez NP * DISCHARGE SUMMARY: DATE OF ADMISSION: 12/31/18 DATE OF DISCHARGE: 01/03/19 PRIMARY CARE PROVIDER: Elli Gomez NP DISPOSITION ON DISCHARGE: [facility]. CONDITION ON DISCHARGE: Improved. PRIMARY DIAGNOSIS: Sepsis secondary to urinary source. SECONDARY DIAGNOSES: Include: 1. History of severe intellectual disability. 2. Hypothyroidism. 3. Seizures. MEDICATIONS ON DISCHARGE: 1. Keppra 250 mg twice daily. 2. Benadryl 25 mg every 6 hours as needed. 3. Zinc oxide 16% paste topically 3 times a day as needed. 4. Fleet Enema every 4 days as needed. 5. Simethicone 160 mg with meals as needed. 6. Nasal saline spray every 4 hours as needed. 7. Pseudoephedrine 30 mg twice daily as needed. 8. Proctozone 4 times a day as needed. 9. MiraLAX 17 g twice daily. 10. Omeprazole 20 mg daily. 11. Nystatin topically 3 times a day as needed. 12. Maalox 30 mL every 4 hours. 13. Levothyroxine 150 mcg daily. 14. Lactase 3000 units 4 times a day. 15. Motrin 600 mg every 8 hours as needed. 16. Robitussin 5 mL 3 times a day as needed. 17. Glycerin adult suppository every 3 days as needed. 18. Diazepam 10 mg daily as needed. 19. Calcium citrate with vitamin D tabs 2 tabs twice daily. 20. Bacitracin ointment topically 3 days as needed. 21. Acetaminophen 650 mg every 6 hours as needed. 22. Keflex 500 mg 3 times a day for 7 additional days. DIAGNOSTIC STUDIES/LAB DATA: Pertinent imaging studies: CT abdomen and pelvis , large volume of retained stool in the colon with severe rectal distention of stool with the rectum measuring up to 3.5 cm, 2 cm stone in the right renal pelvis, mild renal hydronephrosis, significant atrophy of the left kidney with staghorn calculus and percutaneous nephrostomy tube, moderate left caliectasis decreased compared with the prior exam before the placement of the ureteral stents. Pertinent microbiology: Urine positive for MSSA Staphylococcus aureus. Hypernatremia, 146 on presentation, 142 on discharge. HISTORY OF PRESENT ILLNESS AND HOSPITAL COURSE: This is a 48-year-old female, nonverbal, severe intellectual disability, resident of [facility], who presented to the hospital with reports of fever at the [facility] as well as decrease in change in mental status, described as less responsive as usual. While in the hospital, she was noted to have fevers, although T-max 100.6 on . Her urine returned positive for MSSA as a suspected source of her infection. Notably, she did have a percutaneous nephrostomy tube changed 2 days prior to presentation likely contributing to the infection, unclear whether that change contributed or just presence of percutaneous nephrostomy tube was enough. The patient was treated with Zosyn, narrowed to cefazolin prior to discharge with improvement back to her baseline. No additional fevers. Normal white blood cell count and normalization of vital signs including her tachycardia. There was request by [facility] to interrogate removing the percutaneous nephrostomy tube. I discussed with Dr. Melton to not place the tube; however, on reviewing her images, it was concerned that she not only should not have her nephrostomy tube out, she may need another nephrostomy tube on the other side to preserve the function of her good kidney. There were no complications during the course of the patient's hospital stay. At followup, please: 1. Continue followup for left nephrostomy tube and further consultation with her urologist regarding necessary therapy to maintain function of her well functioning kidney. 2. No other specific labs or vitals pending at this time that need followup. TIME SPENT: Greater than 45 minutes was spent on the discharge of the patient, greater than half was spent [id number] with the patient and the [facility]'s clinical staff. [id number]/[facility] #: [id number] EMELI
== END 2019-01-03 16:45 | DRG 698 ==
LOC: ED 06:33 → MED 12:46
PROVIDERS: ADMIT Internal Medicine; ATTEND Internal Medicine
DX: N99.521 Infection of incontinent external stoma of urinary tract (principal); A41.01 Sepsis due to Methicillin susceptible Staphylococcus aureus; N39.0 Urinary tract infection, site not specified; F72 Severe intellectual disabilities; N13.30 Unspecified hydronephrosis; E87.0 Hyperosmolality and hypernatremia; B95.61 Methicillin susceptible Staphylococcus aureus infection as the cause of diseases classified elsewhere; E03.9 Hypothyroidism, unspecified; K59.00 Constipation, unspecified; G40.909 Epilepsy, unspecified, not intractable, without status epilepticus; Z79.1 Long term (current) use of non-steroidal anti-inflammatories (NSAID); Z79.899 Other long term (current) drug therapy; Z91.030 Bee allergy status; Z91.048 Other nonmedicinal substance allergy status
CPT/HCPCS: 36415; 71045; 74176; 80048; 80053; 81003; 81015; 83605; 84484; 85025; 86140; 87040; 87077; 87086; 87150; 87186; 87205; 87641; 99284; A9270-GY; J1644; J2543

== ENCOUNTER 2019-01-25 10:45 | Emergency (ER) | payer MEDICARE, MEDICAID ==
--- OUTSIDE RECORDS SUMMARY | 2019-01-25 11:31 | XMS REPORT | Continuity of Care Document ---
:1970 External Reference #:[id number] Author Name Tara Iyer Care Team Providers Name Role Phone Elli Gomez NP Primary Care Physician Unavailable Payers Date Identification Numbers Payment Provider Subscriber Policy Number: [id number] Medicare Charisse Cesar PayID: [id number] [address] [place] [address] Policy Number: [id number] Medicaid Charisse Cesar PayID: [id number] [address] [place] [address] Problems Active Problems Provider Date Cerebral palsy Rahul Shirley M.D. Onset: 10/25/2017 Epilepsy Rahul Shirley M.D. Onset: 07/23/2017 Seizure Rahul Shirley M.D. Onset: 07/23/2017 Social History Type Date Description Comments Sex Unknown Marital Status Single ETOH Use Denies alcohol use Tobacco Use Start: Unknown Patient has never smoked Recreational Drug Use Denies Drug Use Smoking Status Reviewed: 01/13/19 Patient has never smoked Allergies, Adverse Reactions, Alerts Active Allergies Reaction Severity Comments Date Bee Sting 07/21/2017 Medications Active Medications SIG Qnty Indications Ordering Provider Date Amantadine HCL 5ml bid 1000ml Rahul Shirley 05/02/2018 Josie 50mg/5ML Syrup Bacitracin Zinc apply twice a day Unknown as needed for 500Unit/GM Ointment small cuts and wounds.. Benadryl Allergy 1 caps q 6 hours Unknown for 25mg Capsules itching/swelling.. Sudogest 1 tab po bid for Unknown 30mg congestion.. Tablets Debbie Tussin DM 1 tsp three times Unknown a day for cough.. Maalox Advanced 30 milliliters Unknown Maximum Strength every 4 hours as needed indigestion [id number]/5ML Suspension Saline Nasal [place] 1-2 sprays to both Unknown nares every 4 0.65% Solution hours as needed Diazepam 2 tab 60 minutes Unknown 5mg before medical Tablets procedures.. Halcion 1 tab as needed 30 Unknown 0.25mg minutes prior to Tablets dental Tylenol take 2 tabs as Unknown 325mg needed every 6 Tablets hours for pain/fever Prilosec OTC 1 by mouth every Unknown 20mg day Tablets DR Lactase Enzyme 1 tab by mouth Unknown four times daily 3000Unit Tablets [place]elope Calcium +D 1 tablet by mouth Unknown twice daily [id number] Tablets Keppra take 2.5 946ml Sánchez Harrington, 100mg/ml milliliters twice N.P. Solution a day.. Miralax dissolve 1 Unknown 3350NF teaspoonlul powder Packet in 8 onces of water. take daily as needed Peridex 5 cubic Unknown 0.12% centimeters twice Solution a day as directed Vitamin D3 take two tablets Unknown 400Unit by mouth every day Tablets Zyrtec Allergy 1 by mouth every Unknown 10mg day Tablets Synthroid 1 by mouth every Unknown 150mcg day Tablets Vital Signs Date Vital Result Comment 01/13/2019 3:19pm Heart Rate 64 /min BP Systolic Sitting 100 mmHg BP Diastolic Sitting 70 mmHg Respiratory Rate 28 /min 07/08/2018 10:55am Weight 109.00 lb Heart Rate 76 /min BP Systolic 108 mmHg BP Diastolic 62 mmHg 10/25/2017 10:26am Weight 110.00 lb Heart Rate 87 /min BP Systolic 116 mmHg BP Diastolic 85 mmHg Respiratory Rate 16 /min 07/23/2017 10:41am Weight 110.00 lb Heart Rate 68 /min Respiratory Rate 16 /min Results Test Date Facility Test Result H/L Range Note CBC Auto Diff 10/06/2018 [facility] White Blood 10.8 10^3/uL N 3.5-10.[address] [place] [address] [phone] Red Blood Count 4.42 10^6/uL N 3.70-4.87 Hemoglobin 11.5 g/dL Low 12.0-16.0 Hematocrit 36 % N 33-41 Mean Corpuscular Volume 80 fL N 80-97 Mean Corpuscular Hemoglobin 26 pg Low 27-31 Mean Corpuscular HGB Conc 32 g/dL N 31-36 Red Cell Distribution Width 19 % High 10.5-15 Platelet Count 349 10^3/uL N 150-450 Mean Platelet Volume 8.8 fL N 7.4-10.4 Abs Neutrophils 7.3 10^3/uL N 1.5-7.7 Abs Lymphocytes 2.1 10^3/uL N 1.0-4.8 Abs Monocytes 1.0 10^3/uL High 0-0.8 Abs Eosinophils 0.2 10^3/uL N 0-0.6 Abs Basophils 0.1 10^3/uL N 0-0.2 Abs Nucleated RBC 0 10^3/uL Granulocyte % 67.9 % Lymphocyte % 19.4 % Monocyte % 9.4 % Eosinophil % 2.3 % Basophil % 1.0 % Nucleated Red Blood Cells % 0 Comp Metabolic Panel 10/06/2018 [facility] Sodium 143 mmol/L N 135-[address] [place] [address] [phone] Potassium 4.2 mmol/L N 3.5-5.0 Chloride 108 mmol/L N 101-111 Co2 Carbon Dioxide 30 mmol/L N 22-32 Anion Gap 5 mmol/L N 2-11 Glucose 119 mg/dL High 70-100 Blood Urea Nitrogen 24 mg/dL N 6-24 Creatinine 0.95 mg/dL N 0.51-0.95 BUN/Creatinine Ratio 25.3 High 8-20 Calcium 9.3 mg/dL N 8.6-10.3 Total Protein 7.0 g/dL N 6.4-8.9 Albumin 3.6 g/dL N 3.2-5.2 Globulin 3.4 g/dL N 2-4 Albumin/Globulin Ratio 1.1 N 1-3 Total Bilirubin 0.20 mg/dL N 0.2-1.0 Alkaline Phosphatase 120 U/L High 34-104 Alt 13 U/L N 7-52 Ast 13 U/L N 13-39 Egfr Non- 62.5 >60 Egfr 75.7 >60 1 Laboratory test 10/06/2018 [facility] C Reactive 11.22 mg/L High <8.[address] [place] [address] [phone] Blood Culture SEE RESULT BELOW 2 Urinalysis Profile 10/06/2018 [facility] Urine Color Yellow [address] [place] [address] [phone] Urine Appearance Turbid Urine Specific [place] 1.011 N 1.010-1.030 Urine pH 8.0 N 5-9 Urine Urobilinogen Negative Negative Urine Ketones Negative Negative Urine Protein 2+(100 mg/dL) Abnormal Negative Urine Leukocytes 3+ Abnormal Negative Urine Blood 2+ Abnormal Negative Urine Nitrite Negative Negative Urine Bilirubin Negative Negative Urine Glucose Negative Negative Urine White Blood Cell 3+(>20/hpf) Abnormal Absent Urine Red Blood Cell 3+(>10/hpf) Abnormal Absent Urine Bacteria Absent Absent Urine Culture And 10/06/2018 [facility] Urine Culture SEE [address] [place] [address] BELOW [phone] Laboratory test 09/23/2018 [facility] Levetiracetam 9.1 Abnormal [address] (Keppra) g/[place] [address] [phone] 1 Because ethnic data is not always readily [...] 15-29 5 Kidney failure <15 (or dialysis) 2 SEE RESULT BELOW Name: CHARISSE CESAR : [address]: Wagner Clement MD Acct: [id number] Unit: [id number] AGE: 47 Location: ED Re10/06/18 SEX: F Status: DEP ER SPEC: [id number] BRAYDEN: 10/06/18-6 [facility] [address]: Wagner Clement MD REQ: [id number] RECD: 10/06/18 STATUS: JB JOSHI DR: Igor Harrington [employer]ER _ SOURCE: BLOOD,VENO SPDESC: ORDERED: Blood Cult Procedure Result Reported Site Aerobic Culture Bottle Final 10/11/18- 1203 ML No Growth Day 5 Anaerobic Culture Bottle Final 10/11/18- 1203 ML No Growth Day 5 * ML - Main Lab . END OF REPORT DEPARTMENT OF PATHOLOGY, [address] [place] [address] Tyson Hoover M.D. Director [facility] # [id number] 3 SEE RESULT BELOW Name: CHARISSE CESAR : [address]: Wagner Clement MD Acct: [id number] Unit: [id number] AGE: 47 Location: ED Re10/06/18 SEX: F Status: DEP ER SPEC: [id number] BRAYDEN: 10/06/1856 [facility] [address]: Wagner Clement MD REQ: [id number] RECD: 10/06/18 STATUS: JB JOSHI DR: Igor Harrington [employer] _ SOURCE: URINE SPDESC: ORDERED: Urine Culture Procedure Result Reported Site Urine Culture Final 10/08/18- 829 ML Organism 1 STENOTROPHOMAS MALTOPHILIA [place] Count >100,000 (Many) CFU/ML 1. STENOTROPHOMAS MALTOPHILIA M.I.C. RX --------- ------ Levofloxacin 0.25 S Trimethoprim/Sulfamethoxazole <=20 S Contact the Microbiology Department for any additional antibiotic reporting. * ML - Main Lab . END OF REPORT DEPARTMENT OF PATHOLOGY, [address] [place] [address] Tyson Hoover M.D. Director [facility] # [id number] 4 REFERENCE VALUE 12.0 - 46.0 ADDITIONAL INFORMATION This test was developed and its performance characteristics determined by [facility] in a manner consistent with CLIA requirements. This test has not been cleared or approved by the U.S. Food and Drug Administration. Test Performed by: [facility] [address] [place] [address] Procedures Date Code Description Status 06/02/2017 73686 EEG Recording Awake & Drowsy Completed Encounters Type Date Location Provider Dx Diagnosis Office Visit 01/02/2019 [facility] Rodney Delgado, A41.9 Sepsis, 8:53a Assockerri M.D. unspecified Hospitalists organism R41.82 Altered mental status, unspecified E87.1 Hypo-osmolality and hyponatremia Office Visit 01/01/2019 8:53a [facility] Aaron Barry, A41.9 Sepsis, Assoc,pc unspecified Hospitalists organism N39.0 Urinary tract infection, site not specified F79 Unspecified intellectual disabilities G40.909 Epilepsy, unsp, not intractable, without status epilepticus Office Visit 12/31/2018 8:52a [facility] Usha Silva, A41.9 Sepsis, Assoc,pc N.P. unspecified Hospitalists organism G40.909 Epilepsy, unsp, not intractable, without status epilepticus R41.82 Altered mental status, unspecified Office 07/08/2018 [facility] Rahul G40.909 Epilepsy, unsp, Visit 10:45a Bello Shirley M.D. not intractable, without status epilepticus G80.9 Cerebral palsy, unspecified Office Visit 10/25/2017 Sridhar Kay G40.909 Epilepsy, unsp, 10:15a Paramjit Shirley M.D. not intractable, [employer] without status epilepticus G80.9 Cerebral palsy, unspecified Office Visit 07/23/2017 [facility] Rahul G40.909 Epilepsy, unsp, 10:30a Paramjit Shirley M.D. not intractable, [employer] without status epilepticus G80.9 Cerebral palsy, unspecified Office Visit 02/04/2013 10:55a [facility] Jose Wardrafia, 595.0 Cystitis Acute Assockerri M.D. Hospitalists 996.64 Infection & Inflammatory React Due To Indwelling Urinary Cat 319 Unspecified Intellectual Disabilities Plan of Treatment Future Appointment(s):07/18/2019 9:15 am - Rahul Shirley M.D. at [facility]01/13/2019 - Rahul Shirley M.D.G40.909 Epilepsy, unspecified, not intractable, without status epile
--- NOTE | 2019-01-25 12:27 | ED ---
Abdominal Pain/Female - HPI Summary HPI Summary: Pt is a 48 Y/O F presenting to [facility] with her aid for a CC of a possible nephrostomy tube being out of place. This pt is a level 5 caveat due to her baseline mental status. The aid stated that the pt was at rehab when the workers believed that the tube popped out. The aid then brought the pt here and stated that she may be in pain. The pts last bowel movement is unknown. Her pain is rated a 7/10 in severity. - History of Current Complaint Chief Complaint: EDAbdPain Stated Complaint: TUBE FROM NEPHROSTOMY BAG RIPPED OUT PER PT AIDE Time Seen by Provider: 01/25/19 11:59 Hx Obtained From: Family/[employer] System Administrator - academic support director Hx From Patient Unobtainable Due To: Other - Level 5 caveat due to baseline mental status ?: No Onset/Duration: Sudden Onset - 01/25/19, earilier today, Still Present Timing: Constant Severity Initially: Moderate Severity Currently: Moderate Pain Intensity: 7 Pain Scale Used: 0-10 Numeric Location: Diffuse Radiates: No Allergies/Adverse Reactions: Allergies Allergy/AdvReac Type Severity Reaction Status Date / Time Adhesive Tape Allergy Rash Verified 01/25/19 10:58 bee pollen Allergy Rash Verified 01/25/19 10:58 Home Medications: Home Medications Acetaminophen TAB* [Tylenol TAB*] 650 mg PO Q4H PRN 01/25/19 [History Confirmed 01/25/19] Cetirizine* [ZyrTEC 10 MG TAB*] 10 mg PO DAILY 01/25/19 [History Confirmed 01/25] Cholecalciferol (Vitamin D3) [D3] 400 unit PO DAILY 01/25/19 [History Confirmed 01/25/19] Levothyroxine TAB* [Synthroid TAB*] 150 mcg PO DAILY 01/25/19 [History Confirmed 01/25/19] Polyethylene Glycol 3350* [Miralax*] 17 gm PO BID 01/25/19 [History Confirmed ] Sodium Phosphate ADULT ENEMA* [Fleet Enema*] 1 enema VA Q4D PRN 01/25/19 [ History Confirmed 01/25/19] PMH/Surg Hx/FS Hx/Imm Hx Previously Healthy: No Endocrine/Hematology History: Reports: Hx Thyroid Disease - hypothyroidism Denies: Hx Diabetes Cardiovascular History: Denies: Hx Hypertension GI History: Reports: Hx Gastroesophageal Reflux Disease History: Reports: Hx Renal Disease - LEFT NEPH TUBE Musculoskeletal History: Reports: Other Musculoskeletal History - hip dysplasia Denies: Hx Arthritis, Hx Osteoporosis Sensory History: Denies: Hx Contacts or Glasses, Hx Hearing Aid Opthamlomology History: Denies: Hx Contacts or Glasses Neurological History: Reports: Hx Seizures, 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, Cerebral Palsy (Athetoid type) Psychiatric History: Reports: Other Psychiatric Issues/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 - Surgical History Surgical History: Yes Surgery Procedure, Year, and Place: Left hip adductor surgery, Ocasio brent placement Hx Anesthesia Reactions: No Infectious Disease History: No Infectious Disease History: Denies: Traveled Outside the [place] in Last 30 Days - Family History Known Family History: Negative: Respiratory Disease - Social History Occupation: Disabled Alcohol Use: None Hx Substance Use: No Substance Use Type: Reports: None Hx Tobacco Use: No Smoking Status (MU): Never Smoked Tobacco Review of Systems - ROS Summary Review of Systems Summary: A full ROS is limited due to the pt being a level 5 caveat due to her baseline mental status. Positive: Abdominal Pain All Other Systems Reviewed And Are Negative: No Physical Exam - Summary Physical Exam Summary: GENERAL: Patient is a well-developed and nourished F who is lying comfortable in the stretcher. Patient is not in any acute respiratory distress. HEAD AND FACE: Normocephalic EYES: PERRLA, EOMI x 2. EARS: Hearing grossly intact. MOUTH: Oropharynx within normal limits. NECK: Supple, trachea is midline, no adenopathy, no JVD, no carotid bruit. CHEST: Symmetric, no tenderness at palpation LUNGS: Clear to auscultation bilaterally. No wheezing or crackles. CVS: Regular rate and rhythm, S1 and S2 present, no murmurs or gallops appreciated. ABDOMEN: Soft, Tender to palpation in her stomach. Bowel sounds are normal. No abnormal abdominal pulsations. Nephrostomy tube is still in place, sutures are in place. EXTREMITIES: Full ROM in all major joints, no edema, no cyanosis or clubbing. NEURO: Alert and oriented x 3. No acute neurological deficits. Speech is normal and follows commands. SKIN: Dry and warm. A full PE is unable to be obtained due to the pt being a level 5 caveat due to her baseline mental status. Triage Information Reviewed: Yes Vital Signs On Initial Exam: Initial Vitals Temp Pulse Resp BP Pulse Ox 98.1 F 89 20 123/67 97 01/25/19 10:48 01/25/19 10:48 01/25/19 10:48 01/25/19 10:48 01/25/19 10:48 Vital Signs Reviewed: Yes Completion Of Physical Exam Limited Due To: Level 5 - due to baseline mental status Diagnostics - Vital Signs Vital Signs Temp Pulse Resp BP Pulse Ox 01/25/19 10:48 98.1 F 89 20 123/67 97 - Laboratory Result Diagrams: 01/25/19 12:57 01/25/19 12:57 Lab Statement: Any lab studies that have been ordered have been reviewed, and results considered in the medical decision making process. - CT CT A/P CT Interpretation Completed By: Radiologist Summary of CT Findings: Fecal stasis with fecal impaction in the rectum. Stool is noted throughout the. sigmoid colon. Marked scoliosis of the thoracic and lumbar spine. Left nephrostomy tube is in place. No other abnormal masses are noted. ED physician has reviewed this report. - EKG 1300 Cardiac Rate: Tachycardia - 111 BPM EKG Rhythm: Sinus Rhythm Summary of EKG Findings: EKG at 1300 reveals normal sinus tachycardia at 111 BPM with R axis deviation, nml intervals. No STEMI. No acute changes. Interpreted by Dr. Hobson at 1311 01/25/19. Re-Evaluation - Re-Evaluation First Eval Re-Evaluation Time: 15:50 Change: Unchanged Comment: Pt was given her laxitive medication and will be discharged home with a Dx of a UTI and constipation. Abdominal Pain Fem Course/Dx - Course Course Of Treatment: This pt is a level 5 caveat due to her baseline mental status. Her aid stated that she was in pain and assumed that it was her nephrostomy tube. Upon PE the pt is found to have abdominal tenderness over her stomach and her nephrostomy tube is in place and the sutures are still in place. Her EKG at 1300 reveals normal sinus tachycardia at 111 BPM with R axis deviation, nml intervals. No STEMI. No acute changes. Her CT A/P found the following: Fecal stasis with fecal impaction in the rectum. Stool is noted throughout the sigmoid colon. Marked scoliosis of the thoracic and lumbar spine. Left nephrostomy tube is in place. No other abnormal masses are noted. Her lab resulsts are consistent with a UTI. Pt was given a laxitive and ABX treatment for her Dx of constipation and a UTI respectively. I discussed results with patient, and she reports feeling better. She is hemodynamically stable and safe for discharge. Strict return precautions given and she will otherwise follow up with her PCP. - Diagnoses Provider Diagnoses: Constipation, UTI (urinary tract infection) Discharge - Sign-Out/Discharge Documenting (check all that apply): Patient Departure - discharge Patient Received Moderate/Deep Sedation with Procedure: No - Discharge Plan Condition: Stable Disposition: HOME Prescriptions: Cephalexin CAP* [Keflex CAP*] 500 mg PO BID 7 Days #14 cap Cephalexin CAP* [Keflex 500 CAP*] 500 mg PO TID #30 cap Cephalexin CAP* [Keflex CAP*] 500 mg PO BID 7 Days #14 cap Patient Education Materials: Constipation (ED), Urinary Tract Infection in Women (ED) Referrals: Elli Gomez NP [Primary Care Provider] - 2 Days Bear Grover MD [Medical Doctor] - 2 Days Additional Instructions: Follow up with your primary care physician in 1-3 days. RETURN TO THE EMERGENCY DEPARTMENT FOR CHANGING OR WORSENING SYMPTOMS. Please follow up with Dr. Grover, Urology, in 1-3 days. - Billing Disposition and Condition Condition: STABLE Disposition: Home - Attestation Statements Document Initiated by Tommie: Yes Documenting Scribe: Valentino Sandoval Provider For Whom Tommie is Documenting (Include Credential): Mirella Hobson MD Scribe Attestation: Valentino Manzanares, scribed for Mirella Hobson MD on 01/25/19 at 1819. Scribe Documentation Reviewed: Yes Provider Attestation: The documentation as recorded by the Valentino dixon accurately reflects the service I personally performed and the decisions made by , Mirella Hobson MD Status of Scribe Document: Viewed
[2019-01-25] MEDS ORDERED: NS 0.9% 1000 ML** 1,000 ML IV ONE ×2 (12:28→12:37)
[2019-01-25] MEDS ORDERED: Morphine 4 MG/ML VIAL (1 ml) 4 MG/ML VIAL IV ONE (12:28)
[2019-01-25] MEDS ORDERED: Ondansetron INJ* 2 MG/ML VIAL IV ONE (12:28)
[2019-01-25 13:05] LABS: ABS Eosinophils 0.2 10^3/ul (0-0.6); ABS Lymphocytes 1.7 10^3/ul (1.0-4.8); ABS Monocytes 0.8 10^3/ul (0-0.8); Eosinophil % 2.4 %; Hematocrit 37 % (35-47); Hemoglobin 11.8 g/dL (12.0-16.0); Lymphocyte % 19.1 %; Mean Corpuscular HGB Conc 32 g/dL (31-36); Mean Corpuscular Hemoglobin 25 pg (27-31); Mean Corpuscular Volume 78 fL (80-97); Mean Platelet Volume 8.2 fL (7.4-10.4); Platelet Count 364 10^3/uL (150-450); Red Blood Count 4.74 10^6 /uL (3.70-4.87); Red Cell Distribution Width 16 % (10-15); White Blood Count 8.7 10^3/uL (3.5-10.8)
[2019-01-25 13:19] LABS: Activated Partial Thrombo Time 37.7 seconds (26.0-38.0); INR 0.98 (0.82-1.09)
[2019-01-25 13:22] LABS: Albumin 4.1 g/dL (3.2-5.2); Albumin/Globulin Ratio 1.1 (1-3); BUN/Creatinine Ratio 26.2 (8-20); C Reactive Protein 1.92 mg/L (<8.01); EGFR African American 86.8 (>60); EGFR Non-African American 71.8 (>60); Globulin 3.7 g/dL (2-4); Magnesium 2.2 mg/dL (1.9-2.7); Potassium 4.8 mmol/L (3.5-5.0); Total Bilirubin 0.2 mg/dL (0.2-1.0); Total Protein 7.8 g/dL (6.4-8.9)
[2019-01-25] MEDS ORDERED: Iodixanol* (CONTRAST) 320 MG/ML 100 ML SDV IV ONE (13:43)
[2019-01-25 14:14] LABS: Urine Appearance Turbid; Urine Bacteria Absent (Absent); Urine Bilirubin Negative (Negative); Urine Blood 2+ (Negative); Urine Color Yellow; Urine Glucose Negative (Negative); Urine Ketones Negative (Negative); Urine Nitrite Positive (Negative); Urine Protein 2+(100 mg/dL) (Negative); Urine Red Blood Cell 3+(>10/hpf) (Absent); Urine Urobilinogen Negative (Negative); Urine White Blood Cell 3+(>20/hpf) (Absent)
[2019-01-25] MEDS ORDERED: ED cefTRIAXone 1 GM/50 ML 1 GM/50 ML PREMIX.SET IVPB ONE (14:40)
[2019-01-25] MEDS ORDERED: Glycerin ADULT SUPP PR ONE (14:46)
[2019-01-25] MEDS ORDERED: cefTRIAXone 1 GM IV - ED ONCE IVPB ONE (15:00)
[2019-01-25] MEDS ORDERED: cefTRIAXone(*) 1 GM in NS 0.9% 50 ML* 50 ML IVPB ONE (15:00)
[2019-01-25 17:46] VITALS: BP 103/63
--- NOTE | 2019-01-28 15:27 | PN ---
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 coli. Pt. was treated with keflex for UTI. Stenotrophomas is only susceptible to levofloxacin and bactrim. I spoke with pt.'s nurse, Rhina, at the [facility]. Rx for bactrim sent to pharmacy. Pt. has an apt. with PCP on Wednesday for f.u.
== END 2019-01-25 17:45 | disposition home or self-care (01) ==
LOC: ED 10:45
DX: K59.00 Constipation, unspecified (principal); N39.0 Urinary tract infection, site not specified; Z93.6 Other artificial openings of urinary tract status; R00.0 Tachycardia, unspecified; E03.9 Hypothyroidism, unspecified; Z91.030 Bee allergy status; Z91.048 Other nonmedicinal substance allergy status
CPT/HCPCS: 36415; 74177; 80053; 81003; 81015; 83605; 83690; 83735; 84484; 85025; 85610; 85730; 86140; 87040; 87077; 87086; 87186; 93005; 96361; 96365; 96375; 99283; A9270-GY; J0696; J2270; J2405; Q9967

== ENCOUNTER 2019-03-09 03:59 | Emergency (ER) | payer MEDICARE, MEDICAID ==
--- NOTE | 2019-03-09 04:27 | ED ---
GI/ HPI - HPI Summary HPI Summary: 48 year old F presenting to [facility] accompanied by female caregiver Marilee complains of hematuria since 02:00 today. Caregiver reports low grade fever and denies vomiting. Per caregiver, patient has a nephrostomy tube, and today at 02: 00, patient had bloody urine in her nephrostomy bag. Patient has been taking antibiotics for UTI per caregiver. Patient has hx cerebral palsy, patient is non -verbal, patient has hx kidney stones per caregiver. Per caregiver, patient was seen yesterday at [facility]. Symptoms aggravated by nothing. Symptoms alleviated by nothing. Medications reviewed. Allergies noted. - History of Current Complaint Chief Complaint: EDUrogenitalProblems Time Seen by Provider: 03/09/19 04:11 Stated Complaint: TUBE IN KIDNEY IS ALL BLOODY PER [employer] DICTIONARY Hx Obtained From: Patient Onset/Duration: Started Hours Ago - 2, Still Present Timing: Constant Current Severity: None Pain Intensity: 0 Associated Signs and Symptoms: Positive: Negative - vomiting, Other: - low grade fever Aggravating Factor(s): Nothing Alleviating Factor(s): Nothing - Additional Pertinent History Primary Care Physician: [id number] - Allergy/Home Medications Allergies/Adverse Reactions: Allergies Allergy/AdvReac Type Severity Reaction Status Date / Time Adhesive Tape Allergy Rash Verified 03/09/19 07:18 bee pollen Allergy Rash Verified 03/09/19 07:18 Home Medications: Home Medications Calcium Citrate/Vitamin D3 [Calcium Citrate with D Tablet] 1 tab PO BID [History Confirmed 03/09/19] Chlorhexidine MW 0.12% 473ML* [Peridex Mouth Wash 0.12%] 5 ml PO BID 03/09/19 [ History Confirmed 03/09/19] Cod Liver Oil/Zinc Oxide [Desitin Diaper Rash 40% Paste] 1 applic TOPICAL DAILY PRN 03/09/19 [History Confirmed 03/09/19] guaiFENesin LIQ* [Robitussin*] 5 ml PO TID PRN 03/09/19 [History Confirmed 03/09] levETIRAcetam [Levetiracetam] 0.5 teasp PO BID 03/09/19 [History Confirmed 03/09] PMH/Surg Hx/FS Hx/Imm Hx Endocrine/Hematology History: Reports: Hx Thyroid Disease - hypothyroidism, Hx Anemia Denies: Hx Diabetes Cardiovascular History: Denies: Hx Hypertension GI History: Reports: Hx Gastroesophageal Reflux Disease History: Reports: Hx Renal Disease - LEFT NEPH TUBE Musculoskeletal History: Reports: Other Musculoskeletal History - hip dysplasia Denies: Hx Arthritis, Hx Osteoporosis Sensory History: Denies: Hx Contacts or Glasses, Hx Hearing Aid Opthamlomology History: Denies: Hx Contacts or Glasses Neurological History: Reports: Hx Seizures, 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, Cerebral Palsy (Athetoid type) Psychiatric History: Reports: Other Psychiatric Issues/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 - Surgical History Surgery Procedure, Year, and Place: Left hip adductor surgery, Ocasio brent placement Hx Anesthesia Reactions: No Infectious Disease History: No Infectious Disease History: Denies: Traveled Outside the [place] in Last 30 Days - Family History Known Family History: Negative: Respiratory Disease - Social History Alcohol Use: None Hx Substance Use: No Substance Use Type: Reports: None Hx Tobacco Use: No Smoking Status (MU): Never Smoked Tobacco Review of Systems Positive: Other - low grade fever Negative: Vomiting Positive: hematuria All Other Systems Reviewed And Are Negative: Yes Physical Exam - Summary Physical Exam Summary: Constitutional: Well-developed, Well-nourished, Non-verbal. (-) Distressed Skin: Warm, Dry HENT: Normocephalic; Atraumatic Eyes: Conjunctiva normal Neck: Musculoskeletal ROM normal neck. (-) JVD, (-) Stridor, (-) Tracheal deviation Cardio: Rhythm regular, rate normal, Heart sounds normal; Intact distal pulses; The pedal pulses are 2+ and symmetric. Radial pulses are 2+ and symmetric. (-) Murmur Pulmonary/Chest wall: Effort normal. (-) Respiratory distress, (-) Wheezes, (-) Rales Abd: Soft, (-) tenderness, (-) Distension, (-) Guarding, (-) Rebound; nephrostomy tube in the left that appears to be displaced roughly 2 inches as stitches are not against skin, nephrostomy bag is filled with blood tinged urine Musculoskeletal: (-) Edema Lymph: (-) Cervical adenopathy Neuro: Patient is non-verbal Psych: Mood and affect Normal Triage Information Reviewed: Yes Vital Signs On Initial Exam: Initial Vitals Temp Pulse Resp BP Pulse Ox 98.4 F 0 18 0/0 0 03/09/19 04:00 03/09/19 04:00 03/09/19 04:00 03/09/19 04:00 03/09/19 04:00 Vital Signs Reviewed: Yes Diagnostics - Vital Signs Vital Signs Temp Pulse Resp BP Pulse Ox 03/09/19 04:00 98.4 F 0 18 0/0 0 - Laboratory Result Diagrams: 03/09/19 04:40 03/09/19 04:40 Lab Statement: Any lab studies that have been ordered have been reviewed, and results considered in the medical decision making process. Re-Evaluation - Re-Evaluation First Eval Re-Evaluation Time: 06:49 Comment: there is urine in her bag. patient is on Levaquin for UTI currently GIGU Course/Dx - Course Course Of Treatment: Patient is here with blood in her nephrostomy bag. Patient is currently on antibiotics for a UTI. Upon physical examination, patient's nephrostomy tube appears to be pulled out roughly 3 inches. Patient had her urine sent for evaluation. Patient has a normal CBC. Patient had a CT scan to evaluate for placement of the nephrostomy tube. Patient was signed out to the oncoming physician prior to CT results. - Diagnoses Provider Diagnoses: Malfunction of nephrostomy tube Discharge ED - Sign-Out/Discharge Documenting (check all that apply): Sign-Out Patient Signing out patient TO: Philip Bunch - awaiting CT Abd/Pel Patient Received Moderate/Deep Sedation with Procedure: No - Discharge Plan Condition: Stable Disposition: HOME Patient Education Materials: Nephrostomy Tube Care (ED) Referrals: Ricardo Melton MD [Medical Doctor] - 3 Days Elli Gomez NP [Primary Care Provider] - 3 Days Additional Instructions: PLEASE RETURN TO THE EMERGENCY DEPARTMENT FOR ANY NEW OR WORSENING SYMPTOMS. PLEASE FOLLOW UP WITH YOUR PRIMARY CARE PHYSICIAN AND UROLOGIST WITHIN THREE DAYS. - Billing Disposition and Condition Condition: STABLE Disposition: Home - Attestation Statements Document Initiated by Scribe: Yes Documenting Scribe: Aurora Le Provider For Whom Scribe is Documenting (Include Credential): Peter Brizuela MD Scribe Attestation: Aurora Manzanares, scribed for Peter Brizuela MD on 03/09/19 at 1916. Scribe Documentation Reviewed: Yes Provider Attestation: The documentation as recorded by the scribe, Aurora Le accurately reflects the service I personally performed and the decisions made by me, Peter Brizuela MD Status of Tommie Document: Viewed
[2019-03-09] MEDS ORDERED: NS 0.9% 1000 ML** 1,000 ML IV ONE (04:44)
[2019-03-09 04:54] LABS: Urine Appearance Cloudy; Urine Bacteria Absent (Absent); Urine Bilirubin Negative (Negative); Urine Blood 3+ (Negative); Urine Glucose Negative (Negative); Urine Ketones Negative (Negative); Urine Nitrite Negative (Negative); Urine Protein 2+(100 mg/dL) (Negative); Urine Red Blood Cell 3+(>10/hpf) (Absent); Urine Specific Gravity 1.011 (1.010-1.030); Urine Urobilinogen Negative (Negative); Urine White Blood Cell 3+(>20/hpf) (Absent)
[2019-03-09 04:58] LABS: Urine Color Red
[2019-03-09 04:58] LABS: ABS Basophils 0.1 10^3/ul (0-0.2); ABS Eosinophils 0.3 10^3/ul (0-0.6); ABS Lymphocytes 2.5 10^3/ul (1.0-4.8); ABS Monocytes 0.9 10^3/ul (0-0.8); ABS Neutrophils 6.1 10^3/ul (1.5-7.7); Eosinophil % 2.7 %; Hematocrit 36 % (35-47); Hemoglobin 11.2 g/dL (12.0-16.0); INR 1.09 (0.82-1.09); Lymphocyte % 25.2 %; Mean Corpuscular HGB Conc 31 g/dL (31-36); Mean Corpuscular Hemoglobin 24 pg (27-31); Mean Corpuscular Volume 75 fL (80-97); Platelet Count 410 10^3/uL (150-450); Red Blood Count 4.76 10^6 /uL (3.70-4.87); Red Cell Distribution Width 17 % (10-15); White Blood Count 9.8 10^3/uL (3.5-10.8)
[2019-03-09 05:09] LABS: Albumin 3.8 g/dL (3.2-5.2); Albumin/Globulin Ratio 1.1 (1-3); BUN/Creatinine Ratio 28.7 (8-20); Calcium 9.6 mg/dL (8.6-10.3); EGFR African American 76.3 (>60); Globulin 3.6 g/dL (2-4); Potassium 4.4 mmol/L (3.5-5.0); Total Bilirubin 0.2 mg/dL (0.2-1.0); Total Protein 7.4 g/dL (6.4-8.9)
[2019-03-09] MEDS ORDERED: Iodixanol* (CONTRAST) 320 MG/ML 100 ML SDV IV ONE (06:01)
--- NOTE | 2019-03-09 07:39 | ED ---
Progress - Progress Note Progress Note: Patient is received as a sign out from Dr. Brizuela at 0700 03/09/[address] ABD/PEL. CT ABD/PEL IMPRESSION: 1. THE PATIENT'S NEPHROSTOMY TUBE HAS BEEN PULLED BACK SLIGHTLY ALTHOUGH APPEARS TO BE IN THE REGION A RENAL CALYX. 2. THERE ARE MULTIPLE BILATERAL LARGE RENAL CALCULI MORE PROMINENT IN THE LEFT KIDNEY. THERE IS ATROPHY OF THE LEFT KIDNEY AND MILD LEFT HYDRONEPHROSIS WHICH IS UNCHANGED. 3. LARGE AMOUNT OF RETAINED STOOL WITH FINDINGS SUGGESTIVE OF FECAL IMPACTION IN THE RECTOSIGMOID COLON, UNCHANGED. THIS REPORT WAS REVIEWED BY DR. DALLAS Re-Evaluation - Re-Evaluation First Eval Re-Evaluation Time: 06:49 Comment: there is urine in her bag. patient is on Levaquin for UTI currently Course/Dx - Course Course Of Treatment: Patient was signed out by Dr. Brizuela at shift change. He requested follow-up CT of the abdomen and pelvis results. Abdominal pelvic CT impression: Nephrostomy tube has been pulled back slightly although appears to be in the region of the renal calyx. There are multiple bilateral large renal calculi and more prominent in the left kidney. At this point I discussed my physical exam and findings with Dr. Valdivia interventional radiology who agrees to replace the nephrostomy tube. The nephrostomy tube was replaced successively without any complications. Therefore , Dr. Valdivia recommends for the patient to be discharged home with follow-up with PCP. - Diagnoses Provider Diagnoses: Malfunction of nephrostomy tube - Provider Notifications Discussed Care Of Patient With: Lamont Rhodes Time Discussed With Above Provider: 08:32 Instructed by Provider To: Other - Patient's case was discussed with Dr. Rhodes , interventional radiology. Dr. Rhodes will change patient's nephrostomy tube. Discharge ED - Sign-Out/Discharge Documenting (check all that apply): Patient Departure - discharge Patient Received Moderate/Deep Sedation with Procedure: No - Discharge Plan Condition: Stable Disposition: HOME Patient Education Materials: Nephrostomy Tube Care (ED) Referrals: Ricardo Melton MD [Medical Doctor] - 3 Days Elli Gomez NP [Primary Care Provider] - 3 Days Additional Instructions: PLEASE RETURN TO THE EMERGENCY DEPARTMENT FOR ANY NEW OR WORSENING SYMPTOMS. PLEASE FOLLOW UP WITH YOUR PRIMARY CARE PHYSICIAN AND UROLOGIST WITHIN THREE DAYS. - Billing Disposition and Condition Condition: STABLE Disposition: Home - Attestation Statements Document Initiated by Scribe: Yes Documenting Scribe: ISAEL LANDERS Provider For Whom Tommie is Documenting (Include Credential): TAM DALLAS MD Scribe Attestation: ISAEL Manzanares, scribed for TAM DALLAS MD on 03/10/19 at 0840. Scribe Documentation Reviewed: Yes Provider Attestation: The documentation as recorded by the ISAEL dixon accurately reflects the service I personally performed and the decisions made by me, TAM DALLAS MD Status of Scribe Document: Viewed
[2019-03-09] MEDS ORDERED: fentaNYL* 50 MCG/ML 2 ML VIAL (100 MCG VIAL) ONE (11:00)
[2019-03-09 13:05] VITALS: BP 125/91
== END 2019-03-09 12:45 | disposition home or self-care (01) ==
LOC: ED 03:59
DX: N99.522 Malfunction of incontinent external stoma of urinary tract (principal); E03.9 Hypothyroidism, unspecified; D64.9 Anemia, unspecified; K21.9 Gastro-esophageal reflux disease without esophagitis
CPT/HCPCS: 36415; 50435; 74177; 80053; 81003; 81015; 85025; 85610; 87086; 96361; 96374; 99282; C1725; C1729; J3010; Q9967

== ENCOUNTER 2019-06-14 08:30 | Emergency (ER) | payer MEDICARE, MEDICAID ==
--- NOTE | 2019-06-14 10:56 | ED ---
GI/ HPI - HPI Summary HPI Summary: Pt is a 48yo intellectually challenged F from the [facility] with visual inspector at bedside stating during the overnight, pt's L nephrostomy tube dislodged. Unsure what time. Last bag drainage 11pm last evening. Pt has a hx of bilateral renal stones. Neph tube replaced on 03/09 and again 05/26. Pt non- verbal and unable to communicate distress. Does not appear to be in distress. Afebrile. - History of Current Complaint Chief Complaint: EDGeneral Time Seen by Provider: 06/14/19 08:42 Stated Complaint: GENERAL ILLNESS Hx Obtained From: Patient Onset/Duration: Started Hours Ago Timing: Constant Severity: Moderate Pain Intensity: 0 Associated Signs and Symptoms: Positive: Negative Aggravating Factor(s): Nothing Alleviating Factor(s): Nothing - Additional Pertinent History Primary Care Physician: [id number] - Allergy/Home Medications Allergies/Adverse Reactions: Allergies Allergy/AdvReac Type Severity Reaction Status Date / Time Adhesive Tape Allergy Rash Verified 06/14/19 08:38 bee pollen Allergy Rash Verified 06/14/19 08:38 PMH/Surg Hx/FS Hx/Imm Hx Previously Healthy: Yes Endocrine/Hematology History: Reports: Hx Thyroid Disease - hypothyroidism, Hx Anemia Denies: Hx Diabetes Cardiovascular History: Denies: Hx Hypertension GI History: Reports: Hx Gastroesophageal Reflux Disease History: Reports: Hx Renal Disease - LEFT NEPH TUBE Musculoskeletal History: Reports: Other Musculoskeletal History - hip dysplasia Denies: Hx Arthritis, Hx Osteoporosis Sensory History: Denies: Hx Contacts or Glasses, Hx Hearing Aid Opthamlomology History: Denies: Hx Contacts or Glasses Neurological History: Reports: Hx Seizures, 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, Cerebral Palsy (Athetoid type) Psychiatric History: Reports: Other Psychiatric Issues/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 - Surgical History Surgery Procedure, Year, and Place: Left hip adductor surgery, Ocasio brent placement Hx Anesthesia Reactions: No - Immunization History Hx Pertussis Vaccination: No Immunizations Up to Date: Yes Infectious Disease History: No Infectious Disease History: Denies: Traveled Outside the [place] in Last 30 Days - Family History Known Family History: Negative: Respiratory Disease - Social History Occupation: Employed Full-time Lives: With Family Alcohol Use: None Hx Substance Use: No Substance Use Type: Reports: None Hx Tobacco Use: No Smoking Status (MU): Never Smoked Tobacco Review of Systems Negative: Fever - none reported by visual inspector, Skin Diaphoresis Negative: Cough - none reported by visual inspector Negative: Vomiting - none reported by visual inspector, Diarrhea, Nausea All Other Systems Reviewed And Are Negative: Yes Physical Exam Triage Information Reviewed: Yes Vital Signs On Initial Exam: Initial Vitals Temp Pulse Resp BP Pulse Ox 97.6 F 97 19 133/89 100 06/14/19 08:31 06/14/19 08:31 06/14/19 08:31 06/14/19 08:31 06/14/19 08:31 Vital Signs Reviewed: Yes Completion Of Physical Exam Limited Due To: Level 5 Appearance: Positive: Well-Appearing Head/Face: Positive: Normal Head/Face Inspection Eyes: Positive: EOMI, Conjunctiva Clear Respiratory/Lung Sounds: Positive: Clear to Auscultation Cardiovascular: Positive: Normal Abdomen Description: Positive: Other: - dislodged neph tube Bowel Sounds: Positive: Present Procedures - Sedation Patient Received Moderate/Deep Sedation with Procedure: No Diagnostics - Vital Signs Vital Signs Temp Pulse Resp BP Pulse Ox 06/14/19 10:06 79 99 06/14/19 09:14 103 94 06/14/19 08:31 97.6 F 97 19 133/89 100 - Laboratory Lab Statement: Any lab studies that have been ordered have been reviewed, and results considered in the medical decision making process. GIGU Course/Dx - Course Course Of Treatment: Pt recently had neph tube changed 05/26. Last bag drainage 11pm. Overnight, neph tube dislodged. Suture holding together neph tube. Pigtail out. Called Dr. Rhodes client support consultant agreeing to replace neph tube. IV placed. Patient transferred to IR for replacement. Pt stable and OK for discharge. - Diagnoses Provider Diagnoses: Nephrostomy tube displaced Discharge ED - Sign-Out/Discharge Documenting (check all that apply): Patient Departure - Discharge Plan Condition: Stable Disposition: HOME Referrals: Elli Gomez BREAKDOWN M[employer] OPERATOR [Primary Care Provider] - - Billing Disposition and Condition Condition: STABLE Disposition: Home
[2019-06-14] MEDS ORDERED: fentaNYL* 50 MCG/ML 2 ML VIAL (100 MCG VIAL) ONE (11:57)
--- NOTE | 2019-06-14 13:43 | BRIEFOPN ---
Brief Operative/Procedure Note - Operation Details Pre-Op Diagnosis: Extracted PCN Post-Op Diagnosis: Same Procedures: Replacement of percutaneous nephrourostomy tube. Surgeon(s)/Proceduralists: Meagan Anesthesia: Fentanyl IV and lidocaine 1% locally Estimated Blood Loss: 0 Findings: Mild hydronephrosis Specimen(s)/Culture(s) Description: None Complications: None
[2019-06-14 15:29] VITALS: BP 133/99
[2019-06-14 15:41] LABS: Urine Appearance Cloudy; Urine Bilirubin Negative (Negative); Urine Blood 3+ (Negative); Urine Color Yellow; Urine Glucose Negative (Negative); Urine Ketones Negative (Negative); Urine Nitrite Negative (Negative); Urine Protein 2+(100 mg/dL) (Negative); Urine Urobilinogen Negative (Negative)
[2019-06-14 15:47] LABS: Urine Bacteria Absent (Absent); Urine Red Blood Cell 3+(>10/hpf) (Absent); Urine White Blood Cell 3+(>20/hpf) (Absent)
--- NOTE | 2019-06-18 06:00 | ED ---
Imaging and Labs Follow Up Follow Up Type: Labs/Cultures Labs/Culture Result: Final urine culture shows 50,000-75,000 E. Coli. Sensitivity reports show sensitivity to gentamicin, floroquinolones, bactrim. Patient Communication/Plan: Pt had nephrostomy tube replaced, nothing further at this time. Provider Diagnoses: Nephrostomy tube displaced
== END 2019-06-14 15:26 | disposition home or self-care (01) ==
LOC: ED 08:30
DX: T83.123A Displacement of other urinary stents, initial encounter (principal); E03.9 Hypothyroidism, unspecified; D64.9 Anemia, unspecified; K21.9 Gastro-esophageal reflux disease without esophagitis
CPT/HCPCS: 50435; 81003; 81015; 87077; 87086; 87186; 99283; C1729; C1769; C1874; C1887; J3010; Q9967

== ENCOUNTER 2020-03-19 12:01 | Inpatient (IN) ==
[2020-03-19] MEDS ORDERED: NS 0.9% 1000 ml BAG 1,000 ML IV ONE (12:13)
[2020-03-19] MEDS ORDERED: Cefepime 2 GM in NS 0.9% 50 ML 50 ML IVPB ONE (13:15)
[2020-03-19] MEDS ORDERED: Levofloxacin 750 MG IVPREMIX 750 MG/150 ML BAG IVPB ONE (13:15)
[2020-03-19 13:45] LABS: ABS Basophils 0.1 10^3/ul (0-0.2); ABS Eosinophils 0.3 10^3/ul (0-0.6); ABS Lymphocytes 1.8 10^3/ul (1.0-4.8); ABS Monocytes 1.3 10^3/ul (0-0.8); ABS Neutrophils 9.2 10^3/ul (1.5-7.7); ALT 18 U/L (7-52); AST 13 U/L (13-39); Albumin 3.6 g/dL (3.2-5.2); Albumin/Globulin Ratio 0.8 (1-3); Alkaline Phosphatase 159 U/L (34-104); Anion Gap 8 mmol/L (2-11); BUN/Creatinine Ratio 23.9 (8-20); Blood Urea Nitrogen 17 mg/dL (6-24); CO2 Carbon Dioxide 29 mmol/L (22-32); Calcium 9.3 mg/dL (8.6-10.3); Chloride 101 mmol/L (101-111); EGFR Non-African American 86.8 (>60); Eosinophil % 2.3 %; Globulin 4.3 g/dL (2-4); Glucose 113 mg/dL (70-100); Hematocrit 28 % (35-47); Hemoglobin 8.9 g/dL (12.0-16.0); Mean Corpuscular HGB Conc 31 g/dL (31-36); Mean Corpuscular Hemoglobin 23 pg (27-31); Mean Corpuscular Volume 73 fL (80-97); Mean Platelet Volume 8.2 fL (7.4-10.4); Platelet Count 543 10^3/uL (150-450); Potassium 4.2 mmol/L (3.5-5.0); Red Blood Count 3.88 10^6 /uL (3.70-4.87); Red Cell Distribution Width 19 % (10-15); Sodium 138 mmol/L (135-145); Total Protein 7.9 g/dL (6.4-8.9); White Blood Count 12.6 10^3/uL (3.5-10.8)
[2020-03-19 13:49] LABS: Troponin I 0.04 ng/mL (<0.03)
[2020-03-19] MEDS ORDERED: Iodixanol (CONTRAST) 320 MG/ML 100 ML SDV IV ONE (14:00)
[2020-03-19] MEDS ORDERED: NS 0.9% 50 ML 50 ML ONE (14:23)
[2020-03-19 14:36] LABS: Influenza A Molecular Negative (Negative); Influenza B Molecular Negative (Negative)
[2020-03-19 14:56] LABS: Microcytosis 2+; Polychromasia 2+
[2020-03-19] MEDS ORDERED: Cefepime 2 GM IV - ED ONCE IV ONE (15:00)
[2020-03-19 15:59] LABS: TSH Ultra Thyroid Stim Horm 5.34 mcIU/mL (0.34-5.60)
[2020-03-19 15:59] LABS: Urine Appearance Turbid; Urine Bilirubin Negative (Negative); Urine Blood 1+ (Negative); Urine Color Amber; Urine Glucose Negative (Negative); Urine Ketones Negative (Negative); Urine Nitrite Negative (Negative); Urine Protein 2+(100 mg/dL) (Negative); Urine Specific Gravity 1.011 (1.010-1.030); Urine Urobilinogen Negative (Negative)
[2020-03-19 16:03] LABS: Free T4 1.06 ng/dL (0.61-1.12)
[2020-03-19 16:22] LABS: Urine Bacteria Absent (Absent); Urine Red Blood Cell 3+(>10/hpf) (Absent); Urine White Blood Cell 3+(>20/hpf) (Absent)
[2020-03-19] MEDS ORDERED: Bacitracin OINTMENT TUBE TOPICAL PRN (16:44)
[2020-03-19] MEDS ORDERED: NS 0.9% 500 ml BAG 500 ML IV ONE (16:48)
[2020-03-19] MEDS ORDERED: NS 0.9% 1000 ml BAG 1,000 ML IV SCH (17:00)
[2020-03-19] MEDS ORDERED: Zosyn per Pharmacy NOTE FOLLOW UP SCH (17:00)
[2020-03-19 17:08] LABS: BUN/Creatinine Ratio 23.4 (8-20); Calcium 8.3 mg/dL (8.6-10.3); EGFR African American 118.4 (>60); EGFR Non-African American 97.8 (>60); Potassium 4.2 mmol/L (3.5-5.0)
[2020-03-19 17:23] LABS: Total Iron Binding Capacity 332 mcg/dL (250-450); Transferrin 237 mg/dL (203-362)
[2020-03-19 17:24] LABS: % Iron Saturation 6 % (15-55); Iron < 20 ug/dL (50-212); Unsaturated Iron Binding < 317 ug/dL
[2020-03-19 17:46] LABS: Ferritin 31.8 ng/mL (11-307)
[2020-03-19 17:49] LABS: Folate > 20.00 ng/mL (>3.99)
[2020-03-19 17:50] LABS: Vitamin B12 733 pg/mL (180-914)
[2020-03-19 17:52] LABS: Troponin I 0.01 ng/mL (<0.03)
[2020-03-19] MEDS: Enoxaparin 40 MG/0.4 ML SYR SUBCUT SCH (22:30)
[2020-03-19] MEDS: levETIRAcetam LIQ 500 MG/5 ML UDC G TUBE SCH (22:30)
[2020-03-20] MEDS ORDERED: Piperacillin/Tazobac ADVAN 3.375 GM in NS 0.9% 100 ml BAG 100 ML IV ONE (06:00)
[2020-03-20] MEDS: ZOSYN 3.375 GM Q8H per EXTENDED INFUSION IV SCH ×2 (09:46→18:34)
[2020-03-20] MEDS: levETIRAcetam LIQ 500 MG/5 ML UDC G TUBE SCH ×2 (09:54→21:12)
[2020-03-20] MEDS: NS 0.9% 1000 ml BAG 1,000 ML IV SCH ×2 (10:33→22:43)
[2020-03-20 11:04] LABS: ABS Basophils 0.1 10^3/ul (0-0.2); ABS Eosinophils 0.3 10^3/ul (0-0.6); ABS Lymphocytes 1.3 10^3/ul (1.0-4.8); ABS Monocytes 0.6 10^3/ul (0-0.8); ABS Neutrophils 3.8 10^3/ul (1.5-7.7); Eosinophil % 4.4 %; Hematocrit 25 % (35-47); Lymphocyte % 21.7 %; Mean Corpuscular HGB Conc 32 g/dL (31-36); Mean Corpuscular Hemoglobin 23 pg (27-31); Mean Corpuscular Volume 73 fL (80-97); Mean Platelet Volume 7.7 fL (7.4-10.4); Nucleated Red Blood Cells % 0.1; Platelet Count 428 10^3/uL (150-450); Red Blood Count 3.46 10^6 /uL (3.70-4.87); Red Cell Distribution Width 19 % (10-15); White Blood Count 6.1 10^3/uL (3.5-10.8)
[2020-03-20] MEDS: Lansoprazole SUSP ORALSYR 3 MG/ML G TUBE SCH (11:47)
[2020-03-20] MEDS: Enoxaparin 40 MG/0.4 ML SYR SUBCUT SCH (18:31)
[2020-03-20] MEDS: Aztreonam 2 GM in NS 0.9% 100 ml BAG 100 ML IV SCH (21:07)
[2020-03-21] MEDS: ZOSYN 3.375 GM Q8H per EXTENDED INFUSION IV SCH ×3 (01:15→17:51)
[2020-03-21] MEDS: Aztreonam 2 GM in NS 0.9% 100 ml BAG 100 ML IV SCH ×2 (05:09→13:54)
[2020-03-21 06:32] LABS: ABS Basophils 0.1 10^3/ul (0-0.2); ABS Eosinophils 0.4 10^3/ul (0-0.6); ABS Lymphocytes 1.3 10^3/ul (1.0-4.8); ABS Monocytes 0.6 10^3/ul (0-0.8); Hematocrit 24 % (35-47); Hemoglobin 7.5 g/dL (12.0-16.0); Lymphocyte % 24.4 %; Mean Corpuscular HGB Conc 32 g/dL (31-36); Mean Corpuscular Hemoglobin 24 pg (27-31); Mean Corpuscular Volume 75 fL (80-97); Mean Platelet Volume 8.3 fL (7.4-10.4); Nucleated Red Blood Cells % 0.3; Platelet Count 392 10^3/uL (150-450); Red Blood Count 3.17 10^6 /uL (3.70-4.87); Red Cell Distribution Width 19 % (10-15); White Blood Count 5.3 10^3/uL (3.5-10.8)
[2020-03-21 06:47] LABS: BUN/Creatinine Ratio 16.2 (8-20); EGFR Non-African American 82.7 (>60); Potassium 3.8 mmol/L (3.5-5.0)
[2020-03-21 06:48] LABS: Albumin/Globulin Ratio 0.9 (1-3); Calcium 8.3 mg/dL (8.6-10.3); EGFR African American 100.1 (>60); Globulin 3.3 g/dL (2-4); Total Bilirubin 0.2 mg/dL (0.2-1.0); Total Protein 6.3 g/dL (6.4-8.9)
[2020-03-21] MEDS: Morphine 2 MG/ML SYRINGE IV PRN (09:53)
[2020-03-21] MEDS: levETIRAcetam LIQ 500 MG/5 ML UDC G TUBE SCH ×2 (09:57→19:42)
[2020-03-21] MEDS: Lansoprazole SUSP ORALSYR 3 MG/ML G TUBE SCH (09:57)
[2020-03-21] MEDS: NS 0.9% 1000 ml BAG 1,000 ML IV SCH ×2 (10:00→20:41)
[2020-03-21 16:06] LABS: % Iron Saturation 7 % (15-55); Iron < 20 ug/dL (50-212); Total Iron Binding Capacity 267 mcg/dL (250-450); Transferrin 191 mg/dL (203-362); Unsaturated Iron Binding < 252 ug/dL
[2020-03-21 16:49] LABS: Ferritin 29.1 ng/mL (11-307)
[2020-03-21] MEDS: Enoxaparin 40 MG/0.4 ML SYR SUBCUT SCH (17:51)
[2020-03-21] MEDS ORDERED: Albuterol 2.5mg/3 ml (0.083%) NEB.SOLN INH PRN (23:17)
[2020-03-22] MEDS: ZOSYN 3.375 GM Q8H per EXTENDED INFUSION IV SCH ×2 (03:47→11:43)
[2020-03-22] MEDS: Morphine 2 MG/ML SYRINGE IV PRN (09:52)
[2020-03-22] MEDS: levETIRAcetam LIQ 500 MG/5 ML UDC G TUBE SCH (09:53)
[2020-03-22] MEDS: Lansoprazole SUSP ORALSYR 3 MG/ML G TUBE SCH (09:54)
[2020-03-22] MEDS ORDERED: Iron Sucrose 200 MG in NS 0.9% 100 ml BAG 100 ML IVPB ONE (10:00)
[2020-03-22] MEDS: NS 0.9% 1000 ml BAG 1,000 ML IV SCH (10:02)
[2020-03-22 10:06] LABS: Hematocrit 27 % (35-47); Hemoglobin 8.5 g/dL (12.0-16.0); Mean Corpuscular HGB Conc 32 g/dL (31-36); Mean Corpuscular Hemoglobin 23 pg (27-31); Mean Corpuscular Volume 74 fL (80-97); Platelet Count 442 10^3/uL (150-450); Red Blood Count 3.65 10^6 /uL (3.70-4.87); Red Cell Distribution Width 19 % (10-15)
[2020-03-22 10:06] LABS: Calcium 8.8 mg/dL (8.6-10.3); Potassium 4.8 mmol/L (3.5-5.0)
[2020-03-22 10:12] LABS: EGFR Non-African American 107.5 (>60)
[2020-03-22 10:54] LABS: ABS Basophils 0.1 10^3/ul (0-0.2); ABS Eosinophils 0.5 10^3/ul (0-0.6); ABS Lymphocytes 1.5 10^3/ul (1.0-4.8); ABS Monocytes 0.7 10^3/ul (0-0.8); ABS Neutrophils 4.2 10^3/ul (1.5-7.7); Eosinophil % 6.8 %; Lymphocyte % 21.6 %; Nucleated Red Blood Cells % 0.2
[2020-03-22 11:32] VITALS: BP 153/73
[2020-03-23] MEDS ORDERED: Scopolamine PATCH Remove NOTE PATCH OFF SCH (22:59)
== END 2020-03-22 16:15 | disposition home or self-care (01) | DRG 872 ==
LOC: ED 12:01 → MED 16:28
PROVIDERS: ADMIT Student in an Organized Health Care Education/Training Program; ATTEND Internal Medicine

== ENCOUNTER 2020-03-28 17:21 | Inpatient (IN) ==
[2020-03-28 18:22] LABS: Troponin I 0.01 ng/mL (<0.03)
[2020-03-28] MEDS ORDERED: NS 0.9% 1000 ml BAG 1,000 ML IV ONE (18:23)
[2020-03-28 18:24] LABS: Albumin 3.8 g/dL (3.2-5.2); BUN/Creatinine Ratio 21.2 (8-20); EGFR African American 114.2 (>60); EGFR Non-African American 94.4 (>60); Globulin 3.9 g/dL (2-4); Potassium 4.1 mmol/L (3.5-5.0); Total Bilirubin 0.2 mg/dL (0.2-1.0); Total Protein 7.7 g/dL (6.4-8.9)
[2020-03-28 19:03] LABS: ABS Basophils 0.1 10^3/ul (0-0.2); ABS Eosinophils 0.3 10^3/ul (0-0.6); ABS Lymphocytes 1.1 10^3/ul (1.0-4.8); ABS Neutrophils 16.9 10^3/ul (1.5-7.7); Eosinophil % 1.6 %; Hematocrit 32 % (35-47); Hemoglobin 9.9 g/dL (12.0-16.0); Lymphocyte % 5.8 %; Mean Corpuscular HGB Conc 31 g/dL (31-36); Mean Corpuscular Hemoglobin 24 pg (27-31); Mean Corpuscular Volume 76 fL (80-97); Mean Platelet Volume 7.7 fL (7.4-10.4); Platelet Count 538 10^3/uL (150-450); Red Blood Count 4.21 10^6 /uL (3.70-4.87); Red Cell Distribution Width 21 % (10-15); White Blood Count 19.4 10^3/uL (3.5-10.8)
[2020-03-28] MEDS ORDERED: LORazepam 2 mg VIAL 1 ml IV PUSH ONE (19:19)
[2020-03-28] MEDS ORDERED: Lorazepam PYXIS KEY PRN (19:19)
[2020-03-28 20:35] LABS: Urine Appearance Cloudy; Urine Bilirubin Negative (Negative); Urine Blood 2+ (Negative); Urine Color Yellow; Urine Glucose Negative (Negative); Urine Ketones Negative (Negative); Urine Nitrite Negative (Negative); Urine Protein Negative (Negative); Urine Specific Gravity 1.006 (1.010-1.030); Urine Urobilinogen Negative (Negative)
[2020-03-28 20:40] LABS: Urine Bacteria 1+ (Absent); Urine Red Blood Cell 3+(>10/hpf) (Absent); Urine Squamous Epithelial Cell Present (Absent); Urine White Blood Cell 3+(>20/hpf) (Absent)
[2020-03-28] MEDS ORDERED: cefTRIAXone 1 gm/50 mL NS BAG 1 GM/50 ML BAG IV ONE (21:11)
[2020-03-28] MEDS ORDERED: NS 0.9% 500 ml BAG 500 ML IV ONE (22:03)
[2020-03-28] MEDS ORDERED: Acetaminophen PED 160 mg/5 ml UDC FEED TUBE PRN (22:12)
[2020-03-28] MEDS ORDERED: Prochlorperazine 5 mg/ml 2 ml VIAL (10 mg) IV PRN (22:27)
[2020-03-28] MEDS ORDERED: Azithromycin 500 mg/250 ml NS 500 MG/250 ML BAG IVPB SCH (23:00)
[2020-03-29] MEDS: Enoxaparin 40 MG/0.4 ML SYR SUBCUT SCH ×2 (00:49→19:35)
[2020-03-29 01:26] LABS: C Reactive Protein 31.27 mg/L (<8.01)
[2020-03-29 01:34] LABS: ABS Basophils 0.1 10^3/ul (0-0.2); ABS Eosinophils 0.2 10^3/ul (0-0.6); ABS Lymphocytes 1.4 10^3/ul (1.0-4.8); ABS Neutrophils 12.4 10^3/ul (1.5-7.7); Eosinophil % 1.4 %; Hematocrit 27 % (35-47); Hemoglobin 8.6 g/dL (12.0-16.0); Mean Corpuscular HGB Conc 32 g/dL (31-36); Mean Corpuscular Hemoglobin 24 pg (27-31); Mean Corpuscular Volume 76 fL (80-97); Mean Platelet Volume 7.7 fL (7.4-10.4); Platelet Count 433 10^3/uL (150-450); Red Cell Distribution Width 20 % (10-15); White Blood Count 15.1 10^3/uL (3.5-10.8)
[2020-03-29 01:51] LABS: Albumin 3.4 g/dL (3.2-5.2); BUN/Creatinine Ratio 16.9 (8-20); Calcium 8.6 mg/dL (8.6-10.3); EGFR African American 116.3 (>60); EGFR Non-African American 96.1 (>60); Globulin 3.3 g/dL (2-4); Potassium 4.1 mmol/L (3.5-5.0); Total Bilirubin 0.2 mg/dL (0.2-1.0); Total Protein 6.7 g/dL (6.4-8.9)
[2020-03-29] MEDS: Ciprofloxacin 400mg IVPREMIX 400 MG/200 ML BAG IVPB SCH ×3 (01:52→17:16)
[2020-03-29] MEDS: NS 0.9% 1000 ml BAG 1,000 ML IV SCH ×3 (04:36→22:00)
[2020-03-29] MEDS ORDERED: Omeprazole 20 mg CAP (NF) SCH (09:00)
[2020-03-29] MEDS: Pantoprazole VIAL 40 MG VIAL IV SCH (10:30)
[2020-03-29] MEDS: levETIRAcetam LIQ 500 MG/5 ML UDC G TUBE SCH ×2 (10:31→19:35)
[2020-03-29] MEDS: Polyethylene Glycol 3350 17 GM PACKET G TUBE SCH (10:33)
[2020-03-29] MEDS ORDERED: cefTRIAXone 1 gm/50 mL NS BAG 1 GM/50 ML BAG IVPB SCH (21:00)
[2020-03-30] MEDS: Ciprofloxacin 400mg IVPREMIX 400 MG/200 ML BAG IVPB SCH ×3 (00:44→16:30)
[2020-03-30 06:41] LABS: ABS Eosinophils 0.5 10^3/ul (0-0.6); ABS Monocytes 0.6 10^3/ul (0-0.8); ABS Neutrophils 4.5 10^3/ul (1.5-7.7); Hematocrit 27 % (35-47); Hemoglobin 8.4 g/dL (12.0-16.0); Lymphocyte % 14.7 %; Mean Corpuscular HGB Conc 32 g/dL (31-36); Mean Corpuscular Hemoglobin 25 pg (27-31); Mean Corpuscular Volume 78 fL (80-97); Mean Platelet Volume 7.7 fL (7.4-10.4); Platelet Count 378 10^3/uL (150-450); Red Blood Count 3.42 10^6 /uL (3.70-4.87); Red Cell Distribution Width 22 % (10-15); White Blood Count 6.5 10^3/uL (3.5-10.8)
[2020-03-30 07:08] LABS: Calcium 8.4 mg/dL (8.6-10.3); Potassium 4.2 mmol/L (3.5-5.0)
[2020-03-30 07:14] LABS: BUN/Creatinine Ratio 17.2 (8-20); EGFR African American 132.6 (>60); EGFR Non-African American 109.6 (>60)
[2020-03-30] MEDS: Pantoprazole VIAL 40 MG VIAL IV SCH (08:52)
[2020-03-30] MEDS: levETIRAcetam LIQ 500 MG/5 ML UDC G TUBE SCH ×2 (08:52→21:47)
[2020-03-30] MEDS: Polyethylene Glycol 3350 17 GM PACKET G TUBE SCH (08:53)
[2020-03-30] MEDS: NS 0.9% 1000 ml BAG 1,000 ML IV SCH (14:53)
[2020-03-30] MEDS: Enoxaparin 40 MG/0.4 ML SYR SUBCUT SCH (21:47)
[2020-03-31] MEDS: Ciprofloxacin 400mg IVPREMIX 400 MG/200 ML BAG IVPB SCH (01:20)
[2020-03-31] MEDS ORDERED: Loperamide LIQ 2 MG/15 ML UDC PO PRN (02:01)
[2020-03-31 06:49] LABS: ABS Eosinophils 0.5 10^3/ul (0-0.6); ABS Lymphocytes 1.3 10^3/ul (1.0-4.8); ABS Monocytes 0.5 10^3/ul (0-0.8); ABS Neutrophils 2.4 10^3/ul (1.5-7.7); Eosinophil % 10.4 %; Hematocrit 28 % (35-47); Hemoglobin 8.9 g/dL (12.0-16.0); Lymphocyte % 26.7 %; Mean Corpuscular HGB Conc 32 g/dL (31-36); Mean Corpuscular Hemoglobin 25 pg (27-31); Mean Corpuscular Volume 78 fL (80-97); Mean Platelet Volume 8.1 fL (7.4-10.4); Nucleated Red Blood Cells % 0.1; Platelet Count 403 10^3/uL (150-450); Red Blood Count 3.55 10^6 /uL (3.70-4.87); Red Cell Distribution Width 21 % (10-15); White Blood Count 4.8 10^3/uL (3.5-10.8)
[2020-03-31] MEDS: Polyethylene Glycol 3350 17 GM PACKET G TUBE SCH (09:03)
[2020-03-31] MEDS: levETIRAcetam LIQ 500 MG/5 ML UDC G TUBE SCH ×2 (10:09→21:03)
[2020-03-31] MEDS: CMCS:Omeprazole 20 mg CAP (NF) SCH (10:10)
[2020-03-31] MEDS ORDERED: Pancrelipase 5,000 units CAP J TUBE ONE (13:52)
[2020-03-31] MEDS ORDERED: Sodium Bicarb 650 mg (ANTACID) TAB J TUBE ONE (13:52)
[2020-03-31] MEDS: Enoxaparin 40 MG/0.4 ML SYR SUBCUT SCH (21:19)
[2020-03-31] MEDS ORDERED: Scopolamine PATCH Remove NOTE PATCH OFF SCH (23:00)
[2020-04-01] MEDS: levETIRAcetam LIQ 500 MG/5 ML UDC G TUBE SCH (10:22)
[2020-04-01] MEDS: CMCS:Omeprazole 20 mg CAP (NF) SCH (10:23)
[2020-04-01] MEDS ORDERED: Sodium Bicarb 650 mg (ANTACID) TAB J TUBE ONE (10:43)
[2020-04-01] MEDS ORDERED: Pancrelipase 5,000 units CAP J TUBE ONE (10:43)
[2020-04-01] MEDS: Polyethylene Glycol 3350 17 GM PACKET G TUBE SCH (10:53)
[2020-04-01 19:11] VITALS: BP 105/80
== END 2020-04-01 13:00 | disposition home or self-care (01) | DRG 872 ==
LOC: MED 17:21 → ED 17:21 → MED 03-29 00:08
PROVIDERS: ADMIT Internal Medicine; ATTEND Pediatrics

== ENCOUNTER 2020-04-10 09:43 | Inpatient (IN) ==
[2020-04-10] MEDS ORDERED: NS 0.9% 1000 ml BAG 1,000 ML IV ONE ×2 (09:51→10:26)
[2020-04-10 10:33] LABS: Hematocrit 33 % (35-47); Hemoglobin 10.8 g/dL (12.0-16.0); Mean Corpuscular HGB Conc 32 g/dL (31-36); Mean Corpuscular Hemoglobin 25 pg (27-31); Mean Corpuscular Volume 76 fL (80-97); Mean Platelet Volume 8.2 fL (7.4-10.4); Platelet Count 474 10^3/uL (150-450); Red Cell Distribution Width 22 % (10-15); White Blood Count 20.9 10^3/uL (3.5-10.8)
[2020-04-10] MEDS ORDERED: Piperacillin/Tazobac ADVAN 3.375 GM in NS 0.9% 100 ml BAG 100 ML IVPB ONE (10:37)
[2020-04-10 10:49] LABS: Albumin 3.7 g/dL (3.2-5.2); BUN/Creatinine Ratio 23.8 (8-20); Calcium 9.4 mg/dL (8.6-10.3); EGFR African American 120.5 (>60); EGFR Non-African American 99.6 (>60); Globulin 3.7 g/dL (2-4); Potassium 4.1 mmol/L (3.5-5.0); Total Bilirubin 0.3 mg/dL (0.2-1.0); Total Protein 7.4 g/dL (6.4-8.9)
[2020-04-10] MEDS ORDERED: Iodixanol (CONTRAST) 320 MG/ML 100 ML SDV IV ONE (11:00)
[2020-04-10] MEDS ORDERED: Vancomycin 750 MG in NS 0.9% 250 ml 250 ML IVPB ONE (11:00)
[2020-04-10 11:48] LABS: ABS Basophils 0.1 10^3/ul (0-0.2); ABS Eosinophils 0.1 10^3/ul (0-0.6); ABS Lymphocytes 1.2 10^3/ul (1.0-4.8); ABS Monocytes 1.6 10^3/ul (0-0.8); Eosinophil % 0.3 %; Lymphocyte % 5.8 %
[2020-04-10 11:55] LABS: Urine Appearance Cloudy; Urine Bilirubin Negative (Negative); Urine Blood 1+ (Negative); Urine Color Yellow; Urine Glucose Negative (Negative); Urine Ketones Negative (Negative); Urine Nitrite Negative (Negative); Urine Protein Negative (Negative); Urine Specific Gravity 1.008 (1.010-1.030); Urine Urobilinogen Negative (Negative)
[2020-04-10 12:02] LABS: Urine Bacteria Absent (Absent); Urine Red Blood Cell 1+(3-5/hpf) (Absent); Urine Squamous Epithelial Cell Present (Absent); Urine White Blood Cell 2+(11-20/hpf) (Absent)
[2020-04-10 14:06] LABS: TSH Ultra Thyroid Stim Horm 1.58 mcIU/mL (0.34-5.60)
[2020-04-10] MEDS ORDERED: Glycerin ADULT 2.4 gm SUPP PR PRN (14:46)
[2020-04-10] MEDS ORDERED: guaiFENesin 100 mg/5 ml LIQ unit dose cup FEED TUBE PRN (14:46)
[2020-04-10] MEDS ORDERED: Lactated Ringers 1000 ml BAG 1,000 ML IV ONE (14:52)
[2020-04-10] MEDS ORDERED: Zosyn per Pharmacy NOTE FOLLOW UP SCH (15:00)
[2020-04-10 16:32] LABS: T4, Total 13.88 mcg/dL (6.09-12.23)
[2020-04-10] MEDS: Enoxaparin 40 MG/0.4 ML SYR SUBCUT SCH (17:34)
[2020-04-10] MEDS: ZOSYN 3.375 GM Q8H per EXTENDED INFUSION IV SCH (18:26)
[2020-04-10] MEDS: Lactated Ringers 1000 ml BAG 1,000 ML IV SCH (18:32)
[2020-04-10] MEDS: levETIRAcetam LIQ 500 MG/5 ML UDC G TUBE SCH (22:42)
[2020-04-11] MEDS: ZOSYN 3.375 GM Q8H per EXTENDED INFUSION IV SCH ×3 (01:17→17:22)
[2020-04-11] MEDS: Lactated Ringers 1000 ml BAG 1,000 ML IV SCH ×3 (03:54→21:27)
[2020-04-11 06:23] LABS: Hematocrit 29 % (35-47); Hemoglobin 9.2 g/dL (12.0-16.0); Mean Corpuscular HGB Conc 32 g/dL (31-36); Mean Corpuscular Hemoglobin 25 pg (27-31); Mean Corpuscular Volume 78 fL (80-97); Mean Platelet Volume 8.3 fL (7.4-10.4); Platelet Count 355 10^3/uL (150-450); Red Blood Count 3.72 10^6 /uL (3.70-4.87); Red Cell Distribution Width 22 % (10-15); White Blood Count 20.9 10^3/uL (3.5-10.8)
[2020-04-11 06:40] LABS: BUN/Creatinine Ratio 12.1 (8-20); Calcium 8.5 mg/dL (8.6-10.3); EGFR African American 132.6 (>60); EGFR Non-African American 109.6 (>60); Potassium 3.4 mmol/L (3.5-5.0)
[2020-04-11] MEDS ORDERED: Potassium Chloride LIQUID 20 MEQ/15 ML LIQUID PEG TUBE ONE (08:09)
[2020-04-11] MEDS: Polyethylene Glycol 3350 17 GM PACKET G TUBE SCH (08:41)
[2020-04-11] MEDS: levETIRAcetam LIQ 500 MG/5 ML UDC G TUBE SCH ×2 (08:48→21:00)
[2020-04-11] MEDS: Lansoprazole SUSP ORALSYR 3 MG/ML G TUBE SCH (08:49)
[2020-04-11] MEDS: Simethicone SUSP ORALSYR 66.66 MG/ML G TUBE SCH ×3 (08:49→17:22)
[2020-04-11 09:37] LABS: Microcytosis 1+
[2020-04-11 09:38] LABS: ABS Basophils 0.1 10^3/ul (0-0.2); ABS Lymphocytes 1.1 10^3/ul (1.0-4.8); ABS Monocytes 1.6 10^3/ul (0-0.8); ABS Neutrophils 18.1 10^3/ul (1.5-7.7); Eosinophil % 0.2 %
[2020-04-11] MEDS ORDERED: Potassium Chloride LIQUID 20 MEQ/15 ML LIQUID ONE (10:45)
[2020-04-11] MEDS: Enoxaparin 40 MG/0.4 ML SYR SUBCUT SCH (17:28)
[2020-04-12] MEDS: ZOSYN 3.375 GM Q8H per EXTENDED INFUSION IV SCH ×3 (02:35→17:02)
[2020-04-12] MEDS: Lactated Ringers 1000 ml BAG 1,000 ML IV SCH ×2 (05:45→16:18)
[2020-04-12] MEDS: Polyethylene Glycol 3350 17 GM PACKET G TUBE SCH (08:06)
[2020-04-12] MEDS: Simethicone SUSP ORALSYR 66.66 MG/ML G TUBE SCH ×3 (08:07→16:53)
[2020-04-12] MEDS: levETIRAcetam LIQ 500 MG/5 ML UDC G TUBE SCH ×2 (08:07→22:09)
[2020-04-12] MEDS: Lansoprazole SUSP ORALSYR 3 MG/ML G TUBE SCH (08:15)
[2020-04-12 11:18] LABS: ABS Eosinophils 0.2 10^3/ul (0-0.6); ABS Lymphocytes 1.1 10^3/ul (1.0-4.8); ABS Monocytes 1.3 10^3/ul (0-0.8); ABS Neutrophils 11.1 10^3/ul (1.5-7.7); Eosinophil % 1.4 %; Hematocrit 26 % (35-47); Hemoglobin 8.3 g/dL (12.0-16.0); Lymphocyte % 7.8 %; Mean Corpuscular HGB Conc 32 g/dL (31-36); Mean Corpuscular Hemoglobin 25 pg (27-31); Mean Corpuscular Volume 78 fL (80-97); Mean Platelet Volume 8.1 fL (7.4-10.4); Platelet Count 296 10^3/uL (150-450); Red Blood Count 3.33 10^6 /uL (3.70-4.87); Red Cell Distribution Width 22 % (10-15); White Blood Count 13.7 10^3/uL (3.5-10.8)
[2020-04-12 11:34] LABS: Albumin 2.8 g/dL (3.2-5.2); Albumin/Globulin Ratio 0.9 (1-3); BUN/Creatinine Ratio 12.7 (8-20); C Reactive Protein 188.51 mg/L (<8.01); Calcium 8.3 mg/dL (8.6-10.3); EGFR Non-African American 116.5 (>60); Potassium 3.7 mmol/L (3.5-5.0); Total Bilirubin 0.2 mg/dL (0.2-1.0); Total Protein 5.8 g/dL (6.4-8.9)
[2020-04-12] MEDS ORDERED: NS 0.9% 100 ml BAG 100 ML ONE (16:50)
[2020-04-12] MEDS: Enoxaparin 40 MG/0.4 ML SYR SUBCUT SCH (17:02)
[2020-04-13] MEDS: ZOSYN 3.375 GM Q8H per EXTENDED INFUSION IV SCH ×4 (01:43→23:59)
[2020-04-13] MEDS: Simethicone SUSP ORALSYR 66.66 MG/ML G TUBE SCH ×3 (05:30→18:19)
[2020-04-13 08:02] LABS: ABS Eosinophils 0.5 10^3/ul (0-0.6); ABS Lymphocytes 1.3 10^3/ul (1.0-4.8); ABS Monocytes 1.1 10^3/ul (0-0.8); ABS Neutrophils 7.9 10^3/ul (1.5-7.7); Eosinophil % 4.6 %; Hematocrit 29 % (35-47); Lymphocyte % 12.3 %; Mean Corpuscular HGB Conc 32 g/dL (31-36); Mean Corpuscular Hemoglobin 25 pg (27-31); Mean Corpuscular Volume 79 fL (80-97); Mean Platelet Volume 8.5 fL (7.4-10.4); Platelet Count 337 10^3/uL (150-450); Red Blood Count 3.61 10^6 /uL (3.70-4.87); Red Cell Distribution Width 22 % (10-15); White Blood Count 10.9 10^3/uL (3.5-10.8)
[2020-04-13 08:24] LABS: BUN/Creatinine Ratio 17.3 (8-20); Calcium 8.7 mg/dL (8.6-10.3); EGFR African American 150.4 (>60); EGFR Non-African American 124.3 (>60); Potassium 4.2 mmol/L (3.5-5.0)
[2020-04-13] MEDS: Lansoprazole SUSP ORALSYR 3 MG/ML G TUBE SCH (08:54)
[2020-04-13] MEDS: levETIRAcetam LIQ 500 MG/5 ML UDC G TUBE SCH ×2 (08:55→20:50)
[2020-04-13] MEDS: Polyethylene Glycol 3350 17 GM PACKET G TUBE SCH (08:56)
[2020-04-13] MEDS: Lactated Ringers 1000 ml BAG 1,000 ML IV SCH (16:23)
[2020-04-13] MEDS: DIPHENHYDRAMINE 2% TOPICAL SCH ×2 (16:27→20:22)
[2020-04-13] MEDS: Enoxaparin 40 MG/0.4 ML SYR SUBCUT SCH (18:18)
[2020-04-13] MEDS ORDERED: NS 0.9% 1000 ml BAG 1,000 ML IV SCH (23:45)
[2020-04-14] MEDS: Simethicone SUSP ORALSYR 66.66 MG/ML G TUBE SCH ×3 (05:41→16:16)
[2020-04-14 07:23] LABS: Calcium 8.4 mg/dL (8.6-10.3); Potassium 4.6 mmol/L (3.5-5.0)
[2020-04-14 07:29] LABS: BUN/Creatinine Ratio 21.6 (8-20); EGFR African American 153.8 (>60); EGFR Non-African American 127.1 (>60)
[2020-04-14] MEDS: levETIRAcetam LIQ 500 MG/5 ML UDC G TUBE SCH ×2 (07:33→20:33)
[2020-04-14] MEDS: Polyethylene Glycol 3350 17 GM PACKET G TUBE SCH ×2 (07:33→08:05)
[2020-04-14] MEDS: Lansoprazole SUSP ORALSYR 3 MG/ML G TUBE SCH (07:37)
[2020-04-14 09:20] LABS: ABS Eosinophils 0.6 10^3/ul (0-0.6); ABS Lymphocytes 1.1 10^3/ul (1.0-4.8); ABS Monocytes 0.7 10^3/ul (0-0.8); ABS Neutrophils 3.4 10^3/ul (1.5-7.7); Eosinophil % 10.5 %; Hematocrit 28 % (35-47); Hemoglobin 8.6 g/dL (12.0-16.0); Lymphocyte % 18.3 %; Mean Corpuscular HGB Conc 31 g/dL (31-36); Mean Corpuscular Hemoglobin 25 pg (27-31); Mean Corpuscular Volume 78 fL (80-97); Mean Platelet Volume 8.9 fL (7.4-10.4); Nucleated Red Blood Cells % 0.2; Platelet Count 305 10^3/uL (150-450); Red Blood Count 3.52 10^6 /uL (3.70-4.87); Red Cell Distribution Width 22 % (10-15); White Blood Count 5.8 10^3/uL (3.5-10.8)
[2020-04-14] MEDS: ZOSYN 3.375 GM Q8H per EXTENDED INFUSION IV SCH ×2 (09:57→16:11)
[2020-04-14] MEDS: DIPHENHYDRAMINE 2% TOPICAL SCH ×3 (10:02→20:16)
[2020-04-14] MEDS: Enoxaparin 40 MG/0.4 ML SYR SUBCUT SCH (19:28)
[2020-04-15] MEDS: ZOSYN 3.375 GM Q8H per EXTENDED INFUSION IV SCH ×4 (00:55→18:14)
[2020-04-15] MEDS: Simethicone SUSP ORALSYR 66.66 MG/ML G TUBE SCH ×3 (06:20→18:00)
[2020-04-15] MEDS: Lansoprazole SUSP ORALSYR 3 MG/ML G TUBE SCH (10:57)
[2020-04-15] MEDS: levETIRAcetam LIQ 500 MG/5 ML UDC G TUBE SCH ×3 (10:57→23:14)
[2020-04-15] MEDS: Polyethylene Glycol 3350 17 GM PACKET G TUBE SCH (10:58)
[2020-04-15] MEDS: DIPHENHYDRAMINE 2% TOPICAL SCH ×3 (10:58→20:23)
[2020-04-15] MEDS: Vitamins A & D OINT 42.5 GM TUBE TOPICAL SCH ×2 (11:05→22:52)
[2020-04-15] MEDS: Enoxaparin 40 MG/0.4 ML SYR SUBCUT SCH (17:58)
[2020-04-15] MEDS: Amoxicillin/Clavul 500/125 TAB (Augmentin 500 mg tab) PO SCH ×2 (20:22→23:14)
[2020-04-16] MEDS: Polyethylene Glycol 3350 17 GM PACKET G TUBE SCH (08:10)
[2020-04-16] MEDS: Simethicone SUSP ORALSYR 66.66 MG/ML G TUBE SCH ×2 (08:27→12:08)
[2020-04-16] MEDS: Amoxicillin/Clavul 500/125 TAB (Augmentin 500 mg tab) PO SCH (08:27)
[2020-04-16] MEDS: Lansoprazole SUSP ORALSYR 3 MG/ML G TUBE SCH (08:27)
[2020-04-16] MEDS: levETIRAcetam LIQ 500 MG/5 ML UDC G TUBE SCH (08:27)
[2020-04-16] MEDS: Vitamins A & D OINT 42.5 GM TUBE TOPICAL SCH (08:29)
[2020-04-16] MEDS: DIPHENHYDRAMINE 2% TOPICAL SCH (08:30)
[2020-04-16 11:51] VITALS: BP 122/63
== END 2020-04-16 13:15 | DRG 872 ==
LOC: ED 09:43 → MED 14:41
PROVIDERS: ADMIT Internal Medicine; ATTEND Internal Medicine

== ENCOUNTER 2020-06-03 12:35 | Inpatient (IN) ==
[2020-06-03] MEDS ORDERED: Lactated Ringers 1000 ml BAG 1,000 ML IV ONE ×2 (13:31→16:46)
[2020-06-03] MEDS ORDERED: Pantoprazole VIAL 40 MG VIAL IV ONE (13:31)
[2020-06-03 16:07] LABS: Potassium 4.2 mmol/L (3.5-5.0)
[2020-06-03 16:08] LABS: Albumin 3.4 g/dL (3.2-5.2); Albumin/Globulin Ratio 0.7 (1-3); BUN/Creatinine Ratio 26.3 (8-20); Calcium 9.6 mg/dL (8.6-10.3); EGFR African American 97.1 (>60); EGFR Non-African American 80.2 (>60); Globulin 5.1 g/dL (2-4); Total Bilirubin 0.2 mg/dL (0.2-1.0); Total Protein 8.5 g/dL (6.4-8.9)
[2020-06-03 16:09] LABS: ABS Lymphocytes 5.9 10^3/ul (1.0-4.8); ABS Neutrophils 17.5 10^3/ul (1.5-7.7); Hematocrit 30 % (35-47); Hemoglobin 9.7 g/dL (12.0-16.0); Mean Corpuscular HGB Conc 32 g/dL (31-36); Mean Corpuscular Hemoglobin 25 pg (27-31); Mean Corpuscular Volume 78 fL (80-97); Mean Platelet Volume 8.3 fL (7.4-10.4); Platelet Count 497 10^3/uL (150-450); Red Cell Distribution Width 19 % (10-15); White Blood Count 20.2 10^3/uL (3.5-10.8)
[2020-06-03 16:10] LABS: ABS Monocytes 1.5 10^3/ul (0-0.8); Activated Partial Thrombo Time 35.7 seconds (26.0-38.0); Eosinophil % 0.2 %; INR 1.3 (0.82-1.09); Lymphocyte % 5.9 %
[2020-06-03 16:26] LABS: C Reactive Protein 254.84 mg/L (<8.01); Magnesium 2.1 mg/dL (1.9-2.7)
[2020-06-03 16:42] LABS: Ammonia 36 mcmol/L (16-53)
[2020-06-03 16:48] LABS: BNP 59 pg/mL (<=100)
[2020-06-03] MEDS ORDERED: Iodixanol (CONTRAST) 320 MG/ML 100 ML SDV IV ONE (18:37)
[2020-06-03] MEDS ORDERED: Piperacillin/Tazobac ADVAN 3.375 GM in NS 0.9% 100 ml BAG 100 ML IV ONE (18:45)
[2020-06-03 18:59] LABS: Influenza A Molecular Negative (Negative); Influenza B Molecular Negative (Negative)
[2020-06-03] MEDS ORDERED: Lactated Ringers 1000 ml BAG 1,000 ML IV SCH (19:00)
[2020-06-03 19:51] LABS: Urine Appearance Cloudy; Urine Bilirubin Negative (Negative); Urine Blood 2+ (Negative); Urine Color Yellow; Urine Glucose Negative (Negative); Urine Ketones Negative (Negative); Urine Nitrite Negative (Negative); Urine Protein 1+(30 mg/dL) (Negative); Urine Specific Gravity 1.004 (1.010-1.030); Urine Urobilinogen Negative (Negative)
[2020-06-03 19:54] LABS: Urine Bacteria 1+ (Absent); Urine Red Blood Cell Trace(0-2/hpf) (Absent); Urine Squamous Epithelial Cell Present (Absent); Urine White Blood Cell 2+(11-20/hpf) (Absent)
[2020-06-04] MEDS ORDERED: NS 0.9% 1000 ml BAG 1,000 ML IV SCH (00:45)
[2020-06-04] MEDS ORDERED: Vancomycin per Pharmacy 1 EA NOTE FOLLOW UP PRN ×2 (01:07→04:20)
[2020-06-04] MEDS ORDERED: Vancomycin 1,000 MG in NS 0.9% 250 ml 250 ML IVPB ONE (01:08)
[2020-06-04] MEDS ORDERED: Cefepime 1 GM in Dextrose 1 GM/50 ML BAG IV ONE (02:14)
[2020-06-04] MEDS: Enoxaparin 40 MG/0.4 ML SYR SUBCUT SCH ×2 (02:27→20:28)
[2020-06-04 04:00] LABS: ABS Eosinophils 0.1 10^3/ul (0-0.6); ABS Monocytes 1.3 10^3/ul (0-0.8); ABS Neutrophils 11.2 10^3/ul (1.5-7.7); Eosinophil % 0.5 %; Hematocrit 26 % (35-47); Hemoglobin 8.2 g/dL (12.0-16.0); Lymphocyte % 7.4 %; Mean Corpuscular HGB Conc 31 g/dL (31-36); Mean Corpuscular Hemoglobin 25 pg (27-31); Mean Corpuscular Volume 79 fL (80-97); Mean Platelet Volume 8.2 fL (7.4-10.4); Platelet Count 391 10^3/uL (150-450); Red Blood Count 3.34 10^6 /uL (3.70-4.87); Red Cell Distribution Width 19 % (10-15); White Blood Count 13.6 10^3/uL (3.5-10.8)
[2020-06-04 04:03] LABS: INR 1.36 (0.82-1.09)
[2020-06-04 04:14] LABS: Potassium 3.9 mmol/L (3.5-5.0)
[2020-06-04 04:19] LABS: BUN/Creatinine Ratio 18.7 (8-20); EGFR African American 98.6 (>60); EGFR Non-African American 81.5 (>60)
[2020-06-04] MEDS ORDERED: Silodosin 8 mg CAP (NF) PO SCH (09:00)
[2020-06-04] MEDS ORDERED: Multivitamins ADULT w/MIN LIQ 15 ML UDC FEED TUBE SCH (09:00)
[2020-06-04] MEDS: levETIRAcetam LIQ 500 MG/5 ML UDC FEED TUBE SCH ×2 (09:17→20:28)
[2020-06-04] MEDS: Lansoprazole SUSP ORALSYR 3 MG/ML FEED TUBE SCH (09:18)
[2020-06-04] MEDS: SIMETHICONE 40 MG/0.6 ML FEED TUBE SCH ×4 (09:19→20:28)
[2020-06-04] MEDS ORDERED: Vancomycin 750 MG in NS 0.9% 250 ML IVPB SCH (11:30)
[2020-06-04] MEDS: Cefepime 1 GM in Dextrose 1 GM/50 ML BAG IV SCH (15:06)
[2020-06-04] MEDS ORDERED: Lactated Ringers 1000 ml BAG 1,000 ML IV SCH (16:00)
[2020-06-05] MEDS: Cefepime 1 GM in Dextrose 1 GM/50 ML BAG IV SCH (01:55)
[2020-06-05] MEDS ORDERED: Glycerin ADULT 2.4 gm SUPP PR PRN (02:58)
[2020-06-05] MEDS ORDERED: Docusate LIQ 100 MG/10 ML UDC G TUBE PRN (02:59)
[2020-06-05] MEDS: SIMETHICONE 40 MG/0.6 ML FEED TUBE SCH (08:50)
[2020-06-05] MEDS: levETIRAcetam LIQ 500 MG/5 ML UDC FEED TUBE SCH (08:51)
[2020-06-05] MEDS: Lansoprazole SUSP ORALSYR 3 MG/ML FEED TUBE SCH (08:52)
[2020-06-05 08:57] LABS: ABS Eosinophils 0.2 10^3/ul (0-0.6); ABS Lymphocytes 0.9 10^3/ul (1.0-4.8); ABS Monocytes 0.9 10^3/ul (0-0.8); ABS Neutrophils 6.8 10^3/ul (1.5-7.7); Eosinophil % 1.9 %; Hematocrit 25 % (35-47); Hemoglobin 8.1 g/dL (12.0-16.0); Lymphocyte % 10.2 %; Mean Corpuscular HGB Conc 32 g/dL (31-36); Mean Corpuscular Hemoglobin 25 pg (27-31); Mean Corpuscular Volume 78 fL (80-97); Nucleated Red Blood Cells % 0.1; Platelet Count 388 10^3/uL (150-450); Red Blood Count 3.22 10^6 /uL (3.70-4.87); Red Cell Distribution Width 19 % (10-15); White Blood Count 8.8 10^3/uL (3.5-10.8)
[2020-06-05 09:14] LABS: BUN/Creatinine Ratio 19.4 (8-20); Calcium 8.9 mg/dL (8.6-10.3); EGFR African American 112.3 (>60); EGFR Non-African American 92.8 (>60); Potassium 3.7 mmol/L (3.5-5.0)
[2020-06-05] MEDS ORDERED: Vancomycin Trough Check NOTE FOLLOW UP ONE (11:00)
[2020-06-05 13:08] VITALS: BP 102/74
[2020-06-07] MEDS ORDERED: Scopolamine PATCH Remove NOTE PATCH OFF SCH (04:00)
== END 2020-06-05 13:10 | disposition home or self-care (01) | DRG 872 ==
LOC: ED 12:35 → ICU 06-04 00:35
PROVIDERS: ADMIT Pediatrics; ATTEND Internal Medicine Critical Care Medicine

== ENCOUNTER 2020-09-03 14:11 | Inpatient (IN) ==
[2020-09-03 19:21] LABS: Albumin 4.2 g/dL (3.2-5.2); Albumin/Globulin Ratio 1.1 (1-3); BUN/Creatinine Ratio 49.1 (8-20); C Reactive Protein 6.62 mg/L (<8.01); EGFR African American 147.2 (>60); EGFR Non-African American 121.6 (>60); Globulin 3.8 g/dL (2-4); Potassium 3.8 mmol/L (3.5-5.0); Total Bilirubin 0.3 mg/dL (0.2-1.0)
[2020-09-03] MEDS ORDERED: NS 0.9% 1000 ml BAG 1,000 ML IV ONE ×2 (19:22→19:53)
[2020-09-03] MEDS ORDERED: Iohexol 300 (CONTRAST) 10 ML SDV IV ONE (19:52)
[2020-09-03 20:50] LABS: ABS Eosinophils 0.2 10^3/ul (0-0.6); ABS Lymphocytes 1.3 10^3/ul (1.0-4.8); ABS Monocytes 0.7 10^3/ul (0-0.8); ABS Neutrophils 7.5 10^3/ul (1.5-7.7); Hematocrit 39 % (35-47); Hemoglobin 13.1 g/dL (12.0-16.0); Lymphocyte % 13.6 %; Mean Corpuscular HGB Conc 34 g/dL (31-36); Mean Corpuscular Hemoglobin 30 pg (27-31); Mean Corpuscular Volume 88 fL (80-97); Mean Platelet Volume 8.6 fL (7.4-10.4); Platelet Count 277 10^3/uL (150-450); Red Blood Count 4.38 10^6 /uL (3.70-4.87); Red Cell Distribution Width 17 % (10-15); White Blood Count 9.8 10^3/uL (3.5-10.8)
[2020-09-03 21:12] LABS: Urine Appearance Cloudy; Urine Bilirubin Negative (Negative); Urine Blood 2+ (Negative); Urine Color Yellow; Urine Glucose Negative (Negative); Urine Ketones Negative (Negative); Urine Nitrite Negative (Negative); Urine Protein 1+(30 mg/dL) (Negative); Urine Specific Gravity 1.014 (1.010-1.030); Urine Urobilinogen Negative (Negative)
[2020-09-03 21:15] LABS: Urine Bacteria 1+ (Absent); Urine Red Blood Cell 3+(>10/hpf) (Absent); Urine Squamous Epithelial Cell Present (Absent); Urine White Blood Cell 3+(>20/hpf) (Absent)
[2020-09-03] MEDS ORDERED: Ondansetron 4 mg VIAL 2 MG/ML 2 ml VIAL IV ONE (21:25)
[2020-09-03] MEDS ORDERED: cefTRIAXone 1 gm/50 mL NS BAG 1 GM/50 ML BAG IV ONE (21:30)
[2020-09-03] MEDS ORDERED: NS 0.9% 1000 ml BAG 1,000 ML IV SCH (22:45)
[2020-09-03] MEDS ORDERED: Ondansetron 4 mg VIAL 2 MG/ML 2 ml VIAL IV PRN (22:56)
[2020-09-04] MEDS ORDERED: D5W IV SCH
[2020-09-04] MEDS ORDERED: LEVOTHYROXINE IV SCH
[2020-09-04] MEDS ORDERED: LORazepam 2 mg VIAL 1 ml IV PUSH PRN
[2020-09-04] MEDS ORDERED: Lorazepam PYXIS KEY PRN
[2020-09-04] MEDS: levETIRAcetam IV 1,500 MG in NS 0.9% 100 ml BAG 100 ML IVPB SCH ×2 (01:15→14:28)
[2020-09-04] MEDS: Enoxaparin 30 MG/0.3 ML SYR SUBCUT SCH (01:15)
[2020-09-04] MEDS ORDERED: Pantoprazole VIAL 40 MG VIAL IV SCH (02:00)
[2020-09-04 04:48] LABS: ABS Eosinophils 0.1 10^3/ul (0-0.6); ABS Lymphocytes 1.2 10^3/ul (1.0-4.8); ABS Monocytes 0.5 10^3/ul (0-0.8); ABS Neutrophils 5.8 10^3/ul (1.5-7.7); Eosinophil % 1.6 %; Hematocrit 40 % (35-47); Hemoglobin 12.5 g/dL (12.0-16.0); Lymphocyte % 15.2 %; Mean Corpuscular HGB Conc 31 g/dL (31-36); Mean Corpuscular Hemoglobin 30 pg (27-31); Mean Corpuscular Volume 95 fL (80-97); Mean Platelet Volume 7.9 fL (7.4-10.4); Platelet Count 256 10^3/uL (150-450); Red Blood Count 4.21 10^6 /uL (3.70-4.87); Red Cell Distribution Width 17 % (10-15); White Blood Count 7.7 10^3/uL (3.5-10.8)
[2020-09-04 04:57] LABS: CO2 Carbon Dioxide 23 mmol/L (22-32); Calcium 8.7 mg/dL (8.6-10.3); Chloride 110 mmol/L (101-111); Sodium 141 mmol/L (135-145)
[2020-09-04 05:02] LABS: BUN/Creatinine Ratio 40.4 (8-20); Blood Urea Nitrogen 19 mg/dL (6-24); EGFR Non-African American 139.7 (>60); Glucose 96 mg/dL (70-100)
[2020-09-04 05:04] LABS: Anion Gap 8 mmol/L (2-11)
[2020-09-04] MEDS: Pantoprazole VIAL 40 MG VIAL IV SCH ×2 (05:49→16:48)
[2020-09-04] MEDS: Ondansetron 4 mg VIAL 2 MG/ML 2 ml VIAL IV SCH ×2 (05:50→17:12)
[2020-09-04] MEDS ORDERED: Levothyroxine 100 MCG/5 ML VIAL IV SCH (06:00)
[2020-09-04] MEDS: Mineral Oil ENEMA 118 ML/BOTTLE BOTTLE PR SCH ×3 (06:07→22:09)
[2020-09-04] MEDS ORDERED: [UNRECOGNIZED DRUG - OTHER] TOPICAL PRN (09:00)
[2020-09-04] MEDS ORDERED: Sodium Phosphate ADULT ENEMA 133 ML BTL PR ONE ×2 (14:20→14:40)
[2020-09-04] MEDS ORDERED: Ondansetron 4 mg VIAL 2 MG/ML 2 ml VIAL IV PRN (17:49)
[2020-09-05] MEDS: levETIRAcetam IV 1,500 MG in NS 0.9% 100 ml BAG 100 ML IVPB SCH ×2 (01:18→11:44)
[2020-09-05] MEDS: Mineral Oil ENEMA 118 ML/BOTTLE BOTTLE PR SCH (05:35)
[2020-09-05] MEDS ORDERED: Levothyroxine 100 MCG/5 ML VIAL IV SCH (06:00)
[2020-09-05 06:15] LABS: BUN/Creatinine Ratio 52.3 (8-20); Calcium 9.3 mg/dL (8.6-10.3); EGFR African American 182.4 (>60); EGFR Non-African American 150.8 (>60); Potassium 3.3 mmol/L (3.5-5.0)
[2020-09-05] MEDS: Enoxaparin 30 MG/0.3 ML SYR SUBCUT SCH (09:07)
[2020-09-05] MEDS: KCL 10 MEQ/50 ML IVPREMIX 10 MEQ/50 ML BAG IV SCH ×4 (09:07→13:38)
[2020-09-05 09:19] LABS: Free T4 1.12 ng/dL (0.61-1.12)
[2020-09-05 11:16] LABS: Phosphorus 3.5 mg/dL (2.5-5.0)
[2020-09-05] MEDS ORDERED: Polyethylene Glycol 3350 BTL 238 GM BTL PO ONE ×2 (11:39→14:05)
[2020-09-05] MEDS ORDERED: PEG 3000 GI LAVAGE 1 GALLON PO ONE (17:46)
[2020-09-05] MEDS ORDERED: Docusate LIQ 100 MG/10 ML UDC PO SCH (21:00)
[2020-09-05] MEDS ORDERED: Senna TAB 8.6 mg TAB PO SCH (21:00)
[2020-09-05] MEDS: Polyethylene Glycol 3350 17 GM PACKET PO SCH (21:28)
[2020-09-05] MEDS: Docusate LIQ 100 MG/10 ML UDC PO SCH (21:28)
[2020-09-05] MEDS: Senna TAB 8.6 mg TAB PO SCH (23:00)
[2020-09-06] MEDS: levETIRAcetam IV 1,500 MG in NS 0.9% 100 ml BAG 100 ML IVPB SCH ×2 (00:46→12:20)
[2020-09-06] MEDS ORDERED: Levothyroxine 100 MCG/5 ML VIAL IV SCH (06:00)
[2020-09-06] MEDS ORDERED: Potassium Chloride LIQUID 20 MEQ/15 ML LIQUID PO ONE (07:48)
[2020-09-06 08:56] LABS: Hematocrit 38 % (35-47); Hemoglobin 12.6 g/dL (12.0-16.0); Mean Corpuscular HGB Conc 33 g/dL (31-36); Mean Corpuscular Hemoglobin 30 pg (27-31); Mean Corpuscular Volume 89 fL (80-97); Mean Platelet Volume 7.6 fL (7.4-10.4); Platelet Count 292 10^3/uL (150-450); Red Blood Count 4.25 10^6 /uL (3.70-4.87); Red Cell Distribution Width 16 % (10-15); White Blood Count 5.6 10^3/uL (3.5-10.8)
[2020-09-06 09:22] LABS: BUN/Creatinine Ratio 37.3 (8-20); Calcium 8.8 mg/dL (8.6-10.3); EGFR African American 153.8 (>60); EGFR Non-African American 127.1 (>60); Magnesium 1.9 mg/dL (1.9-2.7); Phosphorus 2.6 mg/dL (2.5-5.0); Potassium 3.6 mmol/L (3.5-5.0)
[2020-09-06 09:45] LABS: ABS Eosinophils 0.2 10^3/ul (0-0.6); ABS Lymphocytes 1.1 10^3/ul (1.0-4.8); ABS Monocytes 0.6 10^3/ul (0-0.8); ABS Neutrophils 3.7 10^3/ul (1.5-7.7); Eosinophil % 3.2 %; Lymphocyte % 19.8 %
[2020-09-06] MEDS: Enoxaparin 30 MG/0.3 ML SYR SUBCUT SCH (10:37)
[2020-09-06] MEDS: Polyethylene Glycol 3350 17 GM PACKET PO SCH ×2 (10:37→23:25)
[2020-09-06] MEDS: Docusate LIQ 100 MG/10 ML UDC PO SCH ×2 (10:37→23:25)
[2020-09-06] MEDS ORDERED: PEG 3000 GI LAVAGE 1 GALLON PO ONE (14:08)
[2020-09-06] MEDS: Mineral Oil ENEMA 118 ML/BOTTLE BOTTLE PR PRN (15:17)
[2020-09-06 19:47] LABS: BUN/Creatinine Ratio 27.1 (8-20); Calcium 9.2 mg/dL (8.6-10.3); EGFR Non-African American 136.4 (>60); Potassium 3.9 mmol/L (3.5-5.0)
[2020-09-06] MEDS ORDERED: Mineral Oil ENEMA 118 ML/BOTTLE BOTTLE PR ONE (20:00)
[2020-09-06] MEDS: Senna TAB 8.6 mg TAB PO SCH (23:25)
[2020-09-07] MEDS: levETIRAcetam IV 1,500 MG in NS 0.9% 100 ml BAG 100 ML IVPB SCH ×2 (00:14→12:14)
[2020-09-07] MEDS: Lactated Ringers 1000 ml BAG 1,000 ML IV SCH ×2 (03:16→16:17)
[2020-09-07] MEDS: Enoxaparin 30 MG/0.3 ML SYR SUBCUT SCH (11:09)
[2020-09-07] MEDS: Docusate LIQ 100 MG/10 ML UDC PO SCH ×2 (11:09→22:25)
[2020-09-07] MEDS: Polyethylene Glycol 3350 17 GM PACKET PO SCH ×2 (11:09→22:25)
[2020-09-07] MEDS: Mineral Oil ENEMA 118 ML/BOTTLE BOTTLE PR PRN (13:37)
[2020-09-07] MEDS: Lactulose 30 ml UDC G TUBE SCH (22:24)
[2020-09-07] MEDS: Senna TAB 8.6 mg TAB PO SCH (22:25)
[2020-09-08] MEDS: levETIRAcetam IV 1,500 MG in NS 0.9% 100 ml BAG 100 ML IVPB SCH ×2 (00:23→12:47)
[2020-09-08] MEDS: Lactated Ringers 1000 ml BAG 1,000 ML IV SCH (05:29)
[2020-09-08 06:52] LABS: Potassium 3.8 mmol/L (3.5-5.0)
[2020-09-08 07:30] LABS: Calcium 9.2 mg/dL (8.6-10.3); EGFR African American 157.4 (>60); EGFR Non-African American 130.1 (>60)
[2020-09-08] MEDS: Enoxaparin 30 MG/0.3 ML SYR SUBCUT SCH (09:51)
[2020-09-08] MEDS: Polyethylene Glycol 3350 17 GM PACKET PO SCH (09:51)
[2020-09-08] MEDS: Docusate LIQ 100 MG/10 ML UDC PO SCH (09:52)
[2020-09-08] MEDS: Lactulose 30 ml UDC G TUBE SCH ×2 (09:52→14:32)
[2020-09-09] MEDS: Lactulose 30 ml UDC G TUBE SCH ×2 (00:01→09:46)
[2020-09-09] MEDS: Senna TAB 8.6 mg TAB PO SCH (00:01)
[2020-09-09] MEDS: Polyethylene Glycol 3350 17 GM PACKET PO SCH ×2 (00:01→09:44)
[2020-09-09] MEDS ORDERED: guaiFENesin 100 mg/5 ml LIQ unit dose cup PO PRN (01:13)
[2020-09-09 07:44] LABS: BUN/Creatinine Ratio 19.1 (8-20); Calcium 9.2 mg/dL (8.6-10.3); EGFR Non-African American 139.7 (>60); Phosphorus 4.2 mg/dL (2.5-5.0); Potassium 3.6 mmol/L (3.5-5.0)
[2020-09-09] MEDS: Enoxaparin 30 MG/0.3 ML SYR SUBCUT SCH (09:43)
[2020-09-09] MEDS: levETIRAcetam IV 1,500 MG in NS 0.9% 100 ml BAG 100 ML IVPB SCH ×2 (11:18)
[2020-09-09 17:55] VITALS: BP 133/95
== END 2020-09-09 17:40 | disposition home or self-care (01) | DRG 392 ==
LOC: ED 14:11 → MED 23:17
PROVIDERS: ADMIT Internal Medicine; ATTEND Student in an Organized Health Care Education/Training Program

== ENCOUNTER 2021-01-28 05:18 | Inpatient (IN) ==
[2021-01-28] MEDS ORDERED: Lactated Ringers 1000 ml BAG IV.FLUID IV ONE (05:45)
[2021-01-28] MEDS ORDERED: Piperacillin/Tazobac ADVAN 3.375 GM in NS 0.9% 100 ml BAG 100 ML IVPB ONE (05:45)
[2021-01-28] MEDS ORDERED: Vancomycin 1,250 MG in NS 0.9% 250 ml 250 ML IVPB ONE (06:30)
[2021-01-28 06:58] LABS: ABS Eosinophils 0.2 10^3/ul (0-0.6); ABS Lymphocytes 1.3 10^3/ul (1.0-4.8); ABS Monocytes 0.5 10^3/ul (0-0.8); ABS Neutrophils 6.5 10^3/ul (1.5-7.7); Eosinophil % 2.5 %; Hematocrit 36 % (35-47); Hemoglobin 12.5 g/dL (12.0-16.0); Lymphocyte % 15.2 %; Mean Corpuscular HGB Conc 34 g/dL (31-36); Mean Corpuscular Hemoglobin 31 pg (27-31); Mean Corpuscular Volume 90 fL (80-97); Mean Platelet Volume 7.7 fL (7.4-10.4); Platelet Count 555 10^3/uL (150-450); Red Blood Count 4.04 10^6 /uL (3.70-4.87); Red Cell Distribution Width 13 % (10-15); White Blood Count 8.6 10^3/uL (3.5-10.8)
[2021-01-28 07:10] LABS: Activated Partial Thrombo Time 36.5 seconds (26.0-38.0); Albumin 3.5 g/dL (3.2-5.2); Albumin/Globulin Ratio 0.8 (1-3); C Reactive Protein 19.6 mg/L (<8.01); Calcium 9.6 mg/dL (8.6-10.3); EGFR African American 132.1 (>60); EGFR Non-African American 109.2 (>60); Globulin 4.3 g/dL (2-4); INR 1.17 (0.86-1.15); Potassium 4.3 mmol/L (3.5-5.0); Total Bilirubin 0.2 mg/dL (0.2-1.0); Total Protein 7.8 g/dL (6.4-8.9)
[2021-01-28 08:07] LABS: Influenza A Molecular Negative (Negative); Influenza B Molecular Negative (Negative)
[2021-01-28] MEDS ORDERED: Zosyn per Pharmacy NOTE FOLLOW UP SCH (09:00)
[2021-01-28] MEDS: Enoxaparin 40 MG/0.4 ML SYR SUBCUT SCH (11:20)
[2021-01-28 14:07] LABS: Erythrocyte Sed Rate 92 mm/Hr (0-29)
[2021-01-28] MEDS: NS 0.9% 1000 ml BAG 1,000 ML IV SCH (16:46)
[2021-01-28] MEDS: ZOSYN 3.375 GM Q8H per EXTENDED INFUSION IV SCH ×2 (16:46→22:10)
[2021-01-28] MEDS ORDERED: levETIRAcetam LIQ 500 MG/5 ML UDC G TUBE SCH (20:04)
[2021-01-28] MEDS: Simethicone SUSP ORALSYR 66.66 MG/ML FEED TUBE SCH (22:10)
[2021-01-29] MEDS: NS 0.9% 1000 ml BAG 1,000 ML IV SCH ×2 (02:08→15:15)
[2021-01-29] MEDS ORDERED: Lorazepam PYXIS KEY ONE ×2 (02:31→12:36)
[2021-01-29] MEDS: LORazepam 2 mg VIAL 1 ml ONE ×2 (02:35→04:42)
[2021-01-29 03:31] LABS: Hematocrit 35 % (35-47); Hemoglobin 11.8 g/dL (12.0-16.0); Mean Corpuscular HGB Conc 34 g/dL (31-36); Mean Corpuscular Hemoglobin 31 pg (27-31); Mean Corpuscular Volume 91 fL (80-97); Mean Platelet Volume 7.7 fL (7.4-10.4); Platelet Count 469 10^3/uL (150-450); Red Blood Count 3.82 10^6 /uL (3.70-4.87); Red Cell Distribution Width 13 % (10-15); White Blood Count 8.9 10^3/uL (3.5-10.8)
[2021-01-29 03:50] LABS: Calcium 8.5 mg/dL (8.6-10.3); Magnesium 1.8 mg/dL (1.9-2.7); Potassium 3.8 mmol/L (3.5-5.0)
[2021-01-29 03:55] LABS: EGFR African American 124.6 (>60)
[2021-01-29 04:03] LABS: PO2 Arterial 139 mmHg (80-100)
[2021-01-29 04:07] LABS: PCO2 Arterial 72 mmHg (35-45)
[2021-01-29] MEDS ORDERED: LORazepam 2 mg VIAL 1 ml IV PUSH ONE (04:26)
[2021-01-29] MEDS: ZOSYN 3.375 GM Q8H per EXTENDED INFUSION IV SCH ×4 (05:47→22:22)
[2021-01-29] MEDS ORDERED: Rocuronium 50 mg VIAL 10 mg/ml 5 ml VIAL (50 mg) ONE (07:15)
[2021-01-29] MEDS ORDERED: Propofol 10 MG/ML 20 ML BTL ONE (07:34)
[2021-01-29] MEDS ORDERED: Etomidate 40 mg/20 ml (2 MG/ML) 20 ml VIAL (40 mg) ONE (07:34)
[2021-01-29] MEDS ORDERED: Midazolam 10 mg/10 ml VIAL 1 mg/ml 10 ml VIAL (10 mg) ONE (07:34)
[2021-01-29 08:23] LABS: Urine Appearance Clear; Urine Bilirubin Negative (Negative); Urine Blood Negative (Negative); Urine Color Straw; Urine Glucose Negative (Negative); Urine Ketones Negative (Negative); Urine Nitrite Negative (Negative); Urine Protein Negative (Negative); Urine Specific Gravity 1.011 (1.002-1.030); Urine Urobilinogen Negative (Negative)
[2021-01-29 08:25] LABS: Urine Bacteria Absent (Absent); Urine Red Blood Cell Trace(0-2/hpf) (Absent); Urine White Blood Cell 2+(11-20/hpf) (Absent)
[2021-01-29] MEDS: Midazolam 50 MG VIAL IV DRIP 50 ML IV SCH ×2 (09:00→18:05)
[2021-01-29] MEDS ORDERED: levETIRAcetam LIQ 500 MG/5 ML UDC PO SCH (09:00)
[2021-01-29] MEDS: Polyethylene Glycol 3350 17 GM PACKET FEED TUBE SCH (10:04)
[2021-01-29] MEDS: Enoxaparin 40 MG/0.4 ML SYR SUBCUT SCH (10:04)
[2021-01-29] MEDS: Simethicone SUSP ORALSYR 66.66 MG/ML FEED TUBE SCH ×4 (10:04→20:39)
[2021-01-29 10:07] LABS: PCO2 Arterial 32 mmHg (35-45); PO2 Arterial 116 mmHg (80-100)
[2021-01-29] MEDS: Lansoprazole SUSP ORALSYR 3 MG/ML G TUBE SCH (10:10)
[2021-01-29] MEDS ORDERED: fentaNYL 100 mcg/2 ml 50 MCG/ML VIAL ONE ×2 (10:26→12:16)
[2021-01-29] MEDS ORDERED: fentaNYL 100 mcg/2 ml 50 MCG/ML VIAL IV SLOW PU ONE (12:15)
[2021-01-29] MEDS ORDERED: LORazepam 2 mg VIAL 1 ml ONE (12:36)
[2021-01-29] MEDS ORDERED: NS 0.9% IVPB ONE (12:41)
[2021-01-29] MEDS ORDERED: FOSPHENYTOIN IVPB ONE (12:41)
[2021-01-29] MEDS ORDERED: Propofol 10 mg/ml 100 ML BTL 100 ML ONE (12:47)
[2021-01-29] MEDS ORDERED: Norepinephrine 16MCG/ML IVPRE 4,000 MCG/250 ML BAG IV ONE (13:34)
[2021-01-29] MEDS ORDERED: Propofol 10 mg/ml 100 ML BTL 100 ML IV SCH ×2 (14:00→19:55)
[2021-01-29] MEDS ORDERED: Magnesium Sulfate IV 3 GM in NS 0.9% 100 ml BAG 100 ML IVPB ONE (15:10)
[2021-01-29] MEDS: Chlorhexidine MOUTHWASH 0.12% 15 ML UDC TOPICAL SCH ×2 (17:06→20:37)
[2021-01-29] MEDS: levETIRAcetam IV 1,500 MG in NS 0.9% 100 ml BAG 100 ML IVPB SCH (17:49)
[2021-01-29] MEDS ORDERED: Pantoprazole VIAL 40 MG VIAL IV SCH (20:00)
[2021-01-29] MEDS ORDERED: NS 0.9% 100 ml BAG 100 ML ONE (20:29)
[2021-01-29] MEDS ORDERED: NS 0.9% 50 ML 50 ML ONE (20:29)
[2021-01-29] MEDS: FOSPHENYTOIN IVPB SCH (20:39)
[2021-01-29] MEDS: NS 0.9% IVPB SCH (20:39)
[2021-01-30] MEDS: NS 0.9% 1000 ml BAG 1,000 ML IV SCH ×2 (01:03→14:42)
[2021-01-30] MEDS: Chlorhexidine MOUTHWASH 0.12% 15 ML UDC TOPICAL SCH ×6 (01:15→21:18)
[2021-01-30] MEDS ORDERED: NS 0.9% 100 ml BAG 100 ML ONE ×3 (05:53→17:07)
[2021-01-30] MEDS: ZOSYN 3.375 GM Q8H per EXTENDED INFUSION IV SCH ×3 (05:56→21:18)
[2021-01-30 06:16] LABS: ABS Eosinophils 0.2 10^3/ul (0-0.6); ABS Lymphocytes 1.3 10^3/ul (1.0-4.8); ABS Monocytes 0.7 10^3/ul (0-0.8); ABS Neutrophils 4.9 10^3/ul (1.5-7.7); Eosinophil % 3.1 %; Hematocrit 33 % (35-47); Hemoglobin 11.3 g/dL (12.0-16.0); Lymphocyte % 18.5 %; Mean Corpuscular HGB Conc 34 g/dL (31-36); Mean Corpuscular Hemoglobin 31 pg (27-31); Mean Corpuscular Volume 90 fL (80-97); Mean Platelet Volume 7.9 fL (7.4-10.4); Platelet Count 536 10^3/uL (150-450); Red Blood Count 3.69 10^6 /uL (3.70-4.87); Red Cell Distribution Width 13 % (10-15); White Blood Count 7.3 10^3/uL (3.5-10.8)
[2021-01-30] MEDS: levETIRAcetam IV 1,500 MG in NS 0.9% 100 ml BAG 100 ML IVPB SCH ×2 (06:30→17:12)
[2021-01-30 06:40] LABS: Calcium 7.7 mg/dL (8.6-10.3); EGFR African American 109.9 (>60); EGFR Non-African American 90.9 (>60); Magnesium 2.2 mg/dL (1.9-2.7); Phosphorus 2.4 mg/dL (2.5-5.0); Potassium 2.8 mmol/L (3.5-5.0)
[2021-01-30] MEDS ORDERED: Potassium Chloride LIQUID 20 MEQ/15 ML LIQUID PO ONE (06:49)
[2021-01-30] MEDS: KCL 20 MEQ/100 ML IVPREMIX 20 MEQ/100 ML BAG IV SCH ×3 (07:58→14:45)
[2021-01-30] MEDS: Simethicone SUSP ORALSYR 66.66 MG/ML FEED TUBE SCH ×4 (07:59→21:18)
[2021-01-30] MEDS: Enoxaparin 40 MG/0.4 ML SYR SUBCUT SCH (08:00)
[2021-01-30] MEDS: Polyethylene Glycol 3350 17 GM PACKET FEED TUBE SCH (08:00)
[2021-01-30] MEDS: Lansoprazole SUSP ORALSYR 3 MG/ML G TUBE SCH (08:37)
[2021-01-30] MEDS: Norepinephrine 16MCG/ML IVPRE 4,000 MCG/250 ML BAG IV SCH ×2 (08:38→09:33)
[2021-01-30] MEDS: Midazolam 50 MG VIAL IV DRIP 50 ML IV SCH ×2 (09:59→22:34)
[2021-01-30] MEDS ORDERED: Lorazepam PYXIS KEY PRN (11:54)
[2021-01-30 13:20] LABS: Phenytoin 16.6 mcg/mL (10-20)
[2021-01-30 17:23] LABS: Calcium 7.9 mg/dL (8.6-10.3); EGFR African American 122.3 (>60); EGFR Non-African American 101.1 (>60); Potassium 4.7 mmol/L (3.5-5.0)
[2021-01-30] MEDS: NS 0.9% IVPB SCH (21:53)
[2021-01-30] MEDS: FOSPHENYTOIN IVPB SCH (21:53)
[2021-01-31] MEDS: Chlorhexidine MOUTHWASH 0.12% 15 ML UDC TOPICAL SCH ×6 (01:11→20:45)
[2021-01-31] MEDS: levETIRAcetam IV 1,500 MG in NS 0.9% 100 ml BAG 100 ML IVPB SCH ×2 (04:59→16:29)
[2021-01-31] MEDS: ZOSYN 3.375 GM Q8H per EXTENDED INFUSION IV SCH ×3 (05:00→20:57)
[2021-01-31 05:40] LABS: ABS Eosinophils 0.3 10^3/ul (0-0.6); ABS Lymphocytes 1.6 10^3/ul (1.0-4.8); ABS Monocytes 0.8 10^3/ul (0-0.8); Eosinophil % 4.5 %; Hematocrit 34 % (35-47); Hemoglobin 11.3 g/dL (12.0-16.0); Lymphocyte % 24.2 %; Mean Corpuscular HGB Conc 34 g/dL (31-36); Mean Corpuscular Hemoglobin 30 pg (27-31); Mean Corpuscular Volume 91 fL (80-97); Mean Platelet Volume 7.9 fL (7.4-10.4); Platelet Count 464 10^3/uL (150-450); Red Blood Count 3.73 10^6 /uL (3.70-4.87); Red Cell Distribution Width 13 % (10-15); White Blood Count 6.8 10^3/uL (3.5-10.8)
[2021-01-31 05:55] LABS: EGFR African American 115.8 (>60); EGFR Non-African American 95.7 (>60); Magnesium 1.8 mg/dL (1.9-2.7); Phosphorus 2.5 mg/dL (2.5-5.0); Potassium 3.5 mmol/L (3.5-5.0)
[2021-01-31] MEDS ORDERED: Magnesium Sulfate 2 gm BAG 2 GM/50 ML BAG IVPB ONE (05:57)
[2021-01-31] MEDS: KCL 20 MEQ/100 ML IVPREMIX 20 MEQ/100 ML BAG IV SCH ×2 (06:42→09:35)
[2021-01-31] MEDS: Lansoprazole SUSP ORALSYR 3 MG/ML G TUBE SCH (07:32)
[2021-01-31] MEDS: Polyethylene Glycol 3350 17 GM PACKET FEED TUBE SCH (07:32)
[2021-01-31] MEDS: Simethicone SUSP ORALSYR 66.66 MG/ML FEED TUBE SCH ×4 (07:32→20:45)
[2021-01-31] MEDS: Enoxaparin 40 MG/0.4 ML SYR SUBCUT SCH (07:32)
[2021-01-31] MEDS ORDERED: Acyclovir IV 500 MG/10 ML 100 ML VIAL (500 MG) IVPB SCH (11:00)
[2021-01-31] MEDS: Acyclovir IV 540 MG in NS 0.9% 100 ml BAG 100 ML IVPB SCH ×2 (11:55→20:45)
[2021-01-31] MEDS: NS 0.9% 1000 ml BAG 1,000 ML IV SCH ×2 (14:08→23:17)
[2021-01-31] MEDS ORDERED: Lorazepam PYXIS KEY ONE (14:38)
[2021-01-31] MEDS: LORazepam 2 mg VIAL 1 ml IV PUSH PRN (14:42)
[2021-01-31] MEDS: fentaNYL 100 mcg/2 ml 50 MCG/ML VIAL IV SLOW PU PRN (14:44)
[2021-01-31] MEDS ORDERED: fentaNYL 100 mcg/2 ml 50 MCG/ML VIAL ONE (14:50)
[2021-01-31] MEDS ORDERED: fentaNYL 100 mcg/2 ml 50 MCG/ML VIAL IV SLOW PU ONE (15:30)
[2021-01-31] MEDS: NS 0.9% IVPB SCH (21:31)
[2021-01-31] MEDS: FOSPHENYTOIN IVPB SCH (21:31)
[2021-02-01] MEDS: Chlorhexidine MOUTHWASH 0.12% 15 ML UDC TOPICAL SCH ×6 (00:29→21:05)
[2021-02-01 01:05] LABS: Calcium 7.9 mg/dL (8.6-10.3); EGFR African American 109.9 (>60); EGFR Non-African American 90.9 (>60); Potassium 3.5 mmol/L (3.5-5.0)
[2021-02-01] MEDS: levETIRAcetam IV 1,500 MG in NS 0.9% 100 ml BAG 100 ML IVPB SCH ×2 (04:13→17:23)
[2021-02-01] MEDS: Acyclovir IV 540 MG in NS 0.9% 100 ml BAG 100 ML IVPB SCH ×3 (04:14→21:05)
[2021-02-01 04:34] LABS: ABS Eosinophils 0.4 10^3/ul (0-0.6); ABS Lymphocytes 1.3 10^3/ul (1.0-4.8); ABS Monocytes 0.5 10^3/ul (0-0.8); ABS Neutrophils 3.7 10^3/ul (1.5-7.7); Eosinophil % 6.1 %; Hematocrit 33 % (35-47); Hemoglobin 10.7 g/dL (12.0-16.0); Lymphocyte % 21.6 %; Mean Corpuscular HGB Conc 32 g/dL (31-36); Mean Corpuscular Hemoglobin 30 pg (27-31); Mean Corpuscular Volume 93 fL (80-97); Mean Platelet Volume 7.9 fL (7.4-10.4); Platelet Count 369 10^3/uL (150-450); Red Blood Count 3.54 10^6 /uL (3.70-4.87); Red Cell Distribution Width 13 % (10-15); White Blood Count 5.9 10^3/uL (3.5-10.8)
[2021-02-01 04:51] LABS: Calcium 7.9 mg/dL (8.6-10.3); EGFR African American 102.9 (>60); EGFR Non-African American 85.1 (>60); Magnesium 1.8 mg/dL (1.9-2.7); Phosphorus 3.1 mg/dL (2.5-5.0); Potassium 3.2 mmol/L (3.5-5.0)
[2021-02-01] MEDS ORDERED: Potassium Chloride LIQUID 20 MEQ/15 ML LIQUID PO ONE (05:12)
[2021-02-01] MEDS ORDERED: Magnesium Sulfate 2 gm BAG 2 GM/50 ML BAG IVPB ONE (05:20)
[2021-02-01] MEDS: KCL 20 MEQ/100 ML IVPREMIX 20 MEQ/100 ML BAG IV SCH ×2 (05:30→06:34)
[2021-02-01] MEDS: ZOSYN 3.375 GM Q8H per EXTENDED INFUSION IV SCH ×3 (05:30→22:54)
[2021-02-01] MEDS: fentaNYL 100 mcg/2 ml 50 MCG/ML VIAL IV SLOW PU PRN ×2 (06:33→09:54)
[2021-02-01] MEDS: Lansoprazole SUSP ORALSYR 3 MG/ML G TUBE SCH (07:32)
[2021-02-01] MEDS: Simethicone SUSP ORALSYR 66.66 MG/ML FEED TUBE SCH ×4 (07:32→21:05)
[2021-02-01] MEDS: Enoxaparin 40 MG/0.4 ML SYR SUBCUT SCH (07:32)
[2021-02-01] MEDS: Polyethylene Glycol 3350 17 GM PACKET FEED TUBE SCH (07:32)
[2021-02-01] MEDS ORDERED: Furosemide 40 mg/4 ml IV VIAL IV ONE (08:05)
[2021-02-01] MEDS: LORazepam 2 mg VIAL 1 ml IV PUSH PRN (11:40)
[2021-02-01] MEDS ORDERED: Dexmedetomidine 1,000 MCG in NS 0.9% 250 ml 240 ML IV SCH (13:00)
[2021-02-01] MEDS: Norepinephrine 16MCG/ML IVPRE 4,000 MCG/250 ML BAG IV SCH (14:52)
[2021-02-01 16:45] LABS: Calcium 8.7 mg/dL (8.6-10.3); EGFR African American 76.6 (>60); EGFR Non-African American 63.3 (>60); Magnesium 2.5 mg/dL (1.9-2.7)
[2021-02-01] MEDS ORDERED: Furosemide 40 mg/4 ml IV VIAL IV SLOW PU ONE (18:53)
[2021-02-01] MEDS: FOSPHENYTOIN IVPB SCH (21:05)
[2021-02-01] MEDS: NS 0.9% IVPB SCH (21:05)
[2021-02-02] MEDS: fentaNYL 100 mcg/2 ml 50 MCG/ML VIAL IV SLOW PU PRN ×3 (01:05→13:11)
[2021-02-02] MEDS: Chlorhexidine MOUTHWASH 0.12% 15 ML UDC TOPICAL SCH ×6 (01:05→20:26)
[2021-02-02] MEDS: Acyclovir IV 540 MG in NS 0.9% 100 ml BAG 100 ML IVPB SCH ×3 (03:51→20:31)
[2021-02-02 04:51] LABS: ABS Eosinophils 0.4 10^3/ul (0-0.6); ABS Lymphocytes 1.7 10^3/ul (1.0-4.8); ABS Monocytes 0.8 10^3/ul (0-0.8); ABS Neutrophils 5.1 10^3/ul (1.5-7.7); Eosinophil % 4.8 %; Hematocrit 36 % (35-47); Hemoglobin 12.1 g/dL (12.0-16.0); Lymphocyte % 21.5 %; Mean Corpuscular HGB Conc 34 g/dL (31-36); Mean Corpuscular Hemoglobin 31 pg (27-31); Mean Corpuscular Volume 92 fL (80-97); Mean Platelet Volume 8.1 fL (7.4-10.4); Platelet Count 456 10^3/uL (150-450); Red Blood Count 3.93 10^6 /uL (3.70-4.87); Red Cell Distribution Width 13 % (10-15)
[2021-02-02 05:00] LABS: EGFR African American 81.6 (>60); EGFR Non-African American 67.5 (>60); Potassium 3.2 mmol/L (3.5-5.0)
[2021-02-02] MEDS: levETIRAcetam IV 1,500 MG in NS 0.9% 100 ml BAG 100 ML IVPB SCH ×2 (05:20→17:19)
[2021-02-02] MEDS: ZOSYN 3.375 GM Q8H per EXTENDED INFUSION IV SCH ×3 (05:20→23:57)
[2021-02-02] MEDS: Simethicone SUSP ORALSYR 66.66 MG/ML FEED TUBE SCH ×4 (07:32→20:31)
[2021-02-02] MEDS: Enoxaparin 40 MG/0.4 ML SYR SUBCUT SCH (07:32)
[2021-02-02] MEDS: Polyethylene Glycol 3350 17 GM PACKET FEED TUBE SCH (07:32)
[2021-02-02] MEDS: Lansoprazole SUSP ORALSYR 3 MG/ML G TUBE SCH (07:39)
[2021-02-02 09:33] LABS: PCO2 Arterial 24 mmHg (35-45); PO2 Arterial 141 mmHg (80-100)
[2021-02-02] MEDS: KCL 20 MEQ/100 ML IVPREMIX 20 MEQ/100 ML BAG IV SCH ×2 (10:17→12:52)
[2021-02-02] MEDS ORDERED: Lidocaine 1% VIAL 10 MG/ML VIAL ONE (11:34)
[2021-02-02] MEDS ORDERED: Lidocaine 4% TOPICAL 50 ML TOP.SOLN ONE (11:34)
[2021-02-02 19:19] LABS: Calcium 8.7 mg/dL (8.6-10.3); EGFR African American 91.1 (>60); EGFR Non-African American 75.3 (>60); Potassium 4.1 mmol/L (3.5-5.0)
[2021-02-02] MEDS ORDERED: NS 0.9% 100 ml BAG 100 ML ONE (20:05)
[2021-02-02] MEDS: LORazepam 2 mg VIAL 1 ml IV PUSH PRN ×2 (20:23→23:16)
[2021-02-02] MEDS: FOSPHENYTOIN IVPB SCH (20:24)
[2021-02-02] MEDS: NS 0.9% IVPB SCH (20:24)
[2021-02-02 20:25] LABS: PCO2 Arterial 36 mmHg (35-45); PO2 Arterial 120 mmHg (80-100)
[2021-02-02] MEDS ORDERED: Lorazepam PYXIS KEY PRN (21:06)
[2021-02-02] MEDS ORDERED: LORazepam 2 mg VIAL 1 ml IV PUSH ONE (21:06)
[2021-02-03 00:08] LABS: ABS Eosinophils 0.3 10^3/ul (0-0.6); ABS Lymphocytes 1.4 10^3/ul (1.0-4.8); ABS Monocytes 0.7 10^3/ul (0-0.8); Eosinophil % 4.1 %; Hematocrit 38 % (35-47); Hemoglobin 12.6 g/dL (12.0-16.0); Lymphocyte % 18.4 %; Mean Corpuscular HGB Conc 34 g/dL (31-36); Mean Corpuscular Hemoglobin 31 pg (27-31); Mean Corpuscular Volume 92 fL (80-97); Mean Platelet Volume 7.6 fL (7.4-10.4); Platelet Count 412 10^3/uL (150-450); Red Blood Count 4.08 10^6 /uL (3.70-4.87); Red Cell Distribution Width 14 % (10-15); White Blood Count 7.4 10^3/uL (3.5-10.8)
[2021-02-03] MEDS ORDERED: Acetaminophen IV 1 GM/100ML 100 ML IV ONE (00:10)
[2021-02-03] MEDS: Chlorhexidine MOUTHWASH 0.12% 15 ML UDC TOPICAL SCH ×2 (00:25→05:54)
[2021-02-03] MEDS: Acyclovir IV 540 MG in NS 0.9% 100 ml BAG 100 ML IVPB SCH ×3 (03:11→19:48)
[2021-02-03] MEDS: levETIRAcetam IV 1,500 MG in NS 0.9% 100 ml BAG 100 ML IVPB SCH ×2 (05:54→17:09)
[2021-02-03] MEDS: ZOSYN 3.375 GM Q8H per EXTENDED INFUSION IV SCH ×3 (05:59→21:15)
[2021-02-03] MEDS: Polyethylene Glycol 3350 17 GM PACKET FEED TUBE SCH (09:37)
[2021-02-03 10:25] LABS: ABS Eosinophils 0.3 10^3/ul (0-0.6); ABS Lymphocytes 1.2 10^3/ul (1.0-4.8); ABS Monocytes 0.6 10^3/ul (0-0.8); ABS Neutrophils 4.1 10^3/ul (1.5-7.7); Eosinophil % 4.5 %; Hematocrit 37 % (35-47); Hemoglobin 12.3 g/dL (12.0-16.0); Lymphocyte % 18.7 %; Mean Corpuscular HGB Conc 34 g/dL (31-36); Mean Corpuscular Hemoglobin 31 pg (27-31); Mean Corpuscular Volume 92 fL (80-97); Mean Platelet Volume 8.2 fL (7.4-10.4); Platelet Count 389 10^3/uL (150-450); Red Blood Count 4.02 10^6 /uL (3.70-4.87); Red Cell Distribution Width 14 % (10-15); White Blood Count 6.2 10^3/uL (3.5-10.8)
[2021-02-03] MEDS: Lansoprazole SUSP ORALSYR 3 MG/ML G TUBE SCH (10:34)
[2021-02-03] MEDS: Enoxaparin 40 MG/0.4 ML SYR SUBCUT SCH (10:34)
[2021-02-03] MEDS: Simethicone SUSP ORALSYR 66.66 MG/ML FEED TUBE SCH ×4 (10:34→21:16)
[2021-02-03 10:52] LABS: Calcium 8.9 mg/dL (8.6-10.3); EGFR African American 120.1 (>60); EGFR Non-African American 99.2 (>60); Potassium 3.7 mmol/L (3.5-5.0)
[2021-02-03] MEDS: LORazepam 2 mg VIAL 1 ml IV PUSH PRN (19:45)
[2021-02-03] MEDS ORDERED: Scopolamine PATCH Remove NOTE PATCH OFF SCH (21:00)
[2021-02-03] MEDS: NS 0.9% IVPB SCH (21:16)
[2021-02-03] MEDS: FOSPHENYTOIN IVPB SCH (21:16)
[2021-02-04] MEDS: Acyclovir IV 540 MG in NS 0.9% 100 ml BAG 100 ML IVPB SCH (03:11)
[2021-02-04] MEDS: levETIRAcetam IV 1,500 MG in NS 0.9% 100 ml BAG 100 ML IVPB SCH ×2 (05:27→17:34)
[2021-02-04] MEDS: ZOSYN 3.375 GM Q8H per EXTENDED INFUSION IV SCH ×3 (05:47→21:58)
[2021-02-04 07:13] LABS: ABS Eosinophils 0.3 10^3/ul (0-0.6); ABS Lymphocytes 1.3 10^3/ul (1.0-4.8); ABS Monocytes 0.6 10^3/ul (0-0.8); ABS Neutrophils 3.8 10^3/ul (1.5-7.7); Eosinophil % 4.8 %; Hematocrit 35 % (35-47); Hemoglobin 11.8 g/dL (12.0-16.0); Lymphocyte % 21.2 %; Mean Corpuscular HGB Conc 34 g/dL (31-36); Mean Corpuscular Hemoglobin 31 pg (27-31); Mean Corpuscular Volume 92 fL (80-97); Mean Platelet Volume 8.1 fL (7.4-10.4); Platelet Count 350 10^3/uL (150-450); Red Cell Distribution Width 14 % (10-15)
[2021-02-04 07:36] LABS: Calcium 8.5 mg/dL (8.6-10.3); EGFR African American 134.8 (>60); EGFR Non-African American 111.4 (>60); Magnesium 1.7 mg/dL (1.9-2.7); Phosphorus 3.4 mg/dL (2.5-5.0); Potassium 3.4 mmol/L (3.5-5.0)
[2021-02-04] MEDS: Enoxaparin 40 MG/0.4 ML SYR SUBCUT SCH (10:27)
[2021-02-04] MEDS: Simethicone SUSP ORALSYR 66.66 MG/ML FEED TUBE SCH ×4 (10:27→21:58)
[2021-02-04] MEDS: Polyethylene Glycol 3350 17 GM PACKET FEED TUBE SCH (10:27)
[2021-02-04] MEDS: Lansoprazole SUSP ORALSYR 3 MG/ML G TUBE SCH (10:33)
[2021-02-04] MEDS ORDERED: Potassium Chloride LIQUID 20 MEQ/15 ML LIQUID PEG TUBE ONE (13:59)
[2021-02-04] MEDS ORDERED: Phenytoin SUSP 100 MG/4 ML UDC (100 MG) G TUBE SCH (21:00)
[2021-02-04] MEDS ORDERED: Phenytoin 100 mg ER CAP SCH (21:00)
[2021-02-04] MEDS: levETIRAcetam LIQ 500 MG/5 ML UDC G TUBE SCH (21:57)
[2021-02-05] MEDS: ZOSYN 3.375 GM Q8H per EXTENDED INFUSION IV SCH (06:18)
[2021-02-05 06:41] LABS: ABS Eosinophils 0.4 10^3/ul (0-0.6); ABS Lymphocytes 1.7 10^3/ul (1.0-4.8); ABS Monocytes 0.6 10^3/ul (0-0.8); ABS Neutrophils 2.8 10^3/ul (1.5-7.7); Eosinophil % 6.8 %; Hematocrit 38 % (35-47); Hemoglobin 12.5 g/dL (12.0-16.0); Lymphocyte % 31.4 %; Mean Corpuscular HGB Conc 33 g/dL (31-36); Mean Corpuscular Hemoglobin 31 pg (27-31); Mean Corpuscular Volume 93 fL (80-97); Mean Platelet Volume 7.8 fL (7.4-10.4); Platelet Count 362 10^3/uL (150-450); Red Blood Count 4.04 10^6 /uL (3.70-4.87); Red Cell Distribution Width 14 % (10-15); White Blood Count 5.6 10^3/uL (3.5-10.8)
[2021-02-05 07:01] LABS: Calcium 9.1 mg/dL (8.6-10.3); EGFR African American 120.1 (>60); EGFR Non-African American 99.2 (>60); Potassium 4.1 mmol/L (3.5-5.0)
[2021-02-05] MEDS: levETIRAcetam LIQ 500 MG/5 ML UDC G TUBE SCH (08:18)
[2021-02-05] MEDS: Simethicone SUSP ORALSYR 66.66 MG/ML FEED TUBE SCH ×2 (08:18→14:56)
[2021-02-05] MEDS: Lansoprazole SUSP ORALSYR 3 MG/ML G TUBE SCH (08:19)
[2021-02-05] MEDS: Enoxaparin 40 MG/0.4 ML SYR SUBCUT SCH (08:19)
[2021-02-05] MEDS: Polyethylene Glycol 3350 17 GM PACKET FEED TUBE SCH (08:20)
[2021-02-05 12:36] VITALS: BP 138/89
== END 2021-02-05 15:40 | disposition home or self-care (01) | DRG 207 ==
LOC: ED 05:18 → SUATTDRO 08:38 → MED 08:38 → ICU 01-29 06:15 → MED 02-04 00:20
PROVIDERS: ADMIT Hospitalist; ATTEND Internal Medicine

== ENCOUNTER 2021-04-02 18:08 | Inpatient (IN) ==
[2021-04-02 20:21] LABS: ABS Eosinophils 0.1 10^3/ul (0-0.6); ABS Lymphocytes 0.9 10^3/ul (1.0-4.8); ABS Monocytes 1.2 10^3/ul (0-0.8); ABS Neutrophils 6.9 10^3/ul (1.5-7.7); Eosinophil % 0.8 %; Hematocrit 38 % (35-47); Hemoglobin 12.6 g/dL (12.0-16.0); Mean Corpuscular HGB Conc 34 g/dL (31-36); Mean Corpuscular Hemoglobin 32 pg (27-31); Mean Corpuscular Volume 95 fL (80-97); Mean Platelet Volume 8.2 fL (7.4-10.4); Platelet Count 295 10^3/uL (150-450); Red Blood Count 3.94 10^6 /uL (3.70-4.87); Red Cell Distribution Width 16 % (10-15); White Blood Count 9.1 10^3/uL (3.5-10.8)
[2021-04-02 20:40] LABS: ALT 72 U/L (7-52); AST 44 U/L (13-39); Albumin 3.4 g/dL (3.2-5.2); Albumin/Globulin Ratio 0.9 (1-3); Alkaline Phosphatase 248 U/L (35-149); Anion Gap 5 mmol/L (2-11); Blood Urea Nitrogen 15 mg/dL (6-24); CO2 Carbon Dioxide 32 mmol/L (22-32); Calcium 9.3 mg/dL (8.6-10.3); Chloride 96 mmol/L (101-111); Glucose 123 mg/dL (70-100); Potassium 4.4 mmol/L (3.5-5.0); Sodium 133 mmol/L (135-145); Total Protein 7.4 g/dL (6.4-8.9)
[2021-04-02 20:55] LABS: Activated Partial Thrombo Time 32.5 seconds (26.0-38.0); INR 1.12 (0.86-1.15)
[2021-04-02 21:38] LABS: Troponin I 0.01 ng/mL (<0.03)
[2021-04-03 00:10] LABS: Urine Appearance Cloudy; Urine Bilirubin Negative (Negative); Urine Blood 1+ (Negative); Urine Color Yellow; Urine Glucose Negative (Negative); Urine Ketones Negative (Negative); Urine Nitrite Negative (Negative); Urine Protein 1+(30 mg/dL) (Negative); Urine Specific Gravity 1.006 (1.002-1.030); Urine Urobilinogen Negative (Negative)
[2021-04-03 00:21] LABS: Urine Bacteria 3+ (Absent); Urine Red Blood Cell 2+(6-10/hpf) (Absent); Urine Squamous Epithelial Cell Present (Absent); Urine White Blood Cell 3+(>20/hpf) (Absent)
[2021-04-03 02:36] LABS: Rapid COVID-19 Molecular Undetected (Undetected)
[2021-04-03] MEDS: Enoxaparin 40 MG/0.4 ML SYR SUBCUT SCH (03:19)
[2021-04-03] MEDS ORDERED: Lactated Ringers 1000 ml BAG 1,000 ML IV SCH (04:00)
[2021-04-03] MEDS ORDERED: Lactated Ringers 1000 ml BAG 1,000 ML IV ONE (04:28)
[2021-04-03] MEDS ORDERED: Al Hydrox/Mg Hydrox/Simet LIQ 30 ML UDC FEED TUBE PRN (04:30)
[2021-04-03] MEDS: metroNIDAZOLE IV 500 MG/100ML 500 MG/100 ML BAG IVPB SCH ×2 (05:43→17:37)
[2021-04-03] MEDS: Polyethylene Glycol 3350 17 GM PACKET FEED TUBE SCH (08:07)
[2021-04-03] MEDS: levETIRAcetam LIQ 500 MG/5 ML UDC G TUBE SCH ×2 (08:42→22:45)
[2021-04-03] MEDS: Lansoprazole SUSP ORALSYR 3 MG/ML FEED TUBE SCH (08:42)
[2021-04-03] MEDS: Morphine 2 MG/ML SYRINGE IV PRN (15:08)
[2021-04-03] MEDS: Phenytoin SUSP 100 MG/4 ML UDC (100 MG) G TUBE SCH (22:45)
[2021-04-04] MEDS: Enoxaparin 40 MG/0.4 ML SYR SUBCUT SCH (02:11)
[2021-04-04] MEDS: cefTRIAXone 1 gm/50 mL NS BAG 1 GM/50 ML BAG IVPB SCH (02:12)
[2021-04-04] MEDS: Morphine 2 MG/ML SYRINGE IV PRN ×2 (03:52→13:24)
[2021-04-04] MEDS: metroNIDAZOLE IV 500 MG/100ML 500 MG/100 ML BAG IVPB SCH ×2 (05:38→17:28)
[2021-04-04 06:37] LABS: ABS Eosinophils 0.1 10^3/ul (0-0.6); ABS Lymphocytes 1.1 10^3/ul (1.0-4.8); ABS Monocytes 1.1 10^3/ul (0-0.8); ABS Neutrophils 6.4 10^3/ul (1.5-7.7); Eosinophil % 0.9 %; Hematocrit 36 % (35-47); Hemoglobin 12.6 g/dL (12.0-16.0); Lymphocyte % 12.6 %; Mean Corpuscular HGB Conc 35 g/dL (31-36); Mean Corpuscular Hemoglobin 33 pg (27-31); Mean Corpuscular Volume 96 fL (80-97); Mean Platelet Volume 8.7 fL (7.4-10.4); Platelet Count 333 10^3/uL (150-450); Red Blood Count 3.79 10^6 /uL (3.70-4.87); Red Cell Distribution Width 16 % (10-15); White Blood Count 8.8 10^3/uL (3.5-10.8)
[2021-04-04 06:42] LABS: Calcium 9.4 mg/dL (8.6-10.3); Potassium 4.1 mmol/L (3.5-5.0)
[2021-04-04] MEDS: Polyethylene Glycol 3350 17 GM PACKET FEED TUBE SCH (08:18)
[2021-04-04] MEDS: Lansoprazole SUSP ORALSYR 3 MG/ML FEED TUBE SCH (08:19)
[2021-04-04] MEDS: levETIRAcetam LIQ 500 MG/5 ML UDC G TUBE SCH ×2 (08:19→20:52)
[2021-04-04] MEDS: Phenytoin SUSP 100 MG/4 ML UDC (100 MG) G TUBE SCH (20:52)
[2021-04-05] MEDS: cefTRIAXone 1 gm/50 mL NS BAG 1 GM/50 ML BAG IVPB SCH (02:15)
[2021-04-05] MEDS: Enoxaparin 40 MG/0.4 ML SYR SUBCUT SCH (02:15)
[2021-04-05] MEDS: Morphine 2 MG/ML SYRINGE IV PRN (03:15)
[2021-04-05] MEDS: metroNIDAZOLE IV 500 MG/100ML 500 MG/100 ML BAG IVPB SCH ×2 (05:24→17:09)
[2021-04-05] MEDS: Lansoprazole SUSP ORALSYR 3 MG/ML FEED TUBE SCH (08:45)
[2021-04-05] MEDS: Polyethylene Glycol 3350 17 GM PACKET FEED TUBE SCH (08:45)
[2021-04-05] MEDS: levETIRAcetam LIQ 500 MG/5 ML UDC G TUBE SCH ×2 (08:46→20:51)
[2021-04-05] MEDS ORDERED: SPIRIVA Respimat (tiotropium) 2.5 mcg/inh Inhaler INH SCH (13:00)
[2021-04-05] MEDS: Phenytoin SUSP 100 MG/4 ML UDC (100 MG) G TUBE SCH (20:52)
[2021-04-06] MEDS: Enoxaparin 40 MG/0.4 ML SYR SUBCUT SCH (02:13)
[2021-04-06] MEDS: cefTRIAXone 1 gm/50 mL NS BAG 1 GM/50 ML BAG IVPB SCH (02:13)
[2021-04-06] MEDS: metroNIDAZOLE IV 500 MG/100ML 500 MG/100 ML BAG IVPB SCH ×2 (05:29→17:56)
[2021-04-06 05:38] LABS: Albumin 3.3 g/dL (3.2-5.2); Albumin/Globulin Ratio 0.9 (1-3); Calcium 9.4 mg/dL (8.6-10.3); Globulin 3.6 g/dL (2-4); Magnesium 2.2 mg/dL (1.9-2.7); Potassium 3.6 mmol/L (3.5-5.0); Total Bilirubin 0.2 mg/dL (0.2-1.0); Total Protein 6.9 g/dL (6.4-8.9)
[2021-04-06 05:46] LABS: ABS Eosinophils 0.1 10^3/ul (0-0.6); ABS Lymphocytes 1.2 10^3/ul (1.0-4.8); ABS Monocytes 0.9 10^3/ul (0-0.8); ABS Neutrophils 4.2 10^3/ul (1.5-7.7); Eosinophil % 1.8 %; Hematocrit 36 % (35-47); Hemoglobin 12.2 g/dL (12.0-16.0); Lymphocyte % 18.3 %; Mean Corpuscular HGB Conc 34 g/dL (31-36); Mean Corpuscular Hemoglobin 33 pg (27-31); Mean Corpuscular Volume 96 fL (80-97); Mean Platelet Volume 7.8 fL (7.4-10.4); Platelet Count 398 10^3/uL (150-450); Red Blood Count 3.69 10^6 /uL (3.70-4.87); Red Cell Distribution Width 15 % (10-15); White Blood Count 6.4 10^3/uL (3.5-10.8)
[2021-04-06 08:58] LABS: C Reactive Protein 92.22 mg/L (<8.01)
[2021-04-06] MEDS: Polyethylene Glycol 3350 17 GM PACKET FEED TUBE SCH (09:53)
[2021-04-06] MEDS: levETIRAcetam LIQ 500 MG/5 ML UDC G TUBE SCH ×2 (09:53→23:45)
[2021-04-06 09:54] LABS: PCO2 Arterial 50 mmHg (35-45); PO2 Arterial 84 mmHg (80-100)
[2021-04-06] MEDS: Lansoprazole SUSP ORALSYR 3 MG/ML FEED TUBE SCH (11:26)
[2021-04-06] MEDS ORDERED: Scopolamine PATCH Remove NOTE PATCH OFF SCH (16:00)
[2021-04-06] MEDS: Phenytoin SUSP 100 MG/4 ML UDC (100 MG) G TUBE SCH (23:45)
[2021-04-07] MEDS: Enoxaparin 40 MG/0.4 ML SYR SUBCUT SCH (03:00)
[2021-04-07] MEDS: cefTRIAXone 1 gm/50 mL NS BAG 1 GM/50 ML BAG IVPB SCH (03:00)
[2021-04-07] MEDS: metroNIDAZOLE IV 500 MG/100ML 500 MG/100 ML BAG IVPB SCH (06:02)
[2021-04-07] MEDS: Polyethylene Glycol 3350 17 GM PACKET FEED TUBE SCH (08:11)
[2021-04-07] MEDS: levETIRAcetam LIQ 500 MG/5 ML UDC G TUBE SCH (08:29)
[2021-04-07] MEDS: Lansoprazole SUSP ORALSYR 3 MG/ML FEED TUBE SCH (09:17)
[2021-04-07 15:53] VITALS: BP 133/77
== END 2021-04-07 18:00 | DRG 871 ==
LOC: ED 18:08 → MED 04-03 01:12 → SUATTDRO 04-03 01:12 → MED 04-03 04:34
PROVIDERS: ADMIT Internal Medicine; ATTEND Internal Medicine

== ENCOUNTER 2021-12-25 02:30 | Inpatient (IN) ==
[2021-12-25 03:32] LABS: Hematocrit 43 % (35-47); Hemoglobin 14.4 g/dL (12.0-16.0); Mean Corpuscular HGB Conc 34 g/dL (31-36); Mean Corpuscular Hemoglobin 32 pg (27-31); Mean Corpuscular Volume 95 fL (80-97); Platelet Count 251 10^3/uL (150-450); Red Blood Count 4.54 10^6 /uL (3.70-4.87); Red Cell Distribution Width 12 % (10-15); White Blood Count 14.9 10^3/uL (3.5-10.8)
[2021-12-25 03:47] LABS: Activated Partial Thrombo Time 34.7 seconds (26.0-38.0); Albumin 3.8 g/dL (3.2-5.2); Albumin/Globulin Ratio 1.3 (1-3); Calcium 9.4 mg/dL (8.6-10.3); INR 1.06 (0.86-1.15); Potassium 4.2 mmol/L (3.5-5.0); Total Bilirubin 0.4 mg/dL (0.2-1.0); Total Protein 6.8 g/dL (6.4-8.9); eGFR CKD-EPI 107.7 (>60)
[2021-12-25] MEDS ORDERED: Pantoprazole 80 mg in NS BAG 80 MG/250 ML BAG IV ONE (04:15)
[2021-12-25] MEDS ORDERED: Pantoprazole VIAL 40 MG VIAL IV ONE (04:15)
[2021-12-25 05:03] LABS: ABS Eosinophils 0.1 10^3/ul (0-0.6); ABS Monocytes 1.6 10^3/ul (0-0.8); ABS Neutrophils 12.2 10^3/ul (1.5-7.7); Eosinophil % 0.6 %; Lymphocyte % 6.9 %
[2021-12-25] MEDS ORDERED: Lactated Ringers 1000 ml BAG 1,000 ML IV ONE (06:16)
[2021-12-25 08:04] LABS: C Reactive Protein 19.08 mg/L (<8.01)
[2021-12-25] MEDS ORDERED: cefTRIAXone 2 gm/50 mL D5W 2 GM/50 ML BAG IV ONE (08:14)
[2021-12-25 08:58] LABS: Urine Appearance Cloudy; Urine Color Straw
[2021-12-25 08:59] LABS: Urine Blood 1+ (Negative); Urine Ketones Negative (Negative); Urine Nitrite Negative (Negative); Urine Protein Negative (Negative); Urine Specific Gravity 1.015 (1.002-1.030); Urine Urobilinogen Negative (Negative)
[2021-12-25 09:00] LABS: Urine Bilirubin Negative (Negative); Urine Glucose Negative (Negative)
[2021-12-25] MEDS ORDERED: Sodium Phosphate ADULT ENEMA 133 ML BTL PR PRN (09:00)
[2021-12-25] MEDS ORDERED: Saline NASAL SPRAY 0.65% BTL BOTH NARES PRN (09:00)
[2021-12-25] MEDS ORDERED: Phenytoin IV 50 MG/ML 2 ML VIAL (100 MG) IVPB SCH (09:00)
[2021-12-25] MEDS ORDERED: Ondansetron 4 mg VIAL 2 MG/ML 2 ml VIAL IV PRN (09:03)
[2021-12-25] MEDS: Pantoprazole VIAL 40 MG VIAL IV SCH ×2 (09:09→21:59)
[2021-12-25 09:10] LABS: Urine Bacteria 1+ (Absent); Urine Red Blood Cell 1+(3-5/hpf) (Absent); Urine Squamous Epithelial Cell Present (Absent); Urine White Blood Cell 3+(>20/hpf) (Absent)
[2021-12-25] MEDS: NS 0.9% 1000 ml BAG 1,000 ML IV SCH ×2 (09:10→21:55)
[2021-12-25] MEDS ORDERED: levETIRAcetam IV 1,500 MG in NS 0.9% 100 ml BAG 100 ML IVPB ONE (10:00)
[2021-12-25] MEDS: Levothyroxine 100 MCG/5 ML VIAL IV SCH (10:11)
[2021-12-25] MEDS: Scopolamine 1 mg/72hr PATCH TRANSDERM SCH (10:12)
[2021-12-25] MEDS ORDERED: hydrALAZINE 20 mg/ml 1 ML Vial IV IV SLOW PU PRN (13:21)
[2021-12-25] MEDS: Fosphenytoin 100 MG in NS 0.9% 50 ML IVPB SCH (21:57)
[2021-12-25] MEDS: levETIRAcetam IV 1,500 MG in NS 0.9% 100 ml BAG 100 ML IVPB SCH (21:59)
[2021-12-26] MEDS: Levothyroxine 100 MCG/5 ML VIAL IV SCH (05:21)
[2021-12-26] MEDS: Fosphenytoin 100 MG in NS 0.9% 50 ML IVPB SCH ×3 (05:21→17:29)
[2021-12-26 06:57] LABS: ABS Lymphocytes 0.9 10^3/ul (1.0-4.8); ABS Monocytes 0.9 10^3/ul (0-0.8); ABS Neutrophils 6.8 10^3/ul (1.5-7.7); Eosinophil % 0.2 %; Hematocrit 36 % (35-47); Hemoglobin 12.3 g/dL (12.0-16.0); Lymphocyte % 10.6 %; Mean Corpuscular HGB Conc 34 g/dL (31-36); Mean Corpuscular Hemoglobin 33 pg (27-31); Mean Corpuscular Volume 97 fL (80-97); Mean Platelet Volume 8.8 fL (7.4-10.4); Platelet Count 205 10^3/uL (150-450); Red Cell Distribution Width 13 % (10-15); White Blood Count 8.6 10^3/uL (3.5-10.8)
[2021-12-26 07:41] LABS: Calcium 8.6 mg/dL (8.6-10.3); Potassium 4.1 mmol/L (3.5-5.0); eGFR CKD-EPI 112.6 (>60)
[2021-12-26] MEDS: levETIRAcetam IV 1,500 MG in NS 0.9% 100 ml BAG 100 ML IVPB SCH ×2 (08:32→22:11)
[2021-12-26] MEDS: NS 0.9% 1000 ml BAG 1,000 ML IV SCH (09:17)
[2021-12-26] MEDS: cefTRIAXone 1 gm/50 mL D5W 1 GM/50 ML BAG IV SCH (09:20)
[2021-12-26] MEDS: Pantoprazole VIAL 40 MG VIAL IV SCH ×2 (09:23→22:11)
[2021-12-26] MEDS ORDERED: Iohexol 180 (CONTRAST) 10 ML SDV IV ONE (13:07)
[2021-12-26] MEDS ORDERED: fentaNYL 100 mcg/2 ml 50 MCG/ML VIAL ONE (13:19)
[2021-12-26] MEDS ORDERED: Etomidate 20 mg/10 ml 2 MG/ML 10 ml VIAL ONE (13:19)
[2021-12-26] MEDS ORDERED: Lidocaine 0.5% SDV 50 ML VIAL ONE (13:20)
[2021-12-26] MEDS ORDERED: Rocuronium 50 mg VIAL 10 mg/ml 5 ml VIAL (50 mg) ONE (13:22)
[2021-12-26] MEDS ORDERED: Phenylephrine 40 mcg/mL 10mL (400mcg) SYRINGE ONE (13:56)
[2021-12-26] MEDS ORDERED: Sugammadex 500 MG/5 ML 5 ml VIAL IV PUSH ONE (14:22)
[2021-12-26] MEDS ORDERED: Oxymetazoline 0.05% NASAL SPR 15 ML BTL ONE (14:48)
[2021-12-26] MEDS ORDERED: Naloxone 0.4 mg VIAL 0.4 mg/ml 1 ml VIAL IV PRN (15:12)
[2021-12-26] MEDS ORDERED: Ondansetron ODT 4 mg TAB 4 MG TAB PO PRN (15:12)
[2021-12-26] MEDS ORDERED: Morphine 4 MG/ML VIAL (1 ml) IV PRN (15:12)
[2021-12-26] MEDS ORDERED: Morphine 4 MG/ML VIAL (1 ml) ONE (15:58)
[2021-12-27] MEDS: NS 0.9% 1000 ml BAG 1,000 ML IV SCH ×2 (01:38→18:55)
[2021-12-27] MEDS: Fosphenytoin 100 MG in NS 0.9% 50 ML IVPB SCH ×3 (01:40→13:41)
[2021-12-27] MEDS: Levothyroxine 100 MCG/5 ML VIAL IV SCH (05:23)
[2021-12-27 07:40] LABS: Hematocrit 41 % (35-47); Hemoglobin 13.4 g/dL (12.0-16.0); Mean Corpuscular HGB Conc 33 g/dL (31-36); Mean Corpuscular Hemoglobin 32 pg (27-31); Mean Corpuscular Volume 98 fL (80-97); Mean Platelet Volume 8.7 fL (7.4-10.4); Platelet Count 211 10^3/uL (150-450); Red Blood Count 4.15 10^6 /uL (3.70-4.87); Red Cell Distribution Width 13 % (10-15); White Blood Count 18.6 10^3/uL (3.5-10.8)
[2021-12-27 08:55] LABS: ABS Lymphocytes 0.8 10^3/ul (1.0-4.8); ABS Monocytes 1.7 10^3/ul (0-0.8); ABS Neutrophils 16.1 10^3/ul (1.5-7.7); Lymphocyte % 4.4 %; RBC Morphology Normal (Normal)
[2021-12-27 09:00] LABS: Blood Urea Nitrogen 22 mg/dL (6-24); CO2 Carbon Dioxide 28 mmol/L (22-32); Calcium 8.4 mg/dL (8.6-10.3); Chloride 108 mmol/L (101-111); Glucose 126 mg/dL (70-100); Sodium 141 mmol/L (135-145); eGFR CKD-EPI 63.5 (>60)
[2021-12-27 09:01] LABS: Anion Gap 5 mmol/L (2-11)
[2021-12-27] MEDS: Pantoprazole VIAL 40 MG VIAL IV SCH ×2 (11:38→21:16)
[2021-12-27] MEDS: cefTRIAXone 1 gm/50 mL D5W 1 GM/50 ML BAG IV SCH (11:40)
[2021-12-27] MEDS: levETIRAcetam IV 1,500 MG in NS 0.9% 100 ml BAG 100 ML IVPB SCH (12:26)
[2021-12-27] MEDS ORDERED: Zosyn per Pharmacy NOTE FOLLOW UP SCH (14:00)
[2021-12-27] MEDS ORDERED: Piperacillin/Tazobac ADVAN 3.375 GM in NS 0.9% 100 ml BAG 100 ML IV ONE (14:30)
[2021-12-27] MEDS ORDERED: Al Hydrox/Mg Hydrox/Simet LIQ 30 ML UDC FEED TUBE PRN (14:35)
[2021-12-27] MEDS: Enoxaparin 40 MG/0.4 ML SYR SUBCUT SCH (15:32)
[2021-12-27] MEDS: Simethicone SUSP ORALSYR 66.66 MG/ML FEED TUBE SCH ×2 (16:36→21:16)
[2021-12-27] MEDS: ZOSYN 3.375 GM Q8H per EXTENDED INFUSION IV SCH (20:15)
[2021-12-28] MEDS: Fosphenytoin 100 MG in NS 0.9% 50 ML IVPB SCH ×3 (00:27→17:06)
[2021-12-28] MEDS: levETIRAcetam IV 1,500 MG in NS 0.9% 100 ml BAG 100 ML IVPB SCH ×3 (01:13→19:59)
[2021-12-28] MEDS: Morphine 2 MG/ML SYRINGE IV PRN ×4 (01:19→18:41)
[2021-12-28] MEDS: ZOSYN 3.375 GM Q8H per EXTENDED INFUSION IV SCH ×3 (04:12→21:05)
[2021-12-28 05:49] LABS: ABS Eosinophils 0.1 10^3/ul (0-0.6); ABS Lymphocytes 0.7 10^3/ul (1.0-4.8); ABS Monocytes 1.4 10^3/ul (0-0.8); ABS Neutrophils 9.6 10^3/ul (1.5-7.7); Eosinophil % 0.5 %; Hematocrit 34 % (35-47); Hemoglobin 11.1 g/dL (12.0-16.0); Mean Corpuscular HGB Conc 32 g/dL (31-36); Mean Corpuscular Hemoglobin 32 pg (27-31); Mean Corpuscular Volume 98 fL (80-97); Mean Platelet Volume 8.8 fL (7.4-10.4); Platelet Count 175 10^3/uL (150-450); Red Blood Count 3.49 10^6 /uL (3.70-4.87); Red Cell Distribution Width 13 % (10-15); White Blood Count 11.7 10^3/uL (3.5-10.8)
[2021-12-28] MEDS: Levothyroxine 100 MCG/5 ML VIAL IV SCH (05:57)
[2021-12-28 06:09] LABS: Calcium 7.9 mg/dL (8.6-10.3); Magnesium 1.8 mg/dL (1.9-2.7)
[2021-12-28 06:15] LABS: eGFR CKD-EPI 105.2 (>60)
[2021-12-28] MEDS ORDERED: Magnesium Sulfate IV 1GM/100ML 1 GM/100 ML BAG IV ONE (07:04)
[2021-12-28] MEDS: Scopolamine 1 mg/72hr PATCH TRANSDERM SCH ×2 (10:30→10:31)
[2021-12-28] MEDS: Simethicone SUSP ORALSYR 66.66 MG/ML FEED TUBE SCH ×4 (10:31→21:55)
[2021-12-28] MEDS: Pantoprazole VIAL 40 MG VIAL IV SCH ×2 (10:32→21:55)
[2021-12-28] MEDS: Silodosin 8 mg CAP (NF) PO SCH (10:33)
[2021-12-28] MEDS: Enoxaparin 40 MG/0.4 ML SYR SUBCUT SCH (14:50)
[2021-12-28] MEDS: NS 0.9% 1000 ml BAG 1,000 ML IV SCH (18:39)
[2021-12-29] MEDS: Fosphenytoin 100 MG in NS 0.9% 50 ML IVPB SCH ×2 (00:13→08:08)
[2021-12-29] MEDS: Morphine 2 MG/ML SYRINGE IV PRN ×3 (04:17→16:11)
[2021-12-29] MEDS: ZOSYN 3.375 GM Q8H per EXTENDED INFUSION IV SCH ×3 (04:20→21:56)
[2021-12-29 06:11] LABS: CO2 Carbon Dioxide 26 mmol/L (22-32); Calcium 7.9 mg/dL (8.6-10.3); Magnesium 2.1 mg/dL (1.9-2.7); Sodium 145 mmol/L (135-145)
[2021-12-29 06:14] LABS: ABS Eosinophils 0.1 10^3/ul (0-0.6); ABS Lymphocytes 0.8 10^3/ul (1.0-4.8); ABS Monocytes 1.2 10^3/ul (0-0.8); ABS Neutrophils 7.6 10^3/ul (1.5-7.7); Hematocrit 33 % (35-47); Lymphocyte % 8.1 %; Mean Corpuscular HGB Conc 33 g/dL (31-36); Mean Corpuscular Hemoglobin 33 pg (27-31); Mean Corpuscular Volume 100 fL (80-97); Mean Platelet Volume 9.4 fL (7.4-10.4); Nucleated Red Blood Cells % 0.1; Platelet Count 183 10^3/uL (150-450); Red Blood Count 3.32 10^6 /uL (3.70-4.87); Red Cell Distribution Width 13 % (10-15); White Blood Count 9.7 10^3/uL (3.5-10.8)
[2021-12-29 06:17] LABS: Blood Urea Nitrogen 15 mg/dL (6-24); Glucose 142 mg/dL (70-100); eGFR CKD-EPI 109.1 (>60)
[2021-12-29 06:20] LABS: Anion Gap 4 mmol/L (2-11); Chloride 115 mmol/L (101-111)
[2021-12-29] MEDS: Levothyroxine 100 MCG/5 ML VIAL IV SCH (06:26)
[2021-12-29] MEDS: levETIRAcetam IV 1,500 MG in NS 0.9% 100 ml BAG 100 ML IVPB SCH (08:49)
[2021-12-29] MEDS: Pantoprazole VIAL 40 MG VIAL IV SCH ×2 (08:51→23:02)
[2021-12-29] MEDS: Silodosin 8 mg CAP (NF) PO SCH (09:03)
[2021-12-29] MEDS: Simethicone SUSP ORALSYR 66.66 MG/ML FEED TUBE SCH ×4 (10:09→21:56)
[2021-12-29] MEDS: Enoxaparin 40 MG/0.4 ML SYR SUBCUT SCH (14:53)
[2021-12-29 16:47] LABS: Urine Appearance Cloudy; Urine Bilirubin Negative (Negative); Urine Blood 3+ (Negative); Urine Color Yellow; Urine Glucose Negative (Negative); Urine Ketones Negative (Negative); Urine Nitrite Negative (Negative); Urine Protein 1+(30 mg/dL) (Negative); Urine Specific Gravity 1.015 (1.002-1.030); Urine Urobilinogen Negative (Negative)
[2021-12-29 16:54] LABS: Urine Bacteria 1+ (Absent); Urine Red Blood Cell 3+(>10/hpf) (Absent); Urine Squamous Epithelial Cell Present (Absent); Urine White Blood Cell 3+(>20/hpf) (Absent)
[2021-12-29] MEDS ORDERED: Phenytoin SUSP 100 MG/4 ML UDC (100 MG) G TUBE ONE (21:00)
[2021-12-29] MEDS: levETIRAcetam LIQ 500 MG/5 ML UDC G TUBE SCH (21:56)
[2021-12-30] MEDS: Morphine 2 MG/ML SYRINGE IV PRN ×4 (01:54→22:33)
[2021-12-30] MEDS: ZOSYN 3.375 GM Q8H per EXTENDED INFUSION IV SCH ×3 (04:40→20:55)
[2021-12-30 05:52] LABS: ABS Eosinophils 0.1 10^3/ul (0-0.6); ABS Lymphocytes 0.7 10^3/ul (1.0-4.8); ABS Monocytes 0.7 10^3/ul (0-0.8); ABS Neutrophils 5.2 10^3/ul (1.5-7.7); Eosinophil % 1.7 %; Hematocrit 33 % (35-47); Hemoglobin 10.9 g/dL (12.0-16.0); Lymphocyte % 10.9 %; Mean Corpuscular HGB Conc 33 g/dL (31-36); Mean Corpuscular Hemoglobin 33 pg (27-31); Mean Corpuscular Volume 99 fL (80-97); Mean Platelet Volume 8.8 fL (7.4-10.4); Platelet Count 200 10^3/uL (150-450); Red Blood Count 3.31 10^6 /uL (3.70-4.87); Red Cell Distribution Width 12 % (10-15); White Blood Count 6.8 10^3/uL (3.5-10.8)
[2021-12-30 06:12] LABS: Calcium 8.8 mg/dL (8.6-10.3); Magnesium 1.8 mg/dL (1.9-2.7); Potassium 4.3 mmol/L (3.5-5.0); eGFR CKD-EPI 110.5 (>60)
[2021-12-30] MEDS: Silodosin 8 mg CAP (NF) PO SCH (08:04)
[2021-12-30] MEDS ORDERED: Magnesium Sulfate 2 gm BAG 2 GM/50 ML BAG IVPB ONE (08:44)
[2021-12-30] MEDS: Simethicone SUSP ORALSYR 66.66 MG/ML FEED TUBE SCH ×4 (08:44→20:56)
[2021-12-30] MEDS: levETIRAcetam LIQ 500 MG/5 ML UDC G TUBE SCH ×2 (08:44→20:56)
[2021-12-30] MEDS: Pantoprazole VIAL 40 MG VIAL IV SCH ×2 (08:44→20:56)
[2021-12-30] MEDS ORDERED: D5W 1000 ml BAG 1,000 ML IV SCH ×2 (09:00)
[2021-12-30 14:00] LABS: Blood Urea Nitrogen 11 mg/dL (6-24); CO2 Carbon Dioxide 36 mmol/L (22-32); Calcium 8.8 mg/dL (8.6-10.3); Chloride 108 mmol/L (101-111); Glucose 101 mg/dL (70-100); eGFR CKD-EPI 113.2 (>60)
[2021-12-30 14:03] LABS: Anion Gap 2 mmol/L (2-11); Sodium 146 mmol/L (135-145)
[2021-12-30] MEDS: Enoxaparin 40 MG/0.4 ML SYR SUBCUT SCH (14:43)
[2021-12-30 19:01] LABS: Blood Urea Nitrogen 12 mg/dL (6-24); CO2 Carbon Dioxide 35 mmol/L (22-32); Calcium 8.7 mg/dL (8.6-10.3); Chloride 104 mmol/L (101-111); Glucose 123 mg/dL (70-100); Sodium 145 mmol/L (135-145); eGFR CKD-EPI 111.5 (>60)
[2021-12-30 19:24] LABS: Anion Gap 6 mmol/L (2-11)
[2021-12-30] MEDS: Phenytoin SUSP 100 MG/4 ML UDC (100 MG) G TUBE SCH (20:56)
[2021-12-31] MEDS: Morphine 2 MG/ML SYRINGE IV PRN ×4 (04:59→21:13)
[2021-12-31] MEDS: ZOSYN 3.375 GM Q8H per EXTENDED INFUSION IV SCH ×3 (04:59→21:11)
[2021-12-31 06:35] LABS: ABS Eosinophils 0.2 10^3/ul (0-0.6); ABS Monocytes 0.7 10^3/ul (0-0.8); ABS Neutrophils 4.6 10^3/ul (1.5-7.7); Eosinophil % 3.6 %; Hematocrit 34 % (35-47); Hemoglobin 11.5 g/dL (12.0-16.0); Lymphocyte % 15.8 %; Mean Corpuscular HGB Conc 34 g/dL (31-36); Mean Corpuscular Hemoglobin 33 pg (27-31); Mean Corpuscular Volume 97 fL (80-97); Mean Platelet Volume 8.7 fL (7.4-10.4); Platelet Count 227 10^3/uL (150-450); Red Blood Count 3.51 10^6 /uL (3.70-4.87); Red Cell Distribution Width 12 % (10-15); White Blood Count 6.6 10^3/uL (3.5-10.8)
[2021-12-31 07:07] LABS: Calcium 8.7 mg/dL (8.6-10.3); Potassium 4.1 mmol/L (3.5-5.0)
[2021-12-31 07:12] LABS: eGFR CKD-EPI 113.2 (>60)
[2021-12-31] MEDS: Acetaminophen IV 1 GM/100ML 100 ML IV PRN (08:26)
[2021-12-31] MEDS: levETIRAcetam LIQ 500 MG/5 ML UDC G TUBE SCH ×2 (08:30→21:11)
[2021-12-31] MEDS: Simethicone SUSP ORALSYR 66.66 MG/ML FEED TUBE SCH ×4 (08:30→21:12)
[2021-12-31] MEDS: Scopolamine 1 mg/72hr PATCH TRANSDERM SCH (08:31)
[2021-12-31] MEDS: Pantoprazole VIAL 40 MG VIAL IV SCH ×2 (08:42→21:12)
[2021-12-31] MEDS: Silodosin 8 mg CAP (NF) PO SCH (08:45)
[2021-12-31] MEDS ORDERED: LORazepam 2 mg VIAL 1 ml IV PUSH PRN (14:08)
[2021-12-31] MEDS ORDERED: Lorazepam PYXIS KEY PRN (14:08)
[2021-12-31] MEDS: Phenytoin SUSP 100 MG/4 ML UDC (100 MG) G TUBE SCH (21:12)
[2022-01-01] MEDS: ZOSYN 3.375 GM Q8H per EXTENDED INFUSION IV SCH ×3 (06:04→23:21)
[2022-01-01] MEDS: Morphine 2 MG/ML SYRINGE IV PRN ×3 (07:20→23:23)
[2022-01-01] MEDS: Simethicone SUSP ORALSYR 66.66 MG/ML FEED TUBE SCH ×4 (08:06→23:22)
[2022-01-01] MEDS: levETIRAcetam LIQ 500 MG/5 ML UDC G TUBE SCH ×2 (08:06→22:00)
[2022-01-01] MEDS: Pantoprazole VIAL 40 MG VIAL IV SCH ×2 (08:07→23:22)
[2022-01-01] MEDS: Silodosin 8 mg CAP (NF) PO SCH (08:08)
[2022-01-01] MEDS: Acetaminophen IV 1 GM/100ML 100 ML IV PRN (18:00)
[2022-01-01] MEDS: Phenytoin SUSP 100 MG/4 ML UDC (100 MG) G TUBE SCH (20:22)
[2022-01-01] MEDS ORDERED: NS 0.9% 100 ml BAG 100 ML ONE (22:04)
[2022-01-02] MEDS ORDERED: NS 0.9% 100 ml BAG 100 ML ONE (04:05)
[2022-01-02] MEDS: ZOSYN 3.375 GM Q8H per EXTENDED INFUSION IV SCH ×2 (04:19→13:58)
[2022-01-02] MEDS: Morphine 2 MG/ML SYRINGE IV PRN (10:21)
[2022-01-02] MEDS: Simethicone SUSP ORALSYR 66.66 MG/ML FEED TUBE SCH ×4 (10:23→20:30)
[2022-01-02] MEDS: Pantoprazole VIAL 40 MG VIAL IV SCH (10:24)
[2022-01-02] MEDS: levETIRAcetam LIQ 500 MG/5 ML UDC G TUBE SCH ×2 (10:24→20:29)
[2022-01-02] MEDS: Silodosin 8 mg CAP (NF) PO SCH (10:26)
[2022-01-02] MEDS: Morphine ORAL CONCENTRATE 5 MG/0.25 ML ORAL.SYRIN PO PRN (18:11)
[2022-01-02] MEDS: Phenytoin SUSP 100 MG/4 ML UDC (100 MG) G TUBE SCH (20:29)
[2022-01-03] MEDS: Morphine ORAL CONCENTRATE 5 MG/0.25 ML ORAL.SYRIN PO PRN ×4 (05:49→20:06)
[2022-01-03] MEDS: Scopolamine 1 mg/72hr PATCH TRANSDERM SCH (08:13)
[2022-01-03] MEDS: levETIRAcetam LIQ 500 MG/5 ML UDC G TUBE SCH ×2 (08:44→20:05)
[2022-01-03] MEDS: Simethicone SUSP ORALSYR 66.66 MG/ML FEED TUBE SCH ×4 (08:44→20:06)
[2022-01-03] MEDS: Silodosin 8 mg CAP (NF) PO SCH (08:46)
[2022-01-03] MEDS: Phenytoin SUSP 100 MG/4 ML UDC (100 MG) G TUBE SCH (20:05)
[2022-01-04] MEDS: levETIRAcetam LIQ 500 MG/5 ML UDC G TUBE SCH ×2 (09:56→20:48)
[2022-01-04] MEDS: Simethicone SUSP ORALSYR 66.66 MG/ML FEED TUBE SCH ×4 (09:57→20:48)
[2022-01-04] MEDS: Silodosin 8 mg CAP (NF) PO SCH (10:02)
[2022-01-04] MEDS ORDERED: Ondansetron ODT 4 mg TAB 4 MG TAB SL PRN (14:13)
[2022-01-04] MEDS: Phenytoin SUSP 100 MG/4 ML UDC (100 MG) G TUBE SCH (20:48)
[2022-01-05] MEDS: Simethicone SUSP ORALSYR 66.66 MG/ML FEED TUBE SCH ×4 (08:27→22:04)
[2022-01-05] MEDS: levETIRAcetam LIQ 500 MG/5 ML UDC G TUBE SCH ×2 (08:28→22:04)
[2022-01-05] MEDS: Silodosin 8 mg CAP (NF) PO SCH (08:34)
[2022-01-05] MEDS: Phenytoin SUSP 100 MG/4 ML UDC (100 MG) G TUBE SCH (22:04)
[2022-01-06] MEDS: Scopolamine 1 mg/72hr PATCH TRANSDERM SCH (08:18)
[2022-01-06] MEDS: Simethicone SUSP ORALSYR 66.66 MG/ML FEED TUBE SCH ×4 (08:20→21:57)
[2022-01-06] MEDS: levETIRAcetam LIQ 500 MG/5 ML UDC G TUBE SCH ×2 (08:20→21:57)
[2022-01-06] MEDS: Morphine ORAL CONCENTRATE 5 MG/0.25 ML ORAL.SYRIN PO PRN ×2 (12:46→17:28)
[2022-01-06] MEDS: Phenytoin SUSP 100 MG/4 ML UDC (100 MG) G TUBE SCH (21:57)
[2022-01-07] MEDS: Morphine ORAL CONCENTRATE 5 MG/0.25 ML ORAL.SYRIN PO PRN ×4 (07:56→21:58)
[2022-01-07] MEDS: Simethicone SUSP ORALSYR 66.66 MG/ML FEED TUBE SCH ×4 (07:57→22:00)
[2022-01-07] MEDS: levETIRAcetam LIQ 500 MG/5 ML UDC G TUBE SCH ×2 (07:57→20:00)
[2022-01-07] MEDS: Phenytoin SUSP 100 MG/4 ML UDC (100 MG) G TUBE SCH (22:00)
[2022-01-08] MEDS: Morphine ORAL CONCENTRATE 5 MG/0.25 ML ORAL.SYRIN PO PRN ×2 (09:43→16:15)
[2022-01-08] MEDS: levETIRAcetam LIQ 500 MG/5 ML UDC G TUBE SCH ×2 (09:44→20:18)
[2022-01-08] MEDS: Simethicone SUSP ORALSYR 66.66 MG/ML FEED TUBE SCH ×4 (10:26→20:18)
[2022-01-08] MEDS: Phenytoin SUSP 100 MG/4 ML UDC (100 MG) G TUBE SCH (20:18)
[2022-01-09] MEDS: levETIRAcetam LIQ 500 MG/5 ML UDC G TUBE SCH (12:10)
[2022-01-09] MEDS: Simethicone SUSP ORALSYR 66.66 MG/ML FEED TUBE SCH ×3 (12:12→17:00)
[2022-01-09] MEDS: Scopolamine 1 mg/72hr PATCH TRANSDERM SCH (12:15)
[2022-01-10] MEDS: levETIRAcetam LIQ 500 MG/5 ML UDC G TUBE SCH ×3 (00:24→20:54)
[2022-01-10] MEDS: Simethicone SUSP ORALSYR 66.66 MG/ML FEED TUBE SCH ×5 (00:25→20:53)
[2022-01-10] MEDS: Phenytoin SUSP 100 MG/4 ML UDC (100 MG) G TUBE SCH ×2 (00:25→20:54)
[2022-01-10] MEDS: Morphine ORAL CONCENTRATE 5 MG/0.25 ML ORAL.SYRIN PO PRN (20:53)
[2022-01-11] MEDS: Morphine ORAL CONCENTRATE 5 MG/0.25 ML ORAL.SYRIN PO PRN ×3 (02:00→13:04)
[2022-01-11 08:27] VITALS: BP 136/90
[2022-01-11] MEDS: Simethicone SUSP ORALSYR 66.66 MG/ML FEED TUBE SCH ×4 (10:57→20:44)
[2022-01-11] MEDS: levETIRAcetam LIQ 500 MG/5 ML UDC G TUBE SCH ×2 (10:57→20:43)
[2022-01-11] MEDS: Phenytoin SUSP 100 MG/4 ML UDC (100 MG) G TUBE SCH (20:43)
[2022-01-12] MEDS: Morphine ORAL CONCENTRATE 5 MG/0.25 ML ORAL.SYRIN PO PRN ×2 (09:54→15:47)
[2022-01-12] MEDS: levETIRAcetam LIQ 500 MG/5 ML UDC G TUBE SCH ×2 (09:54→22:17)
[2022-01-12] MEDS: Scopolamine 1 mg/72hr PATCH TRANSDERM SCH (09:55)
[2022-01-12] MEDS: Simethicone SUSP ORALSYR 66.66 MG/ML FEED TUBE SCH ×4 (09:56→22:18)
[2022-01-12] MEDS: Phenytoin SUSP 100 MG/4 ML UDC (100 MG) G TUBE SCH (22:18)
[2022-01-13] MEDS: Simethicone SUSP ORALSYR 66.66 MG/ML FEED TUBE SCH ×4 (09:46→23:04)
[2022-01-13] MEDS: Morphine ORAL CONCENTRATE 5 MG/0.25 ML ORAL.SYRIN PO PRN (09:46)
[2022-01-13] MEDS: levETIRAcetam LIQ 500 MG/5 ML UDC G TUBE SCH ×2 (09:47→22:59)
[2022-01-13] MEDS: Phenytoin SUSP 100 MG/4 ML UDC (100 MG) G TUBE SCH (23:04)
[2022-01-14] MEDS: levETIRAcetam LIQ 500 MG/5 ML UDC G TUBE SCH ×2 (07:49→23:05)
[2022-01-14] MEDS: Simethicone SUSP ORALSYR 66.66 MG/ML FEED TUBE SCH ×4 (07:49→23:06)
[2022-01-14] MEDS: Morphine ORAL CONCENTRATE 5 MG/0.25 ML ORAL.SYRIN PO PRN ×2 (12:24→23:06)
[2022-01-14] MEDS: Phenytoin SUSP 100 MG/4 ML UDC (100 MG) G TUBE SCH (23:05)
[2022-01-15] MEDS: Morphine ORAL CONCENTRATE 5 MG/0.25 ML ORAL.SYRIN PO PRN ×8 (03:20→21:37)
[2022-01-15] MEDS: Simethicone SUSP ORALSYR 66.66 MG/ML FEED TUBE SCH ×4 (07:42→21:18)
[2022-01-15] MEDS: levETIRAcetam LIQ 500 MG/5 ML UDC G TUBE SCH ×2 (07:42→21:17)
[2022-01-15] MEDS: Scopolamine 1 mg/72hr PATCH TRANSDERM SCH (07:43)
[2022-01-15] MEDS: Atropine 1% (ORAL/SL) 15 ML BTL SL PRN ×2 (11:15→18:23)
[2022-01-15] MEDS: Phenytoin SUSP 100 MG/4 ML UDC (100 MG) G TUBE SCH (21:17)
[2022-01-16] MEDS: Morphine ORAL CONCENTRATE 5 MG/0.25 ML ORAL.SYRIN PO PRN ×12 (01:17→23:15)
[2022-01-16] MEDS: Simethicone SUSP ORALSYR 66.66 MG/ML FEED TUBE SCH (07:20)
[2022-01-16] MEDS: levETIRAcetam LIQ 500 MG/5 ML UDC G TUBE SCH ×2 (07:21→22:27)
[2022-01-16] MEDS: Atropine 1% (ORAL/SL) 15 ML BTL SL PRN ×2 (07:27→09:45)
[2022-01-16] MEDS ORDERED: ACETAM FEED TUBE PRN (12:55)
[2022-01-16] MEDS ORDERED: Lorazepam PYXIS KEY PRN (12:57)
[2022-01-16] MEDS ORDERED: LORazepam 2 mg VIAL 1 ml IV PUSH SCH (13:00)
[2022-01-16] MEDS: Glycopyrrolate IV 0.2 MG/ML 1 ML VIAL IV SLOW PU SCH ×2 (14:45→19:42)
[2022-01-17] MEDS: Glycopyrrolate IV 0.2 MG/ML 1 ML VIAL IV SLOW PU SCH (01:07)
[2022-01-17] MEDS: Morphine ORAL CONCENTRATE 5 MG/0.25 ML ORAL.SYRIN PO PRN ×2 (02:45→04:09)
== END 2022-01-17 05:05 | disposition expired | DRG 853 ==
LOC: ED 02:30 → SUATTDRO 09:03 → EDHOLD 09:03 → SSU 10:06 → UNDODISIN 01-07 13:20 → MED 01-11 08:25
PROVIDERS: ADMIT Internal Medicine; ATTEND Internal Medicine